=== PATIENT | male | born 1940 | race Caucasian/White ===

== ENCOUNTER 2016-12-06 10:46 | Emergency (ER) | payer OTHER ==
[~2016-12-06 10:46] MED LIST: ASPI-589 PO; CHOL1TAB2 PO; CYAN100020 PO; FINA5TAB PO; LEVO88TA PO; NTRGSL/4 UT; PRED-301 PO; SIMV20TA2 PO; SULF-183 PO; TAMS0.4C38 PO; TIOTCAP INH; UMEC1AER INH
[2016-12-06 10:50] VITALS: TEMP 36.8; Ht 167.6 cm
[2016-12-06] MEDS ORDERED: CALC1TAB27 PO (10:59)
[2016-12-06] MEDS ORDERED: FLUC100T4 PO (10:59)
[2016-12-06] MEDS ORDERED: ZNTT/150 PO (10:59)
[2016-12-06] MEDS ORDERED: SODIUM CHLORIDE 0.9% 1000ML 1,000 ML IV STA ×2 (11:01)
[2016-12-06 11:50] VITALS: O2SAT 99
--- NOTE | 2016-12-06 11:58 | DIAGNOSTIC IMAGING REPORT ---
CHEST ONE VIEW PORTABLE HISTORY: EVALUATE WEAKNESS COMPARISON: Chest 06/30/2016. FINDINGS: The heart remains top normal in size. Mild bibasilar interstitial thickening which is likely chronic. Stable blunting of the right lateral costophrenic sulcus. No pneumothorax. No new focal lung consolidations. No evidence for pulmonary edema. Left subclavian Port-A-Cath terminates in the distal SVC. Cervical spinal fusion hardware. Emphysema. IMPRESSION: No change from the prior study. Chronic basilar interstitial thickening and a trace right pleural effusion persists. Electronically signed by: Von Rocha M.D. 12/06/2016 11:56 AM Dictated Date/Time: 12/06/2016 11:55 AM
[2016-12-06 12:19] LABS: INR 1.1 (0.9-1.1); PARTIAL THROMBOPLASTIN RATIO 1.3
[2016-12-06 12:24] LABS: ALT/SGPT 14 U/L (12-78); AST/SGOT 13 U/L (15-37); BLOOD UREA NITROGEN 25 mg/dl (7-18); CALCIUM 8.1 mg/dl (8.5-10.1); CARBON DIOXIDE 25 mmol/L (21-32); CHLORIDE 105 mmol/L (98-107); GLUCOSE 103 mg/dl (70-99); MAGNESIUM 2.4 mg/dl (1.8-2.4); POTASSIUM 3.8 mmol/L (3.5-5.1); SODIUM 140 mmol/L (136-145)
[2016-12-06 12:25] LABS: HEMATOCRIT 30.1 % (42-52); MEAN CELL VOLUME 93.5 fL (80-100); MEAN CORPUSCULAR HEMOGLOBIN 30.4 pg (25-34); MEAN CORPUSCULAR HGB CONC 32.6 g/dl (32-36); MEAN PLATELET VOLUME 11.3 fL (7.4-10.4); PLATELET COUNT 64 K/uL (130-400); RED BLOOD COUNT 3.22 M/uL (4.7-6.1); WHITE BLOOD COUNT 1.18 K/uL (4.8-10.8)
[2016-12-06 12:28] LABS: BASO % 0.8 %; BASO ABS # 0.01 K/uL (0-0.2); COMPLETE YES; EOS % 1.7 %; IG% 0.8 %; LYMPH % 45.8 %; LYMPH ABS # 0.54 K/uL (1.2-3.4); MONO % 16.1 %; NEUT % 34.8 %; PLT ESTIMATE DECREASED
[2016-12-06 12:32] LABS: ALKALINE PHOSPHATASE 78 U/L (45-117); CKMB/CK RATIO 0.7 (0-3.0); THYROID STIMULATING HORMONE 0.099 uIu/ml (0.300-4.500)
--- NOTE | 2016-12-06 12:33 | DIAGNOSTIC IMAGING REPORT ---
HEAD CT NONCONTRAST CT DOSE: 537.48 mGy.cm HISTORY: Syncope. weakness TECHNIQUE: Multiaxial CT images of the head were performed without the use of intravenous contrast. Automated exposure control was utilized for this study. Comparison: None. Findings: The paranasal sinuses and mastoid air cells are clear. The calvarium and skull base are intact. There is no mass, hematoma, midline shift, acute infarct. White matter hypodensity is nonspecific but suggestive of microvascular ischemic change. The ventricles and sulci demonstrate mild age-related involutional changes. Impression: No acute intracranial abnormality. Atrophy and microvascular ischemic changes. Electronically signed by: Von Rocha M.D. 12/06/2016 12:32 PM Dictated Date/Time: 12/06/2016 12:30 PM
[2016-12-06 13:17] LABS: URINE APPEARANCE CLEAR (CLEAR); URINE BILIRUBIN NEG (NEG); URINE COLOR YELLOW; URINE NITRITE NEG (NEG); URINE PH 6.5 (4.5-7.5); URINE SPECIFIC GRAVITY 1.009 (1.000-1.030); UROBILINOGEN NEG (NEG)
[2016-12-06 13:21] LABS: MANUAL MICROSCOPIC REQUIRED? NO; REVIEW REQ? NO
[2016-12-06] MEDS ORDERED: NITROFURANTOIN MONOHYDRATE 100 MG CAP PO ONE (14:45)
[2016-12-06 15:53] VITALS: BP 117/53; PULSE 67; O2SAT 99
--- NOTE | 2016-12-06 16:53 | EMERGENCY ROOM VISIT NOTE ---
History Report prepared by Pattie: Damon Lino Under the Supervision of: Dr. Josue Maxwell M.D. First contact with patient: 11:01 Chief Complaint: ILLNESS Stated Complaint: WEAK, DOESN'T FEEL WELL, COLLAPSED LAST EVENING History of Present Illness The patient is a 76 year old male who presents to the Emergency Room with complaints of persistent weakness that started last night. The patient states that he has been wiped out, and last night, he was coming out of the bathroom, and his legs went out after losing his balance. He states that he did not fall, but went to the ground slowly. He says that he was short of breath last night as well with some chills. The patient is currently being treated on a maintenance treatment for lymphoma. The patient notes that he had been feeling great the past couple of days, and was at physical therapy yesterday morning. He did not his head, and the family denies that the patient was acting abnormally or was having any slurred speech. The patient's last chemotherapy was October 28. The patient's family notes that the patient's last Neulasta injection was the of last month, and was due for another one earlier this month, but blood work indicated that it was not needed. The patient has been prone to UTI's for the past month, and was put on maintenance Macrobid. He has been off of the Macrobid for a week due to problems with the prescription. The patient had bloody stools last month, but the doctors thought that it was just a colitis. He had a TURP and cholecystectomy in April. Pt denies LOC, headache , fevers, diaphoresis, visual changes, neck pain, chest pain, nausea, vomiting, abdominal pain, back pain, melena, hematochezia, urinary symptoms, numbness, lymphadenopathy, rash, or other complaints. Source of History: patient, family Onset: Last night Position: other (global - weakness) Symptom Intensity: slowly fell to ground after losing balance last night Timing: other (persistent) Associated Symptoms: + SOB (last night), + chills Note: No other associated symptoms noted. Review of Systems See HPI for pertinent positives and negatives. A total of ten systems were reviewed and were otherwise negative. Past Medical & Surgical Medical Problems: (1) Abnormal LFTs (2) MACRINA (acute kidney injury) (3) Anemia (4) Aortic stenosis, moderate (5) Bile leak, postoperative (6) Choledocholithiasis with acute cholecystitis with obstruction (7) Hypertension (8) Lymphoma (9) NHL (non-Hodgkin's lymphoma) (10) sob copd, chf, pleural effusion, lymphoma (11) Urinary tract infection Family History Patient reports no known family medical history. Social History Smoking Status: Current Every Day Smoker Drug Use: none Marital Status: Housing Status: lives with family Occupation Status: retired Current/Historical Medications Scheduled Dmamkxp-Ykeihauby-Zbjf (Calcium Magnesium & Zinc), 1 TAB PO QPM Cholecalciferol (Vitamin D-3), 1,000 UNITS PO DAILY Cyanocobalamin (Vitamin B12), 1,000 MCG PO DAILY Finasteride (Proscar), 1 TAB PO HS Fluconazole (Diflucan), 100 MG PO DIRECTED Levothyroxine Sodium (Synthroid), 1 TAB PO QAM Nitroglycerin (Nitrostat), 0.4 MG UT PRN Prednisone (Prednisone), 5 MG PO QAM Simvastatin (Zocor), 1 TAB PO HS Tamsulosin Hcl (Flomax), 0.4 MG PO BID Tiotropium [place] (Spiriva Handihaler), 1 CAP INH QAM Umeclidinium-Vilanterol (Anoro Ellipta 62.5-25 Mcg/INH), 1 PUFF INH QAM Scheduled PRN Ranitidine (Zantac), 150 MG PO DAILY PRN for PRN Allergies Coded Allergies: Gabapentin (Verified Adverse Reaction, Intermediate, unknown, 12/06/16) Patient's stated patient "developed signs of a heart attack w/ use of gabapentin". Physical Exam Vital Signs Date Time Temp Pulse Resp B/P Pulse Ox O2 Delivery O2 Flow Rate FiO2 12/06/16 15:53 67 18 117/53 99 12/06/16 13:47 95 95 Room Air 12/06/16 13:04 75 18 122/52 98 89 111/55 100 123/53 12/06/16 12:04 70 12/06/16 11:50 99 Room Air 12/06/16 10:50 36.8 77 20 99/42 99 Room Air Physical Exam GENERAL: Awake, alert, tired-appearing, in no distress HENT: Normocephalic, atraumatic. Oropharynx unremarkable. EYES: Normal conjunctiva. Sclera non-icteric. NECK: Supple. No nuchal rigidity. FROM. No JVD. RESPIRATORY: Clear to auscultation. CARDIAC: Regular rate, normal rhythm. Extremities warm and well perfused. Pulses equal. ABDOMEN: Soft, non-distended. No tenderness to palpation. No rebound or guarding. No masses. RECTAL: Deferred. MUSCULOSKELETAL: Chest examination reveals no tenderness. The back is symmetrical on inspection without obvious abnormality. There is no CVA tenderness to palpation. No joint edema. LOWER EXTREMITIES: Calves are equal size bilaterally and non-tender. 1+ pitting edema. No discoloration. 3/5 strength right leg, 4/5 strength left leg, but patient states weakness is not new. NEURO: Normal sensorium. No sensory or motor deficits noted. SKIN: No rash or jaundice noted. Medical Decision & Procedures ER Provider Diagnostic Interpretation: Radiology results as stated below per my review and radiologist interpretation: CHEST ONE VIEW PORTABLE HISTORY: EVALUATE WEAKNESS COMPARISON: Chest 06/30/2016. FINDINGS: The heart remains top normal in size. Mild bibasilar interstitial thickening which is likely chronic. Stable blunting of the right lateral costophrenic sulcus. No pneumothorax. No new focal lung consolidations. No evidence for pulmonary edema. Left subclavian Port-A-Cath terminates in the distal SVC. Cervical spinal fusion hardware. Emphysema. IMPRESSION: No change from the prior study. Chronic basilar interstitial thickening and a trace right pleural effusion persists. Electronically signed by: Von Rocha M.D. 12/06/2016 11:56 AM Dictated Date/Time: 12/06/2016 11:[address] CT DOSE: 537.48 mGy.cm HISTORY: Syncope. weakness TECHNIQUE: Multiaxial CT images of the head were performed without the use of intravenous contrast. Automated exposure control was utilized for this study. Comparison: None. Findings: The paranasal sinuses and mastoid air cells are clear. The calvarium and skull base are intact. There is no mass, hematoma, midline shift, acute infarct. White matter hypodensity is nonspecific but suggestive of microvascular ischemic change. The ventricles and sulci demonstrate mild age-related involutional changes. Impression: No acute intracranial abnormality. Atrophy and microvascular ischemic changes. Electronically signed by: Von Rocha M.D. 12/06/2016 12:32 PM Dictated Date/Time: 12/06/2016 12:30 PM Laboratory Results 12/06/16 11:45 Red Blood Count 3.22, Mean Corpuscular Volume 93.5, Mean Corpuscular Hemoglobin 30.4, Mean Corpuscular Hemoglobin Concent 32.6, Mean Platelet Volume 11.3, Neutrophils (%) (Auto) 34.8, Lymphocytes (%) (Auto) 45.8, Monocytes (%) (Auto) 16.1, Eosinophils (%) (Auto) 1.7, Basophils (%) (Auto) 0.8, Neutrophils # (Auto ) 0.41, Lymphocytes # (Auto) 0.54, Monocytes # (Auto) 0.19, Eosinophils # (Auto ) 0.02, Basophils # (Auto) 0.01 12/06/16 11:45 Test 12/06/16 11:45 12/06/16 11:59 12/06/16 13:01 White Blood Count 1.18 K/uL (4.8-10.8) Red Blood Count 3.22 M/uL (4.7-6.1) Hemoglobin 9.8 g/dL (14.0-18.0) Hematocrit 30.1 % (42-52) Mean Corpuscular Volume 93.5 fL (80-100) Mean Corpuscular Hemoglobin 30.4 pg (25-34) Mean Corpuscular Hemoglobin Concent 32.6 g/dl (32-36) Platelet Count 64 K/uL (130-400) Mean Platelet Volume 11.3 fL (7.4-10.4) Neutrophils (%) (Auto) 34.8 % Lymphocytes (%) (Auto) 45.8 % Monocytes (%) (Auto) 16.1 % Eosinophils (%) (Auto) 1.7 % Basophils (%) (Auto) 0.8 % Neutrophils # (Auto) 0.41 K/uL (1.4-6.5) Lymphocytes # (Auto) 0.54 K/uL (1.2-3.4) Monocytes # (Auto) 0.19 K/uL (0.11-0.59) Eosinophils # (Auto) 0.02 K/uL (0-0.5) Basophils # (Auto) 0.01 K/uL (0-0.2) RDW Standard Deviation 60.8 fL (36.4-46.3) RDW Coefficient of Variation 17.7 % (11.5-14.5) Immature Granulocyte % (Auto) 0.8 % Immature Granulocyte # (Auto) 0.01 K/uL (0.00-0.02) Platelet Estimate DECREASED Red Blood Cell Morphology Unremarkable Prothrombin Time 12.0 SECONDS (9.0-12.0) Prothromb Time International Ratio 1.1 (0.9-1.1) Activated Partial Thromboplast Time 34.9 SECONDS (21.0-31.0) Partial Thromboplastin Ratio 1.3 Anion Gap 10.0 mmol/L (3-11) Estimated GFR () 61.0 Estimated GFR (Non- 52.6 BUN/Creatinine Ratio 19.0 (10-20) Calcium Level 8.1 mg/dl (8.5-10.1) Magnesium Level 2.4 mg/dl (1.8-2.4) Total Bilirubin 0.8 mg/dl (0.2-1) Direct Bilirubin 0.3 mg/dl (0-0.2) Aspartate Amino Transf (AST/SGOT) 13 U/L (15-37) Alanine Aminotransferase (ALT/SGPT) 14 U/L (12-78) Alkaline Phosphatase 78 U/L (45-117) Total Creatine Kinase 149 U/L (39-308) Creatine Kinase MB 1.0 ng/ml (0.5-3.6) Creatine Kinase MB Ratio 0.7 (0-3.0) Troponin I 0.021 ng/ml (0-0.045) Total Protein 5.5 gm/dl (6.4-8.2) Albumin 3.0 gm/dl (3.4-5.0) Lipase 255 U/L (73-393) Thyroid Stimulating Hormone (TSH) 0.099 uIu/ml (0.300-4.500) Bedside Lactic Acid Venous 0.73 mmol/L (0.90-1.70) Urine Color YELLOW Urine Appearance CLEAR (CLEAR) Urine pH 6.5 (4.5-7.5) Urine Specific [place] 1.009 (1.000-1.030) Urine Protein NEG (NEG) Urine Glucose (UA) NEG (NEG) Urine Ketones NEG (NEG) Urine Occult Blood NEG (NEG) Urine Nitrite NEG (NEG) Urine Bilirubin NEG (NEG) Urine Urobilinogen NEG (NEG) Urine Leukocyte Esterase NEG (NEG) Laboratory results reviewed by me Medications Administered Medications (Trade) Dose Ordered Sig/Hari Route Start Time Stop Time Status Last Admin Dose Admin Sodium Chloride 1,000 ml @ 125 mls/hr Q8H STAT IV 12/06/16 11:01 12/06/16 16:19 DC 12/06/16 12:05 125 MLS/HR Sodium Chloride (Nss 1000ml) 1,000 ml @ 999 mls/hr Q1H1M STAT IV 12/06/16 11:01 12/06/16 12:01 DC 12/06/16 12:05 999 MLS/HR ECG Indication: weakness Rate (beats per minute): 69 Rhythm: normal sinus Findings: 1st degree AV block, no acute ischemic change, no ectopy ED Course 1101: Ordered NSS 1000 ml @ 999 mls/hr IV, NSS 1000 ml @ 125 mls/hr IV. 1111: The patient was evaluated in room B2. A complete history and physical exam was performed. 1325: I reevaluated the patient and he is feeling well. 1409: I reevaluated the patient with Dr. Burks - [facility] hematology and oncology - he says that the patient has had this problem with pancytopenia before and has had ongoing issues. Dr. Burks says that he would prefer not to hospitalize the patient just for neutropenia unless other problems are found. If the workups are negative here, then he want the patient to call the office on Thursday for a follow up. 1427: Ambulatory trial went fine with no issues. 1432: I reevaluated the patient and had a long discussion with him. He feels comfortable with going home, and following up with Dr. Burks and urology on Thursday. The patient verbally expressed understanding and agreement of the treatment plan. The patient will be discharged. 1445: Macrobid Cap 200 mg PO to go (1 today, 1 tomorrow). 1457: I discussed the patient with Dr. Anju Gomez [facility] urology - he said to have the patient just call the office. Medical Decision Triage Nursing notes reviewed. The patient's presentation and history were concerning for feeling weak. Etiologies such as metabolic, infection, hypo/hyperglycemia, electrolyte abnormalities, cardiac sources, intracerebral event, toxicologic, neurologic, as well as others were entertained. the patient was evaluated. He noted on brief episode of chills and was feeling weak. He didn't actually fall yesterday. He felt short of breath when he was trying to get himself back up when he had the episode and his caught him and lowered him down. He denied any breathing issues before or after. The patient feels essentially asymptomatic at this time except just generally weak but denies any new changes. He always has lower extremity weakness. The patient underwent a full metabolic workup and neurologic workup. His head CT was unremarkable. Chest x-ray was unremarkable. ECG revealed no acute findings. CBC revealed pancytopenia and mild neutropenia. The patient was hydrated gently. He is urinalysis was unremarkable. Remainder of his electrolytes and chemistries were unremarkable. Cardiac markers negative. I did discuss his pancytopenia with hematology. Given the lack of other diagnostic findings a felt keeping him out of the hospital would be most appropriate and avoiding any serious infection. The patient and family feel comfortable with this. They will follow-up with the office on Thursday. The patient had an ambulatory trial and did well with this. Orthostatics were negative. He was not hypoxic even with embolization. The patient will have a very low threshold for returning. Any issues especially fevers or chills will prompt a return visit to the emergency department. Neutropenic precautions were given. I gave my usual and customary discussion regarding this issue. He is having issues with his prophylactic Macrobid prescription. He is currently out. He was given a dose for today and tomorrow. I did notify his urologist, Dr. Rene that he was having difficulty with this prescription in the office will take care of it. By the evaluation outlined above other emergent etiologies such as those listed in the differential, as well as others, were deemed relatively unlikely. The patient and family were informed about the findings as listed above. All questions were answered and they were very pleased with the treatment. Return instructions were outlined and the patient was discharged in stable condition. The patient was referred to urology and his hematology for follow-up for a recheck of the current condition. The chart was completed utilizing [employer] voice recognition software. Grammatical errors, random word insertions, pronoun errors, and incomplete sentences are an occasional consequence of this system due to software limitations, ambient noise, and hardware issues. Any formal questions or concerns about the content, text, or information contained within the body of this dictation should be directly addressed to the physician for clarification. Consults Time Called: 1400 Consulting Physician: Dr. Kimmie ALMONTE hematology and oncology Returned Call: 1409 I reevaluated the patient with Dr. Kimmie ALMONTE hematology and oncology - he says that the patient has had this problem with pancytopenia before and has had ongoing issues. Dr. Burks says that he would prefer not to hospitalize the patient just for neutropenia unless other problems are found. If the workups are negative here, then he want the patient to call the office on Thursday for a follow up. Additional Consults: Time Called: 1450 Consulted Physician: Dr. Anju ALMONTE urology Returned Call: 1452 Additional Comments: I discussed the patient with Dr. Anju ALMONTE urology - he said to have the patient just call the office. Impression Primary Impression: Generalized weakness Additional Impressions: Neutropenia Pancytopenia Scribe Attestation The scribe's documentation has been prepared under my direction and personally reviewed by me in its entirety. I confirm that the note above accurately reflects all work, treatment, procedures, and medical decision making performed by me. Departure Information Dispostion Home / Self-Care Referrals No Doctor, Assigned (PCP) Harry Ovalle M.D. Forms HOME CARE DOCUMENTATION FORM, IMPORTANT VISIT INFORMATION, WORK / SCHOOL INSTRUCTIONS Patient Instructions My [facility], Neutropenia Additional Instructions Continue current medications. Follow-up with Dr. Vincent on Thursday. Return to the ER for worsening weakness, headache, chest pain, difficulty breathing, fevers, vomiting, worsening of your condition, or as needed. Problem Qualifiers
[2016-12-07] MEDS ORDERED: SPRIN/30 INH (09:44)
[2016-12-07] MEDS ORDERED: UMEC1AER INH (09:44)
[2016-12-07] MEDS ORDERED: FLM4 PO (09:44)
== END 2016-12-06 15:55 | disposition home or self-care (01) ==
LOC: C.EDB 10:49
DX: R53.1 Weakness (principal); D70.9 Neutropenia, unspecified; D61.818 Other pancytopenia; C85.90 Non-Hodgkin lymphoma, unspecified, unspecified site; I10 Essential (primary) hypertension; J44.9 Chronic obstructive pulmonary disease, unspecified; F17.200 Nicotine dependence, unspecified, uncomplicated; Z87.440 Personal history of urinary (tract) infections; Z90.79 Acquired absence of other genital organ(s); Z90.49 Acquired absence of other specified parts of digestive tract; Z79.52 Long term (current) use of systemic steroids

== ENCOUNTER 2016-12-07 09:32 | Inpatient (IN) | payer OTHER ==
[~2016-12-07] VITALS: Ht 167.6 cm; Wt 69.0 kg
[~2016-12-07 09:32] MED LIST changes: -ASPI-589 PO; +CALC1TAB27 PO; +FLUC100T4 PO; -SULF-183 PO; +ZNTT/150 PO
[2016-12-07] MEDS ORDERED: SODIUM CHLORIDE 0.9% 1000ML 1,000 ML IV STA (09:42)
[2016-12-07] MEDS ORDERED: CEFEPIME IV 2,000 MG in DEXTROSE 5% 100ML 100 ML IV STA (09:42)
[2016-12-07] MEDS ORDERED: FLM4 PO (09:44)
[2016-12-07] MEDS ORDERED: UMEC1AER INH (09:44)
[2016-12-07] MEDS ORDERED: SPRIN/30 INH (09:44)
[2016-12-07] MEDS ORDERED: ACETAMINOPHEN 500 MG TAB PO STA (09:51)
--- NOTE | 2016-12-07 10:08 | DIAGNOSTIC IMAGING REPORT ---
CHEST ONE VIEW PORTABLE CLINICAL HISTORY: Weakness. COMPARISON STUDY: Chest radiograph December 06, 2016. FINDINGS: Cervical spine fusion and left subclavian [id number] are incidentally noted. Small right and trace left pleural effusions are unchanged. Mild bibasilar opacities favor atelectasis. Cardiomediastinal silhouette is stable. Patient is rotated. Emphysema is noted. There is no pneumothorax. IMPRESSION: No change since prior exam. Small right and trace left pleural effusions with bilateral opacities which favor atelectasis. Electronically signed by: Dusty Vazquez M.D. 12/07/2016 10:07 AM Dictated Date/Time: 12/07/2016 10:04 AM
[2016-12-07 10:40] LABS: INR 1.1 (0.9-1.1); PARTIAL THROMBOPLASTIN RATIO 1.3; PROTHROMBIN TIME (PATIENT) 12.3 SECONDS (9.0-12.0)
[2016-12-07 10:50] LABS: BUN/CREATININE RATIO 15.9 (10-20); CALCIUM 7.6 mg/dl (8.5-10.1); CREATININE 1.2 mg/dl (0.60-1.40); MAGNESIUM 2.4 mg/dl (1.8-2.4); POTASSIUM 3.7 mmol/L (3.5-5.1)
[2016-12-07 10:54] LABS: HEMATOCRIT 26.1 % (42-52); MEAN CELL VOLUME 93.9 fL (80-100); MEAN CORPUSCULAR HEMOGLOBIN 31.3 pg (25-34); MEAN CORPUSCULAR HGB CONC 33.3 g/dl (32-36); MEAN PLATELET VOLUME 10.8 fL (7.4-10.4); PLATELET COUNT 53 K/uL (130-400); RED BLOOD COUNT 2.78 M/uL (4.7-6.1); WHITE BLOOD COUNT 1.08 K/uL (4.8-10.8)
[2016-12-07 10:59] LABS: CKMB/CK RATIO 0.8 (0-3.0); THYROID STIMULATING HORMONE 0.126 uIu/ml (0.300-4.500)
[2016-12-07 11:23] LABS: COMPLETE YES; EOS % 0.9 %; LYMPH % 44.4 %; LYMPH ABS # 0.48 K/uL (1.2-3.4); MONO % 16.7 %
--- NOTE | 2016-12-07 12:32 | DIAGNOSTIC IMAGING REPORT ---
MRI OF THE LUMBAR SPINE WITHOUT CONTRAST CLINICAL HISTORY: Weakness, incontinence and fever. History of lymphoma. COMPARISON STUDY: No previous studies for comparison. TECHNIQUE: Utilizing a 1.5 Slime magnet and dedicated coil, multiplanar, multiecho imaging of the lumbar spine was performed without IV contrast. FINDINGS: For purposes of numbering on this exam, the L5-S1 disc space is assigned to axial image 23 of 25. There is slight anterolisthesis of L4 and L5. There is no intracanalicular mass or fluid collection. Left renal atrophy with suspected left renal cysts is again noted. This is shown on CT of March 26, 2016. Mild dilatation of the infrarenal abdominal aorta appear similar to prior exam. There is no suspicious marrow replacement. There is no fracture. L1-2: The central canal and neural foramen are patent. L2-3: The central canal is patent. There is facet arthrosis. The neural foramen are patent. L3-4: There is disc bulge with ligamentous hypertrophy and facet arthrosis. These findings superimposed upon a congenitally narrow canal result in severe narrowing of the central canal and lateral recesses with moderate narrowing of both neural foramen. L4-5: There is disc space narrowing with disc bulge, ligamentous hypertrophy and facet arthrosis that result in severe narrowing of the central canal, lateral recesses as well as moderate narrowing of both neural foramen. L5-S1: Central canal is patent. There is facet arthrosis. There is moderate narrowing of the left neural foramen is mild narrowing of the right neural foramen. IMPRESSION: 1. 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 2. Moderate to severe multilevel neural foraminal stenosis, as detailed above. 3. No suspicious marrow replacement. Electronically signed by: Dusty Vazquez M.D. 12/07/2016 12:31 PM Dictated Date/Time: 12/07/2016 12:26 PM
[2016-12-07] MEDS ORDERED: HYDROCORTISONE SOD SUCCINATE 100 MG/2 ML VIAL IV STA ×2 (14:44→14:45)
[2016-12-07 14:45] LABS: URINE APPEARANCE CLEAR (CLEAR); URINE BILIRUBIN NEG (NEG); URINE COLOR YELLOW; URINE NITRITE NEG (NEG); URINE PH 6.5 (4.5-7.5); URINE SPECIFIC GRAVITY 1.012 (1.000-1.030); UROBILINOGEN NEG (NEG)
[2016-12-07 14:46] LABS: MANUAL MICROSCOPIC REQUIRED? NO; REVIEW REQ? NO
[2016-12-07] MEDS ORDERED: ONDANSETRON INJ 2 MG/ML 2 ML VIAL IV PRN (15:00)
[2016-12-07] MEDS ORDERED: VANCOMYCIN CONSULT ACTIVE PRN (15:00)
[2016-12-07] MEDS ORDERED: ACETAMINOPHEN 325 MG TAB PO PRN (15:00)
[2016-12-07] MEDS ORDERED: VANCOMYCIN INJ 1,700 MG in SODIUM CHLORIDE 0.9% 500ML 500 ML IV ONE (15:00)
[2016-12-07] MEDS ORDERED: MAGNESIUM HYDROXIDE SUSP 30 ML UDC PO PRN (15:00)
[2016-12-07] MEDS ORDERED: ALUMINUM/MAGNESIUM/SIMETH (MAALOX MAX) 30 ML UDC PO PRN (15:00)
[2016-12-07 15:10] VITALS: O2SAT 97; Ht 167.6 cm; Wt 69.0 kg
[2016-12-07 15:37] LABS: LYME DISEASE AB IGG NEG (NEG); LYME DISEASE AB IGM NEG (NEG)
--- NOTE | 2016-12-07 16:05 | DIAGNOSTIC IMAGING REPORT ---
BILATERAL LOWER EXTREMITY VENOUS DOPPLER HISTORY: Lower extremity edema. eval for DVT either leg COMPARISON STUDY: None. FINDINGS: There is normal compressibility, flow, and augmentation within the bilateral lower extremity deep venous systems. IMPRESSION: No DVT within the right or left lower extremity. Electronically signed by: Von Rocha M.D. 12/07/2016 4:04 PM Dictated Date/Time: 12/07/2016 4:03 PM
[2016-12-07] MEDS ORDERED: PANTOprazole SOD 40 MG TAB PO STA (16:07)
--- NOTE | 2016-12-07 17:02 | EMERGENCY ROOM VISIT NOTE ---
History Report prepared by Pattie: Pauline Foster Under the Supervision of: Dr. Josue Maxwell M.D. First contact with patient: 09:35 Chief Complaint: SHOULDER PAIN Stated Complaint: SHOULDER PAIN History of Present Illness The patient is a 76 year old male who presents to the Emergency Room with complaints of an episode of shoulder pain and chills starting just prior to arrival. The patient rates his pain as a 2/10 in severity. He states that this morning he was walking and had an episode of weakness washed over him. He states that it is "like a chain reaction." He stated that the weakness started in his back and moved to his legs. The patient reports that he fell into the staircase hitting his shoulder. The patient complains of weakness, chills, and fever. The patient notes that he experienced incontinence during the night. The patient notes a history of neck surgery, but denies any back surgeries. He reports having a history of lymphoma. I saw the patient in the ED yesterday for a similar episode which resolved. The patient had neutropenia but no other laboratory abnormalities. Cultures are still in process. Pt denies LOC, headache, diaphoresis, visual changes, neck pain, chest pain, breathing difficulties, nausea, vomiting, abdominal pain, back pain, melena, hematochezia , urinary symptoms, numbness, lymphadenopathy, rash, or other complaints. Source of History: patient Onset: prior to arrival Position: shoulder Symptom Intensity: 2/10 Timing: other (episode) Associated Symptoms: + chills, + fevers, + weakness Review of Systems See HPI for pertinent positives and negatives. A total of ten systems were reviewed and were otherwise negative. Past Medical & Surgical Medical Problems: (1) Abnormal LFTs (2) MACRINA (acute kidney injury) (3) Anemia (4) Aortic stenosis, moderate (5) Bile leak, postoperative (6) Choledocholithiasis with acute cholecystitis with obstruction (7) Hypertension (8) Lymphoma (9) Neutropenic fever (10) NHL (non-Hodgkin's lymphoma) (11) sob copd, chf, pleural effusion, lymphoma (12) Urinary tract infection Family History Patient reports no known family medical history. Social History Smoking Status: Current Every Day Smoker Drug Use: none Marital Status: Housing Status: lives with family Occupation Status: retired Current/Historical Medications Scheduled Jphczyr-Rsiorhroj-Jjnx (Calcium Magnesium & Zinc), 1 TAB PO QPM Cholecalciferol (Vitamin D-3), 1,000 UNITS PO DAILY Cyanocobalamin (Vitamin B12), 1,000 MCG PO DAILY Finasteride (Proscar), 1 TAB PO HS Fluconazole (Diflucan), 100 MG PO DIRECTED Levothyroxine Sodium (Synthroid), 1 TAB PO QAM Nitroglycerin (Nitrostat), 0.4 MG UT PRN Prednisone (Prednisone), 5 MG PO QAM Simvastatin (Zocor), 1 TAB PO HS Tamsulosin HCl (Tamsulosin HCl), 2 CAP PO DAILY Tiotropium [place] (Spiriva Handihaler), 1 CAP INH DAILY Umeclidinium-Vilanterol (Anoro Ellipta 62.5-25 Mcg/INH), 1 PUFF INH DAILY Scheduled PRN Ranitidine (Zantac), 150 MG PO DAILY PRN for PRN Allergies Coded Allergies: Gabapentin (Verified Adverse Reaction, Intermediate, unknown, 12/07/16) Patient's stated patient "developed signs of a heart attack w/ use of gabapentin". Physical Exam Vital Signs Date Time Temp Pulse Resp B/P Pulse Ox O2 Delivery O2 Flow Rate FiO2 12/07/16 13:50 71 12/07/16 12:45 68 18 95/42 96 Room Air 12/07/16 09:58 94 Room Air 12/07/16 09:41 37.7 88 18 112/51 97 Room Air Physical Exam GENERAL: Awake, alert, tired-appearing, in no distress HENT: Normocephalic, atraumatic. Oropharynx unremarkable. EYES: Normal conjunctiva. Sclera non-icteric. NECK: Supple. No nuchal rigidity. FROM. No JVD. RESPIRATORY: Clear to auscultation. CARDIAC: Regular rate, normal rhythm. Extremities warm and well perfused. Pulses equal. ABDOMEN: Soft, non-distended. No tenderness to palpation. No rebound or guarding. No masses. RECTAL: Deferred. MUSCULOSKELETAL: Chest examination reveals no tenderness. The back is symmetrical on inspection without obvious abnormality. There is no CVA tenderness to palpation. No joint edema. 4.5/5 strength in arms. LOWER EXTREMITIES: Calves are equal size bilaterally and non-tender. +1 edema. No discoloration. Weakness in legs , 3.5/5 on right and 4/5 on left. NEURO: Normal sensorium. No sensory or motor deficits noted. SKIN: No rash or jaundice noted. Medical Decision & Procedures ER Provider Diagnostic Interpretation: Radiology results as stated below per my review and radiologist interpretation: CHEST ONE VIEW PORTABLE CLINICAL HISTORY: Weakness. COMPARISON STUDY: Chest radiograph December 06, 2016. FINDINGS: Cervical spine fusion and left subclavian Dubiyf-h-Oxnr are incidentally noted. Small right and trace left pleural effusions are unchanged. Mild bibasilar opacities favor atelectasis. Cardiomediastinal silhouette is stable. Patient is rotated. Emphysema is noted. There is no pneumothorax. IMPRESSION: No change since prior exam. Small right and trace left pleural effusions with bilateral opacities which favor atelectasis. Electronically signed by: Dusty Vazquez M.D. 12/07/2016 10:07 AM Dictated Date/Time: 12/07/2016 10:04 AM MRI OF THE LUMBAR SPINE WITHOUT CONTRAST CLINICAL HISTORY: Weakness, incontinence and fever. History of lymphoma. COMPARISON STUDY: No previous studies for comparison. TECHNIQUE: Utilizing a 1.5 Slime magnet and dedicated coil, multiplanar, multiecho imaging of the lumbar spine was performed without IV contrast. FINDINGS: For purposes of numbering on this exam, the L5-S1 disc space is assigned to axial image 23 of 25. There is slight anterolisthesis of L4 and L5. There is no intracanalicular mass or fluid collection. Left renal atrophy with suspected left renal cysts is again noted. This is shown on CT of March 26, 2016. Mild dilatation of the infrarenal abdominal aorta appear similar to prior exam. There is no suspicious marrow replacement. There is no fracture. L1-2: The central canal and neural foramen are patent. L2-3: The central canal is patent. There is facet arthrosis. The neural foramen are patent. L3-4: There is disc bulge with ligamentous hypertrophy and facet arthrosis. These findings superimposed upon a congenitally narrow canal result in severe narrowing of the central canal and lateral recesses with moderate narrowing of both neural foramen. L4-5: There is disc space narrowing with disc bulge, ligamentous hypertrophy and facet arthrosis that result in severe narrowing of the central canal, lateral recesses as well as moderate narrowing of both neural foramen. L5-S1: Central canal is patent. There is facet arthrosis. There is moderate narrowing of the left neural foramen is mild narrowing of the right neural foramen. IMPRESSION: 1. 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 2. Moderate to severe multilevel neural foraminal stenosis, as detailed above. 3. No suspicious marrow replacement. Electronically signed by: Dusty Vazquez M.D. 12/07/2016 12:31 PM Dictated Date/Time: 12/07/2016 12:26 PM Laboratory Results 12/07/16 10:18 Red Blood Count 2.78, Mean Corpuscular Volume 93.9, Mean Corpuscular Hemoglobin 31.3, Mean Corpuscular Hemoglobin Concent 33.3, Mean Platelet Volume 10.8, Neutrophils (%) (Auto) 38.0, Lymphocytes (%) (Auto) 44.4, Monocytes (%) (Auto) 16.7, Eosinophils (%) (Auto) 0.9, Basophils (%) (Auto) 0.0, Neutrophils # (Auto ) 0.41, Lymphocytes # (Auto) 0.48, Monocytes # (Auto) 0.18, Eosinophils # (Auto ) 0.01, Basophils # (Auto) 0.00 12/07/16 10:18 Test 12/07/16 10:18 12/07/16 10:27 12/07/16 14:20 White Blood Count 1.08 K/uL (4.8-10.8) Red Blood Count 2.78 M/uL (4.7-6.1) Hemoglobin 8.7 g/dL (14.0-18.0) Hematocrit 26.1 % (42-52) Mean Corpuscular Volume 93.9 fL (80-100) Mean Corpuscular Hemoglobin 31.3 pg (25-34) Mean Corpuscular Hemoglobin Concent 33.3 g/dl (32-36) Platelet Count 53 K/uL (130-400) Mean Platelet Volume 10.8 fL (7.4-10.4) Neutrophils (%) (Auto) 38.0 % Lymphocytes (%) (Auto) 44.4 % Monocytes (%) (Auto) 16.7 % Eosinophils (%) (Auto) 0.9 % Basophils (%) (Auto) 0.0 % Neutrophils # (Auto) 0.41 K/uL (1.4-6.5) Lymphocytes # (Auto) 0.48 K/uL (1.2-3.4) Monocytes # (Auto) 0.18 K/uL (0.11-0.59) Eosinophils # (Auto) 0.01 K/uL (0-0.5) Basophils # (Auto) 0.00 K/uL (0-0.2) RDW Standard Deviation 61.1 fL (36.4-46.3) RDW Coefficient of Variation 17.6 % (11.5-14.5) Immature Granulocyte % (Auto) 0.0 % Immature Granulocyte # (Auto) 0.00 K/uL (0.00-0.02) Red Blood Cell Morphology Unremarkable Prothrombin Time 12.3 SECONDS (9.0-12.0) Prothromb Time International Ratio 1.1 (0.9-1.1) Activated Partial Thromboplast Time 34.7 SECONDS (21.0-31.0) Partial Thromboplastin Ratio 1.3 Anion Gap 7.0 mmol/L (3-11) Est Creatinine Clear Calc Drug Dose 46.5 ml/min Estimated GFR () 67.2 Estimated GFR (Non- 58.0 BUN/Creatinine Ratio 15.9 (10-20) Calcium Level 7.6 mg/dl (8.5-10.1) Magnesium Level 2.4 mg/dl (1.8-2.4) Total Bilirubin 1.0 mg/dl (0.2-1) Direct Bilirubin 0.3 mg/dl (0-0.2) Aspartate Amino Transf (AST/SGOT) 13 U/L (15-37) Alanine Aminotransferase (ALT/SGPT) 15 U/L (12-78) Alkaline Phosphatase 69 U/L (45-117) Total Creatine Kinase 153 U/L (39-308) Creatine Kinase MB 1.2 ng/ml (0.5-3.6) Creatine Kinase MB Ratio 0.8 (0-3.0) Troponin I 0.031 ng/ml (0-0.045) Total Protein 5.3 gm/dl (6.4-8.2) Albumin 2.9 gm/dl (3.4-5.0) Lipase 188 U/L (73-393) Thyroid Stimulating Hormone (TSH) 0.126 uIu/ml (0.300-4.500) Lyme Disease IgG Antibody NEG (NEG) Lyme Disease IgM Antibody NEG (NEG) Bedside Lactic Acid Venous 0.53 mmol/L (0.90-1.70) Urine Color YELLOW Urine Appearance CLEAR (CLEAR) Urine pH 6.5 (4.5-7.5) Urine Specific Roxie 1.012 (1.000-1.030) Urine Protein TRACE (NEG) Urine Glucose (UA) NEG (NEG) Urine Ketones NEG (NEG) Urine Occult Blood NEG (NEG) Urine Nitrite NEG (NEG) Urine Bilirubin NEG (NEG) Urine Urobilinogen NEG (NEG) Urine Leukocyte Esterase NEG (NEG) Urine WBC (Auto) 1-5 /hpf (0-5) Urine RBC (Auto) 0-4 /hpf (0-4) Urine Hyaline Casts (Auto) 0 /lpf (0-5) Urine Epithelial Cells (Auto) 10-20 /lpf (0-5) Urine Bacteria (Auto) NEG (NEG) Laboratory results reviewed by me Medications Administered Medications (Trade) Dose Ordered Sig/Hari Route Start Time Stop Time Status Last Admin Dose Admin Sodium Chloride 1,000 ml @ 125 mls/hr Q8H STAT IV 12/07/16 09:42 12/07/16 17:41 12/07/16 10:37 125 MLS/HR Cefepime HCl/ Dextrose (Maxipime IV/D5 100ml) 122.6 ml @ 200 mls/hr NOW STAT IV 12/07/16 09:42 12/07/16 10:18 DC 12/07/16 10:36 200 MLS/HR Acetaminophen (Tylenol Tab) 1,000 mg NOW STAT PO 12/07/16 09:51 12/07/16 09:52 DC 12/07/16 10:36 1,000 MG Hydrocortisone Sodium Succinate (Solu-Cortef IV) 25 mg NOW STAT IV 12/07/16 14:45 12/07/16 14:46 DC 12/07/16 15:14 25 MG ECG Indication: weakness Rate (beats per minute): 75 Rhythm: sinus rhythm Findings: 1st degree AV block, PAC, no acute ischemic change ED Course 0938: The patient was evaluated in room B8. A complete history and physical exam was performed. 0942: Ordered Cefepime HCl 2000 mg/Dextrose 122.6 ml @ 200 mls/hr IV, NSS 1000 ml @ 125 mls/hr IV, Tylenol Tab 1000 mg PO. 1255: I reevaluated the patient and informed him of the future treatment plan. He verbally understood and agreed. 1301: Discussed the patient's case with Dr. Andino. The patient will be evaluated for further treatment and disposition. Medical Decision Triage Nursing notes reviewed. The patient's presentation and history were concerning for weakness, chills, and fever. Etiologies such as febrile neutropenia, bacteremia, contusion, metabolic, infection, hypo/hyperglycemia, electrolyte abnormalities, cardiac sources, intracerebral event, toxicologic, neurologic, as well as others were entertained. The patient was evaluated. He had borderline temperature elevation. He has had chills. The patient was given Tylenol. IV fluids were initiated. Blood work was obtained. He had a culture from the port as well as from peripheral site. The patient has had some back issues but never had back surgery. Given his symptoms described above additional imaging was felt to be necessary. Chest x-ray was unremarkable. MRI was ordered. The patient was given 2 g IV cefepime. His shoulder examination was benign. He had some mild abrasions and contusions to the right forearm. He had good range of motion without bony tenderness. No dislocation. He did not strike his head. He has no headache. The MRI shows significant spinal stenosis but no significant problems with infection or malignancy. The patient was reassessed. He was doing relatively well. Family was updated. He will need to stay in the hospital. I did consult with internal medicine. The patient was evaluated in the Emergency Room for further management. I did notify his oncologist as well and he will be seen in rounding tomorrow. The chart was completed utilizing [employer] Speech voice recognition software. Grammatical errors, random word insertions, pronoun errors, and incomplete sentences are an occasional consequence of this system due to software limitations, ambient noise, and hardware issues. Any formal questions or concerns about the content, text, or information contained within the body of this dictation should be directly addressed to the physician for clarification. Consults Time Called: [id number] Consulting Physician: Dr. Andino Returned Call: [phone] Discussed the patient's case with Dr. Andino. The patient will be evaluated for further treatment and disposition. Impression Primary Impression: Febrile neutropenia Additional Impressions: Weakness Low back pain Spinal stenosis Pancytopenia Scribe Attestation The scribe's documentation has been prepared under my direction and personally reviewed by me in its entirety. I confirm that the note above accurately reflects all work, treatment, procedures, and medical decision making performed by me. Departure Information Dispostion Being Evaluated By Hospitalist Harry Shin M.D. (PCP) Patient Instructions My [facility] Problem Qualifiers
--- NOTE | 2016-12-07 17:38 | Medical Student: [facility] ---
Med Student History & Physical Date & Time of Service: December 07, 2016 at 17:14 Chief Complaint: Neutropenic Fever Primary Care Physician: Harry Ovalle M.D. History of Present Illness Source: patient, family, clinic records, hospital records This is a 76 yo male with a PMH significant for Non-hodgkin's lymphoma, COPD, hypertension, BPH, who presents with fever and spells of collapsing without losing consciousness. These spells began yesterday and he was seen in the ED but was released following administration of IV fluids. No evidence was found of any kind of intracranial abnormalities or acute neurological conditions. Last night he experienced incontinence and this morning awoke with fever. He presented to the emergency department after another falling spell and increased weakness. He was found to be febrile in the ED. He has also been having chills at night for the past two days. Otherwise, he reports no new symptoms. He denies chest pain, shortness of breath, diarrhea, burning or pain with urination , or increased urinary frequency. Past Medical/Surgical History Medical Problems: (1) CHF (congestive heart failure) Status: Acute (2) Febrile neutropenia Status: Acute (3) Hypotension Status: Acute (4) Immunocompromised Status: Acute (5) Low back pain Status: Acute (6) Pancytopenia Status: Acute (7) Sepsis Status: Acute (8) Spinal stenosis Status: Acute (9) UTI (urinary tract infection) Status: Acute (10) Weakness Status: Acute Family History Both parents . Mother from hemorrhagic stroke at age 64 and father from [place] in his 40s. Social History Smoking Status: Current Every Day Smoker (1/2 pack per day) Alcohol Use: none Drug Use: none Marital Status: Housing status: lives with family Occupational Status: retired Immunizations History of Influenza Vaccine: Yes Influenza Vaccine Date: Jun 29, 2015 History of Tetanus Vaccine?: No History of Pneumococcal: Yes Pneumococcal Date: Jun 26, 2015 History of Hepatitis B Vaccine: Unknown Allergies Coded Allergies: Gabapentin (Verified Adverse Reaction, Intermediate, unknown, 12/07/16) Patient's stated patient "developed signs of a heart attack w/ use of gabapentin". Medications Gjyikib-Ukroeknvr-Zdol (Calcium Magnesium & Zinc), 1 TAB PO QPM Cholecalciferol (Vitamin D-3), 1,000 UNITS PO DAILY Cyanocobalamin (Vitamin B12), 1,000 MCG PO DAILY Finasteride (Proscar), 1 TAB PO HS Fluconazole (Diflucan), 100 MG PO DIRECTED Levothyroxine Sodium (Synthroid), 1 TAB PO QAM Nitroglycerin (Nitrostat), 0.4 MG UT PRN Prednisone (Prednisone), 5 MG PO QAM Ranitidine (Zantac), 150 MG PO DAILY PRN for PRN Simvastatin (Zocor), 1 TAB PO HS Tamsulosin HCl (Tamsulosin HCl), 2 CAP PO DAILY Tiotropium [place] (Spiriva Handihaler), 1 CAP INH DAILY Umeclidinium-Vilanterol (Anoro Ellipta 62.5-25 Mcg/INH), 1 PUFF INH DAILY Review of Systems Constitutional: + chills, + weight loss (prior to diagnosis. has gained weight in the past few months), No sweats Eyes: + problem reported (puffiness), No worsening of vision ENT: No hearing loss, No sore throat, No trouble swallowing Respiratory: No cough, No shortness of breath, No wheezing Cardiovascular: No chest pain, No orthopnea Abdomen: + constipation (uses dulcolax at home), No diarrhea, No nausea, No vomiting Musculoskeletal: No joint pain Genitourinary - Male: + urinary incontinence, + urinary retention, No dysuria, No urinary urgency Neurologic: + weakness (right leg) Endocrine: No fatigue Hematologic / Lymphatic: + abnormal bleeding/bruising Physical Exam Vital Signs (24 Hours) Date Time Temp Pulse Resp B/P Pulse Ox O2 Delivery O2 Flow Rate FiO2 12/07/16 15:15 69 17 93/44 97 Room Air 12/07/16 15:10 97 Room Air 12/07/16 13:50 71 12/07/16 12:45 68 18 95/42 96 Room Air 12/07/16 09:58 94 Room Air 12/07/16 09:41 37.7 88 18 112/51 97 Room Air General Appearance: no apparent distress, + pertinent finding (ill appearing) Head: normocephalic, atraumatic Eyes: PERRL, EOMI ENT: normal ENT inspection, hearing grossly normal, TMs normal, + pertinent finding (dry mucus membranes) Neck: supple, thyroid normal, no JVD Respiratory/Chest: chest non-tender, no respiratory distress, + wheezing ( scattered wheezes bilaterally) Cardiovascular: regular rate, rhythm, no gallop, + systolic murmur (II/ at upper sternal border), + pertinent finding (trace LE edema bilaterally) Abdomen/GI: normal bowel sounds, non tender, soft Extremities/Musculoskelatal: no calf tenderness, non-tender Neurologic/Psych: alert, oriented x 3, + motor weakness (decreased strength in right lower extremity) Skin: no rash Diagnostics Laboratory Results Results Past 24 Hours Test 12/07/16 10:18 12/07/16 10:27 12/07/16 14:20 12/07/16 14:58 Range/Units White Blood Count 1.08 4.8-10.8 K/uL Red Blood Count 2.78 4.7-6.1 M/uL Hemoglobin 8.7 14.0-18.0 g/dL Hematocrit 26.1 42-52 % Mean Corpuscular Volume 93.9 80-100 fL Mean Corpuscular Hemoglobin 31.3 25-34 pg Mean Corpuscular Hemoglobin Concent 33.3 32-36 g/dl Platelet Count 53 130-400 K/uL Mean Platelet Volume 10.8 7.4-10.4 fL Neutrophils (%) (Auto) 38.0 % Lymphocytes (%) (Auto) 44.4 % Monocytes (%) (Auto) 16.7 % Eosinophils (%) (Auto) 0.9 % Basophils (%) (Auto) 0.0 % Neutrophils # (Auto) 0.41 1.4-6.5 K/uL Lymphocytes # (Auto) 0.48 1.2-3.4 K/uL Monocytes # (Auto) 0.18 0.11-0.59 K/uL Eosinophils # (Auto) 0.01 0-0.5 K/uL Basophils # (Auto) 0.00 0-0.2 K/uL RDW Standard Deviation 61.1 36.4-46.3 fL RDW Coefficient of Variation 17.6 11.5-14.5 % Immature Granulocyte % (Auto) 0.0 % Immature Granulocyte # (Auto) 0.00 0.00-0.02 K/uL Red Blood Cell Morphology Unremarkable Prothrombin Time 12.3 9.0-12.0 SECONDS Prothromb Time International Ratio 1.1 0.9-1.1 Activated Partial Thromboplast Time 34.7 21.0-31.0 SECONDS Partial Thromboplastin Ratio 1.3 Sodium Level 138 136-145 mmol/L Potassium Level 3.7 3.5-5.1 mmol/L Chloride Level 106 98-107 mmol/L Carbon Dioxide Level 25 21-32 mmol/L Anion Gap 7.0 3-11 mmol/L Blood Urea Nitrogen 19 7-18 mg/dl Creatinine 1.20 0.60-1.40 mg/dl Est Creatinine Clear Calc Drug Dose 46.5 ml/min Estimated GFR () 67.2 Estimated GFR (Non- 58.0 BUN/Creatinine Ratio 15.9 10-20 Random Glucose 94 70-99 mg/dl Calcium Level 7.6 8.5-10.1 mg/dl Magnesium Level 2.4 1.8-2.4 mg/dl Total Bilirubin 1.0 0.2-1 mg/dl Direct Bilirubin 0.3 0-0.2 mg/dl Aspartate Amino Transf (AST/SGOT) 13 15-37 U/L Alanine Aminotransferase (ALT/SGPT) 15 12-78 U/L Alkaline Phosphatase 69 45-117 U/L Total Creatine Kinase 153 39-308 U/L Creatine Kinase MB 1.2 0.5-3.6 ng/ml Creatine Kinase MB Ratio 0.8 0-3.0 Troponin I 0.031 0-0.045 ng/ml Total Protein 5.3 6.4-8.2 gm/dl Albumin 2.9 3.4-5.0 gm/dl Lipase 188 73-393 U/L Thyroid Stimulating Hormone (TSH) 0.126 0.300-4.500 uIu/ml Lyme Disease IgG Antibody NEG NEG Lyme Disease IgM Antibody NEG NEG Bedside Lactic Acid Venous 0.53 0.90-1.70 mmol/L Urine Color YELLOW Urine Appearance CLEAR CLEAR Urine pH 6.5 4.5-7.5 Urine Specific Fowler 1.012 1.000-1.030 Urine Protein TRACE NEG Urine Glucose (UA) NEG NEG Urine Ketones NEG NEG Urine Occult Blood NEG NEG Urine Nitrite NEG NEG Urine Bilirubin NEG NEG Urine Urobilinogen NEG NEG Urine Leukocyte Esterase NEG NEG Urine WBC (Auto) 1-5 0-5 /hpf Urine RBC (Auto) 0-4 0-4 /hpf Urine Hyaline Casts (Auto) 0 0-5 /lpf Urine Epithelial Cells (Auto) 10-20 0-5 /lpf Urine Bacteria (Auto) NEG NEG Microbiology Results 12/07/16 Blood Culture, Received Pending 12/07/16 Blood Culture, Received Pending 12/07/16 Urine Culture, Received Pending Diagnostic Radiology CXR: no acute changes CT head: no evidence of acute intracranial pathology EKG 1st degree AV block with mild left axis shift and decreased voltage. Impression Assessment and Plan This is a 76 yo male with a past medical history of [place] lymphoma who presents with severe neutropenia and a low grade fever and spells of collapsing with exertion. Neutropenic fever: -Treat empirically with cefepime 2g IV q8hr and vancomycin IV given infusaport until cultures come back -Begin IV fluids 1000 ml at 125 ml/hr for BP support (BP 90s/40s earlier today) -Increase prednisone while acutely ill in hospital for increased BP support -Lyme negative. Ordered flu test -Daily CBC/BMP -Consider echocardiography tomorrow. Cardiology recs appreciated Hypothyroid: -TSH low today and at previous reading -Will decrease synthroid to 75 mcg daily from 88 mcg daily -recheck TSH in 6 weeks COPD: -Continue spiriva and ellipta BPH: -Hold flomax given low blood pressure -Continue finasteride DVT prophylaxis: -Doppler to assess for possible DVT today -SCDs for prophylaxis given contraindication to anticoagulation (low plts) Disposition: -Oncology -Will admit for at least 48 hours until preliminary blood cultures come back Level of Care Oncology Advanced Directives Existing Advance Directive: Yes Existing Living Will: No Existing Power of Deputy Insurance Commissioner: No Resuscitation Status FULL RESUSCITATION DVT Prophylaxis SCDs Prophylaxis Contraindication: Plt count<reference range (finding) Social Service Consult None Apply Note Total Time: Critical Care 30 - 74 minutes
[2016-12-07] MEDS ORDERED: SODIUM CHLORIDE 0.9% 1000ML 1,000 ML IV SCH (18:00)
[2016-12-07] MEDS: SODIUM CHLORIDE 0.9% 1000ML 1,000 ML IV SCH (18:29)
[2016-12-07 18:34] VITALS: BP 127/70; PULSE 64; TEMP 36.5; O2SAT 98
--- NOTE | 2016-12-07 19:48 | Pharmacy Progress Note ---
Pharmacy Abx Initial Consult Date of Service December 07, 2016. Pharmacy Dosing Scope Date of Consult: 12/07/16 Consultation requested by: Dr. Galarza Pharmacy is consulted to initiate Vancomycin and Cefepime IV dosing therapy, order appropriate labs and adjust drug dose/frequency. Subjective The patient is a 76 year old male admitted on December 07, 2016 at 14:57. Objective Height (Feet): 5 Height (Inches): 6.00 Weight (Kilograms): 69.000 Vital Signs (Past 12Hrs) Vital Signs Past 12 Hours Date Time Temp Pulse Resp B/P Pulse Ox O2 Delivery O2 Flow Rate FiO2 12/07/16 18:34 36.5 64 18 127/70 98 Room Air 12/07/16 15:15 69 17 93/44 97 Room Air 12/07/16 15:10 97 Room Air 12/07/16 13:50 71 12/07/16 12:45 68 18 95/42 96 Room Air 12/07/16 09:58 94 Room Air 12/07/16 09:41 37.7 88 18 112/51 97 Room Air Lab Results (24Hrs) Test 12/07/16 10:18 12/07/16 10:27 12/07/16 14:20 12/07/16 17:00 White Blood Count 1.08 K/uL (4.8-10.8) Red Blood Count 2.78 M/uL (4.7-6.1) Hemoglobin 8.7 g/dL (14.0-18.0) Hematocrit 26.1 % (42-52) Mean Corpuscular Volume 93.9 fL (80-100) Mean Corpuscular Hemoglobin 31.3 pg (25-34) Mean Corpuscular Hemoglobin Concent 33.3 g/dl (32-36) Platelet Count 53 K/uL (130-400) Mean Platelet Volume 10.8 fL (7.4-10.4) Neutrophils (%) (Auto) 38.0 % Lymphocytes (%) (Auto) 44.4 % Monocytes (%) (Auto) 16.7 % Eosinophils (%) (Auto) 0.9 % Basophils (%) (Auto) 0.0 % Neutrophils # (Auto) 0.41 K/uL (1.4-6.5) Lymphocytes # (Auto) 0.48 K/uL (1.2-3.4) Monocytes # (Auto) 0.18 K/uL (0.11-0.59) Eosinophils # (Auto) 0.01 K/uL (0-0.5) Basophils # (Auto) 0.00 K/uL (0-0.2) RDW Standard Deviation 61.1 fL (36.4-46.3) RDW Coefficient of Variation 17.6 % (11.5-14.5) Immature Granulocyte % (Auto) 0.0 % Immature Granulocyte # (Auto) 0.00 K/uL (0.00-0.02) Prothrombin Time 12.3 SECONDS (9.0-12.0) Prothromb Time International Ratio 1.1 (0.9-1.1) Activated Partial Thromboplast Time 34.7 SECONDS (21.0-31.0) Partial Thromboplastin Ratio 1.3 Creatinine 1.20 mg/dl (0.60-1.40) Est Creatinine Clear Calc Drug Dose 46.5 ml/min BUN/Creatinine Ratio 15.9 (10-20) Random Glucose 94 mg/dl (70-99) Aspartate Amino Transf (AST/SGOT) 13 U/L (15-37) Alanine Aminotransferase (ALT/SGPT) 15 U/L (12-78) Alkaline Phosphatase 69 U/L (45-117) Total Creatine Kinase 153 U/L (39-308) Creatine Kinase MB 1.2 ng/ml (0.5-3.6) Creatine Kinase MB Ratio 0.8 (0-3.0) Lipase 188 U/L (73-393) Thyroid Stimulating Hormone (TSH) 0.126 uIu/ml (0.300-4.500) Bedside Lactic Acid Venous 0.53 mmol/L (0.90-1.70) Urine Color YELLOW Urine Appearance CLEAR (CLEAR) Urine pH 6.5 (4.5-7.5) Urine Specific [place] 1.012 (1.000-1.030) Urine Protein TRACE (NEG) Urine Glucose (UA) NEG (NEG) Urine Ketones NEG (NEG) Urine Occult Blood NEG (NEG) Urine Nitrite NEG (NEG) Urine Bilirubin NEG (NEG) Urine Urobilinogen NEG (NEG) Urine Leukocyte Esterase NEG (NEG) Urine WBC (Auto) 1-5 /hpf (0-5) Urine RBC (Auto) 0-4 /hpf (0-4) Urine Hyaline Casts (Auto) 0 /lpf (0-5) Urine Epithelial Cells (Auto) 10-20 /lpf (0-5) Urine Bacteria (Auto) NEG (NEG) Influenza Type A Antigen Neg for Influ A (NEG) Influenza Type B Antigen Neg for Influ B (NEG) Test 12/07/16 17:39 Vitamin B12 Level > 2000 pg/mL (211-911) Micro Results Date/Time Source Procedure Growth Status 12/07/16 10:18 Blood Blood Culture Pending Received 12/07/16 10:10 Blood Blood Culture Pending Received 12/07/16 14:20 Urine , Clean Catch Urine Culture Pending Received Risk Factors for Resistance * Immunocompromised (chemotherapy - last received 10/28/16) * History of MRSA UTI * Antimicrobial use within the last 90 days - patient on Fluconazole for unknown duration at time of admission Assessment & Plan Assessment 76 year old male with h/o Non-Hodgkin lymphoma admitted with febrile neutropenia. Of note, the patient has infusaport in place for chemotherapy. Plan Vancomycin + Cefepime IV for empiric treatment of febrile neutropenia Vancomycin IV * Loading dose: 1700 mg (25 mg/kg) * Maintenance dose: 1200 mg IV (17 mg/kg) every 18 hours * Goal trough level for febrile neutropenia : 15 to 20 mcg/mL * Antibiotics ordered with indication of "empiric" and will discontinue after 48 hours unless continued/re-ordered * Will order trough level if antibiotics are extended Cefepime * Recommended dose of 2g IV every 8 hours extended to every 12 hours for CrCl 30 -60 mL/min Pharmacy will continue to follow and will adjust dose/frequency as necessary. Thank you.
[2016-12-07] MEDS: FINASTERIDE 5 MG TAB PO SCH (20:12)
[2016-12-07] MEDS: NICOTINE 14 MG/24 HR TDSY TD SCH (20:18)
--- NOTE | 2016-12-07 20:31 | History and Physical ---
History & Physical Date & Time of Service: December 07, 2016 at 19:55 Chief Complaint: Neutropenic Fever Primary Care Physician: Harry Ovalle M.D. History of Present Illness Source: patient, family (, daughter) 76yo male with Non-Hodgkin's Lymphoma, currently undergoing chemotherapy for such, BPH, COPD, ongoing tobacco dependence, and recent admission about 1 month ago at [facility] for GI bleeding who presents with weakness, falls, chills for 2 nights, and fever to 100.8 degrees this AM. The patient was seen in the ER yesterday for similar complaints, had extensive blood work-up/ urinalysis/etc, and was discharged home. He was neutropenic during that visit but was afebrile. He and his report that when he gets weak his "knees buckle" and he slides to the ground. He has had no syncope or loss of consciousness. Denies any focal motor weakness but has some chronic right leg weakness from L-spine spinal stenosis. His specifically mentions that he "feels better after he comes to the emergency room" but by the time he arrives home he is weak again. Records from last night show he had IV hydration before discharge to home. This AM he had extreme weakness to the point of not being able to walk. This occurred about the time of the fever. Patient denies any sick contacts, travel, tick bites. Last round of chemotherapy was October 28, and he received neulasta about that time as well as on November 12. In the ER his BP was noted to be low in the 90s systolic but patient states "it' s always that low." Lastly, he has been taking prednisone 5mg daily "for appetite" for several months. Past Medical/Surgical History PMH: 1. Non-Hodgkin's Lymphom 2. Chronic pancytopenia 2nd to #1 3. moderate aortic stenosis 4. hypothyroidism 5. h/o recurrent UTIs 6. h/o HTN 7. COPD 8. BPH PSH: 1. s/p cholecystectomy - 2016 2. 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 Home Medications Scheduled Bdyocsj-Pnhmdrxai-Iavw (Calcium Magnesium & Zinc), 1 TAB PO QPM Cholecalciferol (Vitamin D-3), 1,000 UNITS PO DAILY Cyanocobalamin (Vitamin B12), 1,000 MCG PO DAILY Finasteride (Proscar), 1 TAB PO HS Fluconazole (Diflucan), 100 MG PO DIRECTED Levothyroxine Sodium (Synthroid), 1 TAB PO QAM Nitroglycerin (Nitrostat), 0.4 MG UT PRN Prednisone (Prednisone), 5 MG PO QAM Simvastatin (Zocor), 1 TAB PO HS Tamsulosin HCl (Tamsulosin HCl), 2 CAP PO DAILY Tiotropium [place] (Spiriva Handihaler), 1 CAP INH DAILY Umeclidinium-Vilanterol (Anoro Ellipta 62.5-25 Mcg/INH), 1 PUFF INH DAILY Scheduled PRN Ranitidine (Zantac), 150 MG PO DAILY PRN for PRN Review of Systems Constitutional: + chills, + fatigue, + fever, + weakness, + weight loss (60 pounds in [id number] but this has plateaued ), No sweats Eyes: No worsening of vision ENT: No nasal symptoms, No sore throat Respiratory: No cough, No dyspnea at rest, No dyspnea on exertion, No shortness of breath, No sputum, No wheezing Cardiovascular: + edema, No chest pain, No orthopnea Abdomen: + constipation, No GI bleeding, No diarrhea, No nausea, No pain, No vomiting Musculoskeletal: No joint pain, No muscle pain Genitourinary - Male: No dysuria, No hematuria Neurologic: + weakness (right leg - chronic ), No memory loss, No numbness/ tingling Psychiatric: No depression symptoms Endocrine: + fatigue Hematologic / Lymphatic: + abnormal bleeding/bruising Integumentary: No rash Physical Exam Vital Signs Date Time Temp Pulse Resp B/P Pulse Ox O2 Delivery O2 Flow Rate FiO2 12/07/16 18:34 36.5 64 18 127/70 98 Room Air 12/07/16 15:15 69 17 93/44 97 Room Air 12/07/16 15:10 97 Room Air 12/07/16 13:50 71 12/07/16 12:45 68 18 95/42 96 Room Air 12/07/16 09:58 94 Room Air 12/07/16 09:41 37.7 88 18 112/51 97 Room Air General Appearance: no apparent distress Head: normocephalic, atraumatic Eyes: PERRL, EOMI ENT: hearing grossly normal, TMs normal, + pertinent finding (MM slightly dry ) Neck: supple, no adenopathy, thyroid normal, no JVD Respiratory/Chest: lungs clear, no respiratory distress, no accessory muscle use Cardiovascular: regular rate, rhythm, no gallop, normal peripheral pulses, + systolic murmur (2/6 RUSB ) Abdomen/GI: normal bowel sounds, non tender, soft, no organomegaly Back: normal inspection Extremities/Musculoskelatal: + pedal edema (trace-1+ edema b/l ), + pertinent finding (no synovitis of any small joint of the hands, wrists, knees, ankles, etc) Neurologic/Psych: alert, oriented x 3, + motor weakness (4/5 knee flexion/ extension and hip flexion/extension on right; 5/5 on left ), + abnormal reflexes (patellar reflex absent; achilles reflex absent b/l; patellar reflex on left 2 + ) Skin: no rash, + pallor, + pertinent finding (port, left chest, clean, no erythema) Lymphatic: no adenopathy (cervical ) Diagnostics Laboratory Results Results Past 24 Hours Test 12/07/16 10:18 12/07/16 10:27 12/07/16 14:20 12/07/16 17:00 Range/Units White Blood Count 1.08 4.8-10.8 K/uL Red Blood Count 2.78 4.7-6.1 M/uL Hemoglobin 8.7 14.0-18.0 g/dL Hematocrit 26.1 42-52 % Mean Corpuscular Volume 93.9 80-100 fL Mean Corpuscular Hemoglobin 31.3 25-34 pg Mean Corpuscular Hemoglobin Concent 33.3 32-36 g/dl Platelet Count 53 130-400 K/uL Mean Platelet Volume 10.8 7.4-10.4 fL Neutrophils (%) (Auto) 38.0 % Lymphocytes (%) (Auto) 44.4 % Monocytes (%) (Auto) 16.7 % Eosinophils (%) (Auto) 0.9 % Basophils (%) (Auto) 0.0 % Neutrophils # (Auto) 0.41 1.4-6.5 K/uL Lymphocytes # (Auto) 0.48 1.2-3.4 K/uL Monocytes # (Auto) 0.18 0.11-0.59 K/uL Eosinophils # (Auto) 0.01 0-0.5 K/uL Basophils # (Auto) 0.00 0-0.2 K/uL RDW Standard Deviation 61.1 36.4-46.3 fL RDW Coefficient of Variation 17.6 11.5-14.5 % Immature Granulocyte % (Auto) 0.0 % Immature Granulocyte # (Auto) 0.00 0.00-0.02 K/uL Red Blood Cell Morphology Unremarkable Prothrombin Time 12.3 9.0-12.0 SECONDS Prothromb Time International Ratio 1.1 0.9-1.1 Activated Partial Thromboplast Time 34.7 21.0-31.0 SECONDS Partial Thromboplastin Ratio 1.3 Sodium Level 138 136-145 mmol/L Potassium Level 3.7 3.5-5.1 mmol/L Chloride Level 106 98-107 mmol/L Carbon Dioxide Level 25 21-32 mmol/L Anion Gap 7.0 3-11 mmol/L Blood Urea Nitrogen 19 7-18 mg/dl Creatinine 1.20 0.60-1.40 mg/dl Est Creatinine Clear Calc Drug Dose 46.5 ml/min Estimated GFR () 67.2 Estimated GFR (Non- 58.0 BUN/Creatinine Ratio 15.9 10-20 Random Glucose 94 70-99 mg/dl Calcium Level 7.6 8.5-10.1 mg/dl Magnesium Level 2.4 1.8-2.4 mg/dl Total Bilirubin 1.0 0.2-1 mg/dl Direct Bilirubin 0.3 0-0.2 mg/dl Aspartate Amino Transf (AST/SGOT) 13 15-37 U/L Alanine Aminotransferase (ALT/SGPT) 15 12-78 U/L Alkaline Phosphatase 69 45-117 U/L Total Creatine Kinase 153 39-308 U/L Creatine Kinase MB 1.2 0.5-3.6 ng/ml Creatine Kinase MB Ratio 0.8 0-3.0 Troponin I 0.031 0-0.045 ng/ml Total Protein 5.3 6.4-8.2 gm/dl Albumin 2.9 3.4-5.0 gm/dl Lipase 188 73-393 U/L Thyroid Stimulating Hormone (TSH) 0.126 0.300-4.500 uIu/ml Lyme Disease IgG Antibody NEG NEG Lyme Disease IgM Antibody NEG NEG Bedside Lactic Acid Venous 0.53 0.90-1.70 mmol/L Urine Color YELLOW Urine Appearance CLEAR CLEAR Urine pH 6.5 4.5-7.5 Urine Specific [place] 1.012 1.000-1.030 Urine Protein TRACE NEG Urine Glucose (UA) NEG NEG Urine Ketones NEG NEG Urine Occult Blood NEG NEG Urine Nitrite NEG NEG Urine Bilirubin NEG NEG Urine Urobilinogen NEG NEG Urine Leukocyte Esterase NEG NEG Urine WBC (Auto) 1-5 0-5 /hpf Urine RBC (Auto) 0-4 0-4 /hpf Urine Hyaline Casts (Auto) 0 0-5 /lpf Urine Epithelial Cells (Auto) 10-20 0-5 /lpf Urine Bacteria (Auto) NEG NEG Influenza Type A Antigen Neg for Influ A NEG Influenza Type B Antigen Neg for Influ B NEG Test 12/07/16 17:39 Range/Units Vitamin B12 Level > 2000 211-911 pg/mL Microbiology Results 12/07/16 Blood Culture, Received Pending 12/07/16 Blood Culture, Received Pending 12/07/16 Urine Culture, Received Pending Diagnostic Radiology Lumbar spine MRI: IMPRESSION: 1. 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 2. Moderate to severe multilevel neural foraminal stenosis, as detailed above. 3. No suspicious marrow replacement. cxr: IMPRESSION: No change since prior exam. Small right and trace left pleural effusions with bilateral opacities which favor atelectasis. EKG EKG - NSR with first degree AV block and PACs Impression Assessment and Plan 76yo male with: 1. neutropenic fever - patient has baseline pancytopenia in the setting of his Non-Hodgkin's Lymphoma along with neutropenia. He has no obvious source of infection by history or on exam today. Plan - * follow blood and urine cx's * check rapid flu * cefepime + vancomycin (latter to cover his port) * lyme's titer ([place]ives in [place] area in [place]) * cxr w/o pneumonia at this time 2. severe weakness with falls - suspect due to volume depletion and low BP in the setting of #1 above. Lumbar spinal stenosis with pre-existing right leg weakness could be contributing as well. Plan - * lower flomax dose to 0.4mg * NS bolus, then NS at 100cc/hr * is on chronic prednisone; will increase to hydrocortisone 25mg q12h * PT, OT consults * has known aortic stenosis but was moderate on last echo and unlikely to be contributing but could consider repeat echo to assess for any worsening Of note - patient had normal head CT on 12/06/16. 3. hypothyroidism - has lost considerable amount of weight and thus TSH is now suppressed on same dose of synthroid. Recommend lowering dose to 75mcg daily and rechecking TSH in 6 weeks. 4. chronic tobacco dependence - nicoderm patch daily. 5. COPD - not in exacerbation. Cont home inhalers. 6. pancytopenia 2nd to NHL - neutropenic precautions. Pancytopenia is chronic. Consult heme/onc for additional recommendations. 7. DVT proph - SCDs; chemical means contraindicated due to low platelets. 8. BPH - lower flomax dose due to low BP. 9. GERD - PPI. 10. recent GI bleeding at [facility] - obtain records for additional details. PPI. 11. constipation - miralax. 12. edema - check LE dopplers, r/o DVT. Full code, level 1. Advanced Directives Existing Advance Directive: Yes Existing Living Will: Yes Existing Power of Operations Coordinator: No Resuscitation Status FULL RESUSCITATION VTE Prophylaxis VTE Risk Assessment Done? Y/N: Yes Risk Level: High Given or contraindicated: Contraindicated Note total time 75 minutes Additional Copies To Harry Ovalle M.D.; Harry Burks D.O.
--- NOTE | 2016-12-07 20:32 | History and Physical ---
History & Physical Date & Time of Service: December 07, 2016 at 14:57 Chief Complaint: Shoulder Pain Primary Care Physician: Harry Ovalle M.D. Past Medical/Surgical History Medical Problems: (1) MACRINA (acute kidney injury) Status: Resolved (2) Anemia Status: Chronic (3) Aortic stenosis, moderate Status: Chronic (4) Bile leak, postoperative Status: Resolved (5) Choledocholithiasis with acute cholecystitis with obstruction Status: Resolved (6) Hypertension Status: Chronic (7) NHL (non-Hodgkin's lymphoma) Status: Chronic (8) Urinary tract infection Status: Chronic Family History Patient reports no known family medical history. Social History Smoking Status: Former Smoker Drug Use: none Marital Status: Housing status: lives with family Occupational Status: retired Immunizations History of Influenza Vaccine: Yes Influenza Vaccine Date: Jun 29, 2015 History of Tetanus Vaccine?: No History of Pneumococcal: Yes Pneumococcal Date: Jun 26, 2015 History of Hepatitis B Vaccine: Unknown Multi-Drug Resistant Organisms History of MDRO: Yes Type of MDRO: MRSA Allergies Coded Allergies: Gabapentin (Verified Adverse Reaction, Intermediate, unknown, 12/07/16) Patient's stated patient "developed signs of a heart attack w/ use of gabapentin". Home Medications Scheduled Kktushz-Xxsdvzykh-Efob (Calcium Magnesium & Zinc), 1 TAB PO QPM Cholecalciferol (Vitamin D-3), 1,000 UNITS PO DAILY Cyanocobalamin (Vitamin B12), 1,000 MCG PO DAILY Finasteride (Proscar), 1 TAB PO HS Fluconazole (Diflucan), 100 MG PO DIRECTED Levothyroxine Sodium (Synthroid), 1 TAB PO QAM Nitroglycerin (Nitrostat), 0.4 MG UT PRN Prednisone (Prednisone), 5 MG PO QAM Simvastatin (Zocor), 1 TAB PO HS Tamsulosin HCl (Tamsulosin HCl), 2 CAP PO DAILY Tiotropium [place] (Spiriva Handihaler), 1 CAP INH DAILY Umeclidinium-Vilanterol (Anoro Ellipta 62.5-25 Mcg/INH), 1 PUFF INH DAILY Scheduled PRN Ranitidine (Zantac), 150 MG PO DAILY PRN for PRN Physical Exam Vital Signs Date Time Temp Pulse Resp B/P Pulse Ox O2 Delivery O2 Flow Rate FiO2 5/14/17 13:50 71 12/07/16 12:45 68 18 95/42 96 Room Air 12/07/16 09:58 94 Room Air 12/07/16 09:41 37.7 88 18 112/51 97 Room Air Diagnostics Laboratory Results Results Past 24 Hours Test 12/07/16 10:18 12/07/16 10:27 12/07/16 14:20 12/07/16 14:45 Range/Units White Blood Count 1.08 4.8-10.8 K/uL Red Blood Count 2.78 4.7-6.1 M/uL Hemoglobin 8.7 14.0-18.0 g/dL Hematocrit 26.1 42-52 % Mean Corpuscular Volume 93.9 80-100 fL Mean Corpuscular Hemoglobin 31.3 25-34 pg Mean Corpuscular Hemoglobin Concent 33.3 32-36 g/dl Platelet Count 53 130-400 K/uL Mean Platelet Volume 10.8 7.4-10.4 fL Neutrophils (%) (Auto) 38.0 % Lymphocytes (%) (Auto) 44.4 % Monocytes (%) (Auto) 16.7 % Eosinophils (%) (Auto) 0.9 % Basophils (%) (Auto) 0.0 % Neutrophils # (Auto) 0.41 1.4-6.5 K/uL Lymphocytes # (Auto) 0.48 1.2-3.4 K/uL Monocytes # (Auto) 0.18 0.11-0.59 K/uL Eosinophils # (Auto) 0.01 0-0.5 K/uL Basophils # (Auto) 0.00 0-0.2 K/uL RDW Standard Deviation 61.1 36.4-46.3 fL RDW Coefficient of Variation 17.6 11.5-14.5 % Immature Granulocyte % (Auto) 0.0 % Immature Granulocyte # (Auto) 0.00 0.00-0.02 K/uL Red Blood Cell Morphology Unremarkable Prothrombin Time 12.3 9.0-12.0 SECONDS Prothromb Time International Ratio 1.1 0.9-1.1 Activated Partial Thromboplast Time 34.7 21.0-31.0 SECONDS Partial Thromboplastin Ratio 1.3 Sodium Level 138 136-145 mmol/L Potassium Level 3.7 3.5-5.1 mmol/L Chloride Level 106 98-107 mmol/L Carbon Dioxide Level 25 21-32 mmol/L Anion Gap 7.0 3-11 mmol/L Blood Urea Nitrogen 19 7-18 mg/dl Creatinine 1.20 0.60-1.40 mg/dl Est Creatinine Clear Calc Drug Dose 46.5 ml/min Estimated GFR () 67.2 Estimated GFR (Non- 58.0 BUN/Creatinine Ratio 15.9 10-20 Random Glucose 94 70-99 mg/dl Calcium Level 7.6 8.5-10.1 mg/dl Magnesium Level 2.4 1.8-2.4 mg/dl Total Bilirubin 1.0 0.2-1 mg/dl Direct Bilirubin 0.3 0-0.2 mg/dl Aspartate Amino Transf (AST/SGOT) 13 15-37 U/L Alanine Aminotransferase (ALT/SGPT) 15 12-78 U/L Alkaline Phosphatase 69 45-117 U/L Total Creatine Kinase 153 39-308 U/L Creatine Kinase MB 1.2 0.5-3.6 ng/ml Creatine Kinase MB Ratio 0.8 0-3.0 Troponin I 0.031 0-0.045 ng/ml Total Protein 5.3 6.4-8.2 gm/dl Albumin 2.9 3.4-5.0 gm/dl Lipase 188 73-393 U/L Thyroid Stimulating Hormone (TSH) 0.126 0.300-4.500 uIu/ml Bedside Lactic Acid Venous 0.53 0.90-1.70 mmol/L Urine Color YELLOW Urine Appearance CLEAR CLEAR Urine pH 6.5 4.5-7.5 Urine Specific [place] 1.012 1.000-1.030 Urine Protein TRACE NEG Urine Glucose (UA) NEG NEG Urine Ketones NEG NEG Urine Occult Blood NEG NEG Urine Nitrite NEG NEG Urine Bilirubin NEG NEG Urine Urobilinogen NEG NEG Urine Leukocyte Esterase NEG NEG Urine WBC (Auto) 1-5 0-5 /hpf Urine RBC (Auto) 0-4 0-4 /hpf Urine Hyaline Casts (Auto) 0 0-5 /lpf Urine Epithelial Cells (Auto) 10-20 0-5 /lpf Urine Bacteria (Auto) NEG NEG Microbiology Results 12/07/16 Blood Culture, Received Pending 12/07/16 Blood Culture, Received Pending 12/07/16 Urine Culture, Received Pending Impression VTE Prophylaxis VTE Risk Assessment Done? Y/N: Yes Risk Level: High Given or contraindicated: Contraindicated
[2016-12-07] MEDS ORDERED: CALCIUM MAGNESIUM ZINC PO SCH (21:00)
[2016-12-07] MEDS: CEFEPIME IV 2,000 MG in DEXTROSE 5% 100ML 100 ML IV SCH (22:10)
[2016-12-08 00:45] VITALS: BP 113/58; PULSE 56; TEMP 36.5; O2SAT 98
[2016-12-08] MEDS: HYDROCORTISONE IV 25 MG in SYRINGE 0 ML IV SCH ×2 (01:06→12:47)
[2016-12-08] MEDS: SODIUM CHLORIDE 0.9% 1000ML 1,000 ML IV SCH ×2 (05:26→14:22)
[2016-12-08] MEDS: LEVOTHYROXINE 75 MCG TAB PO SCH (05:29)
[2016-12-08 05:47] LABS: HEMATOCRIT 27.1 % (42-52); MEAN CELL VOLUME 93.4 fL (80-100); MEAN CORPUSCULAR HEMOGLOBIN 30.3 pg (25-34); MEAN CORPUSCULAR HGB CONC 32.5 g/dl (32-36); PLATELET COUNT 55 K/uL (130-400)
[2016-12-08 06:01] LABS: BUN/CREATININE RATIO 16.5 (10-20); CALCIUM 7.3 mg/dl (8.5-10.1); CREATININE 1.3 mg/dl (0.60-1.40); POTASSIUM 4.2 mmol/L (3.5-5.1)
[2016-12-08 07:29] VITALS: BP 130/61; PULSE 69; TEMP 36.5; O2SAT 96
[2016-12-08] MEDS: VANCOMYCIN INJ 1,200 MG in SODIUM CHLORIDE 0.9% 250ML 250 ML IV SCH (07:54)
[2016-12-08] MEDS: NICOTINE 14 MG/24 HR TDSY TD SCH (07:58)
[2016-12-08] MEDS: FLUCONAZOLE 100 MG TAB PO SCH (08:00)
[2016-12-08] MEDS: CYANOCOBALAMIN 500 MCG TAB (VIT B-12) PO SCH (08:00)
[2016-12-08] MEDS: TAMSULOSIN HCL 0.4 MG CAP PO SCH (08:00)
[2016-12-08] MEDS ORDERED: POLYETHYLENE (MIRALAX) 17 GM PACK PO SCH (08:00)
[2016-12-08] MEDS: CHOLECALCIFEROL 1000 INTER.UNIT TAB PO SCH (08:00)
[2016-12-08] MEDS: TIOTROPIUM BROMIDE 5 PUFF/90 MCG INH INH SCH (08:01)
[2016-12-08] MEDS: POLYETHYLENE (MIRALAX) 17 GM PACK PO SCH (08:01)
[2016-12-08] MEDS: PANTOprazole SOD 40 MG TAB PO SCH (08:02)
[2016-12-08 08:05] LABS: TOXIC GRANULATION 1+
[2016-12-08 08:30] LABS: BASO ABS # 0.04 K/uL (0-0.2); BASOPHIL % 3.6 % (0-2); COMPLETE YES; EOSINOPHIL % 5.4 %; LYMPH ABS # 0.39 K/uL (1.2-3.4); LYMPHOCYTE % 39.3 %; NEUTROPHILS % 39.2 %
[2016-12-08] MEDS: CEFEPIME IV 2,000 MG in DEXTROSE 5% 100ML 100 ML IV SCH ×2 (10:42→21:40)
[2016-12-08] MEDS: FILGRASTIM 480 MCG/1.6 ML VIAL SC SCH (12:47)
[2016-12-08] MEDS ORDERED: NURSING DECISION MEDICATION ORDER SCH (13:00)
--- NOTE | 2016-12-08 14:16 | Hospitalist Progress Note ---
Hospitalist Progress Note Date of Service December 08, 2016. (Cece Rodriguez ., PA-C) Subjective Pt evaluation today including: conversation w/ patient, conversation w/ family Voiding: no voiding problems, no incontinence Patient states he is feeling well. He is eating and drinking OK. +left upper extremity edema; according to , has happen to the patient is past with IVF. States he has worked with PT today and feel significantly better; no weakness. Patient denies any fever, chills, sweats, lightheadedness, dizziness, vision changes, CP, palpitations, edema, SOB, wheezing, cough, abdominal pain, nausea, vomiting, diarrhea, urinary symptoms, melena, numbness/tingling, weakness, muscle/joint pain, anxiety/depression, active bleeding, or new skin discoloration/changes. states patient has been admitted in the past for similar symptoms. States he improves greatly w/ IVF treatment. Patient admits that he does not drink enough fluids at home. (Cece Rodriguez ., PA-C) Medications Current Inpatient Medications Medications (Trade) Dose Ordered Sig/Hari Route Start Time Stop Time Status Last Admin Dose Admin Vancomycin HCl (Consult) 1 ea UD PRN N/A 12/07/16 15:00 01/06/17 14:59 Acetaminophen (Tylenol Tab) 650 mg Q4H PRN PO 12/07/16 15:00 01/06/17 14:59 Al Hydrox/Mg Hydrox/Simethicone (Maalox Max Susp) 15 ml Q4H PRN PO 12/07/16 15:00 01/06/17 14:59 Magnesium Hydroxide (Milk Of Magnesia Susp) 30 ml Q6H PRN PO 12/07/16 15:00 01/06/17 14:59 Ondansetron HCl (Zofran Inj) 4 mg Q6H PRN IV 12/07/16 15:00 01/06/17 14:59 Cholecalciferol (Vitamin D Tab) 1,000 inter.unit DAILY PO 12/08/16 08:00 01/07/17 08:59 12/08/16 08:00 1,000 INTER.UNIT Finasteride (Proscar Tab) 5 mg HS PO 12/07/16 21:00 01/06/17 20:59 12/07/16 20:12 5 MG Fluconazole (Diflucan Tab) 100 mg DAILY PO 12/08/16 08:00 12/10/16 08:59 12/08/16 08:00 100 MG Levothyroxine Sodium (Synthroid Tab) 75 mcg DAILYBB PO 12/08/16 06:30 01/07/17 06:59 12/08/16 05:29 75 MCG Tamsulosin HCl (Flomax Cap) 0.4 mg DAILY PO 12/08/16 08:00 01/07/17 08:59 12/08/16 08:00 0.4 MG Tiotropium [place] (Spiriva Handihaler Inhaler) 1 puff DAILY INH 12/08/16 08:00 01/07/17 08:59 12/08/16 08:01 1 PUFF Miscellaneous Information (Order Awaiting Action) 1 ea QS N/A 12/07/16 16:00 01/06/17 15:59 Cyanocobalamin 1000 mcg 1,000 mcg QAM PO 12/08/16 08:00 01/07/17 08:59 12/08/16 08:00 1,000 MCG Cefepime HCl 2000 mg/Dextrose 112.5 ml @ 200 mls/hr Q12H IV 12/07/16 22:00 12/09/16 21:59 12/08/16 10:42 200 MLS/HR Vancomycin HCl 1200 mg/Sodium Chloride 274 ml @ 125 mls/hr Q18H IV 12/08/16 08:00 12/09/16 14:49 12/08/16 07:54 125 MLS/HR Hydrocortisone Sodium Succinate/ Syringe (Solu-Cortef IV/ Syringe) 0.5 ml @ 4 mls/min Q12H IV 12/08/16 00:00 01/07/17 00:00 12/08/16 12:47 4 MLS/MIN Pantoprazole Sodium (Protonix Tab) 40 mg QAM PO 12/08/16 08:00 01/07/17 08:59 12/08/16 08:02 40 MG Polyethylene 17 gm 17 gm DAILY PO 12/08/16 08:00 01/07/17 08:59 12/08/16 08:01 17 GM Sodium Chloride (Nss 1000ml) 1,000 ml @ 100 mls/hr Q10H IV 12/07/16 19:00 01/06/17 18:59 12/08/16 05:26 100 MLS/HR Nicotine (Nicoderm Cq 14MG Patch) 1 patch QAM TD 12/07/16 20:00 01/06/17 19:59 12/08/16 07:58 1 PATCH Miscellaneous (Remove Nicoderm Patch) 1 ea HS N/A 12/08/16 08:59 01/07/17 08:58 12/08/16 07:59 1 EA Heparin Sodium (Porcine) (Heparin 100 Unit/ml 5ml Flush) 5 ml PRN PRN IV 12/07/16 23:45 01/06/17 23:44 Filgrastim (Neupogen Sq) 480 mcg DAILY SC 12/08/16 11:00 01/07/17 10:59 12/08/16 12:47 480 MCG (Cece Rodriguez PA-C) Objective Vital Signs Date Time Temp Pulse Resp B/P Pulse Ox O2 Delivery O2 Flow Rate FiO2 12/08/16 09:00 Room Air 12/08/16 07:29 36.5 69 18 130/61 96 Room Air 12/08/16 00:45 36.5 56 18 113/58 98 Room Air 12/07/16 23:59 Room Air 12/07/16 18:34 36.5 64 18 127/70 98 Room Air 12/07/16 15:15 69 17 93/44 97 Room Air 12/07/16 15:10 97 Room Air (Cece Rodriguez PA-C) Physical Exam General Appearance: no apparent distress Eyes: normal inspection, PERRL ENT: hearing grossly normal Neck: supple Respiratory/Chest: lungs clear, no respiratory distress, no accessory muscle use Cardiovascular: regular rate, rhythm Abdomen: normal bowel sounds, non tender, soft Extremities: no pedal edema, no calf tenderness, + swelling (very slight non pitting edema to LUE; no erythema or lesions noted ) Neurologic/Psychiatric: alert, normal mood/affect, oriented x 3 Skin: normal color, warm/dry, no rash (Cece Rodriguez PA-C) Laboratory Results Last 24 Hours Test 12/07/16 14:20 12/07/16 17:00 12/07/16 17:39 12/08/16 05:18 Urine Color YELLOW Urine Appearance CLEAR Urine pH 6.5 Urine Specific [place] 1.012 Urine Protein TRACE Urine Glucose (UA) NEG Urine Ketones NEG Urine Occult Blood NEG Urine Nitrite NEG Urine Bilirubin NEG Urine Urobilinogen NEG Urine Leukocyte Esterase NEG Urine WBC (Auto) 1-5 /hpf Urine RBC (Auto) 0-4 /hpf Urine Hyaline Casts (Auto) 0 /lpf Urine Epithelial Cells (Auto) 10-20 /lpf Urine Bacteria (Auto) NEG Influenza Type A Antigen Neg for Influ A Influenza Type B Antigen Neg for Influ B Vitamin B12 Level > 2000 pg/mL White Blood Count 1.00 K/uL Red Blood Count 2.90 M/uL Hemoglobin 8.8 g/dL Hematocrit 27.1 % Mean Corpuscular Volume 93.4 fL Mean Corpuscular Hemoglobin 30.3 pg Mean Corpuscular Hemoglobin Concent 32.5 g/dl Platelet Count 55 K/uL Mean Platelet Volume 11.0 fL RDW Standard Deviation 60.9 fL RDW Coefficient of Variation 17.6 % Neutrophils % (Manual) 39.2 % Lymphocytes % (Manual) 39.3 % Monocytes % (Manual) 12.5 % Eosinophils % (Manual) 5.4 % Basophils % (Manual) 3.6 % Neutrophils # (Manual) 0.39 K/uL Total Absolute Neutrophils 0.39 K/uL Lymphocytes # (Manual) 0.39 K/uL Total Absolute Lymphocytes 0.39 K/uL Monocytes # (Manual) 0.13 K/uL Eosinophils # (Manual) 0.05 K/uL Basophils # (Manual) 0.04 K/uL Toxic Granulation 1+ Sodium Level 143 mmol/L Potassium Level 4.2 mmol/L Chloride Level 114 mmol/L Carbon Dioxide Level 23 mmol/L Anion Gap 6.0 mmol/L Blood Urea Nitrogen 21 mg/dl Creatinine 1.30 mg/dl Est Creatinine Clear Calc Drug Dose 42.9 ml/min Estimated GFR () 61.0 Estimated GFR (Non- 52.6 BUN/Creatinine Ratio 16.5 Random Glucose 99 mg/dl Calcium Level 7.3 mg/dl (Cece Rodriguez, AIC) Assessment and Plan 76 y/o male with: Neutropenic fever - 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 Lymphoma along with neutropenia: - Admit to med/surg - IV Cefepime and Vancomycin- narrow pending BCx - BCx pending - UCx unremarkable - Influenza and Lyme negative - CXR- no acute processes - Of note - patient had normal head CT on 12/06/16 Severe weakness with falls - suspect due to volume depletion and low BP: - Lumbar MRI obtained - Lower Flomax dose to 0.4mg - NS bolus, then NS at 100cc/hr - Chronic prednisone; increased to hydrocortisone 25mg q12h--> only received two doses, will wean tomorrow if continues to progress well - PT/OT consults 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 Code Status: LEVEL I, FULL Dispo: Likely discharge to home once medically stable - PT/OT evaluations pending (Cece Rodriguez ., PA-C) PA Physician Supervision Note: I interviewed and examined the patient. Discussed with Cece Bustamante PAC and agree with findings and plan as documented in the note. Any exceptions or clarifications are listed here: None Pt has no complaints or focal signs of infection was given gcsf by oncology vitals stable car regular lungs are clear oral mucosa is without lesions Neutropenic fever, continue antibiotics until ANC is near 1000, watch cultures and supportive care Documented By: Abdelrahman Bella (Abdelrahman Bella M.D.)
[2016-12-08 15:53] VITALS: BP 113/55; PULSE 71; TEMP 36.6; O2SAT 97
--- NOTE | 2016-12-08 16:37 | Oncology Consultation ---
Oncology/Heme Consultation Date of Consultation: December 08, 2016. Attending Physician: Cj Galarza MD Reason for Consultation: Follicular lymphoma Neutropenic fever History of Present Illness Mr. 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 He received bendamustine and rituximab and has been receiving maintenance Rituxan for the last few months. His treatment has been complicated by persistent leukopenia and recurring neutropenia. He has required frequent doses of Neulasta, most recently about a month ago. He had a low-grade fever (100.8) at home and an episode where he felt his legs give out beneath him. He denies any dizziness, LOC, or head trauma. He also denies any localizing signs or symptoms, such as dysuria, hematuria, cough, shortness of breath, diarrhea, headaches, vision changes, rash, or excess fatigue. Past Medical/Surgical History Medical Problems: (1) CHF (congestive heart failure) Status: Acute (2) Febrile neutropenia Status: Acute (3) Hypotension Status: Acute (4) Immunocompromised Status: Acute (5) Low back pain Status: Acute (6) Pancytopenia Status: Acute (7) Sepsis Status: Acute (8) Spinal stenosis Status: Acute (9) UTI (urinary tract infection) Status: Acute (10) Weakness Status: Acute Family History Patient reports no known family medical history. Social History Smoking Status: Former Smoker Smokeless Tobacco Use: No Alcohol Use: none Drug Use: none Marital Status: Housing Status: lives with family Occupation Status: retired Allergies Coded Allergies: Gabapentin (Verified Adverse Reaction, Intermediate, unknown, 12/07/16) Patient's stated patient "developed signs of a heart attack w/ use of gabapentin". Home Medications Scheduled Mqqgsdy-Cyhzynnnp-Ndlq (Calcium Magnesium & Zinc), 1 TAB PO QPM Cholecalciferol (Vitamin D-3), 1,000 UNITS PO DAILY Cyanocobalamin (Vitamin B12), 1,000 MCG PO DAILY Finasteride (Proscar), 1 TAB PO HS Fluconazole (Diflucan), 100 MG PO DIRECTED Levothyroxine Sodium (Synthroid), 1 TAB PO QAM Nitroglycerin (Nitrostat), 0.4 MG UT PRN Prednisone (Prednisone), 5 MG PO QAM Simvastatin (Zocor), 1 TAB PO HS Tamsulosin HCl (Tamsulosin HCl), 2 CAP PO DAILY Tiotropium [place] (Spiriva Handihaler), 1 CAP INH DAILY Umeclidinium-Vilanterol (Anoro Ellipta 62.5-25 Mcg/INH), 1 PUFF INH DAILY Scheduled PRN Ranitidine (Zantac), 150 MG PO DAILY PRN for PRN Current Inpatient Medications Current Inpatient Medications Medications (Trade) Dose Ordered Sig/Hari Route Start Time Stop Time Status Last Admin Dose Admin Vancomycin HCl (Consult) 1 ea UD PRN N/A 12/07/16 15:00 01/06/17 14:59 Acetaminophen (Tylenol Tab) 650 mg Q4H PRN PO 12/07/16 15:00 01/06/17 14:59 Al Hydrox/Mg Hydrox/Simethicone (Maalox Max Susp) 15 ml Q4H PRN PO 12/07/16 15:00 01/06/17 14:59 Magnesium Hydroxide (Milk Of Magnesia Susp) 30 ml Q6H PRN PO 12/07/16 15:00 01/06/17 14:59 Ondansetron HCl (Zofran Inj) 4 mg Q6H PRN IV 12/07/16 15:00 01/06/17 14:59 Cholecalciferol (Vitamin D Tab) 1,000 inter.unit DAILY PO 12/08/16 08:00 01/07/17 08:59 12/08/16 08:00 1,000 INTER.UNIT Finasteride (Proscar Tab) 5 mg HS PO 12/07/16 21:00 01/06/17 20:59 12/07/16 20:12 5 MG Fluconazole (Diflucan Tab) 100 mg DAILY PO 12/08/16 08:00 12/10/16 08:59 12/08/16 08:00 100 MG Levothyroxine Sodium (Synthroid Tab) 75 mcg DAILYBB PO 12/08/16 06:30 01/07/17 06:59 12/08/16 05:29 75 MCG Tamsulosin HCl (Flomax Cap) 0.4 mg DAILY PO 12/08/16 08:00 01/07/17 08:59 12/08/16 08:00 0.4 MG Tiotropium [place] (Spiriva Handihaler Inhaler) 1 puff DAILY INH 12/08/16 08:00 01/07/17 08:59 12/08/16 08:01 1 PUFF Miscellaneous Information (Order Awaiting Action) 1 ea QS N/A 12/07/16 16:00 01/06/17 15:59 Cyanocobalamin 1000 mcg 1,000 mcg QAM PO 12/08/16 08:00 01/07/17 08:59 12/08/16 08:00 1,000 MCG Cefepime HCl 2000 mg/Dextrose 112.5 ml @ 200 mls/hr Q12H IV 12/07/16 22:00 12/09/16 21:59 12/08/16 10:42 200 MLS/HR Vancomycin HCl 1200 mg/Sodium Chloride 274 ml @ 125 mls/hr Q18H IV 12/08/16 08:00 12/09/16 14:49 12/08/16 07:54 125 MLS/HR Hydrocortisone Sodium Succinate/ Syringe (Solu-Cortef IV/ Syringe) 0.5 ml @ 4 mls/min Q12H IV 12/08/16 00:00 01/07/17 00:00 12/08/16 12:47 4 MLS/MIN Pantoprazole Sodium (Protonix Tab) 40 mg QAM PO 12/08/16 08:00 01/07/17 08:59 12/08/16 08:02 40 MG Polyethylene 17 gm 17 gm DAILY PO 12/08/16 08:00 01/07/17 08:59 12/08/16 08:01 17 GM Sodium Chloride (Nss 1000ml) 1,000 ml @ 100 mls/hr Q10H IV 12/07/16 19:00 01/06/17 18:59 12/08/16 14:22 100 MLS/HR Nicotine (Nicoderm Cq 14MG Patch) 1 patch QAM TD 12/07/16 20:00 01/06/17 19:59 12/08/16 07:58 1 PATCH Miscellaneous (Remove Nicoderm Patch) 1 ea HS N/A 12/08/16 08:59 01/07/17 08:58 12/08/16 07:59 1 EA Heparin Sodium (Porcine) (Heparin 100 Unit/ml 5ml Flush) 5 ml PRN PRN IV 12/07/16 23:45 01/06/17 23:44 Filgrastim (Neupogen Sq) 480 mcg DAILY SC 12/08/16 11:00 01/07/17 10:59 12/08/16 12:47 480 MCG Enteral Nutritional Formula (Boost) 1 can BID PO 12/08/16 20:00 01/07/17 19:59 Review of Systems Constitutional: + fever, No fatigue, No sweats ENT: No nasal symptoms, No unusual epistaxis Respiratory: No cough, No shortness of breath Cardiovascular: No chest pain Abdomen: No diarrhea, No nausea, No vomiting Musculoskeletal: No joint pain, No swelling Genitourinary - Male: No dysuria, No hematuria Neurologic: + balance problems, No numbness/tingling, No weakness Hematologic / Lymphatic: No abnormal bleeding/bruising, No swollen lymph nodes Integumentary: No rash Physical Exam Date Time Temp Pulse Resp B/P Pulse Ox O2 Delivery O2 Flow Rate FiO2 12/08/16 15:53 36.6 71 18 113/55 97 Room Air 12/08/16 15:15 Room Air 12/08/16 09:00 Room Air 12/08/16 07:29 36.5 69 18 130/61 96 Room Air 12/08/16 00:45 36.5 56 18 113/58 98 Room Air 12/07/16 23:59 Room Air 12/07/16 18:34 36.5 64 18 127/70 98 Room Air General Appearance: no apparent distress, + pertinent finding (chronically ill- appearing ) Respiratory/Chest: lungs clear, no respiratory distress Cardiovascular: regular rate, rhythm, no murmur Abdomen/GI: non tender, soft Extremities/Musculoskelatal: no calf tenderness, no pedal edema Neurologic/Psych: alert, oriented x 3 Skin: warm/dry, no rash Lymphatic: no adenopathy Laboratory Results Last 24 Hours Test 12/07/16 17:00 12/07/16 17:39 12/08/16 05:18 Influenza Type A Antigen Neg for Influ A Influenza Type B Antigen Neg for Influ B Vitamin B12 Level > 2000 pg/mL White Blood Count 1.00 K/uL Red Blood Count 2.90 M/uL Hemoglobin 8.8 g/dL Hematocrit 27.1 % Mean Corpuscular Volume 93.4 fL Mean Corpuscular Hemoglobin 30.3 pg Mean Corpuscular Hemoglobin Concent 32.5 g/dl Platelet Count 55 K/uL Mean Platelet Volume 11.0 fL RDW Standard Deviation 60.9 fL RDW Coefficient of Variation 17.6 % Neutrophils % (Manual) 39.2 % Lymphocytes % (Manual) 39.3 % Monocytes % (Manual) 12.5 % Eosinophils % (Manual) 5.4 % Basophils % (Manual) 3.6 % Neutrophils # (Manual) 0.39 K/uL Total Absolute Neutrophils 0.39 K/uL Lymphocytes # (Manual) 0.39 K/uL Total Absolute Lymphocytes 0.39 K/uL Monocytes # (Manual) 0.13 K/uL Eosinophils # (Manual) 0.05 K/uL Basophils # (Manual) 0.04 K/uL Toxic Granulation 1+ Sodium Level 143 mmol/L Potassium Level 4.2 mmol/L Chloride Level 114 mmol/L Carbon Dioxide Level 23 mmol/L Anion Gap 6.0 mmol/L Blood Urea Nitrogen 21 mg/dl Creatinine 1.30 mg/dl Est Creatinine Clear Calc Drug Dose 42.9 ml/min Estimated GFR () 61.0 Estimated GFR (Non- 52.6 BUN/Creatinine Ratio 16.5 Random Glucose 99 mg/dl Calcium Level 7.3 mg/dl Assessment & Plan Mr. Hardy is again neutropenic and experienced a fever yesterday. He has no localizing signs/symptoms and his cultures are pending. Broad-spectrum antimicrobial coverage is reasonable until either a pathogen is identified or until he is afebrile with normal counts. I ordered Neupogen 480 mcg daily until his ANC returns to normal. I think this may be related to his Rituxan and we may consider stopping his treatment. I agree that his weakness sounds more generalized than focal and may be related to dehydration, the fever itself, or deconditioning.
[2016-12-08] MEDS: BOOST VANILLA PO SCH ×2 (21:08)
[2016-12-08] MEDS: FINASTERIDE 5 MG TAB PO SCH (21:08)
[2016-12-09] VITALS: BP 148/61; PULSE 84; TEMP 36.7; O2SAT 94
[2016-12-09] MEDS: SODIUM CHLORIDE 0.9% 1000ML 1,000 ML IV SCH (01:12)
[2016-12-09] MEDS: HYDROCORTISONE IV 25 MG in SYRINGE 0 ML IV SCH (01:12)
[2016-12-09] MEDS: VANCOMYCIN INJ 1,200 MG in SODIUM CHLORIDE 0.9% 250ML 250 ML IV SCH (01:17)
[2016-12-09 05:42] LABS: HEMATOCRIT 26.8 % (42-52); MEAN CELL VOLUME 93.4 fL (80-100); MEAN CORPUSCULAR HGB CONC 33.2 g/dl (32-36); MEAN PLATELET VOLUME 11.5 fL (7.4-10.4); PLATELET COUNT 60 K/uL (130-400); RED BLOOD COUNT 2.87 M/uL (4.7-6.1); WHITE BLOOD COUNT 1.69 K/uL (4.8-10.8)
[2016-12-09] MEDS: LEVOTHYROXINE 75 MCG TAB PO SCH (06:11)
[2016-12-09 06:17] LABS: BUN/CREATININE RATIO 15.9 (10-20); CALCIUM 7.9 mg/dl (8.5-10.1); CREATININE 1.4 mg/dl (0.60-1.40)
[2016-12-09] MEDS: NICOTINE 14 MG/24 HR TDSY TD SCH (06:47)
[2016-12-09 07:45] VITALS: BP 130/61; PULSE 68; TEMP 36.6; O2SAT 97
[2016-12-09] MEDS: TAMSULOSIN HCL 0.4 MG CAP PO SCH (07:46)
[2016-12-09] MEDS: PANTOprazole SOD 40 MG TAB PO SCH (07:46)
[2016-12-09] MEDS: FLUCONAZOLE 100 MG TAB PO SCH (07:46)
[2016-12-09] MEDS: CHOLECALCIFEROL 1000 INTER.UNIT TAB PO SCH (07:46)
[2016-12-09] MEDS: CYANOCOBALAMIN 500 MCG TAB (VIT B-12) PO SCH (07:46)
[2016-12-09] MEDS: BOOST VANILLA PO SCH ×4 (07:46→19:24)
[2016-12-09] MEDS: POLYETHYLENE (MIRALAX) 17 GM PACK PO SCH (07:55)
[2016-12-09] MEDS: FILGRASTIM 480 MCG/1.6 ML VIAL SC SCH (07:55)
[2016-12-09] MEDS: TIOTROPIUM BROMIDE 5 PUFF/90 MCG INH INH SCH (07:56)
[2016-12-09 09:25] LABS: BASO % 1.3 %; BASO ABS # 0.02 K/uL (0-0.2); COMPLETE YES; EOS % 3.1 %; IG% 5.6 %; LYMPH % 27.5 %; LYMPH ABS # 0.44 K/uL (1.2-3.4); MONO % 17.5 %
[2016-12-09] MEDS: CEFEPIME IV 2,000 MG in DEXTROSE 5% 100ML 100 ML IV SCH ×2 (09:46→21:46)
--- NOTE | 2016-12-09 11:09 | Hospitalist Progress Note ---
Hospitalist Progress Note Date of Service December 09, 2016. (Cece Rodriguez ., PA-C) Subjective Pt evaluation today including: conversation w/ patient, conversation w/ family (), physical exam, chart review, lab review, conversation w/ [employer] product consultant ( Dr. Zamarripa ), review of inpatient medication list Voiding: no voiding problems, no incontinence Patient states he is feeling well. He is eating and drinking OK. 2 BMs yesterday. Patient denies any fever, chills, sweats, lightheadedness, dizziness , vision changes, CP, palpitations, edema, SOB, wheezing, cough, abdominal pain , nausea, vomiting, diarrhea, urinary symptoms, melena, numbness/tingling, weakness, muscle/joint pain, anxiety/depression, active bleeding, or new skin discoloration/changes. (Cece Rodriguez ., PA-C) Medications Current Inpatient Medications Medications (Trade) Dose Ordered Sig/Hari Route Start Time Stop Time Status Last Admin Dose Admin Vancomycin HCl (Consult) 1 ea UD PRN N/A 12/07/16 15:00 01/06/17 14:59 Acetaminophen (Tylenol Tab) 650 mg Q4H PRN PO 12/07/16 15:00 01/06/17 14:59 Al Hydrox/Mg Hydrox/Simethicone (Maalox Max Susp) 15 ml Q4H PRN PO 12/07/16 15:00 01/06/17 14:59 Magnesium Hydroxide (Milk Of Magnesia Susp) 30 ml Q6H PRN PO 12/07/16 15:00 01/06/17 14:59 Ondansetron HCl (Zofran Inj) 4 mg Q6H PRN IV 12/07/16 15:00 01/06/17 14:59 Cholecalciferol (Vitamin D Tab) 1,000 inter.unit DAILY PO 12/08/16 08:00 01/07/17 08:59 12/09/16 07:46 1,000 INTER.UNIT Finasteride (Proscar Tab) 5 mg HS PO 12/07/16 21:00 01/06/17 20:59 12/08/16 21:08 5 MG Fluconazole (Diflucan Tab) 100 mg DAILY PO 12/08/16 08:00 12/10/16 08:59 12/09/16 07:46 100 MG Levothyroxine Sodium (Synthroid Tab) 75 mcg DAILYBB PO 12/08/16 06:30 01/07/17 06:59 12/09/16 06:11 75 MCG Tamsulosin HCl (Flomax Cap) 0.4 mg DAILY PO 12/08/16 08:00 01/07/17 08:59 12/09/16 07:46 0.4 MG Tiotropium [place] (Spiriva Handihaler Inhaler) 1 puff DAILY INH 12/08/16 08:00 01/07/17 08:59 12/09/16 07:56 1 PUFF Miscellaneous Information (Order Awaiting Action) 1 ea QS N/A 12/07/16 16:00 01/06/17 15:59 Cyanocobalamin 1000 mcg 1,000 mcg QAM PO 12/08/16 08:00 01/07/17 08:59 12/09/16 07:46 1,000 MCG Cefepime HCl 2000 mg/Dextrose 112.5 ml @ 200 mls/hr Q12H IV 12/07/16 22:00 12/09/16 21:59 12/09/16 09:46 200 MLS/HR Vancomycin HCl 1200 mg/Sodium Chloride 274 ml @ 125 mls/hr Q18H IV 12/08/16 08:00 12/09/16 14:49 12/09/16 01:17 125 MLS/HR Hydrocortisone Sodium Succinate/ Syringe (Solu-Cortef IV/ Syringe) 0.5 ml @ 4 mls/min Q12H IV 12/08/16 00:00 01/07/17 00:00 12/09/16 01:12 4 MLS/MIN Pantoprazole Sodium (Protonix Tab) 40 mg QAM PO 12/08/16 08:00 01/07/17 08:59 12/09/16 07:46 40 MG Polyethylene 17 gm 17 gm DAILY PO 12/08/16 08:00 01/07/17 08:59 12/08/16 08:01 17 GM Sodium Chloride (Nss 1000ml) 1,000 ml @ 100 mls/hr Q10H IV 12/07/16 19:00 01/06/17 18:59 12/09/16 01:12 100 MLS/HR Nicotine (Nicoderm Cq 14MG Patch) 1 patch QAM TD 12/07/16 20:00 01/06/17 19:59 12/09/16 06:47 1 PATCH Miscellaneous (Remove Nicoderm Patch) 1 ea HS N/A 12/08/16 08:59 01/07/17 08:58 12/08/16 21:05 1 EA Heparin Sodium (Porcine) (Heparin 100 Unit/ml 5ml Flush) 5 ml PRN PRN IV 12/07/16 23:45 01/06/17 23:44 Filgrastim (Neupogen Sq) 480 mcg DAILY SC 12/08/16 11:00 01/07/17 10:59 12/09/16 07:55 480 MCG Enteral Nutritional Formula (Boost) 1 can BID PO 12/08/16 20:00 01/07/17 19:59 12/09/16 07:46 1 CAN (Cece Rodriguez, PA-C) Objective Vital Signs Date Time Temp Pulse Resp B/P Pulse Ox O2 Delivery O2 Flow Rate FiO2 12/09/16 08:30 Room Air 12/09/16 07:45 36.6 68 20 130/61 97 Room Air 12/09/16 00:00 36.7 84 20 148/61 94 Room Air 12/09/16 00:00 Room Air 12/08/16 20:00 Room Air 12/08/16 15:53 36.6 71 18 113/55 97 Room Air 12/08/16 15:15 Room Air (Cece Rodriguez, PA-C) Physical Exam General Appearance: no apparent distress Eyes: normal inspection, PERRL ENT: hearing grossly normal Neck: supple Respiratory/Chest: no respiratory distress, no accessory muscle use, + wheezing (slight expiratory wheeze bilateral upper lung medley ) Cardiovascular: regular rate, rhythm Abdomen: normal bowel sounds, non tender, soft Extremities: no pedal edema, no calf tenderness, + swelling (+trace-1 pitting edema of bilateral lower extremities ), + pertinent finding (trace non-pitting edema noted to LUE ) Neurologic/Psychiatric: alert, normal mood/affect, oriented x 3 Skin: normal color, warm/dry, no rash (Cece Rodriguez ., PA-C) Laboratory Results Last 24 Hours Test 12/09/16 05:20 White Blood Count 1.69 K/uL Red Blood Count 2.87 M/uL Hemoglobin 8.9 g/dL Hematocrit 26.8 % Mean Corpuscular Volume 93.4 fL Mean Corpuscular Hemoglobin 31.0 pg Mean Corpuscular Hemoglobin Concent 33.2 g/dl Platelet Count 60 K/uL Mean Platelet Volume 11.5 fL Neutrophils (%) (Auto) 45.0 % Lymphocytes (%) (Auto) 27.5 % Monocytes (%) (Auto) 17.5 % Eosinophils (%) (Auto) 3.1 % Basophils (%) (Auto) 1.3 % Neutrophils # (Auto) 0.72 K/uL Lymphocytes # (Auto) 0.44 K/uL Monocytes # (Auto) 0.28 K/uL Eosinophils # (Auto) 0.05 K/uL Basophils # (Auto) 0.02 K/uL RDW Standard Deviation 60.1 fL RDW Coefficient of Variation 17.5 % Immature Granulocyte % (Auto) 5.6 % Immature Granulocyte # (Auto) 0.09 K/uL Nucleated RBC Absolute Count (auto) 0.00 K/uL Nucleated Red Blood Cells % 0.0 % Red Blood Cell Morphology Unremarkable Sodium Level 144 mmol/L Potassium Level 4.0 mmol/L Chloride Level 116 mmol/L Carbon Dioxide Level 22 mmol/L Anion Gap 6.0 mmol/L Blood Urea Nitrogen 22 mg/dl Creatinine 1.40 mg/dl Est Creatinine Clear Calc Drug Dose 39.9 ml/min Estimated GFR () 55.8 Estimated GFR (Non- 48.1 BUN/Creatinine Ratio 15.9 Random Glucose 104 mg/dl Calcium Level 7.9 mg/dl (Cece Rodriguez, PA-C) Assessment and Plan 76 y/o male with: Neutropenic fever - 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 Lymphoma along with neutropenia: - Admit to med/surg - IV Cefepime and Vancomycin until remains afebrile and counts improve -- Vancomycin d/c on 12/09 due to slight improvement in ANC and pharmacy recommendations - BCx NGTD - UCx unremarkable - Influenza and Lyme negative - CXR- no acute processes - Of note - patient had normal head CT on 12/06/16 Severe weakness with falls - suspect due to volume depletion and low BP: - Lumbar MRI obtained - Lower Flomax dose to 0.4mg - NS bolus, then NS at 100cc/hr x4 bags--> patient eating and drinking OK and kidney function OK, will d/c IVF - Chronic prednisone; increased to hydrocortisone 25mg q12h--> transition to home PO Prednisone 5 mg daily on 12/10 - PT/OT consults 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 Code Status: LEVEL I, FULL Dispo: Discharge to home once medically stable - PT/OT recommendations- [facility] (Cece Rodriguez ., PA-C) PA Physician Supervision Note: I interviewed and examined the patient. Discussed with Cece FUENTES and agree with findings and plan as documented in the note. Any exceptions or clarifications are listed here: None Pt continues with no complaints was given gcsf by oncology 12/08, slight rise in ANC vitals stable car regular lungs are clear oral mucosa continues without lesions Neutropenic fever, supportive care, continue antibiotics current cultures are negative Documented By: Abdelrahman Bella (Abdelrahman Bella M.D.)
[2016-12-09] MEDS ORDERED: ALBUT/IPRATROP 3MG/0.5MG NEB 3 ML VIAL INH PRN (11:15)
[2016-12-09] MEDS ORDERED: CEFEPIME CONSULT ACTIVE PRN ×2 (12:15)
[2016-12-09 14:28] VITALS: O2SAT 96
[2016-12-09 15:07] VITALS: BP 126/63; PULSE 72; TEMP 36.7; O2SAT 100
--- NOTE | 2016-12-09 17:04 | Hematology/Oncology Prog Note ---
Hematology/Onc Progress Note Date of Service December 09, 2016. Diagnoses Follicular lymphoma Neutropenic fever Medications Medications Administered Medications (Trade) Dose Ordered Sig/Hari Route Start Time Stop Time Status Last Admin Dose Admin Sodium Chloride 1,000 ml @ 125 mls/hr Q8H STAT IV 12/07/16 09:42 12/07/16 17:41 DC 12/07/16 10:37 125 MLS/HR Cefepime HCl/ Dextrose (Maxipime IV/D5 100ml) 122.6 ml @ 200 mls/hr NOW STAT IV 12/07/16 09:42 12/07/16 10:18 DC 12/07/16 10:36 200 MLS/HR Acetaminophen 1000 mg 1,000 mg NOW STAT PO 12/07/16 09:51 12/07/16 09:52 DC 12/07/16 10:36 1,000 MG Vancomycin HCl/ Sodium Chloride (Vancomycin Inj/ Nss 500ml) 534 ml @ 200 mls/hr NOW ONCE IV 12/07/16 15:00 12/07/16 17:40 DC 12/07/16 15:14 200 MLS/HR Hydrocortisone Sodium Succinate (Solu-Cortef IV) 25 mg NOW STAT IV 12/07/16 14:45 12/07/16 14:46 DC 12/07/16 15:14 25 MG Cholecalciferol (Vitamin D Tab) 1,000 inter.unit DAILY PO 12/08/16 08:00 01/07/17 08:59 12/09/16 07:46 1,000 INTER.UNIT Finasteride (Proscar Tab) 5 mg HS PO 12/07/16 21:00 01/06/17 20:59 12/08/16 21:08 5 MG Fluconazole (Diflucan Tab) 100 mg DAILY PO 12/08/16 08:00 12/10/16 08:59 12/09/16 07:46 100 MG Levothyroxine Sodium (Synthroid Tab) 75 mcg DAILYBB PO 12/08/16 06:30 01/07/17 06:59 12/09/16 06:11 75 MCG Tamsulosin HCl (Flomax Cap) 0.4 mg DAILY PO 12/08/16 08:00 01/07/17 08:59 12/09/16 07:46 0.4 MG Tiotropium [place] (Spiriva Handihaler Inhaler) 1 puff DAILY INH 12/08/16 08:00 01/07/17 08:59 12/09/16 07:56 1 PUFF Cyanocobalamin 1000 mcg 1,000 mcg QAM PO 12/08/16 08:00 01/07/17 08:59 12/09/16 07:46 1,000 MCG Cefepime HCl 2000 mg/Dextrose 112.5 ml @ 200 mls/hr Q12H IV 12/07/16 22:00 12/09/16 11:58 DC 12/09/16 09:46 200 MLS/HR Vancomycin HCl 1200 mg/Sodium Chloride 274 ml @ 125 mls/hr Q18H IV 12/08/16 08:00 12/09/16 11:39 DC 12/09/16 01:17 125 MLS/HR Hydrocortisone Sodium Succinate/ Syringe (Solu-Cortef IV/ Syringe) 0.5 ml @ 4 mls/min Q12H IV 12/08/16 00:00 12/09/16 11:04 DC 12/09/16 01:12 4 MLS/MIN Pantoprazole Sodium (Protonix Tab) 40 mg NOW STAT PO 12/07/16 16:07 12/07/16 16:08 DC 12/07/16 18:02 40 MG Pantoprazole Sodium (Protonix Tab) 40 mg QAM PO 12/08/16 08:00 01/07/17 08:59 12/09/16 07:46 40 MG Polyethylene 17 gm 17 gm DAILY PO 12/08/16 08:00 01/07/17 08:59 12/08/16 08:01 17 GM Sodium Chloride 1,000 ml @ 1,000 mls/hr Q1H IV 12/07/16 18:00 12/07/16 18:59 DC 12/07/16 18:29 1,000 MLS/HR Sodium Chloride (Nss 1000ml) 1,000 ml @ 100 mls/hr Q10H IV 12/07/16 19:00 12/09/16 11:04 DC 12/09/16 01:12 100 MLS/HR Nicotine (Nicoderm Cq 14MG Patch) 1 patch QAM TD 12/07/16 20:00 01/06/17 19:59 12/09/16 06:47 1 PATCH Miscellaneous (Remove Nicoderm Patch) 1 ea HS N/A 12/08/16 08:59 01/07/17 08:58 12/08/16 21:05 1 EA Heparin Sodium (Porcine) (Heparin 100 Unit/ml 5ml Flush) 5 ml PRN PRN IV 12/07/16 23:45 01/06/17 23:44 12/09/16 12:48 5 ML Filgrastim (Neupogen Sq) 480 mcg DAILY SC 12/08/16 11:00 01/07/17 10:59 12/09/16 07:55 480 MCG Enteral Nutritional Formula (Boost) 1 can BID PO 12/08/16 20:00 01/07/17 19:59 12/09/16 07:46 1 CAN Prednisone (PredniSONE TAB) 5 mg QAM PO 12/09/16 12:00 01/08/17 11:59 12/09/16 12:48 5 MG Subjective Mr. Hardy is feeling better today. He was afebrile overnight. He has no other new complaints. Review of Systems: Constitutional: No chills, No fever ENT: No nasal symptoms Respiratory: No cough, No shortness of breath Cardiovascular: No chest pain Abdomen: No diarrhea, No nausea, No pain Musculoskeletal: No joint pain, No muscle pain Male : No dysuria Heme: No night sweats Skin: No rash Vital Signs Vital Signs Past 12 Hours Date Time Temp Pulse Resp B/P Pulse Ox O2 Delivery O2 Flow Rate FiO2 12/09/16 15:07 36.7 72 16 126/63 100 Room Air 12/09/16 14:28 96 12/09/16 08:30 Room Air 12/09/16 07:45 36.6 68 20 130/61 97 Room Air Physical Exam Constitutional: Level of Distress: NAD, chronically ill Psychiatric: Mental Status: active & alert Orientation: oriented except where noted Lungs: Respiratory Effort: good air movement Auscuitation: breath sounds normal Cardiovascular: Heart Auscultation: RRR Abdomen: Inspection & Palpation: soft, no tenderness, guarding & rebound Extremities: no edema Laboratory Last 24 Hours Test 12/09/16 05:20 White Blood Count 1.69 K/uL Red Blood Count 2.87 M/uL Hemoglobin 8.9 g/dL Hematocrit 26.8 % Mean Corpuscular Volume 93.4 fL Mean Corpuscular Hemoglobin 31.0 pg Mean Corpuscular Hemoglobin Concent 33.2 g/dl Platelet Count 60 K/uL Mean Platelet Volume 11.5 fL Neutrophils (%) (Auto) 45.0 % Lymphocytes (%) (Auto) 27.5 % Monocytes (%) (Auto) 17.5 % Eosinophils (%) (Auto) 3.1 % Basophils (%) (Auto) 1.3 % Neutrophils # (Auto) 0.72 K/uL Lymphocytes # (Auto) 0.44 K/uL Monocytes # (Auto) 0.28 K/uL Eosinophils # (Auto) 0.05 K/uL Basophils # (Auto) 0.02 K/uL RDW Standard Deviation 60.1 fL RDW Coefficient of Variation 17.5 % Immature Granulocyte % (Auto) 5.6 % Immature Granulocyte # (Auto) 0.09 K/uL Nucleated RBC Absolute Count (auto) 0.00 K/uL Nucleated Red Blood Cells % 0.0 % Red Blood Cell Morphology Unremarkable Sodium Level 144 mmol/L Potassium Level 4.0 mmol/L Chloride Level 116 mmol/L Carbon Dioxide Level 22 mmol/L Anion Gap 6.0 mmol/L Blood Urea Nitrogen 22 mg/dl Creatinine 1.40 mg/dl Est Creatinine Clear Calc Drug Dose 39.9 ml/min Estimated GFR () 55.8 Estimated GFR (Non- 48.1 BUN/Creatinine Ratio 15.9 Random Glucose 104 mg/dl Calcium Level 7.9 mg/dl Assessment & Plan His counts are improving with Neupogen, though he remains neutropenic. His cultures have all been negative, however, and he is afebrile. Once his ANC rises above 1000 and he is afebrile, if he has no determined infectious sources , we can discontinue his antibiotics. He will follow up with Dr. Burks as an outpatient, who will likely discontinue his Rituxan given his marrow issues. Continue Neupogen until no longer neutropenic.
[2016-12-09] MEDS: FINASTERIDE 5 MG TAB PO SCH (19:20)
[2016-12-09 23:56] VITALS: BP 126/59; PULSE 69; TEMP 37; O2SAT 97
[2016-12-10] MEDS: LEVOTHYROXINE 75 MCG TAB PO SCH (05:47)
[2016-12-10 07:27] VITALS: BP 112/57; PULSE 97; TEMP 36.6; O2SAT 97
[2016-12-10 07:50] LABS: BASO ABS # 0.02 K/uL (0-0.2); COMPLETE YES; EOS % 4.5 %; HEMATOCRIT 28.5 % (42-52); IG% 2.5 %; LYMPH % 40.1 %; LYMPH ABS # 0.81 K/uL (1.2-3.4); MEAN CELL VOLUME 93.4 fL (80-100); MEAN CORPUSCULAR HEMOGLOBIN 30.2 pg (25-34); MEAN CORPUSCULAR HGB CONC 32.3 g/dl (32-36); MEAN PLATELET VOLUME 11.9 fL (7.4-10.4); MONO % 14.4 %; NEUT % 37.5 %; PLATELET COUNT 66 K/uL (130-400); RED BLOOD COUNT 3.05 M/uL (4.7-6.1); WHITE BLOOD COUNT 2.02 K/uL (4.8-10.8)
[2016-12-10 07:59] LABS: BUN/CREATININE RATIO 16.3 (10-20); CREATININE 1.4 mg/dl (0.60-1.40); POTASSIUM 4.3 mmol/L (3.5-5.1)
[2016-12-10] MEDS: POLYETHYLENE (MIRALAX) 17 GM PACK PO SCH ×2 (08:00→09:26)
[2016-12-10] MEDS: BOOST VANILLA PO SCH ×4 (08:03→20:26)
[2016-12-10] MEDS: FILGRASTIM 480 MCG/1.6 ML VIAL SC SCH (08:04)
[2016-12-10] MEDS: NICOTINE 14 MG/24 HR TDSY TD SCH (08:07)
[2016-12-10] MEDS: TAMSULOSIN HCL 0.4 MG CAP PO SCH (08:08)
[2016-12-10] MEDS: FLUCONAZOLE 100 MG TAB PO SCH (08:08)
[2016-12-10] MEDS: CHOLECALCIFEROL 1000 INTER.UNIT TAB PO SCH (08:08)
[2016-12-10] MEDS: CYANOCOBALAMIN 500 MCG TAB (VIT B-12) PO SCH (08:08)
[2016-12-10] MEDS: PANTOprazole SOD 40 MG TAB PO SCH (08:08)
[2016-12-10] MEDS: TIOTROPIUM BROMIDE 5 PUFF/90 MCG INH INH SCH (08:09)
[2016-12-10] MEDS: CEFEPIME IV 2,000 MG in DEXTROSE 5% 100ML 100 ML IV SCH ×2 (10:02→22:02)
--- NOTE | 2016-12-10 11:18 | Hospitalist Progress Note ---
Hospitalist Progress Note Date of Service December 10, 2016. (Cece Rodriguez ., PA-C) Subjective Pt evaluation today including: conversation w/ patient, physical exam, chart review, lab review, review of inpatient medication list Voiding: no voiding problems, no incontinence Patient admits to symptoms similar to initial presentation. He states he has a tingling/shakiness feeling to bilateral upper extremities. He also admits to dizziness and weakness. Patient transitioned from lying position to sitting position for physical exam and admits to increased dizziness for a brief moment. He states these are similar symptoms to what he experiences at home, which causes him to fall. +edema to LUE; again states this occurs with IVF. He is eating and drinking OK. Patient denies any fever, chills, sweats, lightheadedness, vision changes, CP, palpitations, edema, SOB, wheezing, cough, abdominal pain, nausea, vomiting, diarrhea, urinary symptoms, melena, numbness, muscle/joint pain, anxiety/depression, active bleeding, or new skin discoloration/changes. (Cece Rodriguez ., PA-C) Medications Current Inpatient Medications Medications (Trade) Dose Ordered Sig/Hari Route Start Time Stop Time Status Last Admin Dose Admin Acetaminophen (Tylenol Tab) 650 mg Q4H PRN PO 12/07/16 15:00 01/06/17 14:59 Al Hydrox/Mg Hydrox/Simethicone (Maalox Max Susp) 15 ml Q4H PRN PO 12/07/16 15:00 01/06/17 14:59 Magnesium Hydroxide (Milk Of Magnesia Susp) 30 ml Q6H PRN PO 12/07/16 15:00 01/06/17 14:59 Ondansetron HCl (Zofran Inj) 4 mg Q6H PRN IV 12/07/16 15:00 01/06/17 14:59 Cholecalciferol (Vitamin D Tab) 1,000 inter.unit DAILY PO 12/08/16 08:00 01/07/17 08:59 12/10/16 08:08 1,000 INTER.UNIT Finasteride (Proscar Tab) 5 mg HS PO 12/07/16 21:00 01/06/17 20:59 12/09/16 19:20 5 MG Levothyroxine Sodium (Synthroid Tab) 75 mcg DAILYBB PO 12/08/16 06:30 01/07/17 06:59 12/10/16 05:47 75 MCG Tamsulosin HCl (Flomax Cap) 0.4 mg DAILY PO 12/08/16 08:00 01/07/17 08:59 12/10/16 08:08 0.4 MG Tiotropium [place] (Spiriva Handihaler Inhaler) 1 puff DAILY INH 12/08/16 08:00 01/07/17 08:59 12/10/16 08:09 1 PUFF Miscellaneous Information (Order Awaiting Action) 1 ea QS N/A 12/07/16 16:00 01/06/17 15:59 Cyanocobalamin (Vitamin B-12 Tab) 1,000 mcg QAM PO 12/08/16 08:00 01/07/17 08:59 12/10/16 08:08 1,000 MCG Pantoprazole Sodium (Protonix Tab) 40 mg QAM PO 12/08/16 08:00 01/07/17 08:59 12/10/16 08:08 40 MG Polyethylene (Miralax Powder Packet) 17 gm DAILY PO 12/08/16 08:00 01/07/17 08:59 12/10/16 09:26 17 GM Nicotine (Nicoderm Cq 14MG Patch) 1 patch QAM TD 12/07/16 20:00 01/06/17 19:59 12/10/16 08:07 1 PATCH Miscellaneous (Remove Nicoderm Patch) 1 ea HS N/A 12/08/16 08:59 01/07/17 08:58 12/09/16 19:21 1 EA Heparin Sodium (Porcine) (Heparin 100 Unit/ml 5ml Flush) 5 ml PRN PRN IV 12/07/16 23:45 01/06/17 23:44 12/10/16 08:31 5 ML Filgrastim (Neupogen Sq) 480 mcg DAILY SC 12/08/16 11:00 01/07/17 10:59 12/10/16 08:04 480 MCG Enteral Nutritional Formula (Boost) 1 can BID PO 12/08/16 20:00 01/07/17 19:59 12/10/16 08:03 1 CAN Prednisone (PredniSONE TAB) 5 mg QAM PO 12/09/16 12:00 01/08/17 11:59 12/10/16 08:08 5 MG Albuterol/ Ipratropium 3 ml 3 ml Q4R PRN INH 12/09/16 11:15 01/08/17 11:14 Cefepime HCl/ Dextrose (Maxipime IV/D5 100ml) 112.5 ml @ 200 mls/hr Q12@1000,2200 IV 12/09/16 22:00 12/16/16 21:59 12/10/16 10:02 200 MLS/HR Cefepime HCl (Consult) 1 ea UD PRN N/A 12/09/16 12:15 01/08/17 12:14 (Cece Rodriguez, KRISHNA-C) Objective Vital Signs Date Time Temp Pulse Resp B/P Pulse Ox O2 Delivery O2 Flow Rate FiO2 12/10/16 09:00 Room Air 12/10/16 07:27 36.6 97 18 112/57 97 Room Air 12/10/16 00:00 Room Air 12/09/16 23:56 37.0 69 20 126/59 97 Room Air 12/09/16 18:00 Room Air 12/09/16 15:07 36.7 72 16 126/63 100 Room Air 12/09/16 14:28 96 (Cece Rodriguez ., PA-C) Physical Exam General Appearance: no apparent distress Eyes: normal inspection, PERRL ENT: hearing grossly normal Neck: supple Respiratory/Chest: lungs clear, no respiratory distress, no accessory muscle use Cardiovascular: regular rate, rhythm Abdomen: normal bowel sounds, non tender, soft Extremities: no calf tenderness, + swelling (+1 pitting edema to bilateral lower extremities; +1 pitting edema to left hand ) Neurologic/Psychiatric: alert, normal mood/affect, oriented x 3 Skin: normal color, warm/dry, no rash (Cece Rodriguez ., PA-C) Laboratory Results Last 24 Hours Test 12/10/16 07:14 White Blood Count 2.02 K/uL Red Blood Count 3.05 M/uL Hemoglobin 9.2 g/dL Hematocrit 28.5 % Mean Corpuscular Volume 93.4 fL Mean Corpuscular Hemoglobin 30.2 pg Mean Corpuscular Hemoglobin Concent 32.3 g/dl Platelet Count 66 K/uL Mean Platelet Volume 11.9 fL Neutrophils (%) (Auto) 37.5 % Lymphocytes (%) (Auto) 40.1 % Monocytes (%) (Auto) 14.4 % Eosinophils (%) (Auto) 4.5 % Basophils (%) (Auto) 1.0 % Neutrophils # (Auto) 0.76 K/uL Lymphocytes # (Auto) 0.81 K/uL Monocytes # (Auto) 0.29 K/uL Eosinophils # (Auto) 0.09 K/uL Basophils # (Auto) 0.02 K/uL RDW Standard Deviation 60.2 fL RDW Coefficient of Variation 17.7 % Immature Granulocyte % (Auto) 2.5 % Immature Granulocyte # (Auto) 0.05 K/uL Sodium Level 146 mmol/L Potassium Level 4.3 mmol/L Chloride Level 116 mmol/L Carbon Dioxide Level 24 mmol/L Anion Gap 6.0 mmol/L Blood Urea Nitrogen 23 mg/dl Creatinine 1.40 mg/dl Est Creatinine Clear Calc Drug Dose 39.9 ml/min Estimated GFR () 55.8 Estimated GFR (Non- 48.1 BUN/Creatinine Ratio 16.3 Random Glucose 83 mg/dl Calcium Level 8.0 mg/dl Chemistry Specimen Hemolysis (Cece Rodriguez, PA-C) Assessment and Plan 76 y/o male with: Bilateral upper extremity tingling and dizziness: - ?due to low-normal BPs- since discontinued IVF and IV Hydrocortisone, BPs have dropped to range at presentation - Check orthostatic BPs - Monitor BPs, Flomax was decreased from 0.8 to 0.4 mg at admission- on Flomax + Proscar regimen- will d/c Flomax and increase Prednisone from 5 mg to 10 mg Neutropenic fever - 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 Lymphoma along with neutropenia: - Admit to med/surg - IV Cefepime and Vancomycin until remains afebrile and counts improve -- Vancomycin d/c on 12/09 - BCx NGTD - UCx unremarkable - Influenza and Lyme negative - CXR- no acute processes - Of note - patient had normal head CT on 12/06/16 Severe weakness with falls - suspect due to volume depletion and low BP: - Lumbar MRI obtained - Lower Flomax dose to 0.4mg - NS bolus, then NS at 100cc/hr x4 bags--> patient eating and drinking OK and kidney function OK, d/c IVF on 12/09 - Chronic prednisone; increased to hydrocortisone 25mg q12h--> transition to home PO Prednisone 5 mg daily on 12/10 -- Increase to 10 mg Prednisone due to low-normal BPs and dizziness - PT/OT consults 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: - Neutropenic precautions - Consult heme/oncology, appreciate recommendations -- Neupogen 480 mcg SC daily- counts continue to improve, goal for ANC >1000 Lower extremity edema: Bilateral venous US of lower extremities- no evidence of DVT LUE edema: - IVF d/c'd - Obtain Doppler Hypothyroidism: - TSH low- lower dose to 75mcg daily - Recheck TSH in 6 weeks Chronic tobacco dependence: Nicoderm patch daily COPD: - Continue home inhalers - DuoNebs PRN for SOB/wheezing BPH: - Flomax 0.4 mg and Proscar 5 mg -- d/c Flomax on 12/10 due to symptomatic low-normal BPs and dizziness GI prophylaxis: Protonix daily, MiraLAX DVT prophylaxis: SCDs; chemical means contraindicated due to low platelets. Code Status: LEVEL I, FULL Dispo: Discharge to home once medically stable - PT/OT recommendations- [facility] (Cece Rodriguez ., PA-C) PA Physician Supervision Note: I interviewed and examined the patient. Discussed with Cece FUENTES and agree with findings and plan as documented in the note. Any exceptions or clarifications are listed here: None Pt has swollen left arm, same side as port, negative doppler for DVT, will elevate was given gcsf by oncology 12/08, slight rise in ANC vitals stable car regular lungs are clear left arm with minor swelling Neutropenic fever, supportive care, continue antibiotics current cultures are negative anc is near 760, will follow treat arm swelling with local measures Documented By: Abdelrahman Bella (Abdelrahman Bella M.D.)
[2016-12-10 12:12] VITALS: BP_SYST 106; BP_SYST 85; BP_DIAS 43; BP_DIAS 59; PULSE 75; PULSE 93
--- NOTE | 2016-12-10 14:57 | DIAGNOSTIC IMAGING REPORT ---
LEFT UPPER EXTREMITY VENOUS DOPPLER HISTORY: Left arm swelling COMPARISON STUDY: None. FINDINGS: The left internal jugular vein is patent. There is normal flow within the left subclavian vein. There is normal flow and compressibility within the left axillary, basilic, brachial, radial, ulnar, and visualized cephalic veins. IMPRESSION: No DVT within the left upper extremity. Electronically signed by: Von Rocha M.D. 12/10/2016 2:56 PM Dictated Date/Time: 12/10/2016 2:55 PM
[2016-12-10 15:34] VITALS: BP 102/56; PULSE 68; TEMP 36.7; O2SAT 100
[2016-12-10 16:00] VITALS: O2SAT 100
[2016-12-10 16:27] VITALS: BP_SYST 117; BP_SYST 132; BP_SYST 163; BP_DIAS 61; BP_DIAS 71; BP_DIAS 74; PULSE 73; TEMP 36.9; O2SAT 97
[2016-12-10] MEDS: FINASTERIDE 5 MG TAB PO SCH (20:27)
[2016-12-10 23:39] VITALS: BP 122/51; PULSE 72; TEMP 36.8; O2SAT 98
[2016-12-11 06:14] LABS: HEMATOCRIT 28.1 % (42-52); MEAN CELL VOLUME 93.4 fL (80-100); MEAN CORPUSCULAR HEMOGLOBIN 28.9 pg (25-34); MEAN PLATELET VOLUME 11.2 fL (7.4-10.4); PLATELET COUNT 70 K/uL (130-400); RED BLOOD COUNT 3.01 M/uL (4.7-6.1)
[2016-12-11 06:16] LABS: BUN/CREATININE RATIO 17.8 (10-20); CALCIUM 8.1 mg/dl (8.5-10.1); CREATININE 1.3 mg/dl (0.60-1.40); POTASSIUM 4.2 mmol/L (3.5-5.1)
[2016-12-11 06:20] LABS: BASO % 1.3 %; BASO ABS # 0.03 K/uL (0-0.2); COMPLETE YES; DOHLE BODIES 1+; EOS % 2.2 %; GIANT PLATELETS 1+; IG% 7.4 %; LYMPH % 43.5 %; MONO % 17.4 %; NEUT % 28.2 %; OVALOCYTES 1+
[2016-12-11] MEDS: LEVOTHYROXINE 75 MCG TAB PO SCH (06:39)
[2016-12-11 07:02] VITALS: BP 119/65; PULSE 82; TEMP 36.7; O2SAT 96
[2016-12-11] MEDS: POLYETHYLENE (MIRALAX) 17 GM PACK PO SCH (07:38)
[2016-12-11] MEDS: BOOST VANILLA PO SCH ×4 (07:38→20:29)
[2016-12-11] MEDS: TIOTROPIUM BROMIDE 5 PUFF/90 MCG INH INH SCH (07:39)
[2016-12-11] MEDS: CYANOCOBALAMIN 500 MCG TAB (VIT B-12) PO SCH (07:40)
[2016-12-11] MEDS: PANTOprazole SOD 40 MG TAB PO SCH (07:40)
[2016-12-11] MEDS: CHOLECALCIFEROL 1000 INTER.UNIT TAB PO SCH (07:41)
[2016-12-11] MEDS: NICOTINE 14 MG/24 HR TDSY TD SCH (07:41)
[2016-12-11] MEDS: FILGRASTIM 480 MCG/1.6 ML VIAL SC SCH (08:26)
[2016-12-11] MEDS: CEFEPIME IV 2,000 MG in DEXTROSE 5% 100ML 100 ML IV SCH ×2 (09:56→21:31)
--- NOTE | 2016-12-11 10:38 | Hospitalist Progress Note ---
Hospitalist Progress Note Date of Service December 11, 2016. (Cece Rodriguez ., ALONSO) Subjective Pt evaluation today including: conversation w/ patient, conversation w/ family (), physical exam, chart review, lab review, review of inpatient medication list Voiding: no voiding problems, no incontinence Patient states he is feeling well today. He is eating and drinking OK. LUE swelling has improved. Patient denies any fever, chills, sweats, lightheadedness , dizziness, vision changes, CP, palpitations, SOB, wheezing, cough, abdominal pain, nausea, vomiting, diarrhea, urinary symptoms, melena, numbness/tingling, weakness, muscle/joint pain, anxiety/depression, active bleeding, or new skin discoloration/changes. (Cece Rodriguez ., AIC) Medications Current Inpatient Medications Medications (Trade) Dose Ordered Sig/Hari Route Start Time Stop Time Status Last Admin Dose Admin Acetaminophen (Tylenol Tab) 650 mg Q4H PRN PO 12/07/16 15:00 01/06/17 14:59 Al Hydrox/Mg Hydrox/Simethicone (Maalox Max Susp) 15 ml Q4H PRN PO 12/07/16 15:00 01/06/17 14:59 Magnesium Hydroxide (Milk Of Magnesia Susp) 30 ml Q6H PRN PO 12/07/16 15:00 01/06/17 14:59 Ondansetron HCl (Zofran Inj) 4 mg Q6H PRN IV 12/07/16 15:00 01/06/17 14:59 Cholecalciferol (Vitamin D Tab) 1,000 inter.unit DAILY PO 12/08/16 08:00 01/07/17 08:59 12/11/16 07:41 1,000 INTER.UNIT Finasteride (Proscar Tab) 5 mg HS PO 12/07/16 21:00 01/06/17 20:59 12/10/16 20:27 5 MG Levothyroxine Sodium (Synthroid Tab) 75 mcg DAILYBB PO 12/08/16 06:30 01/07/17 06:59 12/11/16 06:39 75 MCG Tiotropium [place] (Spiriva Handihaler Inhaler) 1 puff DAILY INH 12/08/16 08:00 01/07/17 08:59 12/11/16 07:39 1 PUFF Miscellaneous Information (Order Awaiting Action) 1 ea QS N/A 12/07/16 16:00 01/06/17 15:59 Cyanocobalamin (Vitamin B-12 Tab) 1,000 mcg QAM PO 12/08/16 08:00 01/07/17 08:59 12/11/16 07:40 1,000 MCG Pantoprazole Sodium (Protonix Tab) 40 mg QAM PO 12/08/16 08:00 01/07/17 08:59 12/11/16 07:40 40 MG Polyethylene (Miralax Powder Packet) 17 gm DAILY PO 12/08/16 08:00 01/07/17 08:59 12/10/16 09:26 17 GM Nicotine (Nicoderm Cq 14MG Patch) 1 patch QAM TD 12/07/16 20:00 01/06/17 19:59 12/11/16 07:41 1 PATCH Miscellaneous (Remove Nicoderm Patch) 1 ea HS N/A 12/08/16 08:59 01/07/17 08:58 12/10/16 20:27 1 EA Heparin Sodium (Porcine) (Heparin 100 Unit/ml 5ml Flush) 5 ml PRN PRN IV 12/07/16 23:45 01/06/17 23:44 12/11/16 04:59 5 ML Filgrastim (Neupogen Sq) 480 mcg DAILY SC 12/08/16 11:00 01/07/17 10:59 12/11/16 08:26 480 MCG Enteral Nutritional Formula (Boost) 1 can BID PO 12/08/16 20:00 01/07/17 19:59 12/11/16 07:38 1 CAN Albuterol/ Ipratropium 3 ml 3 ml Q4R PRN INH 12/09/16 11:15 01/08/17 11:14 Cefepime HCl/ Dextrose (Maxipime IV/D5 100ml) 112.5 ml @ 200 mls/hr Q12@1000,2200 IV 12/09/16 22:00 12/16/16 21:59 12/11/16 09:56 200 MLS/HR Cefepime HCl (Consult) 1 ea UD PRN N/A 12/09/16 12:15 01/08/17 12:14 Prednisone (PredniSONE TAB) 10 mg QAM PO 12/11/16 08:00 01/10/17 07:59 12/11/16 07:40 10 MG (Cece Rodriguez ., KRISHNA-C) Objective Vital Signs Date Time Temp Pulse Resp B/P Pulse Ox O2 Delivery O2 Flow Rate FiO2 12/11/16 08:00 Room Air 12/11/16 07:02 36.7 82 20 119/65 96 Room Air 12/11/16 00:30 Room Air 12/10/16 23:39 36.8 72 20 122/51 98 Room Air 12/10/16 16:27 36.9 73 20 117/61 97 Room Air 132/71 163/74 12/10/16 16:00 100 Room Air 12/10/16 15:34 36.7 68 20 102/56 100 Room Air 12/10/16 12:12 75 85/43 93 106/59 (Cece Rodriguez ., PA-C) Physical Exam General Appearance: no apparent distress Eyes: normal inspection, PERRL ENT: hearing grossly normal Neck: supple Respiratory/Chest: lungs clear, no respiratory distress, no accessory muscle use Cardiovascular: regular rate, rhythm Abdomen: normal bowel sounds, non tender, soft Extremities: + swelling (Trace pitting edema of bilateral lower extremities; LUE swelling improved, trace pitting edema ) Neurologic/Psychiatric: alert, normal mood/affect, oriented x 3 Skin: normal color, warm/dry, no rash (Cece Rodriguez ., PA-C) Laboratory Results Last 24 Hours Test 12/11/16 05:00 White Blood Count 2.30 K/uL Red Blood Count 3.01 M/uL Hemoglobin 8.7 g/dL Hematocrit 28.1 % Mean Corpuscular Volume 93.4 fL Mean Corpuscular Hemoglobin 28.9 pg Mean Corpuscular Hemoglobin Concent 31.0 g/dl Platelet Count 70 K/uL Mean Platelet Volume 11.2 fL Neutrophils (%) (Auto) 28.2 % Lymphocytes (%) (Auto) 43.5 % Monocytes (%) (Auto) 17.4 % Eosinophils (%) (Auto) 2.2 % Basophils (%) (Auto) 1.3 % Neutrophils # (Auto) 0.65 K/uL Lymphocytes # (Auto) 1.00 K/uL Monocytes # (Auto) 0.40 K/uL Eosinophils # (Auto) 0.05 K/uL Basophils # (Auto) 0.03 K/uL RDW Standard Deviation 60.7 fL RDW Coefficient of Variation 17.5 % Immature Granulocyte % (Auto) 7.4 % Immature Granulocyte # (Auto) 0.17 K/uL Dohle Bodies 1+ Giant Platelets 1+ Ovalocytes 1+ Sodium Level 145 mmol/L Potassium Level 4.2 mmol/L Chloride Level 114 mmol/L Carbon Dioxide Level 23 mmol/L Anion Gap 8.0 mmol/L Blood Urea Nitrogen 23 mg/dl Creatinine 1.30 mg/dl Est Creatinine Clear Calc Drug Dose 42.9 ml/min Estimated GFR () 61.0 Estimated GFR (Non- 52.6 BUN/Creatinine Ratio 17.8 Random Glucose 86 mg/dl Calcium Level 8.1 mg/dl (Cece Rodriguez, PA-C) Assessment and Plan 76 y/o male with: Bilateral upper extremity tingling and dizziness- RESOLVED: - ?due to low-normal BPs- since discontinued IVF and IV Hydrocortisone, BPs have dropped to range at presentation - Check orthostatic BPs - Monitor BPs, Flomax was decreased from 0.8 to 0.4 mg at admission- on Flomax + Proscar regimen- will d/c Flomax and increase Prednisone from 5 mg to 10 mg Neutropenic fever - 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 Lymphoma along with neutropenia: - Admit to med/surg - IV Cefepime and Vancomycin until remains afebrile and counts improve -- Vancomycin d/c on 12/09 - BCx NGTD - UCx unremarkable - Influenza and Lyme negative - CXR- no acute processes - Of note - patient had normal head CT on 12/06/16 Severe weakness with falls - suspect due to volume depletion and low BP: - Lumbar MRI obtained - Lower Flomax dose to 0.4mg - NS bolus, then NS at 100cc/hr x4 bags--> patient eating and drinking OK and kidney function OK, d/c IVF on 12/09 - Chronic prednisone; increased to hydrocortisone 25mg q12h--> transition to home PO Prednisone 5 mg daily on 12/10 -- Increase to 10 mg Prednisone due to low-normal BPs and dizziness - PT/OT consults 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: - Neutropenic precautions - Consult heme/oncology, appreciate recommendations -- Neupogen 480 mcg SC daily- counts continue to improve, goal for ANC >1000 Lower extremity edema: Bilateral venous US of lower extremities- no evidence of DVT LUE edema- IMPROVING: - IVF d/c'd - Doppler- no evidence of DVT - Continue to elevate Hypothyroidism: - TSH low- lower dose to 75mcg daily - Recheck TSH in 6 weeks Chronic tobacco dependence: Nicoderm patch daily COPD: - Continue home inhalers - DuoNebs PRN for SOB/wheezing BPH: - Flomax 0.4 mg and Proscar 5 mg -- d/c Flomax on 12/10 due to symptomatic low-normal BPs and dizziness- no urinary symptoms on 12/11 GI prophylaxis: Protonix daily, MiraLAX DVT prophylaxis: SCDs; chemical means contraindicated due to low platelets. Code Status: LEVEL I, FULL Dispo: Discharge to home once counts improve and IV antibiotics can be discontinued - PT/OT recommendations- [facility] (Cece Rodriguez ., PA-C) PA Physician Supervision Note: I interviewed and examined the patient. Discussed with Cece Bustamante PAC and agree with findings and plan as documented in the note. Any exceptions or clarifications are listed here: None Pt has improved swollen left arm, same side as port, negative doppler for DVT was given gcsf by oncology 12/08, slight rise in ANC vitals stable car regular lungs are clear left arm with minor swelling Neutropenic fever, supportive care, continue antibiotics current cultures are negative anc is still <1000 arm swelling improved with local measures Documented By: Abdelrahman Bella (Abdelrahman Bella M.D.)
[2016-12-11 14:35] VITALS: BP 108/56; PULSE 72; TEMP 36.8; O2SAT 98
[2016-12-11 16:00] VITALS: O2SAT 98
[2016-12-11] MEDS: FINASTERIDE 5 MG TAB PO SCH (20:30)
[2016-12-11 23:53] VITALS: BP 126/61; PULSE 71; TEMP 36.7; O2SAT 96
[2016-12-12] MEDS: LEVOTHYROXINE 75 MCG TAB PO SCH (05:27)
[2016-12-12 06:08] LABS: HEMATOCRIT 29.3 % (42-52); MEAN CELL VOLUME 93.9 fL (80-100); MEAN CORPUSCULAR HEMOGLOBIN 30.1 pg (25-34); MEAN CORPUSCULAR HGB CONC 32.1 g/dl (32-36); MEAN PLATELET VOLUME 11.1 fL (7.4-10.4); PLATELET COUNT 68 K/uL (130-400); RED BLOOD COUNT 3.12 M/uL (4.7-6.1); WHITE BLOOD COUNT 2.38 K/uL (4.8-10.8)
[2016-12-12 06:49] LABS: LARGE PLATELETS 1+; OVALOCYTES 1+
[2016-12-12 06:50] LABS: BASO ABS # 0.15 K/uL (0-0.2); BASOPHIL % 6.1 % (0-2); COMPLETE YES; EOSINOPHIL % 2.6 %; LYMPH ABS # 1.74 K/uL (1.2-3.4); LYMPHOCYTE % 72.9 %; NEUTROPHILS % 10.5 %
[2016-12-12 07:17] VITALS: BP 105/66; PULSE 66; TEMP 36.8; O2SAT 97
[2016-12-12] MEDS: POLYETHYLENE (MIRALAX) 17 GM PACK PO SCH (07:37)
[2016-12-12] MEDS: TIOTROPIUM BROMIDE 5 PUFF/90 MCG INH INH SCH (07:39)
[2016-12-12] MEDS: PANTOprazole SOD 40 MG TAB PO SCH (07:39)
[2016-12-12] MEDS: NICOTINE 14 MG/24 HR TDSY TD SCH (07:39)
[2016-12-12] MEDS: CHOLECALCIFEROL 1000 INTER.UNIT TAB PO SCH (07:39)
[2016-12-12] MEDS: CYANOCOBALAMIN 500 MCG TAB (VIT B-12) PO SCH (07:39)
[2016-12-12] MEDS: FILGRASTIM 480 MCG/1.6 ML VIAL SC SCH (07:44)
[2016-12-12] MEDS: BOOST VANILLA PO SCH ×2 (08:17)
[2016-12-12] MEDS ORDERED: SYN75 PO (09:42)
[2016-12-12] MEDS ORDERED: PRD10 PO (09:42)
--- NOTE | 2016-12-12 09:45 | Discharge Instructions ---
Discharge Instructions Date of Service December 12, 2016. Admission Reason for Admission: Neutropenic Fever Discharge Discharge Diagnosis / Problem: Neutropenic fever Discharge Goals Goal(s): Decrease discomfort, Improve function, Increase independence, Improve nutritional status, Diagnostic testing, Therapeutic intervention, Prevent Disease Progression Activity Recommendations Activity Limitations: resume your previous activity . Instructions / Follow-Up Instructions / Follow-Up New/changed medications: 1. Prednisone INCREASED to 10 mg daily Continue increased dosage until follow-up w/ PCP 2. STOP Flomax 3. Synthroid DECREASED to 75 mcg daily Continue all other regular home medications as prescribed Please follow-up with your PCP within 5-7 days Please follow-up with hematology/oncology as instructed by Dr. Zamarripa Please follow-up/keep all of your subspecialty appointments Current Hospital Diet Patient's current hospital diet: Regular Diet Discharge Diet Recommended Diet: Regular Diet Pending Studies Studies pending at discharge: no Laboratory Results Last 24 Hours Test 12/12/16 05:34 White Blood Count 2.38 K/uL Red Blood Count 3.12 M/uL Hemoglobin 9.4 g/dL Hematocrit 29.3 % Mean Corpuscular Volume 93.9 fL Mean Corpuscular Hemoglobin 30.1 pg Mean Corpuscular Hemoglobin Concent 32.1 g/dl Platelet Count 68 K/uL Mean Platelet Volume 11.1 fL RDW Standard Deviation 60.3 fL RDW Coefficient of Variation 17.6 % Neutrophils % (Manual) 10.5 % Lymphocytes % (Manual) 72.9 % Monocytes % (Manual) 7.9 % Eosinophils % (Manual) 2.6 % Basophils % (Manual) 6.1 % Neutrophils # (Manual) 0.25 K/uL Total Absolute Neutrophils 0.25 K/uL Lymphocytes # (Manual) 1.74 K/uL Total Absolute Lymphocytes 1.74 K/uL Monocytes # (Manual) 0.19 K/uL Eosinophils # (Manual) 0.06 K/uL Basophils # (Manual) 0.15 K/uL Large Platelets 1+ Ovalocytes 1+ Medical Emergencies . Who to Call and When: Medical Emergencies: If at any time you feel your situation is an emergency, please call 911 immediately. . Non-Emergent Contact Non-Emergency issues call your: Primary Care Provider . . "Provider Documentation" section prepared by Cece Rodriguez. . VTE Core Measure Inpt VTE Proph given/why not?: Contraindicated
--- NOTE | 2016-12-12 09:57 | Discharge Summary ---
Discharge Summary Date of Service December 12, 2016. 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 History of lymphoma. COMPARISON STUDY: No previous studies for comparison. TECHNIQUE: Utilizing a 1.5 Slime magnet and dedicated coil, multiplanar, multiecho imaging of the lumbar spine was performed without IV contrast. FINDINGS: For purposes of numbering on this exam, the L5-S1 disc space is assigned to axial image 23 of 25. There is slight anterolisthesis of L4 and L5. There is no intracanalicular mass or fluid collection. Left renal atrophy with suspected left renal cysts is again noted. This is shown on CT of March 26, 2016. Mild dilatation of the infrarenal abdominal aorta appear similar to prior exam. There is no suspicious marrow replacement. There is no fracture. L1-2: The central canal and neural foramen are patent. L2-3: The central canal is patent. There is facet arthrosis. The neural foramen are patent. L3-4: There is disc bulge with ligamentous hypertrophy and facet arthrosis. These findings superimposed upon a congenitally narrow canal result in severe narrowing of the central canal and lateral recesses with moderate narrowing of both neural foramen. L4-5: There is disc space narrowing with disc bulge, ligamentous hypertrophy and facet arthrosis that result in severe narrowing of the central canal, lateral recesses as well as moderate narrowing of both neural foramen. L5-S1: Central canal is patent. There is facet arthrosis. There is moderate narrowing of the left neural foramen is mild narrowing of the right neural foramen. IMPRESSION: 1. 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 2. Moderate to severe multilevel neural foraminal stenosis, as detailed above. 3. No suspicious marrow replacement. Electronically signed by: Dusty Vazquez M.D. 12/07/2016 12:31 PM Dictated Date/Time: 12/07/2016 12:26 PM The status of this report is Signed. Draft = Not yet reviewed or approved by Radiologist. Signed = Reviewed and approved by Radiologist. CHEST ONE VIEW PORTABLE CLINICAL HISTORY: Weakness. COMPARISON STUDY: Chest radiograph December 06, 2016. FINDINGS: Cervical spine fusion and left subclavian Angoqz-a-Auts are incidentally noted. Small right and trace left pleural effusions are unchanged. Mild bibasilar opacities favor atelectasis. Cardiomediastinal silhouette is stable. Patient is rotated. Emphysema is noted. There is no pneumothorax. IMPRESSION: No change since prior exam. Small right and trace left pleural effusions with bilateral opacities which favor atelectasis. Electronically signed by: Dusty Vazquez M.D. 12/07/2016 10:07 AM Dictated Date/Time: 12/07/2016 10:04 AM The status of this report is Signed. Draft = Not yet reviewed or approved by Radiologist. Signed = Reviewed and approved by Radiologist. BILATERAL LOWER EXTREMITY VENOUS DOPPLER HISTORY: Lower extremity edema. eval for DVT either leg COMPARISON STUDY: None. FINDINGS: There is normal compressibility, flow, and augmentation within the bilateral lower extremity deep venous systems. IMPRESSION: No DVT within the right or left lower extremity. Electronically signed by: Von Rocha M.D. 12/07/2016 4:04 PM Dictated Date/Time: 12/07/2016 4:03 PM The status of this report is Signed. Draft = Not yet reviewed or approved by Radiologist. Signed = Reviewed and approved by Radiologist. LEFT UPPER EXTREMITY VENOUS DOPPLER HISTORY: Left arm swelling COMPARISON STUDY: None. FINDINGS: The left internal jugular vein is patent. There is normal flow within the left subclavian vein. There is normal flow and compressibility within the left axillary, basilic, brachial, radial, ulnar, and visualized cephalic veins. IMPRESSION: No DVT within the left upper extremity. Electronically signed by: Von Rocha M.D. 12/10/2016 2:56 PM Dictated Date/Time: 12/10/2016 2:55 PM The status of this report is Signed. Draft = Not yet reviewed or approved by Radiologist. Signed = Reviewed and approved by Radiologist. Consultations: Hematology/oncology (Cece Rodriguez, ALONSO) Medication Reconciliation New Medications: Levothyroxine Sodium (Synthroid) 75 Mcg Tab 75 MCG PO DAILYBB for 30 Days, #30 TAB Prednisone (Prednisone) 10 Mg Tab 10 MG PO QAM for 30 Days, #30 TAB Continued Medications: Qmpzbmk-Pqllldyil-Obtu (Calcium Magnesium & Zinc) 1 Tab Tab 1 TAB PO QPM Cholecalciferol (Vitamin D-3) 1,000 Unit Tab 1000 UNITS PO DAILY Cyanocobalamin (Vitamin B12) 1,000 Mcg Tab 1000 MCG PO DAILY Finasteride (Proscar) 5 Mg Tab 1 TAB PO HS, TAB 1 Refill Fluconazole (Diflucan) 100 Mg Tab 100 MG PO DIRECTED, TAB Nitroglycerin (Nitrostat) 0.4 Mg Tab 0.4 MG UT PRN, BTL Ranitidine (Zantac) 150 Mg Tab 150 MG PO DAILY PRN for PRN, TAB Simvastatin (Zocor) 20 Mg Tab 1 TAB PO HS, TAB 1 Refill Tiotropium [place] (Spiriva Handihaler) 30 Puff/540 Mcg Aerp 1 CAP INH DAILY, INHALER Umeclidinium-Vilanterol (Anoro Ellipta 62.5-25 Mcg/INH) 1 Aer Aer 1 PUFF INH DAILY, #60 Discontinued Medications: Levothyroxine Sodium (Synthroid) 88 Mcg Tab 1 TAB PO QAM for 30 Days, #30 TAB 5 Refills TAKE AM SURGERY SIP WATER Prednisone (Prednisone) 5 Mg Tab 5 MG PO QAM, TAB TAKE AM SURGERY SIP WATER Tamsulosin HCl (Tamsulosin HCl) 0.4 Mg Cap 2 CAP PO DAILY, #180 Referrals At Discharge Follow up Referrals: Family Practice Referral - Within 1 Week with Harry Ovalle M.D. Discharge Exam Review of Systems: Constitutional: No chills, No fatigue, No fever, No sweats, No weakness Respiratory: No cough, No hemoptysis, No shortness of breath Cardiovascular: No chest pain, No edema, No palpitations Abdomen: No constipation, No diarrhea, No nausea, No pain, No vomiting Musculoskeletal: No calf pain, No joint pain, No muscle pain, No swelling Genitourinary - Male: No dysuria, No hematuria, No urinary frequency, No urinary hesitancy, No urinary incontinence, No urinary retention, No urinary urgency Neurologic: No numbness/tingling, No weakness Psychiatric: No anxiety, No depression symptoms Hematologic / Lymphatic: No abnormal bleeding/bruising Integumentary: No itch, No new/changing skin lesions, No rash Physical Exam: General Appearance: no apparent distress Eyes: normal inspection, PERRL ENT: hearing grossly normal Neck: supple Respiratory/Chest: lungs clear, no respiratory distress, no accessory muscle use Abdomen / GI: normal bowel sounds, non tender, soft Extremities: no calf tenderness, + swelling (trace pitting edema of bilateral lower extremities ) Neurologic/Psychiatric: alert, normal mood/affect, oriented x 3 Skin: normal color, warm/dry, no rash (Cece Rodriguez, PA-C) Hospital Course 76 y/o male with: Bilateral upper extremity tingling and dizziness- RESOLVED: - ?due to low-normal BPs- since discontinued IVF and IV Hydrocortisone, BPs have dropped to range at presentation - Check orthostatic BPs - Monitor BPs, Flomax was decreased from 0.8 to 0.4 mg at admission- on Flomax + Proscar regimen- will d/c Flomax and increase Prednisone from 5 mg to 10 mg -- Discontinue Flomax at discharge- no urinary issues. Continue increased Prednisone dosage due to symptomatic improvement; Discuss Prednisone dosage with PCP at f/u Neutropenic fever - 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 Lymphoma along with neutropenia: - Admit to med/surg - IV Cefepime and Vancomycin until remains afebrile and counts improve -- Vancomycin d/c on 12/09 -- Will not discharge with medications- spoke w/ Dr. Zamarripa, in agreement - BCx NGTD - UCx unremarkable - Influenza and Lyme negative - CXR- no acute processes - Of note - patient had normal head CT on 12/06/16 Severe weakness with falls - suspect due to volume depletion and low BP: - Lumbar MRI obtained - Lower Flomax dose to 0.4mg - NS bolus, then NS at 100cc/hr x4 bags--> patient eating and drinking OK and kidney function OK, d/c IVF on 12/09 - Chronic prednisone; increased to hydrocortisone 25mg q12h--> transition to home PO Prednisone 5 mg daily on 12/10 -- Increase to 10 mg Prednisone due to low-normal BPs and dizziness - PT/OT consults 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 Zamarripa is OK w/ discharge- he is setting up lab work and possible Neulasta injection for next week Lower extremity edema: Bilateral venous US of lower extremities- no evidence of DVT LUE edema- IMPROVING: - IVF d/c'd - Doppler- no evidence of DVT - Continue to elevate Hypothyroidism: - TSH low- lower dose to 75mcg daily - Recheck TSH in 6 weeks Chronic tobacco dependence: Nicoderm patch daily COPD: - Continue home inhalers - DuoNebs PRN for SOB/wheezing BPH: - Flomax 0.4 mg and Proscar 5 mg -- d/c Flomax on 12/10 due to symptomatic low-normal BPs and dizziness- no urinary symptoms on 12/12 GI prophylaxis: Protonix daily, MiraLAX DVT prophylaxis: SCDs; chemical means contraindicated due to low platelets. Code Status: LEVEL I, FULL Dispo: Discharge to home w/ HHS - PT/OT recommendations- [facility] Total Time Spent: Greater than 30 minutes This includes examination of the patient, discharge planning, medication reconciliation, and communication with other providers. (Cece Rodriguez ., PA-C) PA Physician Supervision Note: I interviewed and examined the patient. Discussed with Cece Bustamante PAC and agree with findings and plan as documented in the note. Any exceptions or clarifications are listed here: None Pt has improved swollen left arm, same side as port, negative doppler for DVT, improved with elevation, almost resolved at time of discharge maybe from ivf was given gcsf by oncology 12/08, slight rise in ANC vitals stable car regular lungs are clear left arm with only minor swelling Neutropenic fever, resolved no need for home antibiotics, will follow up with heme onc next week, avoid sick contaminants arm swelling improved with local measures Documented By: Abdelrahman Bella Total Time Spent: Greater than 30 minutes (Abdelrahman Bella M.D.) Discharge Instructions Please refer to the electronic Patient Visit Report (Discharge Instructions) for additional information. (Cece Rodriguez, PA-C) Follow-Up Please follow-up with your PCP within 5-7 days Please follow-up with hematology/oncology as instructed by Dr. Zamarripa Please follow-up/keep all of your subspecialty appointments (Cece Rodriguez, PA-C) Additional Copies To Harry Ovalle M.D.
[2016-12-12] MEDS: CEFEPIME IV 2,000 MG in DEXTROSE 5% 100ML 100 ML IV SCH (10:05)
[2016-12-12 12:32] VITALS: BP 105/66; PULSE 66; TEMP 36.8; O2SAT 97
--- NOTE | 2016-12-12 13:06 | Hematology/Oncology Prog Note ---
Hematology/Onc Progress Note Date of Service December 12, 2016. Diagnoses Follicular lymphoma Neutropenic fever Medications Medications Administered Medications (Trade) Dose Ordered Sig/Hari Route Start Time Stop Time Status Last Admin Dose Admin Sodium Chloride 1,000 ml @ 125 mls/hr Q8H STAT IV 12/07/16 09:42 12/07/16 17:41 DC 12/07/16 10:37 125 MLS/HR Cefepime HCl/ Dextrose (Maxipime IV/D5 100ml) 122.6 ml @ 200 mls/hr NOW STAT IV 12/07/16 09:42 12/07/16 10:18 DC 12/07/16 10:36 200 MLS/HR Acetaminophen 1000 mg 1,000 mg NOW STAT PO 12/07/16 09:51 12/07/16 09:52 DC 12/07/16 10:36 1,000 MG Vancomycin HCl/ Sodium Chloride (Vancomycin Inj/ Nss 500ml) 534 ml @ 200 mls/hr NOW ONCE IV 12/07/16 15:00 12/07/16 17:40 DC 12/07/16 15:14 200 MLS/HR Hydrocortisone Sodium Succinate (Solu-Cortef IV) 25 mg NOW STAT IV 12/07/16 14:45 12/07/16 14:46 DC 12/07/16 15:14 25 MG Cholecalciferol (Vitamin D Tab) 1,000 inter.unit DAILY PO 12/08/16 08:00 01/07/17 08:59 12/12/16 07:39 1,000 INTER.UNIT Finasteride (Proscar Tab) 5 mg HS PO 12/07/16 21:00 01/06/17 20:59 12/11/16 20:30 5 MG Fluconazole (Diflucan Tab) 100 mg DAILY PO 12/08/16 08:00 12/10/16 08:59 DC 12/10/16 08:08 100 MG Levothyroxine Sodium (Synthroid Tab) 75 mcg DAILYBB PO 12/08/16 06:30 01/07/17 06:59 12/12/16 05:27 75 MCG Tamsulosin HCl (Flomax Cap) 0.4 mg DAILY PO 12/08/16 08:00 12/10/16 11:15 DC 12/10/16 08:08 0.4 MG Tiotropium [place] (Spiriva Handihaler Inhaler) 1 puff DAILY INH 12/08/16 08:00 01/07/17 08:59 12/12/16 07:39 1 PUFF Cyanocobalamin 1000 mcg 1,000 mcg QAM PO 12/08/16 08:00 01/07/17 08:59 12/12/16 07:39 1,000 MCG Cefepime HCl 2000 mg/Dextrose 112.5 ml @ 200 mls/hr Q12H IV 12/07/16 22:00 12/09/16 11:58 DC 12/09/16 09:46 200 MLS/HR Vancomycin HCl 1200 mg/Sodium Chloride 274 ml @ 125 mls/hr Q18H IV 12/08/16 08:00 12/09/16 11:39 DC 12/09/16 01:17 125 MLS/HR Hydrocortisone Sodium Succinate/ Syringe (Solu-Cortef IV/ Syringe) 0.5 ml @ 4 mls/min Q12H IV 12/08/16 00:00 12/09/16 11:04 DC 12/09/16 01:12 4 MLS/MIN Pantoprazole Sodium (Protonix Tab) 40 mg NOW STAT PO 12/07/16 16:07 12/07/16 16:08 DC 12/07/16 18:02 40 MG Pantoprazole Sodium (Protonix Tab) 40 mg QAM PO 12/08/16 08:00 01/07/17 08:59 12/12/16 07:39 40 MG Polyethylene 17 gm 17 gm DAILY PO 12/08/16 08:00 01/07/17 08:59 12/10/16 09:26 17 GM Sodium Chloride 1,000 ml @ 1,000 mls/hr Q1H IV 12/07/16 18:00 12/07/16 18:59 DC 12/07/16 18:29 1,000 MLS/HR Sodium Chloride (Nss 1000ml) 1,000 ml @ 100 mls/hr Q10H IV 12/07/16 19:00 12/09/16 11:04 DC 12/09/16 01:12 100 MLS/HR Nicotine (Nicoderm Cq 14MG Patch) 1 patch QAM TD 12/07/16 20:00 01/06/17 19:59 12/12/16 07:39 1 PATCH Miscellaneous (Remove Nicoderm Patch) 1 ea HS N/A 12/08/16 08:59 01/07/17 08:58 12/11/16 20:30 1 EA Heparin Sodium (Porcine) (Heparin 100 Unit/ml 5ml Flush) 5 ml PRN PRN IV 12/07/16 23:45 01/06/17 23:44 12/12/16 12:48 5 ML Filgrastim (Neupogen Sq) 480 mcg DAILY SC 12/08/16 11:00 01/07/17 10:59 12/12/16 07:44 480 MCG Enteral Nutritional Formula (Boost) 1 can BID PO 12/08/16 20:00 01/07/17 19:59 12/12/16 08:17 1 CAN Prednisone 5 mg 5 mg QAM PO 12/09/16 12:00 12/10/16 11:15 DC 12/10/16 08:08 5 MG Cefepime HCl/ Dextrose (Maxipime IV/D5 100ml) 112.5 ml @ 200 mls/hr Q12@1000,2200 IV 12/09/16 22:00 12/16/16 21:59 12/12/16 10:05 200 MLS/HR Prednisone (PredniSONE TAB) 10 mg QAM PO 12/11/16 08:00 01/10/17 07:59 12/12/16 07:39 10 MG Prednisone (PredniSONE TAB) 5 mg TODAY@1230 ONCE PO 12/10/16 12:30 12/10/16 12:31 DC 12/10/16 12:25 5 MG Subjective Mr. Hardy is itchy to leave the hospital. He has been afebrile since admission and has no specific signs or symptoms of infection. Review of Systems: Constitutional: No chills, No fever Eyes: No worsening of vision ENT: No nasal symptoms, No sore throat Respiratory: No cough, No shortness of breath Cardiovascular: No chest pain Abdomen: No diarrhea, No nausea, No pain Male : No dysuria, No urinary frequency Heme: No night sweats Skin: No rash Vital Signs Vital Signs Past 12 Hours Date Time Temp Pulse Resp B/P Pulse Ox O2 Delivery O2 Flow Rate FiO2 12/12/16 12:32 36.8 66 18 97 Room Air 12/12/16 08:00 Room Air 12/12/16 07:17 36.8 66 18 105/66 97 Room Air Physical Exam Constitutional: Level of Distress: NAD, chronically ill Psychiatric: Mental Status: active & alert Orientation: oriented except where noted Lungs: Respiratory Effort: good air movement Auscuitation: breath sounds normal Cardiovascular: Heart Auscultation: RRR Abdomen: Inspection & Palpation: soft, no tenderness, guarding & rebound Extremities: no edema Laboratory Last 24 Hours Test 12/12/16 05:34 White Blood Count 2.38 K/uL Red Blood Count 3.12 M/uL Hemoglobin 9.4 g/dL Hematocrit 29.3 % Mean Corpuscular Volume 93.9 fL Mean Corpuscular Hemoglobin 30.1 pg Mean Corpuscular Hemoglobin Concent 32.1 g/dl Platelet Count 68 K/uL Mean Platelet Volume 11.1 fL RDW Standard Deviation 60.3 fL RDW Coefficient of Variation 17.6 % Neutrophils % (Manual) 10.5 % Lymphocytes % (Manual) 72.9 % Monocytes % (Manual) 7.9 % Eosinophils % (Manual) 2.6 % Basophils % (Manual) 6.1 % Neutrophils # (Manual) 0.25 K/uL Total Absolute Neutrophils 0.25 K/uL Lymphocytes # (Manual) 1.74 K/uL Total Absolute Lymphocytes 1.74 K/uL Monocytes # (Manual) 0.19 K/uL Eosinophils # (Manual) 0.06 K/uL Basophils # (Manual) 0.15 K/uL Large Platelets 1+ Ovalocytes 1+ Assessment & Plan His counts have been slow to recover. 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 We will hold his therapy for now. I will arrange for him to be seen in our office next week for a CBC and, if necessary, a Neulasta injection. Otherwise, he will continue his follow up with Dr. Burks. He does not require any antimicrobial prophylaxis at this time, unless his neutropenia becomes prolonged (weeks in duration).
== END 2016-12-12 13:27 | disposition home or self-care (01) | DRG 809 ==
LOC: ENRESERVTM → ENRESERVDT → EDBD 09:32 → C.EDB 09:34 → C.4E 14:57
PROVIDERS: ADMIT Internal Medicine; ATTEND Internal Medicine
DX: D61.810 Antineoplastic chemotherapy induced pancytopenia (principal); C82.80 Other types of follicular lymphoma, unspecified site; J44.9 Chronic obstructive pulmonary disease, unspecified; T45.1X5A Adverse effect of antineoplastic and immunosuppressive drugs, initial encounter; E03.9 Hypothyroidism, unspecified; R60.0 Localized edema; R42 Dizziness and giddiness; R53.1 Weakness; N40.0 Benign prostatic hyperplasia without lower urinary tract symptoms; Z79.52 Long term (current) use of systemic steroids; Z79.899 Other long term (current) drug therapy; F17.200 Nicotine dependence, unspecified, uncomplicated; D70.9 Neutropenia, unspecified; D61.818 Other pancytopenia; I10 Essential (primary) hypertension; Z87.440 Personal history of urinary (tract) infections; Z90.79 Acquired absence of other genital organ(s); Z90.49 Acquired absence of other specified parts of digestive tract

== ENCOUNTER → 2017-07-09 | Outpatient (CLI) | payer OTHER ==
[~2017-07-09] MED LIST changes: -LEVO88TA PO; +OPTIRAY 320 IV PRN; +PRD10 PO; -PRED-301 PO; +SPRIN/30 INH; +SYN75 PO; -TAMS0.4C38 PO; -TIOTCAP INH
--- NOTE | 2017-07-09 10:51 | DIAGNOSTIC IMAGING REPORT ---
(CHEST) THORAX WITH CT DOSE: 584.20 mGy.cm HISTORY: Lymphoma FOLICULAR LYMPHOMA TECHNIQUE: Multiaxial CT images of the chest were performed following the intravenous administration of contrast. A dose lowering technique was utilized adhering to the principles of ALARA. COMPARISON: 04/17/2016 FINDINGS: The bilateral pleural effusions on the prior study have resolved. Interval development of pleural thickening and associated bronchiectatic change of the left upper lobe. Interval development of left hilar as well as paratracheal and aortopulmonary window adenopathy. Maximum conglomerate dimension of the aortopulmonary window nodes is 3.6 cm. Left hilar nodes measure up to 3.7 cm. There is partial extrinsic narrowing of the left upper lobe pulmonary artery. Mild pretracheal adenopathy. Calcified subcarinal adenopathy. Please note is made of mild splenomegaly. The liver appears heterogeneous with potential vague nodularity. 1.2 cm pleural-based nodule transaxial image 27 involving superior segment left lower lobe. Degenerative and postoperative changes of the osseous structures throughout. IMPRESSION: 1. Bulky left hilar as well as mid mediastinal adenopathy as described. 2. Pleural thickening and potential postobstructive/bronchiectatic change components of the lingula/left upper lobe. 3. 1.2 cm pleural-based nodule superior segment left lower lobe. 4. Moderate extrinsic narrowing left upper lobe pulmonary artery. 5. Potential developing hepatic metastatic disease.. 6. Mild stable splenomegaly. 2. Postobstructive and of bronchiectatic change components of the left upper lobe/lingula as discussed. The above report was generated using voice recognition software. It may contain grammatical, syntax or spelling errors. Electronically signed by: Bear Mitchell M.D. 07/09/2017 10:50 AM Dictated Date/Time: 07/09/2017 10:41 AM
--- NOTE | 2017-07-09 10:51 | DIAGNOSTIC IMAGING REPORT ---
ABD/PELVIS IV AND ORAL CONT CLINICAL HISTORY: 77 years-old Male presenting with FOLLICULAR LYMPHOMA. TECHNIQUE: Multidetector CT of the abdomen and pelvis was performed after the administration of oral and intravenous contrast. IV contrast: 93 mL of Optiray 320. A dose lowering technique was used consistent with the principles of ALARA (as low as reasonably achievable). COMPARISON: Noncontrast outside CT from 04/14/[address] from 12/25/2015. CT DOSE (mGy.cm): The estimated cumulative dose is 584.[address] chest. FINDINGS: [employer] topogram: Cholecystectomy clips noted. Left upper lobe opacity. Lung bases: Partially visualized consolidative changes in the left upper lobe/lingula with soft tissue density nodular thickening along the left major fissure. Calcified granulomas noted in the right middle lobe. Centrilobular and paraseptal emphysematous changes. Aortic valve and coronary artery calcification. Normal heart size. No pericardial or pleural effusion. Liver: Interval development of multiple hypodense ill-defined lesions throughout both lobes of the liver (at least 8-10). The 3 largest lesions measure 1.6 cm (series 7 image 58), 1.6 cm (see series 7 image 92), and 1.5 cm (series 7 image 100). A cystic lesion, likely hepatic cyst, noted centrally within the liver, similar to prior. Patent hepatic vasculature. Biliary: No intrahepatic or extrahepatic biliary ductal dilatation. Gallbladder surgically absent. Pancreas: Small amount of gas noted in the nondilated pancreatic duct. Pancreatic parenchyma otherwise normal. Spleen: Multiple calcified splenic granulomas indicate prior granulomatous infection. Adrenal glands: Normal. Kidneys and ureters: Atrophic left kidney with several cysts noted. Renal vascular calcification. Left ureter normal. Atherosclerosis of the origin of the right main renal artery though a second smaller right renal artery is also noted more superiorly. Nonobstructing calculus measuring 4 mm at the lower pole of the right kidney with an additional punctate calculus also noted at the lower pole. No right hydronephrosis. Right ureter normal. Bladder: Normal. Pelvic organs: Postsurgical changes of prostatectomy suspected. Bowel: Mild stool burden throughout normal caliber colon. The appendix is normal. No bowel obstruction. No gross evidence of bowel wall thickening. A small endophytic lipoma is suggested in the descending portion of the duodenum. Peritoneal cavity: No free fluid or intraperitoneal gas. Lymph nodes: No enlarged lymph nodes in the abdomen or pelvis. Vasculature: Extensive atherosclerosis results in irregularity of the luminal and adventitial contour of the infrarenal abdominal aorta. Extensive calcified and noncalcified atherosclerotic plaque also significantly narrow the origin of the right common iliac artery. The bilateral external and internal iliac arteries remain patent. Abdominal wall: Normal. Musculoskeletal: Degenerative changes of the spine. Degenerative changes of the sacroiliac joints. Possibly posttraumatic changes of the anterior left iliac spine. IMPRESSION: 1. Interval development of multiple (8-10) suspicious hepatic lesions, new since 2016. These are most concerning for hepatic metastases. No lymphadenopathy or additional sites of metastatic disease in abdomen or pelvis. 2. Left upper lobe/lingular consolidation. Please see separately dictated CT of the chest for further details. 3. 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 4. Extensive atherosclerosis with luminal and adventitial contour irregularity of the infrarenal abdominal aorta. No evidence of aneurysm at this time. Electronically signed by: Ronnie Willis M.D. 07/09/2017 10:49 AM Dictated Date/Time: 07/09/2017 10:38 AM
== END | disposition home or self-care (01) ==
LOC: C.CTS 08:39
PROVIDERS: ATTEND Internal Medicine Hematology & Oncology
DX: C82.06 Follicular lymphoma grade I, intrapelvic lymph nodes (principal); K76.9 Liver disease, unspecified; N26.1 Atrophy of kidney (terminal); I70.0 Atherosclerosis of aorta

== ENCOUNTER 2017-07-31 10:42 | Inpatient (IN) | payer OTHER ==
[~2017-07-31] VITALS: Ht 167.6 cm; Wt 68.6 kg
[~2017-07-31 10:42] MED LIST changes: -OPTIRAY 320 IV PRN
[2017-07-31] MEDS ORDERED: SODIUM CHLORIDE 0.9% 1000ML 1,000 ML IV STA (11:28)
--- NOTE | 2017-07-31 11:43 | DIAGNOSTIC IMAGING REPORT ---
CHEST ONE VIEW PORTABLE CLINICAL HISTORY: cough dyspnea COMPARISON STUDY: 12/07/2016 FINDINGS: Consolidative infiltrative process left midlung. Less prominent diffuse infiltrative change left hemithorax as compared to the prior exam. Slight chronic finding right lateral costophrenic angle. Central catheters. Vena cava. IMPRESSION: Diffuse partially consolidative infiltrate left hemithorax. The above report was generated using voice recognition software. It may contain grammatical, syntax or spelling errors. Electronically signed by: Bear Mitchell M.D. 07/31/2017 11:42 AM Dictated Date/Time: 07/31/2017 11:40 AM
[2017-07-31] MEDS ORDERED: CEFEPIME IV 1,000 MG in DEXTROSE 5% 100ML 100 ML IV STA (11:45)
[2017-07-31] MEDS ORDERED: LEVAQUIN 500MG / 100ML D5W IV ONE (11:45)
[2017-07-31 12:05] LABS: HEMATOCRIT 34.7 % (42-52); MEAN CELL VOLUME 91.1 fL (80-100); MEAN CORPUSCULAR HEMOGLOBIN 28.9 pg (25-34); MEAN CORPUSCULAR HGB CONC 31.7 g/dl (32-36); MEAN PLATELET VOLUME 10.5 fL (7.4-10.4); PLATELET COUNT 116 K/uL (130-400); RED CELL DISTRIBUTION WIDTH CV 16.9 % (11.5-14.5); RED CELL DISTRIBUTION WIDTH SD 55.9 fL (36.4-46.3); WHITE BLOOD COUNT 4.76 K/uL (4.8-10.8)
[2017-07-31 12:12] LABS: INR 1.1 (0.9-1.1)
[2017-07-31 12:21] LABS: ALBUMIN 2.6 gm/dl (3.4-5.0); ALT/SGPT 47 U/L (12-78); AST/SGOT 36 U/L (15-37); BLOOD UREA NITROGEN 36 mg/dl (7-18); CALCIUM 8.7 mg/dl (8.5-10.1); CARBON DIOXIDE 21 mmol/L (21-32); CREATININE 1.73 mg/dl (0.60-1.40); GLUCOSE 109 mg/dl (70-99); LIPASE 191 U/L (73-393); POTASSIUM 4.2 mmol/L (3.5-5.1); SODIUM 136 mmol/L (136-145)
[2017-07-31] MEDS ORDERED: PRED10TA PO (12:24)
[2017-07-31] MEDS ORDERED: SIMV40TA2 PO (12:24)
[2017-07-31] MEDS ORDERED: FINA5TAB PO (12:24)
[2017-07-31] MEDS ORDERED: CYAN500T PO (12:24)
[2017-07-31] MEDS ORDERED: RANI150T3 PO (12:24)
[2017-07-31] MEDS ORDERED: ASCO500T16 PO (12:24)
[2017-07-31] MEDS ORDERED: ASPI81TA28 PO (12:24)
[2017-07-31] MEDS ORDERED: LEVO75TA5 PO (12:24)
[2017-07-31] MEDS ORDERED: CALCCAP15 PO (12:24)
[2017-07-31] MEDS ORDERED: UMEC1AER INH (12:24)
[2017-07-31] MEDS ORDERED: TRIM100T PO (12:24)
[2017-07-31 12:25] LABS: ALKALINE PHOSPHATASE 105 U/L (45-117); TOTAL PROTEIN 5.8 gm/dl (6.4-8.2)
[2017-07-31] MEDS ORDERED: NTRGSL/4 UT (12:25)
--- NOTE | 2017-07-31 13:27 | DIAGNOSTIC IMAGING REPORT ---
R VENOUS DOPP LOWER EXT UNILAT CLINICAL HISTORY: 77 years-old Male presenting with rle swelling . TECHNIQUE: Real-time grayscale and color and spectral Doppler ultrasound imaging of the veins of the right lower extremity was performed. Compression and augmentation were also utilized. COMPARISON: 12/07/2016. FINDINGS: Right: Common femoral vein: Patent. Greater saphenous vein: Patent. Deep femoral vein: Patent. Femoral vein: Patent. Popliteal vein: Patent. Calf veins: Limited visualization secondary to subcutaneous edema. Other: None. IMPRESSION: No evidence of deep venous thrombosis. Electronically signed by: Ronnie Willis M.D. 07/31/2017 1:26 PM Dictated Date/Time: 07/31/2017 1:25 PM
[2017-07-31] MEDS ORDERED: VANCOMYCIN INJ 1,500 MG in SODIUM CHLORIDE 0.9% 500ML 500 ML IV STA (13:50)
--- NOTE | 2017-07-31 14:40 | History and Physical ---
History & Physical Date & Time of Service: Jul 31, 2017 at 14:12 Chief Complaint: Weak, Cant Walk, Cough Primary Care Physician: Harry Ovalle M.D. History of Present Illness Source: patient, family 77 years old man with past medical history of COPD, hypertension, moderate aortic stenosis and chronic kidney disease stage 3. 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 He was treated with chemotherapy and was in remission until few weeks ago when he was diagnosed with recurrence of his lymphoma. He was supposed to start chemotherapy this week awaiting insurance authorization. 3 days ago he started having cough and chills. generalized weakness and lower ext swelling and reddishness. cough appears productive but he is too weak to cough anything up. about 2 weeks ago he was treated for sinusitis with Abx in ED he had an Xray that showed left mid lung density unfortunately he smokes slightly less than a pack daily Past Medical/Surgical History Medical Problems: (1) MACRINA (acute kidney injury) Status: Resolved (2) Anemia Status: Chronic (3) Aortic stenosis, moderate Status: Chronic (4) Bile leak, postoperative Status: Resolved (5) Choledocholithiasis with acute cholecystitis with obstruction Status: Resolved (6) Hypertension Status: Chronic (7) NHL (non-Hodgkin's lymphoma) Status: Chronic (8) Urinary tract infection Status: Chronic Family History Patient reports no known family medical history. Social History Smoking Status: Current Every Day Smoker Drug Use: none Marital Status: Housing status: lives with family Occupational Status: retired Immunizations History of Influenza Vaccine: Yes Influenza Vaccine Date: Jun 29, 2015 History of Tetanus Vaccine?: No History of Pneumococcal: Yes Pneumococcal Date: Jun 26, 2015 History of Hepatitis B Vaccine: Unknown Multi-Drug Resistant Organisms History of MDRO: Yes Type of MDRO: MRSA Allergies Coded Allergies: Gabapentin (Verified Adverse Reaction, Intermediate, unknown, 07/31/17) Patient's stated patient "developed signs of a heart attack w/ use of gabapentin". Home Medications Scheduled Ascorbic Acid (Ascorbic Acid), 500 MG PO DAILY Aspirin (Aspirin Ec), 81 MG PO DAILY Calcium Carbonate-Cholecalcife (Calcium Plus Vitamin D3), 1 CAP PO DAILY Cyanocobalamin (Vitamin B-12), 500 MCG PO DAILY Finasteride (Proscar), 5 MG PO DAILY Levothyroxine Sodium (Levothyroxine Sodium), 1 TAB PO DAILY Nitroglycerin (Nitrostat), 0.4 MG UT PRN Prednisone Tab (Prednisone), 10 MG PO DAILY Ranitidine Hcl (Zantac), 150 MG PO HS Simvastatin (Zocor), 40 MG PO QPM Trimethoprim (Proloprim), 100 MG PO HS Umeclidinium-Vilanterol (Anoro Ellipta 62.5-25 Mcg/INH), 1 PUFF INH DAILY Review of Systems Constitutional: + chills, + weakness, + fatigue Eyes: No worsening of vision, No eye pain, No redness, No discharge, No diplopia, No problem reported ENT: No hearing loss, No unusual epistaxis, No nasal symptoms, No sore throat, No tinnitus, No dental problems, No trouble swallowing, No problem reported Respiratory: + cough, + sputum, + shortness of breath, + dyspnea on exertion, + dyspnea at rest, No wheezing, No hemoptysis, No problem reported Cardiovascular: No chest pain, No orthopnea, No PND, No edema, No claudication , No palpitations, No problem reported Abdomen: No pain, No nausea, No vomiting, No diarrhea, No constipation, No GI bleeding, No problem reported Musculoskeletal: + swelling, No joint pain, No muscle pain, No calf pain, No problem reported Genitourinary - Male: No hematuria, No dysuria, No urinary frequency, No urinary urgency, No urinary hesitancy, No urinary retention, No urinary incontinence, No penile discharge, No lesions, No impotence, No problem reported Neurologic: No memory loss, No paralysis, No weakness, No numbness/tingling, No vertigo, No balance problems, No problem reported Psychiatric: No depression symptoms, No anhedonism, No anxiety, No insomnia, No substance abuse, No problem reported Endocrine: No fatigue, No excessive thirst, No excessive urination, No problem reported Integumentary: + color change (erythema in lower ext) Physical Exam Vital Signs Date Time Temp Pulse Resp B/P (MAP) Pulse Ox O2 Delivery O2 Flow Rate FiO2 07/31/17 12:48 37.0 89 16 107/51 98 Room Air 07/31/17 12:06 102 07/31/17 12:04 79 16 109/57 98 Room Air 07/31/17 11:05 37.0 92 18 89/44 90 Room Air General Appearance: + mild distress, + obese Eyes: normal inspection, EOMI ENT: normal ENT inspection, hearing grossly normal Neck: supple Respiratory/Chest: chest non-tender, + decreased breath sounds, + accessory muscle use, + crackles, + rales, + rhonchi Cardiovascular: regular rate, rhythm, no edema, no gallop, no JVD, no murmur Abdomen/GI: normal bowel sounds, non tender, soft, no organomegaly, no pulsatile mass Back: normal inspection Extremities/Musculoskelatal: + calf tenderness, + inflammation Neurologic/Psych: ict development manager II-XII nml as tested, no motor/sensory deficits, alert, normal mood/affect, normal reflexes, oriented x 3 Skin: normal color, warm/dry, no rash Diagnostics Laboratory Results Results Past 24 Hours Test 07/31/17 11:52 Range/Units White Blood Count 4.76 4.8-10.8 K/uL Red Blood Count 3.81 4.7-6.1 M/uL Hemoglobin 11.0 14.0-18.0 g/dL Hematocrit 34.7 42-52 % Mean Corpuscular Volume 91.1 80-100 fL Mean Corpuscular Hemoglobin 28.9 25-34 pg Mean Corpuscular Hemoglobin Concent 31.7 32-36 g/dl Platelet Count 116 130-400 K/uL Mean Platelet Volume 10.5 7.4-10.4 fL RDW Standard Deviation 55.9 36.4-46.3 fL RDW Coefficient of Variation 16.9 11.5-14.5 % Neutrophils % (Manual) 55.4 % Lymphocytes % (Manual) 21.4 % Monocytes % (Manual) 9.8 % Eosinophils % (Manual) 8.9 % Basophils % (Manual) 1.8 0-2 % Myelocytes % 2.7 % Neutrophils # (Manual) 2.64 1.4-6.5 K/uL Total Absolute Neutrophils 2.64 1.4-6.5 K/uL Lymphocytes # (Manual) 1.02 1.2-3.4 K/uL Total Absolute Lymphocytes 1.02 1.2-3.4 K/uL Monocytes # (Manual) 0.47 0.11-0.59 K/uL Eosinophils # (Manual) 0.42 0-0.5 K/uL Basophils # (Manual) 0.09 0-0.2 K/uL Myelocytes # 0.13 0-0 K/uL Toxic Granulation 1+ Toxic Vacuolation 1+ Red Blood Cell Morphology Unremarkable Prothrombin Time 12.0 9.0-12.0 SECONDS Prothromb Time International Ratio 1.1 0.9-1.1 Sodium Level 136 136-145 mmol/L Potassium Level 4.2 3.5-5.1 mmol/L Chloride Level 105 98-107 mmol/L Carbon Dioxide Level 21 21-32 mmol/L Anion Gap 10.0 3-11 mmol/L Blood Urea Nitrogen 36 7-18 mg/dl Creatinine 1.73 0.60-1.40 mg/dl Est Creatinine Clear Calc Drug Dose 31.7 ml/min Estimated GFR () 42.9 Estimated GFR (Non- 37.0 BUN/Creatinine Ratio 20.5 10-20 Random Glucose 109 70-99 mg/dl Calcium Level 8.7 8.5-10.1 mg/dl Total Bilirubin 1.0 0.2-1 mg/dl Direct Bilirubin 0.3 0-0.2 mg/dl Aspartate Amino Transf (AST/SGOT) 36 15-37 U/L Alanine Aminotransferase (ALT/SGPT) 47 12-78 U/L Alkaline Phosphatase 105 45-117 U/L Troponin I < 0.015 0-0.045 ng/ml Total Protein 5.8 6.4-8.2 gm/dl Albumin 2.6 3.4-5.0 gm/dl Lipase 191 73-393 U/L Impression Assessment and Plan 77 years old man with past medical history of COPD, hypertension, moderate aortic stenosis and chronic kidney disease stage 3. 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 Status post chemotherapy, was in remission until recurrence of lymphoma last month awaiting to start chemotherapy, presented to the ED with left middle lobe pneumonia Assessment Acute hypoxic respiratory failure Septic shock secondary to below, responded to fluid Left middle lobe pneumonia Immunocompromise secondary to chemotherapy COPD exacerbation Bilateral lower extremity swelling/cellulitis recurrent stage IV follicular lymphoma MACRINA / CKD base line 1.5 , today it is 1.7 Plan: Plan Admit patient to telemetry Oxygen supplement as per protocol Blood culture/sputum culture Influenza virus screen and PCR Urine legionella antigen Group a strep screen Initiate broad-spectrum antibiotics covering typical and atypical microorganisms / in his case will use cefepime/Vanco/levofloxacin Start patient on lactobacillus to prevent C. difficile Continue home medications IV fluid hydration as needed Monitor labs in a.m. Bronchodilators Monitor oxygen saturation DVT prophylaxis/heparin subcutaneous Resuscitation Status FULL RESUSCITATION
[2017-07-31] MEDS ORDERED: MAGNESIUM HYDROXIDE SUSP 30 ML UDC PO PRN (14:45)
[2017-07-31] MEDS ORDERED: LEVOFLOXACIN / D5W 250 MG in PREMIXED IN D5W 50 ML IV SCH (14:45)
[2017-07-31] MEDS ORDERED: ZOLPIDEM TARTRATE 5 MG TAB PO PRN ×2 (14:45)
[2017-07-31] MEDS ORDERED: CEFEPIME IV 1,000 MG in DEXTROSE 5% 100ML 100 ML IV SCH (14:45)
[2017-07-31] MEDS ORDERED: POLYETHYLENE (MIRALAX) 17 GM PACK PO PRN (14:45)
[2017-07-31] MEDS ORDERED: ALUMINUM/MAGNESIUM/SIMETH (MAALOX MAX) 30 ML UDC PO PRN (14:45)
--- NOTE | 2017-07-31 14:54 | EMERGENCY ROOM VISIT NOTE ---
History Report prepared by Pattie: Kalin Marie Under the Supervision of: Dr. Alcides Jj D.O. First contact with patient: 11:15 Chief Complaint: WEAKNESS Stated Complaint: WEAK, CANT WALK, COUGH Nursing Triage Summary: pt reports has hx of nonohodgkins lymphoma scheduled treatment to strated yesterday awaiting approval for tx. pt has been having cough nonproductive , has sinus drainage and last week having weakness in bilat arms and legs getting worse History of Present Illness The patient is a 77 year old male who presents to the Emergency Room with complaints of constant weakness to the bilateral lower extremities beginning a couple days ago. The patient states he cannot walk or get up on his own. He reports he became short of breath a few days ago and developed bilateral lower extremity swelling. The patient notes he was evaluated by his PCP three weeks ago and was given antibiotics for a cough and runny nose that he has finished. He states he has a history of non-Hodgkin's Lymphoma, was treated with chemotherapy, and was considered stable. The patient reports he had a maintenance CT scan two weeks ago and was told it came back. He notes he was going to start treatment yesterday but was waiting for approval. The patient states he felt the same symptoms he is now when he was first diagnosed with cancer. 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 The patient notes he has had a decreased appetite. He states his blood pressure is typically in the low 100s. The patient reports he takes a baby aspirin daily. He denies a sorethroat, chest pain, nausea, vomiting, and diarrhea. Source of History: patient Onset: couple days ago Position: leg (bilateral) Quality: other (weakness) Timing: constant Associated Symptoms: + SOB, No sorethroat, No chest pain, No nausea, No vomiting, No diarrhea Note: Associated symptoms: bilateral lower extremity swelling, decreased appetite Denies: cough, runny nose Review of Systems See HPI for pertinent positives & negatives. A total of 10 systems reviewed and were otherwise negative. Past Medical & Surgical Medical Problems: (1) Abnormal LFTs (2) MACRINA (acute kidney injury) (3) Anemia (4) Aortic stenosis, moderate (5) Bile leak, postoperative (6) Choledocholithiasis with acute cholecystitis with obstruction (7) Hypertension (8) Lymphoma (9) Neutropenic fever (10) NHL (non-Hodgkin's lymphoma) (11) Pneumonia (12) sob copd, chf, pleural effusion, lymphoma (13) Urinary tract infection Family History Patient reports no known family medical history. Social History Smoking Status: Current Every Day Smoker Drug Use: none Marital Status: Housing Status: lives with family Occupation Status: retired Current/Historical Medications Scheduled Ascorbic Acid (Ascorbic Acid), 500 MG PO DAILY Aspirin (Aspirin Ec), 81 MG PO DAILY Calcium Carbonate-Cholecalcife (Calcium Plus Vitamin D3), 1 CAP PO DAILY Cyanocobalamin (Vitamin B-12), 500 MCG PO DAILY Finasteride (Proscar), 5 MG PO DAILY Levothyroxine Sodium (Levothyroxine Sodium), 1 TAB PO DAILY Nitroglycerin (Nitrostat), 0.4 MG UT PRN Prednisone Tab (Prednisone), 10 MG PO DAILY Ranitidine Hcl (Zantac), 150 MG PO HS Simvastatin (Zocor), 40 MG PO QPM Trimethoprim (Proloprim), 100 MG PO HS Umeclidinium-Vilanterol (Anoro Ellipta 62.5-25 Mcg/INH), 1 PUFF INH DAILY Allergies Coded Allergies: Gabapentin (Verified Adverse Reaction, Intermediate, unknown, 07/31/17) Patient's stated patient "developed signs of a heart attack w/ use of gabapentin". Physical Exam Vital Signs Date Time Temp Pulse Resp B/P (MAP) Pulse Ox O2 Delivery O2 Flow Rate FiO2 07/31/17 12:48 37.0 89 16 107/51 98 Room Air 07/31/17 12:06 102 07/31/17 12:04 79 16 109/57 98 Room Air 07/31/17 11:05 37.0 92 18 89/44 90 Room Air Physical Exam GENERAL: Sitting up in bed, ill appearing, no distress, non-toxic EYE EXAM: normal conjunctiva. OROPHARYNX: no exudate, no erythema, lips, buccal mucosa, and tongue normal and mucous membranes are moist NECK: supple, no nuchal rigidity, no adenopathy, non-tender LUNGS: Clear to auscultation. Normal chest wall mechanics HEART: Systolic ejection murmur radiating to left axilla. S1 normal and S2 normal ABDOMEN: abdomen soft, non-tender, normo-active bowel sounds, no masses, no rebound or guarding. BACK: Back is symmetrical on inspection and there is no deformity, no midline tenderness, no CVA tenderness. SKIN: no rashes and no bruising UPPER EXTREMITIES: upper extremities are grossly normal. LOWER EXTREMITIES: Right calf larger than left with pitting edema. NEURO EXAM: Normal sensorium, cranial nerves II-XII grossly intact, normal speech, no gross weakness of arms. Able to slightly flex at hip and plantar/ dorsal reflexes intact bilaterally. Medical Decision & Procedures ER Provider Diagnostic Interpretation: Radiology results as stated below per my review and the radiologist's interpretation: CHEST ONE VIEW PORTABLE CLINICAL HISTORY: cough dyspnea COMPARISON STUDY: 12/07/2016 FINDINGS: Consolidative infiltrative process left midlung. Less prominent diffuse infiltrative change left hemithorax as compared to the prior exam. Slight chronic finding right lateral costophrenic angle. Central catheters. Vena cava. IMPRESSION: Diffuse partially consolidative infiltrate left hemithorax. The above report was generated using voice recognition software. It may contain grammatical, syntax or spelling errors. Electronically signed by: Bear Mitchell M.D. 07/31/2017 11:42 AM Dictated Date/Time: 07/31/2017 11:40 AM R VENOUS DOPP LOWER EXT UNILAT CLINICAL HISTORY: 77 years-old Male presenting with rle swelling . TECHNIQUE: Real-time grayscale and color and spectral Doppler ultrasound imaging of the veins of the right lower extremity was performed. Compression and augmentation were also utilized. COMPARISON: 12/07/2016. FINDINGS: Right: Common femoral vein: Patent. Greater saphenous vein: Patent. Deep femoral vein: Patent. Femoral vein: Patent. Popliteal vein: Patent. Calf veins: Limited visualization secondary to subcutaneous edema. Other: None. IMPRESSION: No evidence of deep venous thrombosis. Electronically signed by: Ronnie Willis M.D. 07/31/2017 1:26 PM Dictated Date/Time: 07/31/2017 1:25 PM Laboratory Results 07/31/17 11:52 Red Blood Count 3.81, Mean Corpuscular Volume 91.1, Mean Corpuscular Hemoglobin 28.9, Mean Corpuscular Hemoglobin Concent 31.7, Mean Platelet Volume 10.5 07/31/17 11:52 Test 07/31/17 11:52 07/31/17 14:14 07/31/17 14:40 White Blood Count 4.76 K/uL (4.8-10.8) Red Blood Count 3.81 M/uL (4.7-6.1) Hemoglobin 11.0 g/dL (14.0-18.0) Hematocrit 34.7 % (42-52) Mean Corpuscular Volume 91.1 fL (80-100) Mean Corpuscular Hemoglobin 28.9 pg (25-34) Mean Corpuscular Hemoglobin Concent 31.7 g/dl (32-36) Platelet Count 116 K/uL (130-400) Mean Platelet Volume 10.5 fL (7.4-10.4) RDW Standard Deviation 55.9 fL (36.4-46.3) RDW Coefficient of Variation 16.9 % (11.5-14.5) Neutrophils % (Manual) 55.4 % Lymphocytes % (Manual) 21.4 % Monocytes % (Manual) 9.8 % Eosinophils % (Manual) 8.9 % Basophils % (Manual) 1.8 % (0-2) Myelocytes % 2.7 % Neutrophils # (Manual) 2.64 K/uL (1.4-6.5) Total Absolute Neutrophils 2.64 K/uL (1.4-6.5) Lymphocytes # (Manual) 1.02 K/uL (1.2-3.4) Total Absolute Lymphocytes 1.02 K/uL (1.2-3.4) Monocytes # (Manual) 0.47 K/uL (0.11-0.59) Eosinophils # (Manual) 0.42 K/uL (0-0.5) Basophils # (Manual) 0.09 K/uL (0-0.2) Myelocytes # 0.13 K/uL (0-0) Toxic Granulation 1+ Toxic Vacuolation 1+ Red Blood Cell Morphology Unremarkable Prothrombin Time 12.0 SECONDS (9.0-12.0) Prothromb Time International Ratio 1.1 (0.9-1.1) Anion Gap 10.0 mmol/L (3-11) Est Creatinine Clear Calc Drug Dose 31.7 ml/min Estimated GFR () 42.9 Estimated GFR (Non- 37.0 BUN/Creatinine Ratio 20.5 (10-20) Calcium Level 8.7 mg/dl (8.5-10.1) Total Bilirubin 1.0 mg/dl (0.2-1) Direct Bilirubin 0.3 mg/dl (0-0.2) Aspartate Amino Transf (AST/SGOT) 36 U/L (15-37) Alanine Aminotransferase (ALT/SGPT) 47 U/L (12-78) Alkaline Phosphatase 105 U/L (45-117) Troponin I < 0.015 ng/ml (0-0.045) Total Protein 5.8 gm/dl (6.4-8.2) Albumin 2.6 gm/dl (3.4-5.0) Lipase 191 U/L (73-393) Urine Color YELLOW Urine Appearance CLOUDY (CLEAR) Urine pH 7.5 (4.5-7.5) Urine Specific [place] 1.016 (1.000-1.030) Urine Protein NEG (NEG) Urine Glucose (UA) NEG (NEG) Urine Ketones NEG (NEG) Urine Occult Blood NEG (NEG) Urine Nitrite NEG (NEG) Urine Bilirubin NEG (NEG) Urine Urobilinogen NEG (NEG) Urine Leukocyte Esterase TRACE (NEG) Urine WBC (Auto) 1-5 /hpf (0-5) Urine RBC (Auto) 0-4 /hpf (0-4) Urine Hyaline Casts (Auto) 1-5 /lpf (0-5) Urine Epithelial Cells (Auto) >30 /lpf (0-5) Urine Bacteria (Auto) NEG (NEG) Laboratory results per my review. Medications Administered Medications (Trade) Dose Ordered Sig/Hari Route Start Time Stop Time Status Last Admin Dose Admin Sodium Chloride 1,000 ml @ 999 mls/hr Q1H1M STAT IV 07/31/17 11:28 07/31/17 12:28 DC 07/31/17 12:02 999 MLS/HR Cefepime HCl 1000 mg/Dextrose 111 ml @ 200 mls/hr NOW STAT IV 07/31/17 11:45 07/31/17 12:18 DC 07/31/17 12:28 200 MLS/HR Levofloxacin (Levaquin / D5W) 500 mg NOW ONCE IV 07/31/17 11:45 07/31/17 11:47 DC 07/31/17 12:02 500 MG Vancomycin HCl 1500 mg/Sodium Chloride 530 ml @ 200 mls/hr ONE STAT IV 07/31/17 13:50 07/31/17 16:28 07/31/17 14:22 200 MLS/HR ECG Indication: weakness Rate (beats per minute): 84 Rhythm: atrial flutter Findings: left axis deviation, no ectopy, other (Variable AV block) Comparison ECG Date: 12/07/16 Change: Atrial flutter is new ED Course ED COURSE: Vital signs were reviewed and showed hypotension and hypoxia. The patients medical record was reviewed The above diagnostic studies were performed and reviewed. ED treatments and interventions as stated above. 1120: The patient was evaluated in room A03. A complete history and physical examination was performed. 1128: Ordered Sodium Chloride 1000 ml @ 999 mls/hr IV 1145: Ordered Levofloxacin 500mg IV, Cefepime HCl 1000mg/Dextrose 111 ml @ 200 mls/hr IV 1347: Upon reevaluation, the patient is resting comfortably. I discussed my findings with the patient and he understands and agrees with the treatment plan. 1350: I discussed the patient's case with Dr. Hortensia Odell, [facility] Hospitalist. The patient will be evaluated for further management and care. Ordered Vancomycin HCl 1500 mg/Sodium Chloride 530 ml @ 200 mls/hr IV Based on the patients age, coexisting illnesses, exam and lab findings the decision to treat as an inpatient was made. The patient remained stable while under my care. The patient will be evaluated for further management. Medical Decision Differential Diagnosis includes but is not limited to dehydration, stroke, anemia, hypoglycemia, hyponatremia, hypernatremia, urinary tract infection, pneumonia, bronchitis, sepsis, gastroenteritis, additional abdominal pathology, metabolic abnormalities and infections. Patient is a 77-year-old male who is supposed to start chemotherapy tomorrow presents to ER with a cough and runny nose and diffuse weakness. On exam he is hypotensive with systolic pressures in the 80s. He was afebrile. Labs show a mild leukopenia. BMP all LFTs, bilirubin and troponin was negative. Lipase is normal. UA was negative. Chest x-ray shows a left lobe infiltrate. Patient was covered with broad-spectrum antibiotics including vancomycin, cefepime and Levaquin. Patient was given IV fluids. Systolic pressures improved to the low 100s. Patient family were updated bedside and he was admitted to internal medicine for diffuse weakness associated with pneumonia. Medication Reconcilliation Current Medication List: was personally reviewed by me Blood Pressure Screening Patient's blood pressure: Low blood pressure Monitored by hospitalist. Consults Time Called: 1347 Consulting Physician: Dr. Hortensia Odell, [facility] Hospitalist Returned Call: 1350 I discussed the patient's case with Dr. Hortensia Odell [facility] Hospitalist. The patient will be evaluated for further management and care. Impression Primary Impression: Sepsis Additional Impressions: PNA (pneumonia) Atrial flutter Scribe Attestation The scribe's documentation has been prepared under my direction and personally reviewed by me in its entirety. I confirm that the note above accurately reflects all work, treatment, procedures, and medical decision making performed by me. Departure Information Dispostion Being Evaluated By Hospitalist Referrals Harry Ovalle M.D. (PCP) Patient Instructions My [facility] Problem Qualifiers Primary Impression: Sepsis Sepsis type: sepsis due to unspecified organism Qualified Codes: A41.9 - Sepsis, unspecified organism Additional Impressions: PNA (pneumonia) Pneumonia type: due to unspecified organism Laterality: unspecified laterality Lung location: unspecified part of lung Qualified Codes: J18.9 - Pneumonia, unspecified organism Atrial flutter Atrial flutter type: unspecified Qualified Codes: I48.92 - Unspecified atrial flutter
[2017-07-31] MEDS ORDERED: LEVALBUTEROL/IPRATROPIUM NEB INH SCH (15:00)
[2017-07-31] MEDS ORDERED: VANCOMYCIN CONSULT ACTIVE PRN (15:30)
[2017-07-31 15:42] VITALS: BP 106/58; PULSE 83; TEMP 37; O2SAT 99; BMI 24.2
[2017-07-31 15:43] VITALS: BP 106/58; PULSE 83; TEMP 37; O2SAT 99
[2017-07-31 15:59] LABS: INFLUENZA B ANTIGEN Neg for Influ B (NEG)
[2017-07-31] MEDS ORDERED: LEVOFLOXACIN CONSULT ACTIVE PRN (16:00)
[2017-07-31] MEDS ORDERED: CEFEPIME CONSULT ACTIVE PRN (16:00)
[2017-07-31] MEDS ORDERED: TOBRSUS MS (16:14)
[2017-07-31] MEDS ORDERED: NEOM0.1S10 OPL (16:16)
[2017-07-31] MEDS ORDERED: LATA0.5S OPB (16:18)
--- NOTE | 2017-07-31 16:20 | Pharmacy Progress Note ---
Pharmacy Abx Initial Consult Date of Service Jul 31, 2017. Pharmacy Dosing Scope Date of Consult: 07/31/17 Consultation requested by: Dr. Davalos Pharmacy is consulted to initiate Vancomycin IV dosing therapy, order appropriate labs and adjust drug dose/frequency. Subjective The patient is a 77 year old male admitted on Jul 31, 2017 at 14:46. Objective Height (Feet): 5 Height (Inches): 6.00 Weight (Kilograms): 68.000 Vital Signs (Past 12Hrs) Vital Signs Past 12 Hours Date Time Temp Pulse Resp B/P (MAP) Pulse Ox O2 Delivery O2 Flow Rate FiO2 07/31/17 15:43 37.0 83 20 106/58 (74) 99 Room Air 07/31/17 15:42 37.0 83 20 106/58 99 Room Air 07/31/17 15:07 37.0 79 20 107/51 99 07/31/17 12:48 37.0 89 16 107/51 98 Room Air 07/31/17 12:06 102 07/31/17 12:04 79 16 109/57 98 Room Air 07/31/17 11:05 37.0 92 18 89/44 90 Room Air Lab Results (24Hrs) Laboratory Tests (24 Hours) Test 07/31/17 11:52 White Blood Count 4.76 K/uL (4.8-10.8) L Red Blood Count 3.81 M/uL (4.7-6.1) L Hemoglobin 11.0 g/dL (14.0-18.0) L Hematocrit 34.7 % (42-52) L Mean Corpuscular Volume 91.1 fL (80-100) Mean Corpuscular Hemoglobin 28.9 pg (25-34) Mean Corpuscular Hemoglobin Concent 31.7 g/dl (32-36) L Platelet Count 116 K/uL (130-400) L Mean Platelet Volume 10.5 fL (7.4-10.4) H Micro Results Date/Time Source Procedure Growth Status 07/31/17 16:02 Blood Blood Culture Pending Received 07/31/17 15:50 Blood Blood Culture Pending Received Risk Factors for Resistance * Antimicrobial use within the last 90 days : treated for sinusitis 2 weeks ago * Recent hospital admission in 07/12 Assessment & Plan Assessment 77 year old male ordered Vancomycin, Levaquin and Cefepime for pneumonia. * PMH COPD, CKD stage 3, Stage IV lymphoma * Renal function appears to be at baseline, based on previous history * Blood cultures pending Plan Vancomycin IV * Loading dose: 1500 mg (22 mg/kg) * Maintenance dose: Vancomycin mg IV (15 mg/kg) every 24 hours * Goal trough level for pneumonia : 15 to 20 mcg/mL * Trough/Random level ordered for 08/02 @1130 * Dosing interval is very close to the estimated half-life, therefore an early trough level is ordered which will not reflect steady state Levaquin * Pt received 500mg IV in the ER * An additional 250mg x 1 ordered IV today * Ordered 750mg iv q 48 hours for crcl 20-50 for pulmonary indication Cefepime * Pt received cefepime 1 gm in the ER * Ordered 1gm q 12 hours to adjust for crcl of 31. Pharmacy will continue to follow and will adjust dose/frequency as necessary. Thank you.
[2017-07-31] MEDS ORDERED: LEVOFLOXACIN 250MG / D5W IV ONE (16:30)
[2017-07-31 16:39] LABS: INFLUENZA A PCR Neg for Influ A (NEG); INFLUENZA B PCR Neg for Influ B (NEG)
[2017-07-31] MEDS: SODIUM CHLORIDE 0.9% 1000ML 1,000 ML IV SCH (17:37)
[2017-07-31] MEDS: LACTOBACILLUS ACIDOPHILUS (FLORANEX) TAB PO SCH (17:42)
[2017-07-31] MEDS ORDERED: INFLUENZA VACCINE HIGH DOSE 65+ 0.5 ML SYR IM. ONE (18:30)
[2017-07-31] MEDS ORDERED: INFLUENZA ADMINISTRATION CHARGE ONE (19:00)
[2017-07-31] MEDS ORDERED: INFLUENZA VIRUS QUAD VACCINE 0.5 ML SYR IM. ONE (19:00)
[2017-07-31 19:07] VITALS: PULSE 116; O2SAT 98
[2017-07-31] MEDS: IPRATROPIUM BROMIDE NEB SOLN 0.02% 2.5 ML VIAL INH SCH (19:07)
[2017-07-31] MEDS: LEVALBUTEROL 1.25MG/0.5ML NEB INH SCH (19:07)
[2017-07-31] MEDS ORDERED: NURSING VERBAL MED ORDER ONE ×2 (19:15→21:15)
[2017-07-31 19:26] VITALS: BP 129/57; PULSE 128; TEMP 36.7; O2SAT 99
[2017-07-31] MEDS ORDERED: LATANOPROST 0.005% OP SOLN 2.5 ML BTL OP SCH (21:00)
[2017-07-31] MEDS ORDERED: TOBRAMYCIN/DEXAMETHASONE OPH SUSP 2.5 ML BTL OP SCH (21:00)
[2017-07-31] MEDS ORDERED: HEPARIN SOD 5000 UNIT/0.5 ML CARP SQ SCH (21:00)
[2017-07-31] MEDS ORDERED: DILTIAZEM BOLUS / DRIP IV STA (21:07)
[2017-07-31] MEDS: LATANOPROST 0.005% OP SOLN 2.5 ML BTL OPB SCH (21:15)
[2017-07-31] MEDS: TOBRAMYCIN/DEXAMETHASONE OPH OINT 3.5 GM TUBE OPL SCH (21:15)
[2017-07-31] MEDS ORDERED: DILTIAZEM HCL 5 MG/ML 5 ML VIAL BOLUS/OMNI IV SCH (21:30)
[2017-07-31] MEDS: DILTIAZEM HCL INJ 125 MG in DEXTROSE 5% 100ML IV PRN ×3 (22:26→23:42)
[2017-07-31 23:10] VITALS: BP 97/52; PULSE 96; TEMP 36.7; O2SAT 99
[2017-07-31] MEDS ORDERED: HEPARIN IV BOLUS 4,000 UNIT in SYRINGE 0 ML IV ONE (23:15)
[2017-07-31 23:40] VITALS: BP 104/68
[2017-07-31] MEDS: CEFEPIME IV 1,000 MG in SYRINGE 0 ML IV SCH (23:41)
[2017-07-31] MEDS: HEPARIN 25,000 UNIT/500ML D5W 500 ML IV PRN (23:43)
[2017-08-01] VITALS (8 sets, daily range): BP systolic 100–122; BP diastolic 49–67; PULSE 85–95; TEMP 36.9–37; O2SAT 90–97; Ht 167.6 cm; Wt 68.6 kg
[2017-08-01] MEDS: LEVALBUTEROL 1.25MG/0.5ML NEB INH SCH ×4 (01:45→19:11)
[2017-08-01] MEDS: IPRATROPIUM BROMIDE NEB SOLN 0.02% 2.5 ML VIAL INH SCH ×4 (01:45→19:11)
[2017-08-01 07:57] LABS: HEMATOCRIT 31.2 % (42-52); MEAN CELL VOLUME 90.7 fL (80-100); MEAN CORPUSCULAR HEMOGLOBIN 29.1 pg (25-34); MEAN CORPUSCULAR HGB CONC 32.1 g/dl (32-36); MEAN PLATELET VOLUME 10.6 fL (7.4-10.4); PLATELET COUNT 119 K/uL (130-400); RED CELL DISTRIBUTION WIDTH CV 17.1 % (11.5-14.5); RED CELL DISTRIBUTION WIDTH SD 56.7 fL (36.4-46.3); WHITE BLOOD COUNT 4.56 K/uL (4.8-10.8)
[2017-08-01 08:08] LABS: PTT PATIENT 36.1 SECONDS (21.0-31.0)
[2017-08-01] MEDS: LACTOBACILLUS ACIDOPHILUS (FLORANEX) TAB PO SCH ×3 (08:20→17:35)
[2017-08-01 08:24] LABS: ALBUMIN 2.3 gm/dl (3.4-5.0); CALCIUM 8.1 mg/dl (8.5-10.1); CREATININE 1.71 mg/dl (0.60-1.40); POTASSIUM 4.1 mmol/L (3.5-5.1)
[2017-08-01 08:27] LABS: PHOSPHORUS 2.6 mg/dl (2.5-4.9); TOTAL PROTEIN 5.4 gm/dl (6.4-8.2)
[2017-08-01] MEDS ORDERED: HEPARIN IV BOLUS 4,500 UNIT in SYRINGE 0 ML IV ONE (09:00)
[2017-08-01] MEDS: HEPARIN 25,000 UNIT/500ML D5W 500 ML IV PRN ×2 (09:15→17:38)
--- NOTE | 2017-08-01 09:27 | Cardiology Consultation ---
Cardiology Consultation Date of Consultation: Aug 01, 2017. Requesting Physician: Dr. Odell Reason for Consultation: Atrial flutter Pt evaluation today including: conversation w/ patient, physical exam, lab review, review of studies, review of inpatient medication list History of Present Illness This is a 77-year-old male with a history of aortic stenosis, aortic insufficiency and coronary artery disease. He had a myocardial infarction in 1992 with a right coronary artery stent placed in [place]. He also has a history of tobacco abuse and lung disease. He has non-Hodgkin's lymphoma. On echocardiography showed normal left ventricular size and function with severe aortic stenosis (valve area 0.96 cm, mean gradient 20 mmHg). On 2015 echo showed moderate with MARGUERITE 1.6 and mean gradient 32, inconsistent with prior. Moderate AI in march. He now presents with weakness, inability to walk and bilateral lower extremity swelling. Electrocardiography showed atrial flutter with a controlled heart rate. He also had 3 days of productive cough and possibly has sepsis, he was admitted on 07/31/2017. Today he seems to have no complaints, he is not short of breath and he is not on oxygen. He denies chest discomfort. He is not aware of palpitations, he recognizes the term atrial fibrillation because his has it but he is not aware of ever having that diagnosis. Past Medical/Surgical History (1) Hypertension (2) NHL (non-Hodgkin's lymphoma) Family History Patient reports no known family medical history. Social History Smoking Status: Current Every Day Smoker History of Alcohol Use: No Review of Systems Constitutional: No fever, No weight loss, No weakness Respiratory: No cough, No wheezing, No shortness of breath, No dyspnea on exertion Cardiac: No chest pain, No orthopnea, No PND, No edema, No palpitations Abdomen: No pain, No nausea, No vomiting, No diarrhea, No GI bleeding Male : No urinary frequency, No nocturia more than once/night, No slowing stream, No sexual dysfunction Neurologic: + weakness, No paralysis, No numbness/tingling, No balance problems Heme: No abnormal bleeding/bruising, No clotting problems Endo: No fatigue Skin: No problem reported All Other Systems: Reviewed and Negative Allergies Coded Allergies: Gabapentin (Verified Adverse Reaction, Intermediate, unknown, 07/31/17) Patient's stated patient "developed signs of a heart attack w/ use of gabapentin". Medications Current Inpatient Medications Medications (Trade) Dose Ordered Sig/Hari Route Start Time Stop Time Status Last Admin Dose Admin Sodium Chloride 1,000 ml @ 30 mls/hr Q24H IV 07/31/17 14:40 08/30/17 14:39 07/31/17 17:37 30 MLS/HR Acetaminophen (Tylenol Tab) 650 mg Q4H PRN PO 07/31/17 14:45 08/30/17 14:44 Al Hydrox/Mg Hydrox/Simethicone (Maalox Max Susp) 15 ml Q4H PRN PO 07/31/17 14:45 08/30/17 14:44 Magnesium Hydroxide (Milk Of Magnesia Susp) 30 ml Q12H PRN PO 07/31/17 14:45 08/30/17 14:44 Zolpidem Tartrate (Ambien Tab) 5 mg HSZ PRN PO 07/31/17 14:45 08/30/17 14:44 Zolpidem Tartrate (Ambien Tab) 5 mg HSZ PRN PO 07/31/17 14:45 08/30/17 14:44 Ondansetron HCl (Zofran Inj) 4 mg Q6H PRN IV 07/31/17 14:45 08/30/17 14:44 Polyethylene (Miralax Powder Packet) 17 gm DAILY PRN PO 07/31/17 14:45 08/30/17 14:44 Lactobacillus Acidophilus (Floranex Tab) 4 tab TIDM PO 07/31/17 16:45 08/30/17 17:59 08/01/17 08:20 4 TAB Vancomycin HCl 1000 mg/Sodium Chloride 270 ml @ 125 mls/hr Q24H IV 08/01/17 12:00 08/07/17 11:59 Guaifenesin (Robitussin Sugar Free Syrup) 200 mg Q6H PRN PO 07/31/17 15:00 08/30/17 14:59 Vancomycin HCl (Consult) 1 ea UD PRN N/A 07/31/17 15:30 08/30/17 15:29 Cefepime HCl (Consult) 1 ea UD PRN N/A 07/31/17 16:00 08/30/17 15:59 Levofloxacin (Consult) 1 ea UD PRN N/A 07/31/17 16:00 08/30/17 15:59 Cefepime HCl 1000 mg/Syringe 11 ml @ 5.5 mls/min Q12H IV 08/01/17 00:00 08/07/17 23:59 07/31/17 23:41 5.5 MLS/MIN Levofloxacin 750 mg/Prmx 150 ml @ 100 mls/hr Q48H IV 08/02/17 11:00 08/07/17 10:59 Ipratropium [place] (Atrovent 0.02% 0.5MG/2.5ML Neb) 0.5 mg Q6R INH 07/31/17 21:00 08/30/17 20:59 08/01/17 01:45 0.5 MG Levalbuterol (Xopenex 1.25MG/ 0.5ML Neb) 1.25 mg Q6R INH 07/31/17 21:00 08/30/17 20:59 08/01/17 01:45 1.25 MG Miscellaneous Information (Order Awaiting Action) 1 ea QS N/A 08/01/17 00:00 08/31/17 00:00 Latanoprost (Xalatan Oph Soln) 1 drops HS OPB 07/31/17 21:00 08/30/17 20:59 07/31/17 21:15 1 DROPS Tobramycin/ Dexamethasone (Tobradex Oph Oint) 1 appln HS OPL 07/31/17 21:00 08/30/17 20:59 07/31/17 21:15 1 APPLN Diltiazem HCl 125 mg/Dextrose 125 ml @ 0 mls/hr Q0M PRN IV 07/31/17 21:30 08/30/17 21:29 07/31/17 23:42 9 MLS/HR Miscellaneous Information (Order Awaiting Action) 1 ea QS N/A 08/01/17 08:00 08/31/17 07:59 08/01/17 08:24 1 EA Heparin Sodium/ Dextrose 500 ml @ 19 mls/hr Q24H PRN IV 07/31/17 23:15 08/30/17 23:14 07/31/17 23:43 16 MLS/HR Heparin Sodium (Porcine) (Heparin 100 Unit/ml 5ml Flush) 5 ml PRN PRN IV 08/01/17 07:45 08/31/17 07:44 Physical Exam Vital Signs Past 12 Hours Date Time Temp Pulse Resp B/P (MAP) Pulse Ox O2 Delivery O2 Flow Rate FiO2 08/01/17 08:58 Room Air 08/01/17 08:08 37.0 93 22 115/67 (83) 90 Room Air 08/01/17 04:15 37.0 85 18 105/54 (71) 97 Room Air 08/01/17 04:00 Room Air 08/01/17 01:45 88 16 97 Room Air 08/01/17 00:00 Room Air 07/31/17 23:40 104/68 (80) 07/31/17 23:10 36.7 96 18 97/52 (67) 99 Room Air Constitutional: Level of Distress: NAD Psychiatric: Mental Status: active & alert Head: normocephalic Eyes: EOM: EOMI ENMT: normal ENT inspection, hearing grossly normal Neck: supple, no masses Lungs: Respiratory effort: no dyspnea, good air movement Auscultation: no wheezing, decreased breath sounds, rales/crackles on the left Cardiovascular: Heart Auscultation: RRR, no rubs, no gallops, II/ MACEY, II/ WSM Peripheral Pulses: Bruits: none appreciated Abdomen: Bowel Sounds: normal Inspection & Palpation: soft, no tenderness, guarding & rebound, no masses Musculoskeletal: normal strength (5/5 throughout) Extremities: no edema Neurologic: Cranial Nerves: grossly intact Sensation: grossly intact Data Laboratory Results: Last 24 Hours Test 07/31/17 11:52 07/31/17 14:14 08/01/17 07:40 White Blood Count 4.76 K/uL 4.56 K/uL Red Blood Count 3.81 M/uL 3.44 M/uL Hemoglobin 11.0 g/dL 10.0 g/dL Hematocrit 34.7 % 31.2 % Mean Corpuscular Volume 91.1 fL 90.7 fL Mean Corpuscular Hemoglobin 28.9 pg 29.1 pg Mean Corpuscular Hemoglobin Concent 31.7 g/dl 32.1 g/dl Platelet Count 116 K/uL 119 K/uL Mean Platelet Volume 10.5 fL 10.6 fL RDW Standard Deviation 55.9 fL 56.7 fL RDW Coefficient of Variation 16.9 % 17.1 % Neutrophils % (Manual) 55.4 % 66.9 % Lymphocytes % (Manual) 21.4 % 21.1 % Monocytes % (Manual) 9.8 % 8.3 % Eosinophils % (Manual) 8.9 % 2.8 % Basophils % (Manual) 1.8 % Myelocytes % 2.7 % 0.9 % Neutrophils # (Manual) 2.64 K/uL 3.05 K/uL Total Absolute Neutrophils 2.64 K/uL 3.05 K/uL Lymphocytes # (Manual) 1.02 K/uL 0.96 K/uL Total Absolute Lymphocytes 1.02 K/uL 0.96 K/uL Monocytes # (Manual) 0.47 K/uL 0.38 K/uL Eosinophils # (Manual) 0.42 K/uL 0.13 K/uL Basophils # (Manual) 0.09 K/uL Myelocytes # 0.13 K/uL 0.04 K/uL Toxic Granulation 1+ 3+ Toxic Vacuolation 1+ Red Blood Cell Morphology Unremarkable Prothrombin Time 12.0 SECONDS Prothromb Time International Ratio 1.1 Sodium Level 136 mmol/L 137 mmol/L Potassium Level 4.2 mmol/L 4.1 mmol/L Chloride Level 105 mmol/L 108 mmol/L Carbon Dioxide Level 21 mmol/L 20 mmol/L Anion Gap 10.0 mmol/L 9.0 mmol/L Blood Urea Nitrogen 36 mg/dl 35 mg/dl Creatinine 1.73 mg/dl 1.71 mg/dl Est Creatinine Clear Calc Drug Dose 31.7 ml/min 32.1 ml/min Estimated GFR () 42.9 43.5 Estimated GFR (Non- 37.0 37.5 BUN/Creatinine Ratio 20.5 20.4 Random Glucose 109 mg/dl 80 mg/dl Calcium Level 8.7 mg/dl 8.1 mg/dl Total Bilirubin 1.0 mg/dl 0.8 mg/dl Direct Bilirubin 0.3 mg/dl Aspartate Amino Transf (AST/SGOT) 36 U/L 15 U/L Alanine Aminotransferase (ALT/SGPT) 47 U/L 34 U/L Alkaline Phosphatase 105 U/L 88 U/L Troponin I < 0.015 ng/ml Total Protein 5.8 gm/dl 5.4 gm/dl Albumin 2.6 gm/dl 2.3 gm/dl Lipase 191 U/L Urine Color YELLOW Urine Appearance CLOUDY Urine pH 7.5 Urine Specific [place] 1.016 Urine Protein NEG Urine Glucose (UA) NEG Urine Ketones NEG Urine Occult Blood NEG Urine Nitrite NEG Urine Bilirubin NEG Urine Urobilinogen NEG Urine Leukocyte Esterase TRACE Urine WBC (Auto) 1-5 /hpf Urine RBC (Auto) 0-4 /hpf Urine Hyaline Casts (Auto) 1-5 /lpf Urine Epithelial Cells (Auto) >30 /lpf Urine Bacteria (Auto) NEG Ovalocytes 1+ Activated Partial Thromboplast Time 36.1 SECONDS Partial Thromboplastin Ratio 1.4 Lactic Acid Level 1.7 mmol/L Phosphorus Level 2.6 mg/dl Magnesium Level 2.2 mg/dl Globulin 3.1 gm/dl Albumin/Globulin Ratio 0.8 Imaging: Chest x-ray shows left sided opacification, conceivably asymmetric heart failure although I think more likely pulmonary process. EKG: Atrial flutter with a heart rate of 84 bpm, conducted complexes are relatively unremarkable. No acute changes. Telemetry reviewed: Atrial flutter, heart rate was increased yesterday but is good today. Assessment & Plan #1. Weakness, hypotension: This is most likely due to an infective process, is possible he is somewhat dehydrated although he came in with edema but his creatinine is also elevated. #2. Aortic stenosis: On exam it does not sound critical, the echocardiogram will be daily to determine the degree of stenosis and his left ventricular function. #3. Peripheral edema: Today he does not have peripheral edema, he notes that it went down since yesterday, responding very quickly. This makes it less likely it is due to right heart failure, the echocardiogram will be helpful for that. #4. Atrial flutter: He presented in atrial flutter, as far as I know this is a new arrhythmia, however it could only have been recently identified since he seems asymptomatic with it. It could conceivably relate to his weakness and hypotension although there seemed to be other causes. He could also relate to his peripheral edema, but that has resolved. The rate was well controlled therefore I would not alter his regimen, we do need to consider anticoagulation though and I agree with using it. I agree with heparin initially and oral anticoagulation once other issues have resolved. Thank you for allowing me to participate in his care.
--- NOTE | 2017-08-01 11:26 | ECHOCARDIOGRAM REPORT ---
*NOTICE TO RECEIVING LIBERTARIAN AGENCY This information is strictly Confidential and protected under [place] law. [place] law prohibits you from making any further disclosure of this information unless further disclosure is expressly permitted by the written consent of the person to whom it pertains or is authorized by law. A general authorization for the release of medical or other information is not sufficient for this purpose. Hospital accepts no responsibility if the information is made available to any other person, INCLUDING THE PATIENT. Interpretation Summary * Name: KATHERIN ZAMORANO Study Date: 08/01/2017 06:56 AM BP: 105/54 mmHg * Patient Location: C.2T\S\S233\S\1 HR: 70 * : 1940 (M/d/yyyy) Gender: Male Height: 66 in * Age: 77 yrs Ethnicity: [place] Weight: 149 lb * Ordering Physician: Pancho Alonzo * Referring Physician: Self, Referred * Performed By: Tanmay Carbajal RDCS * * Reason For Study: Dilated cardiomyopathy * BSA: 1.8 m2 * -- Conclusions -- * 1. Normal LV size. Mild concentric LVH. * 2. Normal LV systolic function. LVEF 60-65%. No regional wall motion abnormalities. * 3. Normal RV size with borderline reduced RV function. * 4. Calcific aortic stenosis, moderate to severe (PV 3.6, MG 32, MARGUERITE 0.74, DI 0.24, SVI 30ml/m2). * 5. [id number]-zbccxyuo aortic insufficiency. * 6. Normal estimated PA and RA pressures. * 7. Compared with prior study on 03/28/2016: Aortic stenosis has progressed. Procedure Details * A complete two-dimensional transthoracic echocardiogram was performed (2D, M-mode, Doppler and color flow Doppler). * The study was technically adequate. Left Ventricle * The left ventricle is grossly normal size. * There is mild concentric left ventricular hypertrophy. * Ejection Fraction = 60-65%. * No regional wall motion abnormalities noted. Right Ventricle * The right ventricle is not well visualized. * The right ventricle is grossly normal size. * The right ventricular systolic function is borderline reduced. Atria * The left atrial size is normal. * Right atrial size is normal. * Lipomatous hypertrophy of the interatrial septum is noted. * No ASD detected; PFO is not assessed. Mitral Valve * The mitral valve is grossly normal. * Mitral stenosis is absent. * Significant mitral regurgitation is absent. Tricuspid Valve * The tricuspid valve is not well visualized, but is grossly normal. * There is trace tricuspid regurgitation. Aortic Valve * Moderate to severe valvular aortic stenosis. * PV 3.6, MG 32, MARGUERITE 0.74, DI 0.24, SVI 30ml/m2. Low flow, low gradient * Mild to moderate aortic regurgitation. Pulmonic Valve * The pulmonary valve is inadequately visualized, but the Doppler data is adequate for interpretation. * Pulmonic stenosis is absent. * Mild pulmonic valvular regurgitation. Great Vessels * The aortic root and proximal ascending aorta are normal sized. * Normal inferior vena cava size and collapsability with sniff indicates a normal right atrial pressure of 3 mmHg * There is no evidence of pulmonary hypertension. The PA systolic pressure is less than 36 mmHg. MMode 2D Measurements and Calculations IVSd 1.4 cm IVSs 2.0 cm LVIDd 4.8 cm LVIDs 3.4 cm LVPWd 1.3 cm LVPWs 2.0 cm IVS/LVPW 1.1 FS 28.2 % EDV(Teich) 105.1 ml ESV(Teich) 47.9 ml EF(Teich) 54.4 % EDV(cubed) 107.3 ml ESV(cubed) 39.7 ml EF(cubed) 63.0 % % IVS thick 42.8 % % LVPW thick 53.5 % LV mass(C)d 254.6 grams LV mass(C)dI 144.2 grams/m\S\2 LV mass(C)s 304.2 grams LV mass(C)sI 172.4 grams/m\S\2 SV(Teich) 57.2 ml SI(Teich) 32.4 ml/m\S\2 SV(cubed) 67.6 ml SI(cubed) 38.3 ml/m\S\2 Ao root diam 3.5 cm Ao root area 9.8 cm\S\2 ACS 0.77 cm LA dimension 3.8 cm asc Aorta Diam 3.3 cm LA/Ao 1.1 LVOT diam 2.0 cm LVOT area 3.2 cm\S\2 LVAd ap4 19.6 cm\S\2 LVLd ap4 6.9 cm EDV(MOD-sp4) 47.6 ml EDV(sp4-el) 47.6 ml LVAs ap4 10.3 cm\S\2 LVLs ap4 5.2 cm ESV(MOD-sp4) 17.7 ml ESV(sp4-el) 17.3 ml EF(MOD-sp4) 62.9 % EF(sp4-el) 63.8 % LVAd ap2 16.5 cm\S\2 LVLd ap2 6.8 cm EDV(MOD-sp2) 32.9 ml EDV(sp2-el) 34.0 ml LVAs ap2 9.2 cm\S\2 LVLs ap2 5.8 cm ESV(MOD-sp2) 12.5 ml ESV(sp2-el) 12.6 ml EF(MOD-sp2) 61.9 % EF(sp2-el) 63.0 % LVLd %diff -0.69 % EDV(MOD-bp) 38.9 ml LVLs %diff 9.5 % ESV(MOD-bp) 15.6 ml EF(MOD-bp) 60.0 % SV(MOD-sp4) 29.9 ml SI(MOD-sp4) 17.0 ml/m\S\2 SV(MOD-sp2) 20.4 ml SI(MOD-sp2) 11.5 ml/m\S\2 SV(MOD-bp) 23.4 ml SI(MOD-bp) 13.2 ml/m\S\2 SV(sp4-el) 30.4 ml SI(sp4-el) 17.2 ml/m\S\2 SV(sp2-el) 21.4 ml SI(sp2-el) 12.1 ml/m\S\2 Doppler Measurements and Calculations MV E max jesus 100.2 cm/sec MV A max jesus 57.8 cm/sec MV E/A 1.7 MV dec time 0.13 sec Ao V2 max 361.0 cm/sec Ao max PG 52.1 mmHg Ao max PG (full) 48.4 mmHg Ao V2 mean 263.3 cm/sec Ao mean PG 32.6 mmHg Ao mean PG (full) 30.9 mmHg Ao V2 VTI 73.1 cm MARGUERITE(I,A) 0.75 cm\S\2 MARGUERITE(I,D) 0.75 cm\S\2 MARGUERITE(V,A) 0.86 cm\S\2 MARGUERITE(V,D) 0.86 cm\S\2 AI max jesus 304.1 cm/sec AI max PG 37.0 mmHg AI dec slope 224.0 cm/sec\S\2 AI P1/2t 397.6 msec LV V1 max PG 3.8 mmHg LV V1 mean PG 1.7 mmHg LV V1 max 96.9 cm/sec LV V1 mean 58.2 cm/sec LV V1 VTI 17.2 cm SV(Ao) 717.5 ml SI(Ao) 406.5 ml/m\S\2 SV(LVOT) 55.2 ml SI(LVOT) 31.2 ml/m\S\2 PA V2 max 119.8 cm/sec PA max PG 5.7 mmHg
[2017-08-01] MEDS: VANCOMYCIN INJ 1,000 MG in SODIUM CHLORIDE 0.9% 250ML 250 ML IV SCH (11:56)
[2017-08-01] MEDS: CEFEPIME IV 1,000 MG in SYRINGE 0 ML IV SCH ×2 (11:57→23:57)
[2017-08-01] MEDS: SODIUM CHLORIDE 0.9% 1000ML 1,000 ML IV SCH ×3 (11:57→23:57)
--- NOTE | 2017-08-01 12:44 | Medical Consult ---
Consultation Date of Consultation: Aug 01, 2017. Attending Physician: Pancho Alonzo MD Reason for Consultation: Pneumonia History of Present Illness 77-year-old male with history of follicular lymphoma, 1st diagnosed 2 years ago , given chemotherapy with remission, but several weeks ago found to be have recurrence. He is soon to undergo further chemotherapy, but was admitted to the hospital with 3-4 days of progressively worsening cough with shortness of breath and fever. Reportedly had been treated several weeks ago for sinus infection. He was found to have significant left-sided pneumonia, and has been started on vancomycin, cefepime, and levofloxacin. Blood in sputum cultures are pending. Patient reportedly had contact with ill children approximately 1 week ago. Denies hemoptysis. No significant travel or other exposure history. Denies chest pain, no hemoptysis, no significant sputum production. Has also been found to have atrial flutter, being followed by Cardiology. Past Medical/Surgical History Medical Problems: (1) Atrial flutter Status: Acute (2) CHF (congestive heart failure) Status: Acute (3) Febrile neutropenia Status: Acute (4) Hypotension Status: Acute (5) Immunocompromised Status: Acute (6) Low back pain Status: Acute (7) PNA (pneumonia) Status: Acute (8) Sepsis Status: Acute (9) Sepsis Status: Acute (10) Spinal stenosis Status: Acute (11) UTI (urinary tract infection) Status: Acute (12) Weakness Status: Acute Medical Problems: (1) Abnormal LFTs (2) MACRINA (acute kidney injury) (3) Anemia (4) Aortic stenosis, moderate (5) Bile leak, postoperative (6) Choledocholithiasis with acute cholecystitis with obstruction (7) Hypertension (8) Lymphoma (9) Neutropenic fever (10) NHL (non-Hodgkin's lymphoma) (11) Pneumonia (12) sob copd, chf, pleural effusion, lymphoma (13) Urinary tract infection Family History Patient reports no known family medical history. Social History Smoking Status: Current Every Day Smoker Drug Use: none Marital Status: Housing Status: lives with family Occupation Status: retired Allergies Coded Allergies: Gabapentin (Verified Adverse Reaction, Intermediate, unknown, 07/31/17) Patient's stated patient "developed signs of a heart attack w/ use of gabapentin". Current Inpatient Medications Current Inpatient Medications Medications (Trade) Dose Ordered Sig/Hari Route Start Time Stop Time Status Last Admin Dose Admin Sodium Chloride 1,000 ml @ 30 mls/hr Q24H IV 07/31/17 14:40 08/30/17 14:39 08/01/17 11:57 30 MLS/HR Acetaminophen (Tylenol Tab) 650 mg Q4H PRN PO 07/31/17 14:45 08/30/17 14:44 Al Hydrox/Mg Hydrox/Simethicone (Maalox Max Susp) 15 ml Q4H PRN PO 07/31/17 14:45 08/30/17 14:44 Magnesium Hydroxide (Milk Of Magnesia Susp) 30 ml Q12H PRN PO 07/31/17 14:45 08/30/17 14:44 Zolpidem Tartrate (Ambien Tab) 5 mg HSZ PRN PO 07/31/17 14:45 08/30/17 14:44 Zolpidem Tartrate (Ambien Tab) 5 mg HSZ PRN PO 07/31/17 14:45 08/30/17 14:44 Ondansetron HCl (Zofran Inj) 4 mg Q6H PRN IV 07/31/17 14:45 08/30/17 14:44 Polyethylene (Miralax Powder Packet) 17 gm DAILY PRN PO 07/31/17 14:45 08/30/17 14:44 Lactobacillus Acidophilus (Floranex Tab) 4 tab TIDM PO 07/31/17 16:45 08/30/17 17:59 08/01/17 11:58 4 TAB Vancomycin HCl 1000 mg/Sodium Chloride 270 ml @ 125 mls/hr Q24H IV 08/01/17 12:00 08/07/17 11:59 08/01/17 11:56 125 MLS/HR Guaifenesin (Robitussin Sugar Free Syrup) 200 mg Q6H PRN PO 07/31/17 15:00 08/30/17 14:59 Vancomycin HCl (Consult) 1 ea UD PRN N/A 07/31/17 15:30 08/30/17 15:29 Cefepime HCl (Consult) 1 ea UD PRN N/A 07/31/17 16:00 08/30/17 15:59 Levofloxacin (Consult) 1 ea UD PRN N/A 07/31/17 16:00 08/30/17 15:59 Cefepime HCl 1000 mg/Syringe 11 ml @ 5.5 mls/min Q12H IV 08/01/17 00:00 08/07/17 23:59 08/01/17 11:57 5.5 MLS/MIN Levofloxacin 750 mg/Prmx 150 ml @ 100 mls/hr Q48H IV 08/02/17 11:00 08/07/17 10:59 Ipratropium [place] (Atrovent 0.02% 0.5MG/2.5ML Neb) 0.5 mg Q6R INH 07/31/17 21:00 08/30/17 20:59 08/01/17 01:45 0.5 MG Levalbuterol (Xopenex 1.25MG/ 0.5ML Neb) 1.25 mg Q6R INH 07/31/17 21:00 08/30/17 20:59 08/01/17 01:45 1.25 MG Miscellaneous Information (Order Awaiting Action) 1 ea QS N/A 08/01/17 00:00 08/31/17 00:00 Latanoprost (Xalatan Oph Soln) 1 drops HS OPB 07/31/17 21:00 08/30/17 20:59 07/31/17 21:15 1 DROPS Tobramycin/ Dexamethasone (Tobradex Oph Oint) 1 appln HS OPL 07/31/17 21:00 08/30/17 20:59 07/31/17 21:15 1 APPLN Diltiazem HCl 125 mg/Dextrose 125 ml @ 0 mls/hr Q0M PRN IV 07/31/17 21:30 08/30/17 21:29 07/31/17 23:42 9 MLS/HR Miscellaneous Information (Order Awaiting Action) 1 ea QS N/A 08/01/17 08:00 08/31/17 07:59 08/01/17 08:24 1 EA Heparin Sodium/ Dextrose 500 ml @ 19 mls/hr Q24H PRN IV 07/31/17 23:15 08/30/17 23:14 08/01/17 09:15 19 MLS/HR Heparin Sodium (Porcine) (Heparin 100 Unit/ml 5ml Flush) 5 ml PRN PRN IV 08/01/17 07:45 08/31/17 07:44 Review of Systems All systems were reviewed and are negative except as per HPI Physical Exam Date Time Temp Pulse Resp B/P (MAP) Pulse Ox O2 Delivery O2 Flow Rate FiO2 08/01/17 12:37 Room Air 08/01/17 11:31 36.9 91 18 100/59 (73) 96 Room Air 08/01/17 08:58 Room Air 08/01/17 08:08 37.0 93 22 115/67 (83) 90 Room Air 08/01/17 04:15 37.0 85 18 105/54 (71) 97 Room Air 08/01/17 04:00 Room Air 08/01/17 01:45 88 16 97 Room Air 08/01/17 00:00 Room Air 07/31/17 23:40 104/68 (80) 07/31/17 23:10 36.7 96 18 97/52 (67) 99 Room Air 07/31/17 20:00 Room Air 07/31/17 19:26 36.7 128 18 129/57 (81) 99 Room Air 07/31/17 19:07 116 16 98 Room Air 07/31/17 15:43 37.0 83 20 106/58 (74) 99 Room Air 07/31/17 15:42 37.0 83 20 106/58 99 Room Air 07/31/17 15:07 37.0 79 20 107/51 99 07/31/17 12:48 37.0 89 16 107/51 98 Room Air General Appearance: WD/WN, no apparent distress Head: normocephalic, atraumatic Eyes: normal inspection, EOMI, sclerae normal ENT: normal ENT inspection, pharynx normal Neck: supple, no adenopathy, thyroid normal, trachea midline Respiratory/Chest: chest non-tender, no respiratory distress, no accessory muscle use, + rales (Left-sided) Cardiovascular: regular rate, rhythm, no gallop, + systolic murmur Abdomen/GI: normal bowel sounds, non tender, soft, no organomegaly Back: normal inspection, no CVA tenderness Extremities/Musculoskelatal: no calf tenderness, non-tender Neurologic/Psych: alert, oriented x 3 Skin: normal color, warm/dry, no rash, + pertinent finding (Left-sided a port appears uninfected) Lymphatic: no adenopathy Laboratory Results Date/Time Source Procedure Growth Status 07/31/17 16:02 Blood Blood Culture Pending Received 07/31/17 15:50 Blood Blood Culture Pending Received 07/31/17 22:10 Throat Group A Streptococcus Screen - Final SPECIMEN NEGATIVE FOR GROUP A BETA ST... Resulted 07/31/17 22:10 Throat Group A Streptococcus Screen (NILESH) - Preliminary NO BETA STREP ISOLATED TO DATE. Resulted Last 24 Hours Test 07/31/17 14:14 08/01/17 07:40 08/01/17 11:19 Urine Color YELLOW Urine Appearance CLOUDY Urine pH 7.5 Urine Specific [place] 1.016 Urine Protein NEG Urine Glucose (UA) NEG Urine Ketones NEG Urine Occult Blood NEG Urine Nitrite NEG Urine Bilirubin NEG Urine Urobilinogen NEG Urine Leukocyte Esterase TRACE Urine WBC (Auto) 1-5 /hpf Urine RBC (Auto) 0-4 /hpf Urine Hyaline Casts (Auto) 1-5 /lpf Urine Epithelial Cells (Auto) >30 /lpf Urine Bacteria (Auto) NEG White Blood Count 4.56 K/uL Red Blood Count 3.44 M/uL Hemoglobin 10.0 g/dL Hematocrit 31.2 % Mean Corpuscular Volume 90.7 fL Mean Corpuscular Hemoglobin 29.1 pg Mean Corpuscular Hemoglobin Concent 32.1 g/dl Platelet Count 119 K/uL Mean Platelet Volume 10.6 fL RDW Standard Deviation 56.7 fL RDW Coefficient of Variation 17.1 % Neutrophils % (Manual) 66.9 % Lymphocytes % (Manual) 21.1 % Monocytes % (Manual) 8.3 % Eosinophils % (Manual) 2.8 % Myelocytes % 0.9 % Neutrophils # (Manual) 3.05 K/uL Total Absolute Neutrophils 3.05 K/uL Lymphocytes # (Manual) 0.96 K/uL Total Absolute Lymphocytes 0.96 K/uL Monocytes # (Manual) 0.38 K/uL Eosinophils # (Manual) 0.13 K/uL Myelocytes # 0.04 K/uL Toxic Granulation 3+ Ovalocytes 1+ Activated Partial Thromboplast Time 36.1 SECONDS Partial Thromboplastin Ratio 1.4 Sodium Level 137 mmol/L Potassium Level 4.1 mmol/L Chloride Level 108 mmol/L Carbon Dioxide Level 20 mmol/L Anion Gap 9.0 mmol/L Blood Urea Nitrogen 35 mg/dl Creatinine 1.71 mg/dl Est Creatinine Clear Calc Drug Dose 32.1 ml/min Estimated GFR () 43.5 Estimated GFR (Non- 37.5 BUN/Creatinine Ratio 20.4 Random Glucose 80 mg/dl Lactic Acid Level 1.7 mmol/L Calcium Level 8.1 mg/dl Phosphorus Level 2.6 mg/dl Magnesium Level 2.2 mg/dl Total Bilirubin 0.8 mg/dl Aspartate Amino Transf (AST/SGOT) 15 U/L Alanine Aminotransferase (ALT/SGPT) 34 U/L Alkaline Phosphatase 88 U/L Total Protein 5.4 gm/dl Albumin 2.3 gm/dl Globulin 3.1 gm/dl Albumin/Globulin Ratio 0.8 Procalcitonin 0.16 ng/ml CHEST ONE VIEW PORTABLE CLINICAL HISTORY: cough dyspnea COMPARISON STUDY: 12/07/2016 FINDINGS: Consolidative infiltrative process left midlung. Less prominent diffuse infiltrative change left hemithorax as compared to the prior exam. Slight chronic finding right lateral costophrenic angle. Central catheters. Vena cava. IMPRESSION: Diffuse partially consolidative infiltrate left hemithorax. The above report was generated using voice recognition software. It may contain grammatical, syntax or spelling errors. Assessment & Plan 77-year-old male with recurrent lymphoma now with left-sided pneumonia. Given likely immunocompromised status, current antibiotic regimen with vancomycin, cefepime, and levofloxacin appropriate pending further culture results. I have ordered a procalcitonin to help guide therapy and duration. Will adjust antibiotics once final culture results are available. Will follow.
[2017-08-01] MEDS ORDERED: SODIUM CHLORIDE 0.9% 500ML 500 ML IV STA (13:12)
--- NOTE | 2017-08-01 13:22 | Progress Note ---
Subjective Date of Service: Aug 01, 2017. Subjective Patient is on RA. Feeling slightly better states he still appears weak. Patient denies any chest pain, nausea, vomiting, chest pain. Problem List Medical Problems: (1) Atrial flutter Status: Acute (2) CHF (congestive heart failure) Status: Acute (3) Febrile neutropenia Status: Acute (4) Hypotension Status: Acute (5) Immunocompromised Status: Acute (6) Low back pain Status: Acute (7) PNA (pneumonia) Status: Acute (8) Sepsis Status: Acute (9) Sepsis Status: Acute (10) Spinal stenosis Status: Acute (11) UTI (urinary tract infection) Status: Acute (12) Weakness Status: Acute Review of Systems Constitutional: No fever, No chills Cardiac: No chest pain, No orthopnea Abdomen: No pain, No nausea Neurologic: No memory loss, No paralysis Psychiatric: No depression symptoms Heme: No abnormal bleeding/bruising Endo: No fatigue Skin: No rash, No itch All Other Systems: Reviewed and Negative Medications Current Inpatient Medications Medications (Trade) Dose Ordered Sig/Hari Route Start Time Stop Time Status Last Admin Dose Admin Acetaminophen (Tylenol Tab) 650 mg Q4H PRN PO 07/31/17 14:45 08/30/17 14:44 Al Hydrox/Mg Hydrox/Simethicone (Maalox Max Susp) 15 ml Q4H PRN PO 07/31/17 14:45 08/30/17 14:44 Magnesium Hydroxide (Milk Of Magnesia Susp) 30 ml Q12H PRN PO 07/31/17 14:45 08/30/17 14:44 Zolpidem Tartrate (Ambien Tab) 5 mg HSZ PRN PO 07/31/17 14:45 08/30/17 14:44 Zolpidem Tartrate (Ambien Tab) 5 mg HSZ PRN PO 07/31/17 14:45 08/30/17 14:44 Ondansetron HCl (Zofran Inj) 4 mg Q6H PRN IV 07/31/17 14:45 08/30/17 14:44 Polyethylene (Miralax Powder Packet) 17 gm DAILY PRN PO 07/31/17 14:45 08/30/17 14:44 Lactobacillus Acidophilus (Floranex Tab) 4 tab TIDM PO 07/31/17 16:45 08/30/17 17:59 08/02/17 07:44 4 TAB Vancomycin HCl 1000 mg/Sodium Chloride 270 ml @ 125 mls/hr Q24H IV 08/01/17 12:00 08/07/17 11:59 08/01/17 11:56 125 MLS/HR Guaifenesin (Robitussin Sugar Free Syrup) 200 mg Q6H PRN PO 07/31/17 15:00 08/30/17 14:59 Vancomycin HCl (Consult) 1 ea UD PRN N/A 07/31/17 15:30 08/30/17 15:29 Cefepime HCl (Consult) 1 ea UD PRN N/A 07/31/17 16:00 08/30/17 15:59 Levofloxacin (Consult) 1 ea UD PRN N/A 07/31/17 16:00 08/30/17 15:59 Cefepime HCl 1000 mg/Syringe 11 ml @ 5.5 mls/min Q12H IV 08/01/17 00:00 08/07/17 23:59 08/01/17 23:57 5.5 MLS/MIN Levofloxacin 750 mg/Prmx 150 ml @ 100 mls/hr Q48H IV 08/02/17 11:00 08/07/17 10:59 08/02/17 09:40 100 MLS/HR Ipratropium [place] (Atrovent 0.02% 0.5MG/2.5ML Neb) 0.5 mg Q6R INH 07/31/17 21:00 08/30/17 20:59 08/02/17 07:34 0.5 MG Levalbuterol (Xopenex 1.25MG/ 0.5ML Neb) 1.25 mg Q6R INH 07/31/17 21:00 08/30/17 20:59 08/02/17 07:35 1.25 MG Latanoprost (Xalatan Oph Soln) 1 drops HS OPB 07/31/17 21:00 08/30/17 20:59 08/01/17 21:18 1 DROPS Tobramycin/ Dexamethasone (Tobradex Oph Oint) 1 appln HS OPL 07/31/17 21:00 08/30/17 20:59 08/01/17 21:18 1 APPLN Diltiazem HCl 125 mg/Dextrose 125 ml @ 0 mls/hr Q0M PRN IV 07/31/17 21:30 08/30/17 21:29 08/01/17 23:38 9 MLS/HR Heparin Sodium/ Dextrose 500 ml @ 20 mls/hr Q24H PRN IV 07/31/17 23:15 08/30/17 23:14 08/01/17 17:38 20 MLS/HR Heparin Sodium (Porcine) (Heparin 100 Unit/ml 5ml Flush) 5 ml PRN PRN IV 08/01/17 07:45 08/31/17 07:44 Sodium Chloride 1,000 ml @ 100 mls/hr Q10H IV 08/01/17 13:15 08/31/17 13:14 08/02/17 07:45 100 MLS/HR Enteral Nutritional Formula (Boost) 1 can TIDM PO 08/02/17 07:30 09/01/17 07:29 08/02/17 07:47 1 CAN Neomycin/ Polymyxin/ Dexamethasone (Maxitrol Oph Susp) 1 drops Q6H OPL 08/02/17 00:00 09/01/17 00:00 08/02/17 06:01 1 DROPS Objective Vital Signs Date Time Temp Pulse Resp B/P (MAP) Pulse Ox O2 Delivery O2 Flow Rate FiO2 08/01/17 12:37 Room Air 08/01/17 11:31 36.9 91 18 100/59 (73) 96 Room Air 08/01/17 08:58 Room Air 08/01/17 08:08 37.0 93 22 115/67 (83) 90 Room Air 08/01/17 04:15 37.0 85 18 105/54 (71) 97 Room Air 08/01/17 04:00 Room Air 08/01/17 01:45 88 16 97 Room Air 08/01/17 00:00 Room Air 07/31/17 23:40 104/68 (80) 07/31/17 23:10 36.7 96 18 97/52 (67) 99 Room Air 07/31/17 20:00 Room Air 07/31/17 19:26 36.7 128 18 129/57 (81) 99 Room Air 07/31/17 19:07 116 16 98 Room Air 07/31/17 15:43 37.0 83 20 106/58 (74) 99 Room Air 07/31/17 15:42 37.0 83 20 106/58 99 Room Air 07/31/17 15:07 37.0 79 20 107/51 99 Physical Exam General Appearance: WD/WN, no apparent distress Eyes: normal inspection ENT: normal ENT inspection Neck: supple, no adenopathy Respiratory/Chest: chest non-tender, lungs clear Cardiovascular: regular rate, rhythm, + systolic murmur, + pertinent finding (+ 1 pedal edema) Abdomen: normal bowel sounds, non tender, soft Extremities: normal range of motion Neurologic/Psychiatric: alert, oriented x 3 Lymphatic: no adenopathy Laboratory Results Last 24 Hours Test 07/31/17 14:14 08/01/17 07:40 08/01/17 11:19 Urine Color YELLOW Urine Appearance CLOUDY Urine pH 7.5 Urine Specific [place] 1.016 Urine Protein NEG Urine Glucose (UA) NEG Urine Ketones NEG Urine Occult Blood NEG Urine Nitrite NEG Urine Bilirubin NEG Urine Urobilinogen NEG Urine Leukocyte Esterase TRACE Urine WBC (Auto) 1-5 /hpf Urine RBC (Auto) 0-4 /hpf Urine Hyaline Casts (Auto) 1-5 /lpf Urine Epithelial Cells (Auto) >30 /lpf Urine Bacteria (Auto) NEG White Blood Count 4.56 K/uL Red Blood Count 3.44 M/uL Hemoglobin 10.0 g/dL Hematocrit 31.2 % Mean Corpuscular Volume 90.7 fL Mean Corpuscular Hemoglobin 29.1 pg Mean Corpuscular Hemoglobin Concent 32.1 g/dl Platelet Count 119 K/uL Mean Platelet Volume 10.6 fL RDW Standard Deviation 56.7 fL RDW Coefficient of Variation 17.1 % Neutrophils % (Manual) 66.9 % Lymphocytes % (Manual) 21.1 % Monocytes % (Manual) 8.3 % Eosinophils % (Manual) 2.8 % Myelocytes % 0.9 % Neutrophils # (Manual) 3.05 K/uL Total Absolute Neutrophils 3.05 K/uL Lymphocytes # (Manual) 0.96 K/uL Total Absolute Lymphocytes 0.96 K/uL Monocytes # (Manual) 0.38 K/uL Eosinophils # (Manual) 0.13 K/uL Myelocytes # 0.04 K/uL Toxic Granulation 3+ Ovalocytes 1+ Activated Partial Thromboplast Time 36.1 SECONDS Partial Thromboplastin Ratio 1.4 Sodium Level 137 mmol/L Potassium Level 4.1 mmol/L Chloride Level 108 mmol/L Carbon Dioxide Level 20 mmol/L Anion Gap 9.0 mmol/L Blood Urea Nitrogen 35 mg/dl Creatinine 1.71 mg/dl Est Creatinine Clear Calc Drug Dose 32.1 ml/min Estimated GFR () 43.5 Estimated GFR (Non- 37.5 BUN/Creatinine Ratio 20.4 Random Glucose 80 mg/dl Lactic Acid Level 1.7 mmol/L Calcium Level 8.1 mg/dl Phosphorus Level 2.6 mg/dl Magnesium Level 2.2 mg/dl Total Bilirubin 0.8 mg/dl Aspartate Amino Transf (AST/SGOT) 15 U/L Alanine Aminotransferase (ALT/SGPT) 34 U/L Alkaline Phosphatase 88 U/L Total Protein 5.4 gm/dl Albumin 2.3 gm/dl Globulin 3.1 gm/dl Albumin/Globulin Ratio 0.8 Procalcitonin 0.16 ng/ml Assessment and Plan 77 years old man with past medical history of COPD, hypertension, moderate aortic stenosis and chronic kidney disease stage 3. 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 Status post chemotherapy, was in remission until recurrence of lymphoma last month awaiting to start chemotherapy, presented to the ED with left middle lobe pneumonia Assessment Acute hypoxic respiratory failure (resolved) Possible Communiy acquired Pneumonia vs worseing of his lymphoma Patient continues to feel weak. Patient is now on room air Patient is not tachypnic. Lungs are clear, except for rhonchi in left upper lobe. Unsure if cause if from the lymphoma. Will consult Dr. Diggs as the are treating his cancer will continue with antibiotics for now. Septic shock secondary to below, responded to fluid Resolved Urine output is low with acute kidney failure will given a fluid bolus and will monitor his creatinine will increase fluid as well Left upper lobe pneumonia as stated above Immunocompromise secondary to chemotherapy on antibiotics COPD exacerbation This is a possibility but he is not wheezing and is on room air Bilateral lower extremity swelling/cellulitis Improving will monitor recurrent stage IV follicular lymphoma consult hem onc MACRINA / CKD base line 1.5 , today it is 1.7 It has improved. will continue with fluids as stated above. Disp: Patient remains very weak today. will continue to have patient in the hospital. will consult hem onc to determine if lymphoma is worsening. Spent 55 minutes with patient directly answering questions, examining patient, and managing his Meds, while also reviewing his chart. Continued [facility] stay due to: home environment unsafe for pt Discharge planning: uncertain
--- NOTE | 2017-08-01 15:37 | Oncology Consultation ---
Oncology/Heme Consultation Date of Consultation: Aug 01, 2017. Attending Physician: Pancho Alonzo MD Reason for Consultation: History of non-Hodgkin's lymphoma History of Present Illness Mr. Hardy is a 77-year-old gentleman with a history of non-Hodgkin's lymphoma that dates back to June 2015. He diagnosis then from a right inguinal lymph node biopsy would demonstrate low-grade follicular lymphoma. Stage IV disease was documented and patient did receive bendamustine with Rituxan. Notes reflect that the bendamustine portion of his treatment had to be abbreviated but he continued Rituxan with radiologic response. He was on a maintenance program until about October 2016. Because of progressive cytopenias the Rituxan was held going further. More recently he re-presented with radiographic evidence of progression. CT scans done in mid June 2017 would demonstrate mediastinal had adenopathy with particular left hilar predominance as well as the suggestion of hepatic involvement. He is now admitted with a cough that he states has been ongoing now for several weeks and a chest x-ray that has demonstrated patchy consolidative infiltrate in the left lung. He denies hemoptysis. He denies ny more shortness of breath than usual (histoy of COPD). He denies fever. He denies shaking chills or night sweats. He denies any pain. Treatment plans for the recurrent lymphoma was to resume weekly Rituxan 4 next week. Past Medical/Surgical History Medical Problems: (1) Atrial flutter Status: Acute (2) CHF (congestive heart failure) Status: Acute (3) Febrile neutropenia Status: Acute (4) Hypotension Status: Acute (5) Immunocompromised Status: Acute (6) Low back pain Status: Acute (7) PNA (pneumonia) Status: Acute (8) Sepsis Status: Acute (9) Sepsis Status: Acute (10) Spinal stenosis Status: Acute (11) UTI (urinary tract infection) Status: Acute (12) Weakness Status: Acute Family History Patient reports no known family medical history. Social History Smoking Status: Current Every Day Smoker Drug Use: none Marital Status: Housing Status: lives with family Occupation Status: retired Allergies Coded Allergies: Gabapentin (Verified Adverse Reaction, Intermediate, unknown, 07/31/17) Patient's stated patient "developed signs of a heart attack w/ use of gabapentin". Home Medications Scheduled Ascorbic Acid (Ascorbic Acid), 500 MG PO DAILY Aspirin (Aspirin Ec), 81 MG PO DAILY Calcium Carbonate-Cholecalcife (Calcium Plus Vitamin D3), 1 CAP PO DAILY Cyanocobalamin (Vitamin B-12), 500 MCG PO DAILY Finasteride (Proscar), 5 MG PO DAILY Latanoprost (Xalatan 0.005% Oph Charu), 1 DROPS OPB HS Levothyroxine Sodium (Levothyroxine Sodium), 1 TAB PO DAILY Neomycin/Polymyxin/Dexameth Oph (Maxitrol Oph), DROPS OPL QID Nitroglycerin (Nitrostat), 0.4 MG UT PRN Prednisone Tab (Prednisone), 10 MG PO DAILY Ranitidine Hcl (Zantac), 150 MG PO HS Simvastatin (Zocor), 40 MG PO QPM Tobramycin/Dexamethasone 0.3% Oph (Tobradex 0.3% Oph), MS HS Trimethoprim (Proloprim), 100 MG PO HS Umeclidinium-Vilanterol (Anoro Ellipta 62.5-25 Mcg/INH), 1 PUFF INH DAILY Current Inpatient Medications Current Inpatient Medications Medications (Trade) Dose Ordered Sig/Hari Route Start Time Stop Time Status Last Admin Dose Admin Acetaminophen (Tylenol Tab) 650 mg Q4H PRN PO 07/31/17 14:45 08/30/17 14:44 Al Hydrox/Mg Hydrox/Simethicone (Maalox Max Susp) 15 ml Q4H PRN PO 07/31/17 14:45 08/30/17 14:44 Magnesium Hydroxide (Milk Of Magnesia Susp) 30 ml Q12H PRN PO 07/31/17 14:45 08/30/17 14:44 Zolpidem Tartrate (Ambien Tab) 5 mg HSZ PRN PO 07/31/17 14:45 08/30/17 14:44 Zolpidem Tartrate (Ambien Tab) 5 mg HSZ PRN PO 07/31/17 14:45 08/30/17 14:44 Ondansetron HCl (Zofran Inj) 4 mg Q6H PRN IV 07/31/17 14:45 08/30/17 14:44 Polyethylene (Miralax Powder Packet) 17 gm DAILY PRN PO 07/31/17 14:45 08/30/17 14:44 Lactobacillus Acidophilus (Floranex Tab) 4 tab TIDM PO 07/31/17 16:45 08/30/17 17:59 08/01/17 11:58 4 TAB Vancomycin HCl 1000 mg/Sodium Chloride 270 ml @ 125 mls/hr Q24H IV 08/01/17 12:00 08/07/17 11:59 08/01/17 11:56 125 MLS/HR Guaifenesin (Robitussin Sugar Free Syrup) 200 mg Q6H PRN PO 07/31/17 15:00 08/30/17 14:59 Vancomycin HCl (Consult) 1 ea UD PRN N/A 07/31/17 15:30 08/30/17 15:29 Cefepime HCl (Consult) 1 ea UD PRN N/A 07/31/17 16:00 08/30/17 15:59 Levofloxacin (Consult) 1 ea UD PRN N/A 07/31/17 16:00 08/30/17 15:59 Cefepime HCl 1000 mg/Syringe 11 ml @ 5.5 mls/min Q12H IV 08/01/17 00:00 08/07/17 23:59 08/01/17 11:57 5.5 MLS/MIN Levofloxacin 750 mg/Prmx 150 ml @ 100 mls/hr Q48H IV 08/02/17 11:00 08/07/17 10:59 Ipratropium Corwith (Atrovent 0.02% 0.5MG/2.5ML Neb) 0.5 mg Q6R INH 07/31/17 21:00 08/30/17 20:59 08/01/17 14:31 0.5 MG Levalbuterol (Xopenex 1.25MG/ 0.5ML Neb) 1.25 mg Q6R INH 07/31/17 21:00 08/30/17 20:59 08/01/17 14:31 1.25 MG Miscellaneous Information (Order Awaiting Action) 1 ea QS N/A 08/01/17 00:00 08/31/17 00:00 Latanoprost (Xalatan Oph Soln) 1 drops HS OPB 07/31/17 21:00 08/30/17 20:59 07/31/17 21:15 1 DROPS Tobramycin/ Dexamethasone (Tobradex Oph Oint) 1 appln HS OPL 07/31/17 21:00 08/30/17 20:59 07/31/17 21:15 1 APPLN Diltiazem HCl 125 mg/Dextrose 125 ml @ 0 mls/hr Q0M PRN IV 07/31/17 21:30 08/30/17 21:29 07/31/17 23:42 9 MLS/HR Miscellaneous Information (Order Awaiting Action) 1 ea QS N/A 08/01/17 08:00 08/31/17 07:59 08/01/17 08:24 1 EA Heparin Sodium/ Dextrose 500 ml @ 19 mls/hr Q24H PRN IV 07/31/17 23:15 08/30/17 23:14 08/01/17 09:15 19 MLS/HR Heparin Sodium (Porcine) (Heparin 100 Unit/ml 5ml Flush) 5 ml PRN PRN IV 08/01/17 07:45 08/31/17 07:44 Sodium Chloride 1,000 ml @ 100 mls/hr Q10H IV 08/01/17 13:15 08/31/17 13:14 08/01/17 14:30 100 MLS/HR Review of Systems Constitutional: Negative for weight loss, night sweats, or fever Eyes: Negative for event change of vision ENT: Negative for epistaxis, nasal discharge, sore throat, or deafness Cardiovascular: Negative for chest pain, palpitations, dizziness, diaphoresis Respiratory: Negative for new shortness of breath,hemoptysis, he has had a cough that he describes as nonproductive Gastrointestinal: Negative for diarrhea, hematemesis, melena, nausea, vomiting , or dyspepsia Integumentary (skin): Negative for rash or jaundice discoloration Genitourinary: Negative for urinary frequency, hematuria, or dysuria Neurological: Negative for weakness, seizure activity, headache, or dizziness Lymphatic/Hematologic: Negative for petechiae, bleeding or new adenopathy Musculoskeletal: Negative for new joint or back pain Allergic/Immunologic: Negative for unusual rash or pruritis. Physical Exam Date Time Temp Pulse Resp B/P (MAP) Pulse Ox O2 Delivery O2 Flow Rate FiO2 08/01/17 14:31 87 16 96 Room Air 08/01/17 12:37 Room Air 08/01/17 11:31 36.9 91 18 100/59 (73) 96 Room Air 08/01/17 08:58 Room Air 08/01/17 08:08 37.0 93 22 115/67 (83) 90 Room Air 08/01/17 04:15 37.0 85 18 105/54 (71) 97 Room Air 08/01/17 04:00 Room Air 08/01/17 01:45 88 16 97 Room Air 08/01/17 00:00 Room Air 07/31/17 23:40 104/68 (80) 07/31/17 23:10 36.7 96 18 97/52 (67) 99 Room Air 07/31/17 20:00 Room Air 07/31/17 19:26 36.7 128 18 129/57 (81) 99 Room Air 07/31/17 19:07 116 16 98 Room Air 07/31/17 15:43 37.0 83 20 106/58 (74) 99 Room Air 07/31/17 15:42 37.0 83 20 106/58 99 Room Air Constitutional: vitals are stable. Thian pleasant gentleman Eyes: Eyes are HORACE EOMI without conjuctival erythema or icterus. ENT: External examination was negative for masses. Neck: Negative for masses or palpable thyromegaly Respiratory: Lung sounds were generally clear but with decreased sounds ( particularly on the left) bilaterally Cardiovascular: Heart was RRR with occasional ectopic beat (recently noted to have a supraventricular arrythmia), without significant murmur, gallops or rubs Gastrointestinal: No palpable hepatic or splenomegaly. The abdomen was soft with normal bowel sounds. Lymphatic system: there was no palpable peripheral lymphadenopathy Musculoskeletal System: The musculoskeletal system seemed concordant with age. Skin: The skin was negative for jaundice. Neurologic exam: The exam was negative for any focal findings. Deep tendon reflexes were equal and symmetrical. Psychiatric exam: Was essentially negative with normal mood and effect. Extremities: Mild 1-2 plus dependent lower extremity edema (with hint of erythema but overall nontender) Laboratory Results Last 24 Hours Test 08/01/17 07:40 08/01/17 11:19 08/01/17 15:13 White Blood Count 4.56 K/uL Red Blood Count 3.44 M/uL Hemoglobin 10.0 g/dL Hematocrit 31.2 % Mean Corpuscular Volume 90.7 fL Mean Corpuscular Hemoglobin 29.1 pg Mean Corpuscular Hemoglobin Concent 32.1 g/dl Platelet Count 119 K/uL Mean Platelet Volume 10.6 fL RDW Standard Deviation 56.7 fL RDW Coefficient of Variation 17.1 % Neutrophils % (Manual) 66.9 % Lymphocytes % (Manual) 21.1 % Monocytes % (Manual) 8.3 % Eosinophils % (Manual) 2.8 % Myelocytes % 0.9 % Neutrophils # (Manual) 3.05 K/uL Total Absolute Neutrophils 3.05 K/uL Lymphocytes # (Manual) 0.96 K/uL Total Absolute Lymphocytes 0.96 K/uL Monocytes # (Manual) 0.38 K/uL Eosinophils # (Manual) 0.13 K/uL Myelocytes # 0.04 K/uL Toxic Granulation 3+ Ovalocytes 1+ Activated Partial Thromboplast Time 36.1 SECONDS Partial Thromboplastin Ratio 1.4 Sodium Level 137 mmol/L Potassium Level 4.1 mmol/L Chloride Level 108 mmol/L Carbon Dioxide Level 20 mmol/L Anion Gap 9.0 mmol/L Blood Urea Nitrogen 35 mg/dl Creatinine 1.71 mg/dl Est Creatinine Clear Calc Drug Dose 32.1 ml/min Estimated GFR () 43.5 Estimated GFR (Non- 37.5 BUN/Creatinine Ratio 20.4 Random Glucose 80 mg/dl Lactic Acid Level 1.7 mmol/L Calcium Level 8.1 mg/dl Phosphorus Level 2.6 mg/dl Magnesium Level 2.2 mg/dl Total Bilirubin 0.8 mg/dl Aspartate Amino Transf (AST/SGOT) 15 U/L Alanine Aminotransferase (ALT/SGPT) 34 U/L Alkaline Phosphatase 88 U/L Total Protein 5.4 gm/dl Albumin 2.3 gm/dl Globulin 3.1 gm/dl Albumin/Globulin Ratio 0.8 Procalcitonin 0.16 ng/ml Assessment & Plan Recurrent non-Hodgkin's lymphoma. CT scan done recently in mid June revealed prominent mediastinal as well as hilar adenopathy particularly on the left. There was already some changes consistent with airway compromise at that time. I was suggested a CT scan of his chest be updated now. If in fact adenopathy is demonstrated once again to a progress then radiation therapy may be needed to decompress the adenopathy putatively causing left lung compromise. His CBC and chemistries are generally acceptable however creatinine more elevated than usual (1.7). Platelet count is acceptable.
[2017-08-01 16:23] LABS: PTT PATIENT 44.2 SECONDS (21.0-31.0)
[2017-08-01] MEDS ORDERED: HEPARIN IV BOLUS 3,000 UNIT in SYRINGE 0 ML IV ONE (17:30)
[2017-08-01] MEDS: TOBRAMYCIN/DEXAMETHASONE OPH OINT 3.5 GM TUBE OPL SCH (21:18)
[2017-08-01] MEDS: LATANOPROST 0.005% OP SOLN 2.5 ML BTL OPB SCH (21:18)
[2017-08-01] MEDS ORDERED: COUGH DROP (SUGAR FREE) LOZ 24 LOZ/1 BOX ONE (21:25)
[2017-08-01] MEDS: DILTIAZEM HCL INJ 125 MG in DEXTROSE 5% 100ML IV PRN (23:38)
[2017-08-01] MEDS: POLYMYX OPL SCH (23:57)
[2017-08-01] MEDS: NEOMYCIN OPL SCH (23:57)
[2017-08-01] MEDS: DEXAMETH OP OPL SCH (23:57)
[2017-08-02] VITALS (10 sets, daily range): BP systolic 96–143; BP diastolic 50–62; PULSE 85–100; TEMP 36.7–37.2; O2SAT 91–98
[2017-08-02 00:10] LABS: PTT PATIENT 52.3 SECONDS (21.0-31.0)
[2017-08-02] MEDS: IPRATROPIUM BROMIDE NEB SOLN 0.02% 2.5 ML VIAL INH SCH ×4 (01:50→19:05)
[2017-08-02] MEDS: LEVALBUTEROL 1.25MG/0.5ML NEB INH SCH ×4 (01:50→19:05)
[2017-08-02] MEDS: POLYMYX OPL SCH ×3 (06:01→17:05)
[2017-08-02] MEDS: NEOMYCIN OPL SCH ×3 (06:01→17:05)
[2017-08-02] MEDS: DEXAMETH OP OPL SCH ×3 (06:01→17:05)
[2017-08-02 07:03] LABS: HEMATOCRIT 30.8 % (42-52); HEMOGLOBIN 9.8 g/dL (14.0-18.0); MEAN CELL VOLUME 88.5 fL (80-100); MEAN CORPUSCULAR HEMOGLOBIN 28.2 pg (25-34); MEAN CORPUSCULAR HGB CONC 31.8 g/dl (32-36); MEAN PLATELET VOLUME 10.6 fL (7.4-10.4); PLATELET COUNT 118 K/uL (130-400); RED CELL DISTRIBUTION WIDTH CV 17.4 % (11.5-14.5); RED CELL DISTRIBUTION WIDTH SD 56.4 fL (36.4-46.3); WHITE BLOOD COUNT 5.28 K/uL (4.8-10.8)
[2017-08-02 07:35] LABS: CREATININE 1.44 mg/dl (0.60-1.40); POTASSIUM 3.7 mmol/L (3.5-5.1)
[2017-08-02 07:36] LABS: BASO % 0.4 %; BASO ABS # 0.02 K/uL (0-0.2); EOS % 6.6 %; EOS ABS # 0.35 K/uL (0-0.5); IG# 0.52 K/uL (0.00-0.02); LYMPH % 17.2 %; LYMPH ABS # 0.91 K/uL (1.2-3.4); MONO % 12.9 %; MONO ABS # 0.68 K/uL (0.11-0.59); NEUT % 53.1 %
[2017-08-02] MEDS: LACTOBACILLUS ACIDOPHILUS (FLORANEX) TAB PO SCH ×3 (07:44→17:03)
[2017-08-02] MEDS: SODIUM CHLORIDE 0.9% 1000ML 1,000 ML IV SCH (07:45)
[2017-08-02 07:46] LABS: PTT PATIENT 48.1 SECONDS (21.0-31.0)
[2017-08-02] MEDS: BOOST VANILLA PO SCH ×3 (07:47→17:02)
[2017-08-02] MEDS: LEVOFLOXACIN 750MG / D5W IV SCH (09:40)
--- NOTE | 2017-08-02 11:01 | DIAGNOSTIC IMAGING REPORT ---
CT OF THE CHEST WITHOUT IV CONTRAST CLINICAL HISTORY: Progressive lymphoma. Left lung consolidation. Pneumonia. COMPARISON STUDY: Chest CT July 09, 2017 and PET/CT August 01, 2015. CT DOSE: 260.86 mGy.cm TECHNIQUE: Axial images of the chest were obtained without IV contrast. Images were reviewed in the axial, sagittal, and coronal planes. IV contrast was not administered for this examination. A dose lowering technique was utilized adhering to the principles of ALARA. FINDINGS: There is no pneumothorax. A left subclavian Xrnapx-c-Orcc is in place. Mild cardiomegaly is unchanged. There is no pericardial effusion. There are small bilateral pleural effusions which have developed since CT of July 09, 2017. Left hemithorax pleural thickening has increased. A left hilar mass is suboptimally assessed on this unenhanced exam but has moderately increased in size since CT of July 09, 2017. This mass now measures approximately 6.9 x 4.7 cm and encases the left mainstem bronchus as well as the left lower lobe bronchus and results in occlusion of the left upper lobe bronchus. Extensive left upper lobe airspace opacity has progressed. There is interlobular septal thickening throughout the lungs. Severe emphysema is noted. A 1 cm right lower lobe nodular density shown on image 243 has developed. A 5 mm left lower lobe nodule shown image 168 has developed. No suspicious osseous lesions are present. There calcified granulomas within the spleen. Left renal atrophy is incidentally noted. Size and number of numerous hypodense hepatic masses has increased since exam July 09, 2017. Index lateral segment lesion measures approximately 4.1 cm. A previous measured 2.1 cm. IMPRESSION: 1. Increase in size of an infiltrative left hilar mass since CT of July 09, 2017. This is consistent with the history of lymphoma although other neoplastic etiologies could appear similar. This mass encases the left mainstem bronchus and left lower lobe bronchus and results in occlusion of the left upper lobe bronchus with significant increase in left upper lobe airspace opacity which favors extensive postobstructive pneumonia. Increase in size of several thoracic lymph nodes suggests progression of lymphoma. 2. Development of small bilateral pleural effusions with increase in left hemithorax pleural thickening which favors lymphomatous involvement. 3. Moderate increase in size and number of hypodense hepatic lesions since prior exam. Given the clinical history, hepatic involvement with lymphoma is favored although metastatic disease could appear similar. 4. Interval development of several pulmonary nodules which may reflect a neoplastic or infectious etiology. 5. Interlobular septal thickening which favors pulmonary edema. 6. Severe emphysema. Electronically signed by: Dusty Vazquez M.D. 08/02/2017 11:00 AM Dictated Date/Time: 08/02/2017 10:42 AM
[2017-08-02] MEDS ORDERED: VANCOMYCIN TROUGH ONE (11:30)
--- NOTE | 2017-08-02 11:38 | Cardiology Follow-Up ---
Subjective Date of Service: Aug 02, 2017. Pt evaluation today including: conversation w/ patient, conversation w/ family , physical exam, lab review, review of studies, review of inpatient medication list, conversation w/ attending History of Present Illness This is a 77-year-old male with a history of aortic stenosis, aortic insufficiency and coronary artery disease. He had a myocardial infarction in 1992 with a right coronary artery stent placed in [place]. He also has a history of tobacco abuse and lung disease. He has non-Hodgkin's lymphoma. On echocardiography showed normal left ventricular size and function with severe aortic stenosis (valve area 0.96 cm, mean gradient 20 mmHg). On 2015 echo showed moderate with MARGUERITE 1.6 and mean gradient 32, inconsistent with prior. Moderate AI in march. He now presents with weakness, inability to walk and bilateral lower extremity swelling. Electrocardiography showed atrial flutter with a controlled heart rate. He also had 3 days of productive cough and possibly has sepsis, he was admitted on 07/31/2017. Today he seems to have no complaints, he is not short of breath and he is not on oxygen. He denies chest discomfort. He is not aware of palpitations, he recognizes the term atrial fibrillation because his has it but he is not aware of ever having that diagnosis. Social History Smoking Status: Current Every Day Smoker History of Alcohol Use: No Review of Systems Respiratory: No cough, No wheezing, No shortness of breath, No dyspnea on exertion Cardiac: No chest pain, No orthopnea, No PND, No edema, No palpitations Medications Cardiovascular: Item Value Date Time Potassium/ 1 tab 08/02/17 1300 Phosphorus/Sodium QID/PO (Phospha 250 Neutral [id number] Mg) Heparin Sodium 5 ml 08/01/17 0745 (Porcine) PRN PRN/IV (Heparin 100 Unit/ml 5ml Flush) Heparin Sodium/ 500 ml @ 20 mls/hr 07/31/17 2315 Dextrose .Q24H PRN/IV 08/01/17 1738 Objective Vital Signs Past 12 Hours Date Time Temp Pulse Resp B/P (MAP) Pulse Ox O2 Delivery O2 Flow Rate FiO2 08/02/17 07:45 36.7 87 20 98/57 (71) 92 Room Air 08/02/17 07:35 87 16 94 Room Air 08/02/17 04:00 Room Air 08/02/17 03:55 36.9 99 19 113/50 (71) 92 Nasal Cannula 08/02/17 00:45 36.9 100 22 121/58 (79) 91 08/02/17 00:02 Room Air Last Recorded Weight-Kilograms: 71.200 Physical Exam Constitutional: Level of Distress: NAD Lungs: Respiratory effort: no dyspnea, good air movement Auscultation: no wheezing, decreased breath sounds, rales/crackles on the left Cardiovascular: Heart Auscultation: RRR, no rubs, no gallops, II/ MACEY, II/ WSM Peripheral Pulses: Bruits: none appreciated Extremities: edema (+1 right) Data Laboratory Results: Last 24 Hours Test 08/01/17 11:19 08/01/17 15:13 08/01/17 23:28 08/02/17 06:30 Procalcitonin 0.16 ng/ml Activated Partial Thromboplast Time 44.2 SECONDS 52.3 SECONDS 48.1 SECONDS Partial Thromboplastin Ratio 1.7 2.0 1.9 White Blood Count 5.28 K/uL Red Blood Count 3.48 M/uL Hemoglobin 9.8 g/dL Hematocrit 30.8 % Mean Corpuscular Volume 88.5 fL Mean Corpuscular Hemoglobin 28.2 pg Mean Corpuscular Hemoglobin Concent 31.8 g/dl Platelet Count 118 K/uL Mean Platelet Volume 10.6 fL Neutrophils (%) (Auto) 53.1 % Lymphocytes (%) (Auto) 17.2 % Monocytes (%) (Auto) 12.9 % Eosinophils (%) (Auto) 6.6 % Basophils (%) (Auto) 0.4 % Neutrophils # (Auto) 2.80 K/uL Lymphocytes # (Auto) 0.91 K/uL Monocytes # (Auto) 0.68 K/uL Eosinophils # (Auto) 0.35 K/uL Basophils # (Auto) 0.02 K/uL RDW Standard Deviation 56.4 fL RDW Coefficient of Variation 17.4 % Immature Granulocyte % (Auto) 9.8 % Immature Granulocyte # (Auto) 0.52 K/uL Toxic Granulation 3+ Ovalocytes 1+ Echinocytes 1+ Sodium Level 134 mmol/L Potassium Level 3.7 mmol/L Chloride Level 107 mmol/L Carbon Dioxide Level 19 mmol/L Anion Gap 8.0 mmol/L Blood Urea Nitrogen 27 mg/dl Creatinine 1.44 mg/dl Est Creatinine Clear Calc Drug Dose 38.1 ml/min Estimated GFR () 53.5 Estimated GFR (Non- 46.2 BUN/Creatinine Ratio 19.1 Random Glucose 93 mg/dl Calcium Level 8.0 mg/dl Telemetry reviewed: Rhythm remains atrial flutter, rate well controlled. Echo: Echo done yesterday shows normal left ventricular size and function, normal right ventricular size was slightly reduced function, aortic stenosis with a valve area of 0.74 and a gradient of 32 mmHg. Mild to moderate aortic insufficiency. appears progressive compared to 03/28/2016. Assessment and Plan #1. Aortic stenosis: .An echocardiogram done 08/01/2017 shows normal left ventricular size and function, normal right and a size with borderline reduced right ventricular function. Severe aortic stenosis with a valve area 0.74 cm and mean gradient of 32 mmHg. Mild to moderate aortic insufficiency. #2. Peripheral edema: Today he does have mild peripheral edema, he will need to diuretic. #3. Atrial flutter: He presented in atrial flutter, as far as I know this is a new arrhythmia, however it could only have been recently identified since he seems asymptomatic with it. It could conceivably relate to his weakness and hypotension although there seemed to be other causes. He should have long-term anticoagulation, I would recommend starting Eliquis discontinuing heparin. I will make those changes. Thank you for allowing me to participate in his care.
[2017-08-02] MEDS ORDERED: APIXABAN 2.5 MG TAB PO ONE (11:45)
[2017-08-02] MEDS: CEFEPIME IV 1,000 MG in SYRINGE 0 ML IV SCH (11:48)
[2017-08-02] MEDS: VANCOMYCIN INJ 1,000 MG in SODIUM CHLORIDE 0.9% 250ML 250 ML IV SCH (11:48)
--- NOTE | 2017-08-02 13:22 | Pharmacy Progress Note ---
Pharmacy Abx Dose Short Note Date of Service Aug 02, 2017. Assessment & Plan Assessment 77 year old male receiving vancomycin, cefepime and Levaquin for treatment of pneumonia Day # 3/7 of antimicrobial therapy. Plan Vancomycin * Trough level of 12.5 mcg/mL is subtherapeutic, however, patient is not at steady state. t-1/2 est = 23 hrs. * Continue dose of 1000 mg IV every 24 hours and will obtain trough with tomorrow's dose (4th dose of therapy) * Goal trough level for pnx : 15 to 20 mcg/mL * Trough or random level ordered for: 08/03 prior to 1200 dose. Pharmacy will continue to follow and will adjust dose/frequency as necessary. Thank you.
[2017-08-02] MEDS: POT PHOSPHATE MONOBASIC W/ SOD TAB PO SCH ×3 (13:23→20:14)
[2017-08-02] MEDS: FUROSEMIDE 20 MG TAB PO SCH (13:24)
[2017-08-02] MEDS: DILTIAZEM HCL INJ 125 MG in DEXTROSE 5% 100ML IV PRN (13:59)
--- NOTE | 2017-08-02 15:18 | Hematology/Oncology Prog Note ---
Hematology/Onc Progress Note Date of Service Aug 02, 2017. Diagnoses Progressive non-Hodgkin's lymphoma Left lung pneumonia COPD Medications Medications Administered Medications (Trade) Dose Ordered Sig/Hari Route Start Time Stop Time Status Last Admin Dose Admin Sodium Chloride 1,000 ml @ 999 mls/hr Q1H1M STAT IV 07/31/17 11:28 07/31/17 12:28 DC 07/31/17 12:02 999 MLS/HR Cefepime HCl 1000 mg/Dextrose 111 ml @ 200 mls/hr NOW STAT IV 07/31/17 11:45 07/31/17 12:18 DC 07/31/17 12:28 200 MLS/HR Levofloxacin (Levaquin / D5W) 500 mg NOW ONCE IV 07/31/17 11:45 07/31/17 11:47 DC 07/31/17 12:02 500 MG Vancomycin HCl 1500 mg/Sodium Chloride 530 ml @ 200 mls/hr ONE STAT IV 07/31/17 13:50 07/31/17 16:28 DC 07/31/17 14:22 200 MLS/HR Sodium Chloride 1,000 ml @ 30 mls/hr Q24H IV 07/31/17 14:40 08/01/17 13:28 DC 08/01/17 11:57 30 MLS/HR Lactobacillus Acidophilus (Floranex Tab) 4 tab TIDM PO 07/31/17 16:45 08/30/17 17:59 08/02/17 11:46 4 TAB Vancomycin HCl 1000 mg/Sodium Chloride 270 ml @ 125 mls/hr Q24H IV 08/01/17 12:00 08/07/17 11:59 08/02/17 11:48 125 MLS/HR Cefepime HCl 1000 mg/Syringe 11 ml @ 5.5 mls/min Q12H IV 08/01/17 00:00 08/07/17 23:59 08/02/17 11:48 5.5 MLS/MIN Levofloxacin 250 mg/Prmx 50 ml @ 50 mls/hr TODAY@1630 ONCE IV 07/31/17 16:30 07/31/17 17:29 DC 07/31/17 17:42 50 MLS/HR Levofloxacin 750 mg/Prmx 150 ml @ 100 mls/hr Q48H IV 08/02/17 11:00 08/07/17 10:59 08/02/17 09:40 100 MLS/HR Ipratropium Broussard (Atrovent 0.02% 0.5MG/2.5ML Neb) 0.5 mg Q6R INH 07/31/17 21:00 08/30/17 20:59 08/02/17 07:34 0.5 MG Levalbuterol (Xopenex 1.25MG/ 0.5ML Neb) 1.25 mg Q6R INH 07/31/17 21:00 08/30/17 20:59 08/02/17 07:35 1.25 MG Latanoprost (Xalatan Oph Soln) 1 drops HS OPB 07/31/17 21:00 08/30/17 20:59 08/01/17 21:18 1 DROPS Tobramycin/ Dexamethasone (Tobradex Oph Oint) 1 appln HS OPL 07/31/17 21:00 08/30/17 20:59 08/01/17 21:18 1 APPLN Diltiazem HCl (Cardizem Inj) 10 mg TODAY@2130 IV 07/31/17 21:30 07/31/17 21:31 DC 07/31/17 22:24 10 MG Diltiazem HCl 125 mg/Dextrose 125 ml @ 0 mls/hr Q0M PRN IV 07/31/17 21:30 08/30/17 21:29 08/02/17 13:59 9 MLS/HR Miscellaneous Information (Order Awaiting Action) 1 ea QS N/A 08/01/17 08:00 08/01/17 18:40 DC 08/01/17 15:49 1 EA Heparin Sodium (Porcine) 4000 unit/Syringe 4 ml @ 10 mls/min NOW ONCE IV 07/31/17 23:15 07/31/17 23:16 DC 07/31/17 23:42 10 MLS/MIN Heparin Sodium/ Dextrose 500 ml @ 20 mls/hr Q24H PRN IV 07/31/17 23:15 08/02/17 11:45 DC 08/01/17 17:38 20 MLS/HR Heparin Sodium (Porcine) 4500 unit/Syringe 4.5 ml @ 10 mls/min NOW ONCE IV 08/01/17 09:00 08/01/17 09:01 DC 08/01/17 09:14 10 MLS/MIN Sodium Chloride 500 ml @ 999 mls/hr Q31M STAT IV 08/01/17 13:12 08/01/17 13:42 DC 08/01/17 14:30 999 MLS/HR Sodium Chloride 1,000 ml @ 100 mls/hr Q10H IV 08/01/17 13:15 08/31/17 13:14 08/02/17 07:45 100 MLS/HR Heparin Sodium (Porcine) 3000 unit/Syringe 3 ml @ 10 mls/min 1730 ONCE IV 08/01/17 17:30 08/01/17 17:31 DC 08/01/17 17:37 10 MLS/MIN Enteral Nutritional Formula (Boost) 1 can TIDM PO 08/02/17 07:30 09/01/17 07:29 08/02/17 12:00 1 CAN Neomycin/ Polymyxin/ Dexamethasone (Maxitrol Oph Susp) 1 drops Q6H OPL 08/02/17 00:00 09/01/17 00:00 08/02/17 11:56 1 DROPS Menthol (Nice Eduar) 24 eduar STK-MED ONCE .ROUTE 08/01/17 21:25 08/01/17 21:26 DC 08/01/17 21:25 24 EDUAR Potassium/ Phosphorus/Sodium (Phospha 250 Neutral 155-852-130 Mg) 1 tab QID PO 08/02/17 13:00 08/02/17 21:01 08/02/17 13:23 1 TAB Apixaban (Eliquis Tab) 5 mg NOW ONCE PO 08/02/17 11:45 08/02/17 11:46 DC 08/02/17 13:25 5 MG Furosemide (Lasix Tab) 20 mg QAM PO 08/02/17 12:00 09/01/17 11:59 08/02/17 13:24 20 MG Subjective He seems stable. CT scan done today suggest progressive adenopathy within the chest with obstruction of the left lung. He denies fever. Denies any chest pain. His family is visiting as I am in the room. Review of Systems: Constitutional: Negative for fever Eyes: Negative for event change of vision ENT: Negative for epistaxis, nasal discharge, sore throat, or deafness Cardiovascular: Negative for chest pain, palpitations, dizziness, diaphoresis Respiratory: Negative for new shortness of breath or hemoptysis Gastrointestinal: Negative for diarrhea, hematemesis, melena, nausea, vomiting , or dyspepsia Integumentary (skin): Negative for rash or jaundice discoloration Genitourinary: Negative for urinary frequency, hematuria, or dysuria Neurological: Negative for weakness, seizure activity, headache, or dizziness Lymphatic/Hematologic: Negative for petechiae, bleeding or new adenopathy Musculoskeletal: Negative for new joint or back pain Allergic/Immunologic: Negative for unusual rash or pruritis. Vital Signs Vital Signs Past 12 Hours Date Time Temp Pulse Resp B/P (MAP) Pulse Ox O2 Delivery O2 Flow Rate FiO2 08/02/17 12:10 Room Air 08/02/17 11:47 36.9 93 24 143/62 (89) 96 Room Air 08/02/17 08:30 Room Air 08/02/17 07:45 36.7 87 20 98/57 (71) 92 Room Air 08/02/17 07:35 87 16 94 Room Air 08/02/17 04:00 Room Air 08/02/17 03:55 36.9 99 19 113/50 (71) 92 Nasal Cannula Physical Exam Constitutional: vitals are stable. Eyes: Eyes are HORACE EOMI without conjuctival erythema or icterus. ENT: External examination was negative for masses. Neck: Negative for masses or palpable thyromegaly Respiratory: Lung sounds were generally clear but decreased sounds bilaterally with lefysed rales/ronchi Cardiovascular: Heart was primarily RRR (with occasional ectopic) without significant murmur, gallops aoe rubs Gastrointestinal: No palpable hepatic or splenomegaly. The abdomen was soft with normal bowel sounds. Lymphatic system: there was no palpable peripheral lymphadenopathy Musculoskeletal System: The musculoskeletal system seemed concordant with age. Skin: The skin was negative for jaundice. Neurologic exam: The exam was negative for any focal findings. Deep tendon reflexes were equal and symmetrical. Psychiatric exam: Was essentially negative with normal mood and effect. Extrermities: edema the same as yesterday Laboratory Last 24 Hours Test 08/01/17 23:28 08/02/17 06:30 08/02/17 11:19 Activated Partial Thromboplast Time 52.3 SECONDS 48.1 SECONDS Partial Thromboplastin Ratio 2.0 1.9 White Blood Count 5.28 K/uL Red Blood Count 3.48 M/uL Hemoglobin 9.8 g/dL Hematocrit 30.8 % Mean Corpuscular Volume 88.5 fL Mean Corpuscular Hemoglobin 28.2 pg Mean Corpuscular Hemoglobin Concent 31.8 g/dl Platelet Count 118 K/uL Mean Platelet Volume 10.6 fL Neutrophils (%) (Auto) 53.1 % Lymphocytes (%) (Auto) 17.2 % Monocytes (%) (Auto) 12.9 % Eosinophils (%) (Auto) 6.6 % Basophils (%) (Auto) 0.4 % Neutrophils # (Auto) 2.80 K/uL Lymphocytes # (Auto) 0.91 K/uL Monocytes # (Auto) 0.68 K/uL Eosinophils # (Auto) 0.35 K/uL Basophils # (Auto) 0.02 K/uL RDW Standard Deviation 56.4 fL RDW Coefficient of Variation 17.4 % Immature Granulocyte % (Auto) 9.8 % Immature Granulocyte # (Auto) 0.52 K/uL Toxic Granulation 3+ Ovalocytes 1+ Echinocytes 1+ Sodium Level 134 mmol/L Potassium Level 3.7 mmol/L Chloride Level 107 mmol/L Carbon Dioxide Level 19 mmol/L Anion Gap 8.0 mmol/L Blood Urea Nitrogen 27 mg/dl Creatinine 1.44 mg/dl Est Creatinine Clear Calc Drug Dose 38.1 ml/min Estimated GFR () 53.5 Estimated GFR (Non- 46.2 BUN/Creatinine Ratio 19.1 Random Glucose 93 mg/dl Calcium Level 8.0 mg/dl Vancomycin Level Trough 12.5 mcg/ml Assessment & Plan His pneumonia will not clear until the significant mediastinal and left hilar adenopathy is dealt with to some degree. Radiation therapy will be consulted. I have also spoken briefly with the administrative office specialist in that his states and I would agree that he may need increased care short of going home between discharge and finishing RT.
[2017-08-02] MEDS: TOBRAMYCIN/DEXAMETHASONE OPH OINT 3.5 GM TUBE OPL SCH (20:11)
[2017-08-02] MEDS: LATANOPROST 0.005% OP SOLN 2.5 ML BTL OPB SCH (20:13)
--- NOTE | 2017-08-02 22:22 | Progress Note ---
Subjective Date of Service: Aug 02, 2017. Subjective Patient has no new cmplaints. Patient continues to feel short of breath, denies any significant improvement. Problem List Medical Problems: (1) Atrial flutter Status: Acute (2) CHF (congestive heart failure) Status: Acute (3) Febrile neutropenia Status: Acute (4) Hypotension Status: Acute (5) Immunocompromised Status: Acute (6) Low back pain Status: Acute (7) PNA (pneumonia) Status: Acute (8) Sepsis Status: Acute (9) Sepsis Status: Acute (10) Spinal stenosis Status: Acute (11) UTI (urinary tract infection) Status: Acute (12) Weakness Status: Acute Review of Systems Constitutional: No fever, No chills Respiratory: No cough, No sputum Cardiac: No chest pain, No orthopnea Abdomen: No pain, No nausea Neurologic: No memory loss, No paralysis Heme: No abnormal bleeding/bruising Endo: No fatigue Skin: No rash, No itch All Other Systems: Reviewed and Negative Medications Current Inpatient Medications Medications (Trade) Dose Ordered Sig/Hari Route Start Time Stop Time Status Last Admin Dose Admin Acetaminophen (Tylenol Tab) 650 mg Q4H PRN PO 07/31/17 14:45 08/30/17 14:44 Al Hydrox/Mg Hydrox/Simethicone (Maalox Max Susp) 15 ml Q4H PRN PO 07/31/17 14:45 08/30/17 14:44 Magnesium Hydroxide (Milk Of Magnesia Susp) 30 ml Q12H PRN PO 07/31/17 14:45 08/30/17 14:44 Zolpidem Tartrate (Ambien Tab) 5 mg HSZ PRN PO 07/31/17 14:45 08/30/17 14:44 Zolpidem Tartrate (Ambien Tab) 5 mg HSZ PRN PO 07/31/17 14:45 08/30/17 14:44 Ondansetron HCl (Zofran Inj) 4 mg Q6H PRN IV 07/31/17 14:45 08/30/17 14:44 Polyethylene (Miralax Powder Packet) 17 gm DAILY PRN PO 07/31/17 14:45 08/30/17 14:44 Lactobacillus Acidophilus (Floranex Tab) 4 tab TIDM PO 07/31/17 16:45 08/30/17 17:59 08/03/17 08:23 4 TAB Vancomycin HCl 1000 mg/Sodium Chloride 270 ml @ 125 mls/hr Q24H IV 08/01/17 12:00 08/07/17 11:59 08/02/17 11:48 125 MLS/HR Guaifenesin (Robitussin Sugar Free Syrup) 200 mg Q6H PRN PO 07/31/17 15:00 08/30/17 14:59 Vancomycin HCl (Consult) 1 ea UD PRN N/A 07/31/17 15:30 08/30/17 15:29 Cefepime HCl (Consult) 1 ea UD PRN N/A 07/31/17 16:00 08/30/17 15:59 Levofloxacin (Consult) 1 ea UD PRN N/A 07/31/17 16:00 08/30/17 15:59 Cefepime HCl 1000 mg/Syringe 11 ml @ 5.5 mls/min Q12H IV 08/01/17 00:00 08/07/17 23:59 08/03/17 00:01 5.5 MLS/MIN Levofloxacin 750 mg/Prmx 150 ml @ 100 mls/hr Q48H IV 08/02/17 11:00 08/07/17 10:59 08/02/17 09:40 100 MLS/HR Ipratropium Stanton (Atrovent 0.02% 0.5MG/2.5ML Neb) 0.5 mg Q6R INH 07/31/17 21:00 08/30/17 20:59 08/03/17 07:02 0.5 MG Levalbuterol (Xopenex 1.25MG/ 0.5ML Neb) 1.25 mg Q6R INH 07/31/17 21:00 08/30/17 20:59 08/03/17 07:02 1.25 MG Latanoprost (Xalatan Oph Soln) 1 drops HS OPB 07/31/17 21:00 08/30/17 20:59 08/02/17 20:13 1 DROPS Tobramycin/ Dexamethasone (Tobradex Oph Oint) 1 appln HS OPL 07/31/17 21:00 08/30/17 20:59 08/02/17 20:11 1 APPLN Diltiazem HCl 125 mg/Dextrose 125 ml @ 0 mls/hr Q0M PRN IV 07/31/17 21:30 08/30/17 21:29 08/03/17 02:15 9 MLS/HR Heparin Sodium (Porcine) (Heparin 100 Unit/ml 5ml Flush) 5 ml PRN PRN IV 08/01/17 07:45 08/31/17 07:44 Sodium Chloride 1,000 ml @ 100 mls/hr Q10H IV 08/01/17 13:15 08/31/17 13:14 08/03/17 00:00 100 MLS/HR Enteral Nutritional Formula (Boost) 1 can TIDM PO 08/02/17 07:30 09/01/17 07:29 08/03/17 08:23 1 CAN Neomycin/ Polymyxin/ Dexamethasone (Maxitrol Oph Susp) 1 drops Q6H OPL 08/02/17 00:00 09/01/17 00:00 08/03/17 06:30 1 DROPS Apixaban (Eliquis Tab) 5 mg BID PO 08/02/17 22:00 09/01/17 21:59 08/03/17 08:24 5 MG Furosemide (Lasix Tab) 20 mg QAM PO 08/02/17 12:00 09/01/17 11:59 08/03/17 08:24 20 MG Objective Vital Signs Date Time Temp Pulse Resp B/P (MAP) Pulse Ox O2 Delivery O2 Flow Rate FiO2 08/02/17 22:20 85 97 30 08/02/17 19:05 96 16 94 Room Air 08/02/17 19:02 37.0 97 22 103/59 (74) 91 Room Air 08/02/17 16:30 Room Air 08/02/17 15:42 36.8 87 20 111/58 (75) 92 Room Air 08/02/17 12:10 Room Air 08/02/17 11:47 36.9 93 24 143/62 (89) 96 Room Air 08/02/17 08:30 Room Air 08/02/17 07:45 36.7 87 20 98/57 (71) 92 Room Air 08/02/17 07:35 87 16 94 Room Air 08/02/17 04:00 Room Air 08/02/17 03:55 36.9 99 19 113/50 (71) 92 Nasal Cannula 08/02/17 00:45 36.9 100 22 121/58 (79) 91 08/02/17 00:02 Room Air Physical Exam Comments: General Appearance: WD/WN, no apparent distress Eyes: normal inspection ENT: normal ENT inspection Neck: supple, no adenopathy Respiratory/Chest: chest non-tender, rales in left upper lobe with transmitted breath sound from mouth, tachypnic RR 24 Cardiovascular: regular rate, rhythm, + systolic murmur, + pertinent finding (+ 1 pedal edema) Abdomen: normal bowel sounds, non tender, soft Extremities: normal range of motion Neurologic/Psychiatric: alert, oriented x 3 Lymphatic: no adenopathy Laboratory Results Last 24 Hours Test 08/01/17 23:28 08/02/17 06:30 08/02/17 11:19 Activated Partial Thromboplast Time 52.3 SECONDS 48.1 SECONDS Partial Thromboplastin Ratio 2.0 1.9 White Blood Count 5.28 K/uL Red Blood Count 3.48 M/uL Hemoglobin 9.8 g/dL Hematocrit 30.8 % Mean Corpuscular Volume 88.5 fL Mean Corpuscular Hemoglobin 28.2 pg Mean Corpuscular Hemoglobin Concent 31.8 g/dl Platelet Count 118 K/uL Mean Platelet Volume 10.6 fL Neutrophils (%) (Auto) 53.1 % Lymphocytes (%) (Auto) 17.2 % Monocytes (%) (Auto) 12.9 % Eosinophils (%) (Auto) 6.6 % Basophils (%) (Auto) 0.4 % Neutrophils # (Auto) 2.80 K/uL Lymphocytes # (Auto) 0.91 K/uL Monocytes # (Auto) 0.68 K/uL Eosinophils # (Auto) 0.35 K/uL Basophils # (Auto) 0.02 K/uL RDW Standard Deviation 56.4 fL RDW Coefficient of Variation 17.4 % Immature Granulocyte % (Auto) 9.8 % Immature Granulocyte # (Auto) 0.52 K/uL Toxic Granulation 3+ Ovalocytes 1+ Echinocytes 1+ Sodium Level 134 mmol/L Potassium Level 3.7 mmol/L Chloride Level 107 mmol/L Carbon Dioxide Level 19 mmol/L Anion Gap 8.0 mmol/L Blood Urea Nitrogen 27 mg/dl Creatinine 1.44 mg/dl Est Creatinine Clear Calc Drug Dose 38.1 ml/min Estimated GFR () 53.5 Estimated GFR (Non- 46.2 BUN/Creatinine Ratio 19.1 Random Glucose 93 mg/dl Calcium Level 8.0 mg/dl Vancomycin Level Trough 12.5 mcg/ml Assessment and Plan 77 years old man with past medical history of COPD, hypertension, moderate aortic stenosis and chronic kidney disease stage 3. 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 Status post chemotherapy, was in remission until recurrence of lymphoma last month awaiting to start chemotherapy, presented to the ED with left middle lobe pneumonia Worsening lymphoma is likely contributing to new pneumonia Patient is tachypnic. Will stop IVF. Appreciate ONc notes Will need radiation therapy to see if this will improve size of mass. will continue antibiotics. due to patient being tachypnic, will place on phosphate and BIPAP at night. I had discussion with family and patient. Acute hypoxic respiratory failure (resolved) Possible Communiy acquired Pneumonia vs worseing of his lymphoma Patient continues to feel weak. Patient is now on room air Patient is howeevr tachypnic will continue with antibiotics for now. Septic shock secondary to below, responded to fluid Resolved Urine output is low with acute kidney failure Has improved with fluid. will hold for now and recheck in am Left upper lobe pneumonia as stated above Immunocompromise secondary to chemotherapy on antibiotics COPD exacerbation This is a possibility but he is not wheezing and is on room air Bilateral lower extremity swelling/cellulitis Improving will monitor recurrent stage IV follicular lymphoma consult hem onc [place]CR[place] / CKD base line 1.5 , today it is 1.7 It has improved. will cointue with fluids as stated above. Disp: Patient remains very weak today. will continue to have patient in the hospital. I spent 57 minutes in the management of this patient. Continued [facility] stay due to: home environment unsafe for pt Discharge planning: uncertain
[2017-08-02] MEDS: APIXABAN 2.5 MG TAB PO SCH (22:23)
[2017-08-03] VITALS (12 sets, daily range): BP systolic 94–130; BP diastolic 49–68; PULSE 71–107; TEMP 36.7–37.5; O2SAT 88–99
[2017-08-03] MEDS: DEXAMETH OP OPL SCH ×5 (00:01→23:41)
[2017-08-03] MEDS: CEFEPIME IV 1,000 MG in SYRINGE 0 ML IV SCH ×2 (00:01→14:05)
[2017-08-03] MEDS: POLYMYX OPL SCH ×5 (00:01→23:41)
[2017-08-03] MEDS: NEOMYCIN OPL SCH ×5 (00:01→23:41)
[2017-08-03] MEDS: LEVALBUTEROL 1.25MG/0.5ML NEB INH SCH ×4 (01:30→19:13)
[2017-08-03] MEDS: IPRATROPIUM BROMIDE NEB SOLN 0.02% 2.5 ML VIAL INH SCH ×4 (01:30→19:13)
[2017-08-03] MEDS: DILTIAZEM HCL INJ 125 MG in DEXTROSE 5% 100ML IV PRN ×2 (02:15→18:12)
[2017-08-03 06:35] LABS: PTT PATIENT 38.2 SECONDS (21.0-31.0)
[2017-08-03 07:02] LABS: CALCIUM 7.6 mg/dl (8.5-10.1); CREATININE 1.24 mg/dl (0.60-1.40); POTASSIUM 3.6 mmol/L (3.5-5.1)
[2017-08-03] MEDS: LACTOBACILLUS ACIDOPHILUS (FLORANEX) TAB PO SCH ×3 (08:23→17:14)
[2017-08-03] MEDS: BOOST VANILLA PO SCH ×3 (08:23→17:14)
[2017-08-03] MEDS: FUROSEMIDE 20 MG TAB PO SCH (08:24)
[2017-08-03] MEDS: APIXABAN 2.5 MG TAB PO SCH ×2 (08:24→19:40)
[2017-08-03] MEDS: SODIUM CHLORIDE 0.9% 1000ML 1,000 ML IV SCH ×4 (10:30→20:16)
--- NOTE | 2017-08-03 10:32 | Clinical Documentation Query ---
MAUREEN Jacobs : CLINICAL DOCUMENTATION QUERY Documentation includes SEPTIC SHOCK. This was documented from time of admission forward, noted to be secondary to left upper lobe pneumonia and cellulitis in the setting of immunocompromised patient secondary to chemotherapy. Patient was afebrile, without significant leukocytosis or leukopenia, respiratory rate WNL, no lactic acidemia. Single isolated BP of 89/44, noted to be improved with IVF resuscitation, not requiring vasoactive medications. In the event of audit, this diagnosis is likely to be denied without supporting documentation. As this would be the principal diagnosis and therefore directly impact DRG assignment, denial would likely negatively impact severity of illness and risk of mortality. If you agree with this diagnosis as documented, please provide clinical support. If you disagree with this diagnosis, simply discontinue documentation thereof or state that it has been ruled out. Thanks, Jeremiah Daniels, I agree that he did NOT have septic shock, I documented this Please clarify and document your clinical opinion in the progress notes and discharge summary. Terms such as "probable", "suspected", "likely", "questionable", "possible", or "still to be ruled out" are acceptable. IF IN AGREEMENT, YOU MUST DOCUMENT ABOVE DIAGNOSTIC STATEMENT IN DAILY PROGRESS NOTES AND DISCHARGE SUMMARY. This document is not part of the patient's record.
[2017-08-03] MEDS ORDERED: VANCOMYCIN TROUGH ONE (11:30)
[2017-08-03] MEDS: VANCOMYCIN INJ 1,000 MG in SODIUM CHLORIDE 0.9% 250ML 250 ML IV SCH (12:12)
--- NOTE | 2017-08-03 12:15 | Progress Note ---
Subjective Date of Service: Aug 03, 2017. 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, review of inpatient medication list Pain: denies pain PO Intake: poor, has nausea Voiding: no voiding problems patient with cough, non-productive, dyspnea on exertion but stable at rest denies chest pain poor appetite with nausea moving bowels he was visited by radiation oncology this AM, planning on going to get staging CT and start treatments appreciate oncology note updated his at the bedside, answered questions labs reviewed, Cr continues to go down to baseline Problem List Medical Problems: (1) Atrial flutter Status: Acute (2) CHF (congestive heart failure) Status: Acute (3) Febrile neutropenia Status: Acute (4) Hypotension Status: Acute (5) Immunocompromised Status: Acute (6) Low back pain Status: Acute (7) PNA (pneumonia) Status: Acute (8) Sepsis Status: Acute (9) Sepsis Status: Acute (10) Spinal stenosis Status: Acute (11) UTI (urinary tract infection) Status: Acute (12) Weakness Status: Acute Review of Systems Constitutional: + weakness, + fatigue Respiratory: + cough, + dyspnea on exertion Abdomen: + nausea, + problem reported (poor appetite) All Other Systems: Reviewed and Negative Medications Current Inpatient Medications Medications (Trade) Dose Ordered Sig/Hari Route Start Time Stop Time Status Last Admin Dose Admin Acetaminophen (Tylenol Tab) 650 mg Q4H PRN PO 07/31/17 14:45 08/30/17 14:44 Al Hydrox/Mg Hydrox/Simethicone (Maalox Max Susp) 15 ml Q4H PRN PO 07/31/17 14:45 08/30/17 14:44 Magnesium Hydroxide (Milk Of Magnesia Susp) 30 ml Q12H PRN PO 07/31/17 14:45 08/30/17 14:44 Zolpidem Tartrate (Ambien Tab) 5 mg HSZ PRN PO 07/31/17 14:45 08/30/17 14:44 Zolpidem Tartrate (Ambien Tab) 5 mg HSZ PRN PO 07/31/17 14:45 08/30/17 14:44 Ondansetron HCl (Zofran Inj) 4 mg Q6H PRN IV 07/31/17 14:45 08/30/17 14:44 Polyethylene (Miralax Powder Packet) 17 gm DAILY PRN PO 07/31/17 14:45 08/30/17 14:44 Lactobacillus Acidophilus (Floranex Tab) 4 tab TIDM PO 07/31/17 16:45 08/30/17 17:59 08/03/17 08:23 4 TAB Vancomycin HCl 1000 mg/Sodium Chloride 270 ml @ 125 mls/hr Q24H IV 08/01/17 12:00 08/07/17 11:59 08/02/17 11:48 125 MLS/HR Guaifenesin (Robitussin Sugar Free Syrup) 200 mg Q6H PRN PO 07/31/17 15:00 08/30/17 14:59 Vancomycin HCl (Consult) 1 ea UD PRN N/A 07/31/17 15:30 08/30/17 15:29 Cefepime HCl (Consult) 1 ea UD PRN N/A 07/31/17 16:00 08/30/17 15:59 Levofloxacin (Consult) 1 ea UD PRN N/A 07/31/17 16:00 08/30/17 15:59 Cefepime HCl 1000 mg/Syringe 11 ml @ 5.5 mls/min Q12H IV 08/01/17 00:00 08/07/17 23:59 08/03/17 00:01 5.5 MLS/MIN Levofloxacin 750 mg/Prmx 150 ml @ 100 mls/hr Q48H IV 08/02/17 11:00 08/07/17 10:59 08/02/17 09:40 100 MLS/HR Ipratropium [place] (Atrovent 0.02% 0.5MG/2.5ML Neb) 0.5 mg Q6R INH 07/31/17 21:00 08/30/17 20:59 08/03/17 07:02 0.5 MG Levalbuterol (Xopenex 1.25MG/ 0.5ML Neb) 1.25 mg Q6R INH 07/31/17 21:00 08/30/17 20:59 08/03/17 07:02 1.25 MG Latanoprost (Xalatan Oph Soln) 1 drops HS OPB 07/31/17 21:00 08/30/17 20:59 08/02/17 20:13 1 DROPS Tobramycin/ Dexamethasone (Tobradex Oph Oint) 1 appln HS OPL 07/31/17 21:00 08/30/17 20:59 08/02/17 20:11 1 APPLN Diltiazem HCl 125 mg/Dextrose 125 ml @ 0 mls/hr Q0M PRN IV 07/31/17 21:30 08/30/17 21:29 08/03/17 02:15 9 MLS/HR Heparin Sodium (Porcine) (Heparin 100 Unit/ml 5ml Flush) 5 ml PRN PRN IV 08/01/17 07:45 08/31/17 07:44 Sodium Chloride 1,000 ml @ 100 mls/hr Q10H IV 08/01/17 13:15 08/31/17 13:14 08/03/17 10:30 100 MLS/HR Enteral Nutritional Formula (Boost) 1 can TIDM PO 08/02/17 07:30 09/01/17 07:29 08/03/17 08:23 1 CAN Neomycin/ Polymyxin/ Dexamethasone (Maxitrol Oph Susp) 1 drops Q6H OPL 08/02/17 00:00 09/01/17 00:00 08/03/17 06:30 1 DROPS Apixaban (Eliquis Tab) 5 mg BID PO 08/02/17 22:00 09/01/17 21:59 08/03/17 08:24 5 MG Furosemide (Lasix Tab) 20 mg QAM PO 08/02/17 12:00 09/01/17 11:59 08/03/17 08:24 20 MG Objective Vital Signs Date Time Temp Pulse Resp B/P (MAP) Pulse Ox O2 Delivery O2 Flow Rate FiO2 08/03/17 08:00 Room Air 08/03/17 07:36 37.3 101 20 94/56 (69) 92 Room Air 08/03/17 07:01 104 20 97 Room Air 08/03/17 04:00 Room Air 08/03/17 03:52 37.5 99 22 107/56 (73) 99 BiPAP 08/03/17 01:42 109/50 (69) 08/03/17 01:35 71 97 30 08/03/17 01:30 71 25 97 BiPAP/CPAP 1/8/18 00:00 Room Air 08/02/17 23:44 37.2 99 20 96/54 (68) 98 BiPAP 08/02/17 22:20 85 97 30 08/02/17 20:00 Room Air 08/02/17 19:05 96 16 94 Room Air 08/02/17 19:02 37.0 97 22 103/59 (74) 91 Room Air 08/02/17 16:30 Room Air 08/02/17 15:42 36.8 87 20 111/58 (75) 92 Room Air 08/02/17 12:10 Room Air Physical Exam General Appearance: WD/WN, no apparent distress Eyes: normal inspection, EOMI, sclerae normal ENT: normal ENT inspection, hearing grossly normal, pharynx normal Neck: supple, no adenopathy, no JVD, trachea midline Respiratory/Chest: chest non-tender, no respiratory distress, no accessory muscle use, + decreased breath sounds, + rhonchi (left side) Cardiovascular: regular rate, rhythm, no edema, no gallop, no JVD, no murmur Abdomen: normal bowel sounds, non tender, soft, no organomegaly Extremities: normal range of motion, non-tender, normal inspection, no pedal edema, no calf tenderness, pelvis stable 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, no motor/sensory deficits, alert, normal mood/affect, oriented x 3 Skin: normal color, warm/dry, no rash Laboratory Results Last 24 Hours Test 08/03/17 06:03 08/03/17 11:30 Activated Partial Thromboplast Time 38.2 SECONDS Partial Thromboplastin Ratio 1.5 Sodium Level 137 mmol/L Potassium Level 3.6 mmol/L Chloride Level 108 mmol/L Carbon Dioxide Level 19 mmol/L Anion Gap 10.0 mmol/L Blood Urea Nitrogen 26 mg/dl Creatinine 1.24 mg/dl Est Creatinine Clear Calc Drug Dose 44.3 ml/min Estimated GFR () 64.1 Estimated GFR (Non- 55.3 BUN/Creatinine Ratio 21.1 Random Glucose 98 mg/dl Calcium Level 7.6 mg/dl Assessment and Plan 77 years old man with past medical history of COPD, hypertension, moderate aortic stenosis and chronic kidney disease stage 3. 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 Status post chemotherapy, was in remission until recurrence of lymphoma last month awaiting to start chemotherapy, presented to the ED with left middle lobe pneumonia - Community acquired pneumonia due to left hilar mass causing compression of airways today is day 4 of Levaquin and Vancomycin afebrile, WBC normal, no oxygen requirements, vitals stable check MRSA nasal swab, if negative then stop Vancomycin typically would complete a 7 day course only but this could be complicated with the mass - Recurrent lymphoma with left hilar and liver involvement last chemotherapy was October 2016 appreciate oncology consultation radiation consult placed for immediate radiation therapy to try to shrink hilar mass - Severe sepsis POA, due to pneumonia never had shock, his BP responded to fluids and his LA was only 1.7 vitals stable, afebrile, WBC normal - [place]: improving, adequate UO, Cr down to 1.24 from 1.7 keep on tele today, follow up official radiation oncology consult and recommendations Continued [facility] stay due to: home environment unsafe for pt Discharge planning: uncertain
--- NOTE | 2017-08-03 13:46 | Radiation Oncology Consult ---
Radiation Oncology Consult Date / Reason Aug 03, 2017. Physicians Medical Oncologist: Dr. Luis Diggs Radiation Oncologist: Dr. Kahlil Zavala Other Providers: Hospitalist - Dr. Nickerson Diagnosis (1) Lymphoma Stage: IV (Bone marrow involvement) History of Present Illness I am seeing Mr. Hardy in consultation at the request of Dr. Diggs. The patient was seen and examined in our department with his present at bedside. ECOG PS: 3 Mr. Hardy is a 77-year-old gentleman with a history of stage IV follicular lymphoma. The patient was initially diagnosed with lymphoma by a left groin biopsy in June 2015; the patient also had a bone marrow biopsy which also revealed bone marrow involvement. The patient has been previously treated with chemotherapy including Rituxan underneath the supervision of Dr. Harry Burks and Dr. Luis Diggs. His most recent staging studies were completed in June [address] of the chest/abdomen/pelvis on 07/09/2017 which revealed: " IMPRESSION: 1. Bulky left hilar as well as mid mediastinal adenopathy as described. 2. Pleural thickening and potential postobstructive/bronchiectatic change components of the lingula/left upper lobe. 3. 1.2 cm pleural-based nodule superior segment left lower lobe. 4. Moderate extrinsic narrowing left upper lobe pulmonary artery. 5. Potential developing hepatic metastatic disease.. 6. Mild stable splenomegaly. 1. Interval development of multiple (8- 10) suspicious hepatic lesions, new since 2016. These are most concerning for hepatic metastases. No lymphadenopathy or additional sites of metastatic disease in abdomen or pelvis. 2. Left upper lobe/lingular consolidation. Please see separately dictated CT of the chest for further details. 3. 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 4. Extensive atherosclerosis with luminal and adventitial contour irregularity of the infrarenal abdominal aorta. No evidence of aneurysm at this time." He was scheduled to receive Rituxan chemotherapy on 07/30/2017 however his blood counts were low again. In the interim, the patient was admitted to the hospital due to a progressively worsening cough associated with a pulmonary infiltrate in the left lung. The patient had a CT of the chest on 08/02/2017 which revealed: "IMPRESSION: 1. Increase in size of an infiltrative left hilar mass since CT of July 09, 2017. This is consistent with the history of lymphoma although other neoplastic etiologies could appear similar. This mass encases the left mainstem bronchus and left lower lobe bronchus and results in occlusion of the left upper lobe bronchus with significant increase in left upper lobe airspace opacity which favors extensive postobstructive pneumonia. Increase in size of several thoracic lymph nodes suggests progression of lymphoma. 2. Development of small bilateral pleural effusions with increase in left hemithorax pleural thickening which favors lymphomatous involvement. 3. Moderate increase in size and number of hypodense hepatic lesions since prior exam. Given the clinical history, hepatic involvement with lymphoma is favored although metastatic disease could appear similar. 4. Interval development of several pulmonary nodules which may reflect a neoplastic or infectious etiology. 5. Interlobular septal thickening which favors pulmonary edema. 6. Severe emphysema." We have been asked to evaluate the patient to consider palliative radiation therapy to the left hilar mass due to the back of the patient is not a good candidate for chemotherapy. Past History Past Medical/Surgical History: Atrial Fibrillation, MD, Angioplasty/Stent, Arthritis, Male Genitourinary Prob., Blood Dyscrasias, Glaucoma, Reflux, Cancer , High Cholesterol, Heart Disease, COPD, Hypertension, Thyroid Disease, Kidney Disease, Other Chemotherapy History History of Chemotherapy: As per HPI Agents Used: Rituxan Social History Smoking Status: Current Every Day Smoker Hx Tobacco Use In Past Year?: Yes (1 ppd x 50 years) Estimated Cigarettes Per Day: 10 Do You Dip or Chew Tobacco: No Hx Alcohol Use: No Hx Substance Use : No Allergies Coded Allergies: Gabapentin (Verified Adverse Reaction, Intermediate, unknown, 07/31/17) Patient's stated patient "developed signs of a heart attack w/ use of gabapentin". Home Medications Scheduled Ascorbic Acid (Ascorbic Acid), 500 MG PO DAILY Aspirin (Aspirin Ec), 81 MG PO DAILY Calcium Carbonate-Cholecalcife (Calcium Plus Vitamin D3), 1 CAP PO DAILY Cyanocobalamin (Vitamin B-12), 500 MCG PO DAILY Finasteride (Proscar), 5 MG PO DAILY Latanoprost (Xalatan 0.005% Oph Charu), 1 DROPS OPB HS Levothyroxine Sodium (Levothyroxine Sodium), 1 TAB PO DAILY Neomycin/Polymyxin/Dexameth Oph (Maxitrol Oph), DROPS OPL QID Nitroglycerin (Nitrostat), 0.4 MG UT PRN Prednisone Tab (Prednisone), 10 MG PO DAILY Ranitidine Hcl (Zantac), 150 MG PO HS Simvastatin (Zocor), 40 MG PO QPM Tobramycin/Dexamethasone 0.3% Oph (Tobradex 0.3% Oph), MS HS Trimethoprim (Proloprim), 100 MG PO HS Umeclidinium-Vilanterol (Anoro Ellipta 62.5-25 Mcg/INH), 1 PUFF INH DAILY Review of Systems Ear/Hearing: Ear Side: Bilateral Hearing Ability: Hard of Hearing Hearing Aid: None Edema: Present?: Yes Location Body Site Modifier: Bilateral Type: Pitting Degree: 2+ Physical Exam Height: 5 (Feet) 6.00 (Inches) 167.6 (Centimeters) 1.6764 (Meters) Weight: 158 (Pounds) 11.7 (Ounces) 72.000 (Kilograms) 38768.000 (Grams) Date Time Temp Pulse Resp B/P (MAP) Pulse Ox O2 Delivery O2 Flow Rate FiO2 08/03/17 12:16 36.8 105 20 123/66 (85) 91 Nasal Cannula 2.0 08/03/17 12:00 Room Air 08/03/17 08:00 Room Air 08/03/17 07:36 37.3 101 20 94/56 (69) 92 Room Air 08/03/17 07:01 104 20 97 Room Air 08/03/17 04:00 Room Air 08/03/17 03:52 37.5 99 22 107/56 (73) 99 BiPAP 08/03/17 01:42 109/50 (69) 08/03/17 01:35 71 97 30 08/03/17 01:30 71 25 97 BiPAP/CPAP 08/03/17 00:00 Room Air 08/02/17 23:44 37.2 99 20 96/54 (68) 98 BiPAP 08/02/17 22:20 85 97 30 08/02/17 20:00 Room Air 08/02/17 19:05 96 16 94 Room Air 08/02/17 19:02 37.0 97 22 103/59 (74) 91 Room Air 08/02/17 16:30 Room Air 08/02/17 15:42 36.8 87 20 111/58 (75) 92 Room Air General Appearance: + mild distress Head: normocephalic, atraumatic Eyes: normal inspection ENT: normal ENT inspection Neck: supple, no adenopathy Respiratory/Chest: + respiratory distress, + decreased breath sounds, + accessory muscle use, + crackles, + rales Cardiovascular: regular rate, rhythm, no edema, no gallop, no JVD, no murmur Abdomen/GI: normal bowel sounds, non tender, soft, no organomegaly, no pulsatile mass Back: normal inspection, no CVA tenderness 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, alert, oriented x 3 Skin: + pallor Lymphatic: no adenopathy Pain Management Patient Reports Pain: No Side: Bilateral Pain Location: None Patient Preferred Pain Scale: 0 - 10 Initial Pain Intensity: 0.0 Level of Consciousness: Spontaneously Alert, Opens Eyes to Name Pain Intervention: See [facility] Pain Management Plan See [facility] Laboratory Laboratory Results: were reviewed, not applicable Pathology Pathology Results: were reviewed, and pertinent findings noted below Pathology Comments Name KATHERIN HARDY Age/Sex 75/M [place] [facility] [place] [id number] : 1940 /Bed E417-1 Physician: Dwayne Butterfield MD Case: [id number] Received 07/23/15 Specimen Date 07/23/15 CLINICAL HISTORY Left groin lymph node, possible lymphoma GROSS DESCRIPTION LEFT GROIN LYMPH NODE The specimen consists of a 2 x 1.5 x 1 cm pink-billy, rubbery lymph node. Sectioning reveals a pink, homogeneous, fleshy cut surface. A Touch Preparation is performed. A portion of the specimen is submitted for flow cytometry. Commercial Engineer sections are submitted for permanent sections in four cassettes. TOUCH PREP DIAGNOSIS: ATYPICAL LYMPHOID POPULATION. /RV SH/mas MICROSCOPIC DESCRIPTION The benedict architecture appears variable. A prominent follicular architecture is noted. The follicles are variable in size. Mantles are in areas ill- defined and some of the follicles show apparent lack of polarization. Follicles consist of intermediate to large cells. The number of large cells varies from follicle to follicle though intermediate cells predominate. A panel of immunohistochemical stains is performed in an effort to characterize the cells. Follicles show prominent staining with B-cell markers PAX-5 and CD20. A minor population of B-cells extends from the follicles into interfollicular areas. T-cell markers CD5 and CD3 show similar staining, predominantly interfollicular. A minor population of cells stain within the follicles. Only rare cells within follicles are positive for CD10. Follicles exhibit staining for BCL-2 and BCL-6. The proliferative rate is variable within follicles. Overall the rate appears to be approximately 20%. Flow cytometry reveals a monoclonal B-cell population which is CD5, CD10, and CD11C negative. The cells are lambda light chain restricted. The findings are those of a non-Hodgkins B-cell lymphoma consistent with a CD10 negative follicular lymphoma, low grade (1-2). The case has been seen in intradepartmental consultation. Immunohistochemical stains are performed at [facility] ([facility]) on a [employer] automated system with performance determined by [facility] Laboratory. Some stains may be performed by other laboratories ([facility], [facility], [facility] or [facility]) with development and performance characteristics determined by that laboratory. When necessary, on-line positive controls are reviewed at that particular laboratory. These tests have not been cleared or approved for specific use by the U.S. Food and Drug Administration. The FDA has determined that such approval is not necessary. The test is used for clinical purposes. It should not be regarded as investigational or for research. This laboratory is certified under CLIA 1988 as qualified to perform high complexity testing. FINAL DIAGNOSIS LYMPH NODE, LEFT GROIN, BIOPSY: NON-HODGKINS B-CELL LYMPHOMA, FOLLICLE CELL TYPE. SEE MICROSCOPIC DESCRIPTION. RV/pi Case: [id number] Received 07/23/15 Specimen Date 07/23/15 CLINICAL HISTORY Lymphadenopathy, pancytopenia, rule out neoplasm GROSS DESCRIPTION BONE MARROW BIOPSY AND ASPIRATE The specimen consists of a cylindrical fragment of billy to reddish bone and scant blood clot which measures 2 cm in length and 0.2 cm in diameter. The specimen is entirely submitted in cassette 1 for decalcification. Also present is 0.5 cc of dark red, friable blood clot which is entirely submitted in cassette 2. SH/mas MICROSCOPIC DESCRIPTION Evaluation of the aspirate smears is limited. Rare spicules are noted. Cells appear hemodiluted. No overt dysplastic features are noted within myeloid elements. Scattered binucleate erythroid elements are identified. No increase in blasts is seen. Megakaryocytes are unremarkable. A population of lymphoid cells is noted within the background. Abundant stainable iron is identified. The clot section shows blood clot only. No significant marrow elements are identified. The core biopsy shows approximately 70% cellularity. An apparent lymphoid population is prominent. The lymphoid cells are intermediate in size with irregular nuclear membranes. Larger cells show small nucleoli. The background marrow elements show an apparent increase in erythroid elements. Myeloid elements exhibit maturation. Megakaryocytes appear adequate in number, focally clustered with variable morphology. There appears to be a background of fibrosis, predominantly associated with the lymphoid infiltrate. Immunohistochemical stains for the B-cell markers show the majority of the lymphoid cells to be positive for PAX-5 and CD20. There also appears to be an increase and admixed population of T-cells within the infiltrate which stain for CD3 and CD5. The findings are consistent with involvement by non-Hodgkins B cell lymphoma. A lymph node biopsy ([id number]) shows a follicular lymphoma. The findings are consistent with involvement by non-Hodgkins lymphoma of follicle cell type. Overall the lymphoma represents approximately 70% of cellularity within the marrow. The erythroid hyperplasia, megakaryocyte clustering, and background fibrosis raises a myelodysplastic/myeloproliferative process within the differential. While this cannot be entirely excluded and no cytogenetics studies were performed, the extensive involvement of the marrow by lymphoma is likely the source of pancytopenia. Immunohistochemical stains are performed at [facility] ([facility]) on a [employer] automated system with performance determined by [facility] Laboratory. Some stains may be performed by other laboratories ([facility], [facility], [facility] or [facility]) with development and performance characteristics determined by that laboratory. When necessary, on-line positive controls are reviewed at that particular laboratory. These tests have not been cleared or approved for specific use by the U.S. Food and Drug Administration. The FDA has determined that such approval is not necessary. The test is used for clinical purposes. It should not be regarded as investigational or for research. This laboratory is certified under CLIA 1988 as qualified to perform high complexity testing. FINAL DIAGNOSIS BONE MARROW, ASPIRATION AND BIOPSY: 1. HYPERECELLULAR MARROW WITH INVOLVEMENT BY NON-HODGKINS B-CELL LYMPHOMA. SEE MICROSCOPIC DESCRIPTION. 2. ERYTHROID HYPERPLASIA. 3. IRON STORES ADEQUATE. Imaging Imaging Studies: were reviewed, and pertinent findings noted in HPI Treatment Plan 1. CT simulation today for treatment planning. Consent for radiation therapy obtained today. 2. Palliative radiation therapy - plan for 10 fractions. 3. Continue follow up with other providers including medical oncology. Assessment & Recommendations Mr. Hardy is a 77-year-old male with refractory stage IV follicular non-Hodgkin' s lymphoma who is been previously treated with multiple courses of chemotherapy including Rituxan. The patient was scheduled to undergo chemotherapy and the beginning of July 2017 however he developed pulmonary symptoms and was admitted to the hospital due to a left lobe pneumonia secondary to obstruction from a left hilar mass. Medical oncology has been consulted and the recommendation is for palliative radiation therapy due to the patient's poor performance status and medical comorbidities. We have seen the patient in consultation and agree with the recommendation for palliative external beam radiation therapy. We did obtain consent today for radiation therapy. The patient will be brought down today for CT simulation. We will plan to initiate palliative external beam radiation therapy tomorrow if possible. We have explained the indications, alternatives, benefits, risks and side effects of radiation therapy to the lung. We have explained the most common side effects which include but are not limited to skin erythema, skin break down , pulmonary fibrosis, adhesion development, radiation pneumonitis, rib fracture , heart failure and heart disease, esophagitis, development of fistula, fatigue and development of secondary malignancy. We have explained the CT simulation process and treatment planning. We explained what to expect before, during and after treatment on a regular basis. The patient understands and would be willing to consent to treatment. The patient and family had multiple questions which were answered to their full satisfaction. Thank you for allowing us to participate in the care of this patient. This chart was completed in part utilizing [employer] Speech Voice Recognition software. Attempts were made to minimize the grammatical errors, random word insertions, pronoun errors and incomplete sentences. Any formal questions or concerns about the content, text or information contained within the body of this dictation should be directly addressed to the provider for clarification. Kahlil Zavala MD Department of Radiation Oncology [facility] Total Time In Consultation I spent 30 minutes examining and counseling the patient. I spent 15 minutes completing this note. 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
--- NOTE | 2017-08-03 15:10 | Infectious Disease Progress Nt ---
Progress Note Date of Service Aug 03, 2017. Subjective Pt evaluation today including: conversation w/ patient, conversation w/ family , physical exam, chart review, lab review, review of studies, conversation w/ design and sales consultant, review of inpatient medication list Patient states that he is feeling better. He appears somewhat dyspneic, but states breathing has improved. Remains afebrile All Other Systems: Reviewed and Negative Medications Current Inpatient Medications Medications (Trade) Dose Ordered Sig/Hari Route Start Time Stop Time Status Last Admin Dose Admin Acetaminophen (Tylenol Tab) 650 mg Q4H PRN PO 07/31/17 14:45 08/30/17 14:44 Al Hydrox/Mg Hydrox/Simethicone (Maalox Max Susp) 15 ml Q4H PRN PO 07/31/17 14:45 08/30/17 14:44 Magnesium Hydroxide (Milk Of Magnesia Susp) 30 ml Q12H PRN PO 07/31/17 14:45 08/30/17 14:44 Zolpidem Tartrate (Ambien Tab) 5 mg HSZ PRN PO 07/31/17 14:45 08/30/17 14:44 Zolpidem Tartrate (Ambien Tab) 5 mg HSZ PRN PO 07/31/17 14:45 08/30/17 14:44 Ondansetron HCl (Zofran Inj) 4 mg Q6H PRN IV 07/31/17 14:45 08/30/17 14:44 Polyethylene (Miralax Powder Packet) 17 gm DAILY PRN PO 07/31/17 14:45 08/30/17 14:44 Lactobacillus Acidophilus (Floranex Tab) 4 tab TIDM PO 07/31/17 16:45 08/30/17 17:59 08/03/17 12:12 4 TAB Guaifenesin (Robitussin Sugar Free Syrup) 200 mg Q6H PRN PO 07/31/17 15:00 08/30/17 14:59 Levofloxacin (Consult) 1 ea UD PRN N/A 07/31/17 16:00 08/30/17 15:59 Levofloxacin 750 mg/Prmx 150 ml @ 100 mls/hr Q48H IV 08/02/17 11:00 08/07/17 10:59 08/02/17 09:40 100 MLS/HR Ipratropium [place] (Atrovent 0.02% 0.5MG/2.5ML Neb) 0.5 mg Q6R INH 07/31/17 21:00 08/30/17 20:59 08/03/17 14:17 0.5 MG Levalbuterol (Xopenex 1.25MG/ 0.5ML Neb) 1.25 mg Q6R INH 07/31/17 21:00 08/30/17 20:59 08/03/17 14:17 1.25 MG Latanoprost (Xalatan Oph Soln) 1 drops HS OPB 07/31/17 21:00 08/30/17 20:59 08/02/17 20:13 1 DROPS Tobramycin/ Dexamethasone (Tobradex Oph Oint) 1 appln HS OPL 07/31/17 21:00 08/30/17 20:59 08/02/17 20:11 1 APPLN Diltiazem HCl 125 mg/Dextrose 125 ml @ 0 mls/hr Q0M PRN IV 07/31/17 21:30 08/30/17 21:29 08/03/17 02:15 9 MLS/HR Heparin Sodium (Porcine) (Heparin 100 Unit/ml 5ml Flush) 5 ml PRN PRN IV 08/01/17 07:45 08/31/17 07:44 Sodium Chloride 1,000 ml @ 100 mls/hr Q10H IV 08/01/17 13:15 08/31/17 13:14 08/03/17 10:30 100 MLS/HR Enteral Nutritional Formula (Boost) 1 can TIDM PO 08/02/17 07:30 09/01/17 07:29 08/03/17 12:12 1 CAN Neomycin/ Polymyxin/ Dexamethasone (Maxitrol Oph Susp) 1 drops Q6H OPL 08/02/17 00:00 09/01/17 00:00 08/03/17 12:13 1 DROPS Apixaban (Eliquis Tab) 5 mg BID PO 08/02/17 22:00 09/01/17 21:59 08/03/17 08:24 5 MG Furosemide (Lasix Tab) 20 mg QAM PO 08/02/17 12:00 09/01/17 11:59 08/03/17 08:24 20 MG Patient Name: KATHERIN ZAMORANO Unit Number: [id number] Dictated: 08/02/171041 Transcribed: 08/02/171041 JA Printed Date/Time: [~ rep prt dt]/[~ rep prt tm] [~ rep ct labl] - [~ rep ct ivnm] [facility] [place] [address] Dictated: 08/02/171041 Transcribed: 08/02/171041 JA Printed Date/Time: [~ rep prt dt]/[~ rep prt tm] [~ rep ct labl] - [~ rep ct ivnm] CT OF THE CHEST WITHOUT IV CONTRAST CLINICAL HISTORY: Progressive lymphoma. Left lung consolidation. Pneumonia. COMPARISON STUDY: Chest CT July 09, 2017 and PET/CT August 01, 2015. CT DOSE: 260.86 mGy.cm TECHNIQUE: Axial images of the chest were obtained without IV contrast. Images were reviewed in the axial, sagittal, and coronal planes. IV contrast was not administered for this examination. A dose lowering technique was utilized adhering to the principles of ALARA. FINDINGS: There is no pneumothorax. A left subclavian [id number] is in place. Mild cardiomegaly is unchanged. There is no pericardial effusion. There are small bilateral pleural effusions which have developed since CT of July 09, 2017. Left hemithorax pleural thickening has increased. A left hilar mass is suboptimally assessed on this unenhanced exam but has moderately increased in size since CT of July 09, 2017. This mass now measures approximately 6.9 x 4.7 cm and encases the left mainstem bronchus as well as the left lower lobe bronchus and results in occlusion of the left upper lobe bronchus. Extensive left upper lobe airspace opacity has progressed. There is interlobular septal thickening throughout the lungs. Severe emphysema is noted. A 1 cm right lower lobe nodular density shown on image 243 has developed. A 5 mm left lower lobe nodule shown image 168 has developed. No suspicious osseous lesions are present. There calcified granulomas within the spleen. Left renal atrophy is incidentally noted. Size and number of numerous hypodense hepatic masses has increased since exam July 09, 2017. Index lateral segment lesion measures approximately 4.1 cm. A previous measured 2.1 cm. IMPRESSION: 1. Increase in size of an infiltrative left hilar mass since CT of July 09, 2017. This is consistent with the history of lymphoma although other neoplastic etiologies could appear similar. This mass encases the left mainstem bronchus and left lower lobe bronchus and results in occlusion of the left upper lobe bronchus with significant increase in left upper lobe airspace opacity which favors extensive postobstructive pneumonia. Increase in size of several thoracic lymph nodes suggests progression of lymphoma. 2. Development of small bilateral pleural effusions with increase in left hemithorax pleural thickening which favors lymphomatous involvement. 3. Moderate increase in size and number of hypodense hepatic lesions since prior exam. Given the clinical history, hepatic involvement with lymphoma is favored although metastatic disease could appear similar. 4. Interval development of several pulmonary nodules which may reflect a neoplastic or infectious etiology. 5. Interlobular septal thickening which favors pulmonary edema. 6. Severe emphysema. Electronically signed by: Dusty Vazquez M.D. 08/02/2017 11:00 AM Dictated Date/Time: 08/02/2017 10:42 AM The status of this report is Signed. Draft = Not yet reviewed or approved by Radiologist. Signed = Reviewed and approved by Radiologist. <AttendingPhy>Clay Nickerson M.D.</AttendingPhy> <FamilyPhy>Harry Ovalle M.D.</FamilyPhy> <PrimaryPhy>Harry Ovalle M.D.</PrimaryPhy> <UnitNumber> [id number]</UnitNumber> <VisitNumber>[id number]</VisitNumber> <PatientName> KATHERIN ZAMORANO</PatientName> <DateOfBirth>1940</DateOfBirth> <Location>[facility]</ Location> <ServiceDate>07/31/17</ServiceDate> <MNE>ESINDI</MNE> <OrderingPhy> Luis Diggs D.O.</OrderingPhy> <OrderingPhyMNE>f rep ord dr allen</ OrderingPhyMNE> <DictatingPhyMNE>f rep dict dr allen</DictatingPhyMNE> <CCListMNE> f rep ct subhashe</CCListMNE> <AdmittingPhyMNE>f pt admit dr allen</AdmittingPhyMNE> < AttendingPhyMNE>f pt attend dr allen</AttendingPhyMNE> <ConsultingPhyMNE>f pt consult dr allen</ConsultingPhyMNE> <FamilyPhyMNE>f pt fam dr allen</FamilyPhyMNE> <OtherPhyMNE>f pt other dr allen</OtherPhyMNE> < PrimaryPhyMNE>f pt prim care dr allen</PrimaryPhyMNE> <ReferringPhyMNE>f pt referring dr allen</ReferringPhyMNE> Objective Vital Signs Date Time Temp Pulse Resp B/P (MAP) Pulse Ox O2 Delivery O2 Flow Rate FiO2 08/03/17 14:19 104 20 88 Nasal Cannula 2.0 08/03/17 12:16 36.8 105 20 123/66 (85) 91 Nasal Cannula 2.0 08/03/17 12:00 Room Air 08/03/17 08:00 Room Air 08/03/17 07:36 37.3 101 20 94/56 (69) 92 Room Air 08/03/17 07:01 104 20 97 Room Air 08/03/17 04:00 Room Air 08/03/17 03:52 37.5 99 22 107/56 (73) 99 BiPAP 08/03/17 01:42 109/50 (69) 08/03/17 01:35 71 97 30 08/03/17 01:30 71 25 97 BiPAP/CPAP 08/03/17 00:00 Room Air 08/02/17 23:44 37.2 99 20 96/54 (68) 98 BiPAP 08/02/17 22:20 85 97 30 08/02/17 20:00 Room Air 08/02/17 19:05 96 16 94 Room Air 08/02/17 19:02 37.0 97 22 103/59 (74) 91 Room Air 08/02/17 16:30 Room Air 08/02/17 15:42 36.8 87 20 111/58 (75) 92 Room Air Physical Exam General Appearance: WD/WN, no apparent distress Eyes: normal inspection, EOMI, sclerae normal ENT: normal ENT inspection, pharynx normal Neck: supple, no adenopathy, thyroid normal, trachea midline Respiratory/Chest: chest non-tender, no respiratory distress, no accessory muscle use, + rales Cardiovascular: regular rate, rhythm, no gallop, + systolic murmur Abdomen: normal bowel sounds, non tender, soft, no organomegaly Extremities: non-tender, no calf tenderness Neurologic/Psychiatric: alert, oriented x 3 Skin: normal color, warm/dry, no rash Lymphatic: no adenopathy Laboratory Results Last 24 Hours Test 08/03/17 06:03 08/03/17 12:06 Activated Partial Thromboplast Time 38.2 SECONDS Partial Thromboplastin Ratio 1.5 Sodium Level 137 mmol/L Potassium Level 3.6 mmol/L Chloride Level 108 mmol/L Carbon Dioxide Level 19 mmol/L Anion Gap 10.0 mmol/L Blood Urea Nitrogen 26 mg/dl Creatinine 1.24 mg/dl Est Creatinine Clear Calc Drug Dose 44.3 ml/min Estimated GFR () 64.1 Estimated GFR (Non- 55.3 BUN/Creatinine Ratio 21.1 Random Glucose 98 mg/dl Calcium Level 7.6 mg/dl Vancomycin Level Trough 14.1 mcg/ml Assessment and Plan (1) Lymphoma 77-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 Patient appears to be slowly improving on current regimen, can likely discontinue vancomycin given negative MRSA smear. Would complete at least 7 days of therapy with levofloxacin. Will discuss with all involved. Will follow.
--- NOTE | 2017-08-03 17:12 | Cardiology Follow-Up ---
Subjective Date of Service: Aug 03, 2017. Pt evaluation today including: conversation w/ patient, conversation w/ family , physical exam, lab review, review of studies History of Present Illness This is a 77-year-old male with a history of aortic stenosis, aortic insufficiency and coronary artery disease. He had a myocardial infarction in 1992 with a right coronary artery stent placed in [place]. He also has a history of tobacco abuse and lung disease. He has non-Hodgkin's lymphoma. On echocardiography showed normal left ventricular size and function with severe aortic stenosis (valve area 0.96 cm, mean gradient 20 mmHg). On 2015 echo showed moderate with MARGUERITE 1.6 and mean gradient 32, inconsistent with prior. Moderate AI in march. He now presents with weakness, inability to walk and bilateral lower extremity swelling. Electrocardiography showed atrial flutter with a controlled heart rate. He also had 3 days of productive cough and possibly has sepsis, he was admitted on 07/31/2017. Today he seems to have no complaints, he looks short of breath but denies it and he is not on oxygen. He denies chest discomfort. He is not aware of palpitations. Social History Smoking Status: Current Every Day Smoker History of Alcohol Use: No Review of Systems Respiratory: + cough, + dyspnea on exertion Cardiac: No chest pain, No orthopnea Medications Cardiovascular: Item Value Date Time Apixaban 5 mg 08/02/17 2200 (Eliquis Tab) BID/PO 08/03/17 0824 Furosemide 20 mg 08/02/17 1200 (Lasix Tab) QAM/PO 08/03/17 0824 Objective Vital Signs Past 12 Hours Date Time Temp Pulse Resp B/P (MAP) Pulse Ox O2 Delivery O2 Flow Rate FiO2 08/03/17 16:00 Room Air 08/03/17 15:38 36.7 102 16 115/49 (71) 99 Nasal Cannula 3.0 08/03/17 14:19 104 20 88 Nasal Cannula 2.0 08/03/17 12:16 36.8 105 20 123/66 (85) 91 Nasal Cannula 2.0 08/03/17 12:00 Room Air 08/03/17 08:00 Room Air 08/03/17 07:36 37.3 101 20 94/56 (69) 92 Room Air 08/03/17 07:01 104 20 97 Room Air Last Recorded Weight-Kilograms: 72.000 Intake & Output 8-Hour Column 08/03/17 08/04/17 08/04/17 16:00 00:00 08:00 Intake Total 1056 ml Output Total 400 ml Balance 656 ml 24-Hour Column 08/04/17 08:00 Intake Total 1056 ml Output Total 400 ml Balance 656 ml Physical Exam Constitutional: Level of Distress: NAD Lungs: Respiratory effort: no dyspnea, good air movement Auscultation: no wheezing, decreased breath sounds, rales/crackles on the left Cardiovascular: Heart Auscultation: RRR, no rubs, no gallops, II/ MACEY, II/ WSM Peripheral Pulses: Bruits: none appreciated Extremities: edema (+1-2 bilateral) Data Laboratory Results: Last 24 Hours Test 08/03/17 06:03 08/03/17 12:06 Activated Partial Thromboplast Time 38.2 SECONDS Partial Thromboplastin Ratio 1.5 Sodium Level 137 mmol/L Potassium Level 3.6 mmol/L Chloride Level 108 mmol/L Carbon Dioxide Level 19 mmol/L Anion Gap 10.0 mmol/L Blood Urea Nitrogen 26 mg/dl Creatinine 1.24 mg/dl Est Creatinine Clear Calc Drug Dose 44.3 ml/min Estimated GFR () 64.1 Estimated GFR (Non- 55.3 BUN/Creatinine Ratio 21.1 Random Glucose 98 mg/dl Calcium Level 7.6 mg/dl Vancomycin Level Trough 14.1 mcg/ml Telemetry reviewed: Atrial fibrillation with average heart rate about 90 Assessment and Plan #1. Aortic stenosis: .An echocardiogram done 08/01/2017 shows normal left ventricular size and function, normal right and a size with borderline reduced right ventricular function. Severe aortic stenosis with a valve area 0.74 cm and mean gradient of 32 mmHg. Mild to moderate aortic insufficiency. With normal left ventricular size and function this probably is not a big part of his presentation. #2. Peripheral edema: He continues to have edema, perhaps a little bit more than during the initial part of his hospitalization, but I suspect he is spending more time with his feet down. I would continue the diuretic. #3. Atrial flutter: He presented in atrial flutter, as far as I know this is a new arrhythmia, however it could only have been recently identified since he seems asymptomatic with it. It could conceivably relate to his weakness and hypotension although there seemed to be other causes. He should continue with anticoagulation if possible, he is currently on Eliquis and evidently tolerating it well. Thank you for allowing me to participate in his care.
[2017-08-03] MEDS: LATANOPROST 0.005% OP SOLN 2.5 ML BTL OPB SCH (19:39)
[2017-08-03] MEDS: TOBRAMYCIN/DEXAMETHASONE OPH OINT 3.5 GM TUBE OPL SCH (19:45)
[2017-08-04] VITALS (16 sets, daily range): BP systolic 121–132; BP diastolic 47–73; PULSE 83–103; TEMP 36.1–37.1; O2SAT 94–99
[2017-08-04] MEDS: LEVALBUTEROL 1.25MG/0.5ML NEB INH SCH ×4 (01:08→19:26)
[2017-08-04] MEDS: IPRATROPIUM BROMIDE NEB SOLN 0.02% 2.5 ML VIAL INH SCH ×4 (01:08→19:26)
[2017-08-04] MEDS: DILTIAZEM HCL INJ 125 MG in DEXTROSE 5% 100ML IV PRN (01:41)
[2017-08-04] MEDS ORDERED: FUROSEMIDE INJ 20 MG in SYRINGE 0 ML IV STA (03:27)
[2017-08-04] MEDS ORDERED: NURSING VERBAL MED ORDER ONE ×2 (03:30→21:30)
[2017-08-04] MEDS: POLYMYX OPL SCH ×3 (06:21→18:00)
[2017-08-04] MEDS: DEXAMETH OP OPL SCH ×3 (06:21→18:00)
[2017-08-04] MEDS: NEOMYCIN OPL SCH ×3 (06:21→18:00)
[2017-08-04 06:54] LABS: HEMOGLOBIN 9.6 g/dL (14.0-18.0); MEAN CELL VOLUME 89.3 fL (80-100); MEAN CORPUSCULAR HEMOGLOBIN 28.6 pg (25-34); MEAN PLATELET VOLUME 10.4 fL (7.4-10.4); PLATELET COUNT 108 K/uL (130-400); RED CELL DISTRIBUTION WIDTH CV 17.6 % (11.5-14.5); RED CELL DISTRIBUTION WIDTH SD 57.3 fL (36.4-46.3); WHITE BLOOD COUNT 3.84 K/uL (4.8-10.8)
[2017-08-04 06:58] LABS: PTT PATIENT 37.3 SECONDS (21.0-31.0)
[2017-08-04] MEDS: BOOST VANILLA PO SCH ×3 (07:26→16:31)
[2017-08-04] MEDS: LACTOBACILLUS ACIDOPHILUS (FLORANEX) TAB PO SCH ×3 (07:26→16:29)
[2017-08-04 07:33] LABS: BASO % 0.5 %; BASO ABS # 0.02 K/uL (0-0.2); EOS % 7.8 %; IG# 0.35 K/uL (0.00-0.02); LYMPH % 12.5 %; LYMPH ABS # 0.48 K/uL (1.2-3.4); MONO % 14.6 %; MONO ABS # 0.56 K/uL (0.11-0.59); NEUT % 55.5 %; NEUT ABS # 2.13 K/uL (1.4-6.5)
[2017-08-04] MEDS: APIXABAN 2.5 MG TAB PO SCH ×2 (08:54→20:48)
[2017-08-04] MEDS: FUROSEMIDE 20 MG TAB PO SCH (08:55)
[2017-08-04] MEDS ORDERED: FUROSEMIDE INJ 20 MG in SYRINGE 0 ML IV SCH (11:00)
[2017-08-04] MEDS ORDERED: FUROSEMIDE INJ 20 MG in SYRINGE 0 ML IV ONE (11:00)
[2017-08-04] MEDS: LEVOFLOXACIN 750MG / D5W IV SCH (11:28)
--- NOTE | 2017-08-04 11:35 | Hematology/Oncology Prog Note ---
Hematology/Onc Progress Note Date of Service Aug 04, 2017. Diagnoses Progressive non-Hodgkin's lymphoma Left lung pneumonia COPD Medications Medications Administered Medications (Trade) Dose Ordered Sig/Hari Route Start Time Stop Time Status Last Admin Dose Admin Sodium Chloride 1,000 ml @ 999 mls/hr Q1H1M STAT IV 07/31/17 11:28 07/31/17 12:28 DC 07/31/17 12:02 999 MLS/HR Cefepime HCl 1000 mg/Dextrose 111 ml @ 200 mls/hr NOW STAT IV 07/31/17 11:45 07/31/17 12:18 DC 07/31/17 12:28 200 MLS/HR Levofloxacin (Levaquin / D5W) 500 mg NOW ONCE IV 07/31/17 11:45 07/31/17 11:47 DC 07/31/17 12:02 500 MG Vancomycin HCl 1500 mg/Sodium Chloride 530 ml @ 200 mls/hr ONE STAT IV 07/31/17 13:50 07/31/17 16:28 DC 07/31/17 14:22 200 MLS/HR Sodium Chloride 1,000 ml @ 30 mls/hr Q24H IV 07/31/17 14:40 08/01/17 13:28 DC 08/01/17 11:57 30 MLS/HR Lactobacillus Acidophilus (Floranex Tab) 4 tab TIDM PO 07/31/17 16:45 08/30/17 17:59 08/04/17 07:26 4 TAB Vancomycin HCl 1000 mg/Sodium Chloride 270 ml @ 125 mls/hr Q24H IV 08/01/17 12:00 08/03/17 14:41 DC 08/03/17 12:12 125 MLS/HR Cefepime HCl 1000 mg/Syringe 11 ml @ 5.5 mls/min Q12H IV 08/01/17 00:00 08/03/17 14:41 DC 08/03/17 14:05 5.5 MLS/MIN Levofloxacin 250 mg/Prmx 50 ml @ 50 mls/hr TODAY@1630 ONCE IV 07/31/17 16:30 07/31/17 17:29 DC 07/31/17 17:42 50 MLS/HR Levofloxacin 750 mg/Prmx 150 ml @ 100 mls/hr Q48H IV 08/02/17 11:00 08/07/17 10:59 08/02/17 09:40 100 MLS/HR Ipratropium [place] (Atrovent 0.02% 0.5MG/2.5ML Neb) 0.5 mg Q6R INH 07/31/17 21:00 08/30/17 20:59 08/04/17 07:17 0.5 MG Levalbuterol (Xopenex 1.25MG/ 0.5ML Neb) 1.25 mg Q6R INH 07/31/17 21:00 08/30/17 20:59 08/04/17 07:17 1.25 MG Latanoprost (Xalatan Oph Soln) 1 drops HS OPB 07/31/17 21:00 08/30/17 20:59 08/03/17 19:39 1 DROPS Tobramycin/ Dexamethasone (Tobradex Oph Oint) 1 appln HS OPL 07/31/17 21:00 08/30/17 20:59 08/03/17 19:45 1 APPLN Diltiazem HCl (Cardizem Inj) 10 mg TODAY@2130 IV 07/31/17 21:30 07/31/17 21:31 DC 07/31/17 22:24 10 MG Diltiazem HCl 125 mg/Dextrose 125 ml @ 0 mls/hr Q0M PRN IV 07/31/17 21:30 08/04/17 11:10 DC 08/04/17 01:41 15 MLS/HR Miscellaneous Information (Order Awaiting Action) 1 ea QS N/A 08/01/17 08:00 08/01/17 18:40 DC 08/01/17 15:49 1 EA Heparin Sodium (Porcine) 4000 unit/Syringe 4 ml @ 10 mls/min NOW ONCE IV 07/31/17 23:15 07/31/17 23:16 DC 07/31/17 23:42 10 MLS/MIN Heparin Sodium/ Dextrose 500 ml @ 20 mls/hr Q24H PRN IV 07/31/17 23:15 08/02/17 11:45 DC 08/01/17 17:38 20 MLS/HR Heparin Sodium (Porcine) 4500 unit/Syringe 4.5 ml @ 10 mls/min NOW ONCE IV 08/01/17 09:00 08/01/17 09:01 DC 08/01/17 09:14 10 MLS/MIN Sodium Chloride 500 ml @ 999 mls/hr Q31M STAT IV 08/01/17 13:12 08/01/17 13:42 DC 08/01/17 14:30 999 MLS/HR Sodium Chloride 1,000 ml @ 100 mls/hr Q10H IV 08/01/17 13:15 08/04/17 10:48 DC 08/03/17 20:16 100 MLS/HR Heparin Sodium (Porcine) 3000 unit/Syringe 3 ml @ 10 mls/min 1730 ONCE IV 08/01/17 17:30 08/01/17 17:31 DC 08/01/17 17:37 10 MLS/MIN Enteral Nutritional Formula (Boost) 1 can TIDM PO 08/02/17 07:30 09/01/17 07:29 08/04/17 07:26 1 CAN Neomycin/ Polymyxin/ Dexamethasone (Maxitrol Oph Susp) 1 drops Q6H OPL 08/02/17 00:00 09/01/17 00:00 08/04/17 06:21 1 DROPS Menthol (Nice Eduar) 24 eduar STK-MED ONCE .ROUTE 08/01/17 21:25 08/01/17 21:26 DC 08/01/17 21:25 24 EDUAR Potassium/ Phosphorus/Sodium (Phospha 250 Neutral 155-852-130 Mg) 1 tab QID PO 08/02/17 13:00 08/02/17 21:01 DC 08/02/17 20:14 1 TAB Apixaban (Eliquis Tab) 5 mg BID PO 08/02/17 22:00 09/01/17 21:59 08/04/17 08:54 5 MG Apixaban (Eliquis Tab) 5 mg NOW ONCE PO 08/02/17 11:45 08/02/17 11:46 DC 08/02/17 13:25 5 MG Furosemide (Lasix Tab) 20 mg QAM PO 08/02/17 12:00 09/01/17 11:59 08/04/17 08:55 20 MG Furosemide 20 mg/ Syringe 2 ml @ 4 mls/min NOW STAT IV 08/04/17 03:27 08/04/17 03:30 DC 08/04/17 03:27 4 MLS/MIN Subjective Continues to be short of breath although he seems stable. Radiation therapy to the chest to begin today. Review of Systems: Constitutional: Negative for weight loss, night sweats, or fever Eyes: Negative for event change of vision ENT: Negative for epistaxis, nasal discharge, sore throat, or deafness Cardiovascular: Negative for chest pain, palpitations, dizziness, diaphoresis Respiratory: Negative for new shortness of breath although he constantly has been short of breath, negative for hemoptysis, or purulent cough Gastrointestinal: Negative for diarrhea, hematemesis, melena, nausea, vomiting , or dyspepsia Integumentary (skin): Negative for rash or jaundice discoloration Neurological: Negative for weakness, seizure activity, headache, or dizziness Lymphatic/Hematologic: Negative for petechiae, bleeding or new adenopathy Musculoskeletal: Negative for new joint or back pain Allergic/Immunologic: Negative for unusual rash or pruritis. Vital Signs Vital Signs Past 12 Hours Date Time Temp Pulse Resp B/P (MAP) Pulse Ox O2 Delivery O2 Flow Rate FiO2 08/04/17 11:00 36.7 90 16 121/47 (71) 96 Nasal Cannula 2.0 08/04/17 08:00 97 Nasal Cannula 3.0 08/04/17 07:25 36.4 90 17 132/73 (92) 98 BiPAP 08/04/17 07:21 83 97 30 08/04/17 07:20 83 20 97 BiPAP/CPAP 30 08/04/17 04:00 BiPAP 30 08/04/17 03:46 36.1 92 30 128/63 (84) 99 BiPAP 30 08/04/17 01:08 89 20 94 BiPAP/CPAP 30 08/03/17 23:59 BiPAP 30 Physical Exam Constitutional: vitals are stable. Eyes: Eyes are HORACE EOMI without conjuctival erythema or icterus. ENT: External examination was negative for masses. Neck: Negative for masses or palpable thyromegaly Respiratory: Lung sounds were generally clear bilaterally with decreased sounds bilaterally. Cardiovascular: Heart was RRR without significant murmur, gallops aoe rubs Gastrointestinal: No palpable hepatic or splenomegaly. The abdomen was soft with normal bowel sounds. Lymphatic system: there was no palpable peripheral lymphadenopathy Musculoskeletal System: The musculoskeletal system seemed concordant with age. Skin: The skin was negative for jaundice. Neurologic exam: The exam was negative for any focal findings. Deep tendon reflexes were equal and symmetrical. Psychiatric exam: Was essentially negative with normal mood and effect. Extremities: Negative for significant edema. Laboratory Last 24 Hours Test 08/03/17 12:06 08/04/17 06:12 Vancomycin Level Trough 14.1 mcg/ml White Blood Count 3.84 K/uL Red Blood Count 3.36 M/uL Hemoglobin 9.6 g/dL Hematocrit 30.0 % Mean Corpuscular Volume 89.3 fL Mean Corpuscular Hemoglobin 28.6 pg Mean Corpuscular Hemoglobin Concent 32.0 g/dl Platelet Count 108 K/uL Mean Platelet Volume 10.4 fL Neutrophils (%) (Auto) 55.5 % Lymphocytes (%) (Auto) 12.5 % Monocytes (%) (Auto) 14.6 % Eosinophils (%) (Auto) 7.8 % Basophils (%) (Auto) 0.5 % Neutrophils # (Auto) 2.13 K/uL Lymphocytes # (Auto) 0.48 K/uL Monocytes # (Auto) 0.56 K/uL Eosinophils # (Auto) 0.30 K/uL Basophils # (Auto) 0.02 K/uL RDW Standard Deviation 57.3 fL RDW Coefficient of Variation 17.6 % Immature Granulocyte % (Auto) 9.1 % Immature Granulocyte # (Auto) 0.35 K/uL Toxic Granulation 1+ Activated Partial Thromboplast Time 37.3 SECONDS Partial Thromboplastin Ratio 1.4 Assessment & Plan Radiation therapy about to begin to his chest to try to decompress the adenopathy that is affecting left lung lung function. I have told him today inthe presence of his family that is quite likely he will need to go to some sort of home care or assisted living situation prior to returning home while the radiation treatment is ongoing. He was reluctant to hear this but I really do not see that there will be much of an alternative. I told him that radiation therapy will help but it could take a couple of weeks before he will see an improvement in his lung function.
--- NOTE | 2017-08-04 11:57 | Medical Student: [facility] ---
Med Student Progress Note Date of Service Aug 04, 2017. Subjective Pt evaluation today including: conversation w/ patient, conversation w/ family , physical exam, chart review, lab review, review of studies PO Intake: boost 77 y/o man with relapse of lymphoma found to have pneumonia on CXR with SOB Pt reports SOB today with unproductive cough, unchanged Sitting in bed and conversational but tired Did not sleep well because of bipap Denies fever/chills, CP, swelling, J[place], N/V/D Review of Systems Constitutional: No fever, No chills Respiratory: + cough, + shortness of breath, No wheezing Cardiac: No chest pain Abdomen: No pain, No nausea, No vomiting, No diarrhea Male : No dysuria Skin: No rash Objective Vital Signs Date Time Temp Pulse Resp B/P (MAP) Pulse Ox O2 Delivery O2 Flow Rate FiO2 08/04/17 11:00 36.7 90 16 121/47 (71) 96 Nasal Cannula 2.0 08/04/17 08:00 97 Nasal Cannula 3.0 08/04/17 07:25 36.4 90 17 132/73 (92) 98 BiPAP 08/04/17 07:21 83 97 30 08/04/17 07:20 83 20 97 BiPAP/CPAP 30 08/04/17 04:00 BiPAP 30 08/04/17 03:46 36.1 92 30 128/63 (84) 99 BiPAP 30 08/04/17 01:08 89 20 94 BiPAP/CPAP 30 08/03/17 23:59 BiPAP 30 08/03/17 23:00 37.0 101 24 130/68 (88) 91 Nasal Cannula 3.0 08/03/17 20:00 Nasal Cannula 3.0 08/03/17 19:26 36.7 107 20 118/49 (72) 93 Nasal Cannula 3.0 08/03/17 19:15 94 20 94 Nasal Cannula 3.0 08/03/17 16:00 Room Air 08/03/17 15:38 36.7 102 16 115/49 (71) 99 Nasal Cannula 3.0 08/03/17 14:19 104 20 88 Nasal Cannula 2.0 08/03/17 12:16 36.8 105 20 123/66 (85) 91 Nasal Cannula 2.0 08/03/17 12:00 Room Air Laboratory Results Last 24 Hours Test 08/03/17 12:06 08/04/17 06:12 Vancomycin Level Trough 14.1 mcg/ml White Blood Count 3.84 K/uL Red Blood Count 3.36 M/uL Hemoglobin 9.6 g/dL Hematocrit 30.0 % Mean Corpuscular Volume 89.3 fL Mean Corpuscular Hemoglobin 28.6 pg Mean Corpuscular Hemoglobin Concent 32.0 g/dl Platelet Count 108 K/uL Mean Platelet Volume 10.4 fL Neutrophils (%) (Auto) 55.5 % Lymphocytes (%) (Auto) 12.5 % Monocytes (%) (Auto) 14.6 % Eosinophils (%) (Auto) 7.8 % Basophils (%) (Auto) 0.5 % Neutrophils # (Auto) 2.13 K/uL Lymphocytes # (Auto) 0.48 K/uL Monocytes # (Auto) 0.56 K/uL Eosinophils # (Auto) 0.30 K/uL Basophils # (Auto) 0.02 K/uL RDW Standard Deviation 57.3 fL RDW Coefficient of Variation 17.6 % Immature Granulocyte % (Auto) 9.1 % Immature Granulocyte # (Auto) 0.35 K/uL Toxic Granulation 1+ Activated Partial Thromboplast Time 37.3 SECONDS Partial Thromboplastin Ratio 1.4 Medications Test 07/31/17 00:00 07/31/17 11:52 07/31/17 14:14 08/01/17 07:40 Influenza Type A (RT-PCR) Neg for Influ A Influenza Type A Antigen Neg for Influ A Influenza Type B Antigen Neg for Influ B Influenza Type B (RT-PCR) Neg for Influ B Urine Legionella Antigen NOT DETECTED Neutrophils % (Manual) 55.4 66.9 Lymphocytes % (Manual) 21.4 21.1 Monocytes % (Manual) 9.8 8.3 Eosinophils % (Manual) 8.9 2.8 Basophils % (Manual) 1.8 Myelocytes % 2.7 0.9 Neutrophils # (Manual) 2.64 3.05 Total Absolute Neutrophils 2.64 3.05 Lymphocytes # (Manual) 1.02 0.96 Total Absolute Lymphocytes 1.02 0.96 Monocytes # (Manual) 0.47 0.38 Eosinophils # (Manual) 0.42 0.13 Basophils # (Manual) 0.09 Myelocytes # 0.13 0.04 Toxic Vacuolation 1+ Red Blood Cell Morphology Unremarkable Prothrombin Time 12.0 Prothrombin Time INR 1.1 Total Bilirubin 1.0 0.8 Direct Bilirubin 0.3 Aspartate Amino Transferase (AST) 36 15 Alanine Aminotransferase (ALT) 47 34 Alkaline Phosphatase 105 88 Troponin I < 0.015 Total Protein 5.8 5.4 Albumin 2.6 2.3 Lipase 191 Urine Color YELLOW Urine Appearance CLOUDY Urine pH 7.5 Urine Specific Strum 1.016 Urine Protein NEG Urine Glucose (UA) NEG Urine Ketones NEG Urine Occult Blood NEG Urine Nitrite NEG Urine Bilirubin NEG Urine Urobilinogen NEG Urine Leukocyte Esterase TRACE Urine WBC (Auto) 1-5 Urine RBC (Auto) 0-4 Urine Hyaline Casts (Auto) 1-5 Urine Epithelial Cells (Auto) >30 Urine Bacteria (Auto) NEG Ovalocytes 1+ Lactic Acid Level 1.7 Phosphorus Level 2.6 Magnesium Level 2.2 Globulin 3.1 Albumin/Globulin Ratio 0.8 Test 08/01/17 11:19 08/02/17 06:30 08/02/17 11:19 08/03/17 06:03 Procalcitonin 0.16 White Blood Count 5.28 Red Blood Count 3.48 Hemoglobin 9.8 Hematocrit 30.8 Mean Corpuscular Volume 88.5 Mean Corpuscular Hemoglobin 28.2 Mean Corpuscular Hemoglobin Concent 31.8 Platelet Count 118 Mean Platelet Volume 10.6 Neutrophils (%) (Auto) 53.1 Lymphocytes (%) (Auto) 17.2 Monocytes (%) (Auto) 12.9 Eosinophils (%) (Auto) 6.6 Basophils (%) (Auto) 0.4 Neutrophils # (Auto) 2.80 Lymphocytes # (Auto) 0.91 Monocytes # (Auto) 0.68 Eosinophils # (Auto) 0.35 Basophils # (Auto) 0.02 RDW Standard Deviation 56.4 RDW Coefficient of Variation 17.4 Immature Granulocyte % (Auto) 9.8 Immature Granulocyte # (Auto) 0.52 Toxic Granulation 3+ Ovalocytes 1+ Echinocytes 1+ Sodium Level 134 137 Potassium Level 3.7 3.6 Chloride Level 107 108 Carbon Dioxide Level 19 19 Anion Gap 8.0 10.0 Blood Urea Nitrogen 27 26 Creatinine 1.44 1.24 Est Creatinine Clear Calc Drug Dose 38.1 44.3 Estimated GFR () 53.5 64.1 Estimated GFR (Non- 46.2 55.3 BUN/Creatinine Ratio 19.1 21.1 Random Glucose 93 98 Calcium Level 8.0 7.6 Vancomycin Level Trough 12.5 PTT 38.2 Partial Thromboplastin Ratio 1.5 Test 08/03/17 12:06 08/04/17 06:12 Vancomycin Level Trough 14.1 White Blood Count 3.84 Red Blood Count 3.36 Hemoglobin 9.6 Hematocrit 30.0 Mean Corpuscular Volume 89.3 Mean Corpuscular Hemoglobin 28.6 Mean Corpuscular Hemoglobin Concent 32.0 Platelet Count 108 Mean Platelet Volume 10.4 Neutrophils (%) (Auto) 55.5 Lymphocytes (%) (Auto) 12.5 Monocytes (%) (Auto) 14.6 Eosinophils (%) (Auto) 7.8 Basophils (%) (Auto) 0.5 Neutrophils # (Auto) 2.13 Lymphocytes # (Auto) 0.48 Monocytes # (Auto) 0.56 Eosinophils # (Auto) 0.30 Basophils # (Auto) 0.02 RDW Standard Deviation 57.3 RDW Coefficient of Variation 17.6 Immature Granulocyte % (Auto) 9.1 Immature Granulocyte # (Auto) 0.35 Toxic Granulation 1+ PTT 37.3 Partial Thromboplastin Ratio 1.4 Echo 1. Normal LV size. Mild concentric LVH. * 2. Normal LV systolic function. LVEF 60-65%. No regional wall motion abnormalities. * 3. Normal RV size with borderline reduced RV function. * 4. Calcific aortic stenosis, moderate to severe (PV 3.6, MG 32, MARGUERITE 0.74, DI 0.24, SVI 30ml/m2). * 5. [id number] aortic insufficiency. * 6. Normal estimated PA and RA pressures. * 7. Compared with prior study on 03/28/2016: Aortic stenosis has progressed. Assessment and Plan Assessment and Plan: 77 y/o M with left middle lobe pneumonia in the setting of recurrence of stage 4 follicular lymphoma and hx of COPD, HTN, aortic stenosis, CKD stage 3 1. Left middle lobe pneumonia secondary to obstruction from a left hilar mass - Day 5 of 7 Levaquin - SOB unchanged, afebrile -10 fract rad onc, first treatment scheduled today and will follow as outpatient to shrink lymphoma mass on left - Lasix 20mg x 2, noting stable Cr at 1.2 will monitor daily, aware of CKD status - Vanco discontinued as MRSA swab was neg - LA was 1.7 2 days ago, afebrile today, vitals stable 2. Reported atrial flutter -Reported in ED/admission but resolved at this time -Monitor strip overnight showed PVCs, EKG this morning shows PVCs and normal rate therefore Cardizem stopped 3. COPD - continue home meds 4. HTN -stable BPs in hospital -will monitor 5. Aortic stenosis -echo results show progression -see cards consult 6. Disposition -To rad onc today for first treatment, keep tele -discharge planning to [facility]ci/care facility to receive outpatient rad onc treatment as he lives in [place] 7. Full Code Continued [facility] stay due to: home environment unsafe for pt Discharge planning: uncertain
[2017-08-04] MEDS ORDERED: DILTIAZEM HCL 5 MG/ML 5 ML VIAL IV STA (12:40)
--- NOTE | 2017-08-04 13:49 | Progress Note ---
Subjective Date of Service: Aug 04, 2017. Subjective Pt evaluation today including: conversation w/ patient, conversation w/ family , physical exam, lab review, conversation w/ apartment leasing consultant, review of inpatient medication list Pain: denies pain PO Intake: tolerating Boost, still poor appetite Voiding: no voiding problems patient with some increased dyspnea this AM, more rales on exam per RN overnight he became dyspneic, tachypneic, and HR in the 120's, afib starting on diltiazem drip, given Lasix 20mg IV, responded well reviewing I/O's, he is positive over 5 liters since admission reviewed labs, stable updated at the bedside c/o fatigue, falling asleep periodically during interview Problem List Medical Problems: (1) Atrial flutter Status: Acute (2) CHF (congestive heart failure) Status: Acute (3) Febrile neutropenia Status: Acute (4) Hypotension Status: Acute (5) Immunocompromised Status: Acute (6) Low back pain Status: Acute (7) PNA (pneumonia) Status: Acute (8) Sepsis Status: Acute (9) Sepsis Status: Acute (10) Spinal stenosis Status: Acute (11) UTI (urinary tract infection) Status: Acute (12) Weakness Status: Acute Review of Systems Constitutional: + weakness, + fatigue Respiratory: + cough, + shortness of breath, + dyspnea on exertion Abdomen: + problem reported (poor appetite) Neurologic: + weakness, + balance problems All Other Systems: Reviewed and Negative Medications Current Inpatient Medications Medications (Trade) Dose Ordered Sig/Hari Route Start Time Stop Time Status Last Admin Dose Admin Acetaminophen (Tylenol Tab) 650 mg Q4H PRN PO 07/31/17 14:45 08/30/17 14:44 Al Hydrox/Mg Hydrox/Simethicone (Maalox Max Susp) 15 ml Q4H PRN PO 07/31/17 14:45 08/30/17 14:44 Magnesium Hydroxide (Milk Of Magnesia Susp) 30 ml Q12H PRN PO 07/31/17 14:45 08/30/17 14:44 Zolpidem Tartrate (Ambien Tab) 5 mg HSZ PRN PO 07/31/17 14:45 08/30/17 14:44 Zolpidem Tartrate (Ambien Tab) 5 mg HSZ PRN PO 07/31/17 14:45 08/30/17 14:44 Ondansetron HCl (Zofran Inj) 4 mg Q6H PRN IV 07/31/17 14:45 08/30/17 14:44 Polyethylene (Miralax Powder Packet) 17 gm DAILY PRN PO 07/31/17 14:45 08/30/17 14:44 Lactobacillus Acidophilus (Floranex Tab) 4 tab TIDM PO 07/31/17 16:45 08/30/17 17:59 08/04/17 12:24 4 TAB Guaifenesin (Robitussin Sugar Free Syrup) 200 mg Q6H PRN PO 07/31/17 15:00 08/30/17 14:59 Levofloxacin (Consult) 1 ea UD PRN N/A 07/31/17 16:00 08/06/17 11:01 Ipratropium [place] (Atrovent 0.02% 0.5MG/2.5ML Neb) 0.5 mg Q6R INH 07/31/17 21:00 08/30/17 20:59 08/04/17 07:17 0.5 MG Levalbuterol (Xopenex 1.25MG/ 0.5ML Neb) 1.25 mg Q6R INH 07/31/17 21:00 08/30/17 20:59 08/04/17 07:17 1.25 MG Latanoprost (Xalatan Oph Soln) 1 drops HS OPB 07/31/17 21:00 08/30/17 20:59 08/03/17 19:39 1 DROPS Tobramycin/ Dexamethasone (Tobradex Oph Oint) 1 appln HS OPL 07/31/17 21:00 08/30/17 20:59 08/03/17 19:45 1 APPLN Heparin Sodium (Porcine) (Heparin 100 Unit/ml 5ml Flush) 5 ml PRN PRN IV 08/01/17 07:45 08/31/17 07:44 08/04/17 13:22 5 ML Enteral Nutritional Formula (Boost) 1 can TIDM PO 08/02/17 07:30 09/01/17 07:29 08/04/17 11:43 1 CAN Neomycin/ Polymyxin/ Dexamethasone (Maxitrol Oph Susp) 1 drops Q6H OPL 08/02/17 00:00 09/01/17 00:00 08/04/17 12:24 1 DROPS Apixaban (Eliquis Tab) 5 mg BID PO 08/02/17 22:00 09/01/17 21:59 08/04/17 08:54 5 MG Furosemide (Lasix Tab) 20 mg QAM PO 08/02/17 12:00 09/01/17 11:59 08/04/17 08:55 20 MG Levofloxacin (Levaquin Tab) 750 mg Q2D@1100 PO 08/06/17 11:00 08/06/17 11:01 Diltiazem HCl (Cardizem Tab) 30 mg TID PO 08/04/17 14:00 09/03/17 13:59 Objective Vital Signs Date Time Temp Pulse Resp B/P (MAP) Pulse Ox O2 Delivery O2 Flow Rate FiO2 08/04/17 12:00 97 Nasal Cannula 3.0 08/04/17 11:00 36.7 90 16 121/47 (71) 96 Nasal Cannula 2.0 08/04/17 08:00 97 Nasal Cannula 3.0 08/04/17 07:25 36.4 90 17 132/73 (92) 98 BiPAP 08/04/17 07:21 83 97 30 08/04/17 07:20 83 20 97 BiPAP/CPAP 30 08/04/17 04:00 BiPAP 30 08/04/17 03:46 36.1 92 30 128/63 (84) 99 BiPAP 30 08/04/17 01:08 89 20 94 BiPAP/CPAP 30 08/03/17 23:59 BiPAP 30 08/03/17 23:00 37.0 101 24 130/68 (88) 91 Nasal Cannula 3.0 08/03/17 20:00 Nasal Cannula 3.0 08/03/17 19:26 36.7 107 20 118/49 (72) 93 Nasal Cannula 3.0 08/03/17 19:15 94 20 94 Nasal Cannula 3.0 08/03/17 16:00 Room Air 08/03/17 15:38 36.7 102 16 115/49 (71) 99 Nasal Cannula 3.0 08/03/17 14:19 104 20 88 Nasal Cannula 2.0 Physical Exam General Appearance: WD/WN, no apparent distress Eyes: normal inspection, EOMI, sclerae normal ENT: normal ENT inspection, hearing grossly normal, pharynx normal Neck: supple, no adenopathy, no JVD Respiratory/Chest: chest non-tender, + decreased breath sounds, + rales ( bibasilar), + rhonchi Cardiovascular: no gallop, no JVD, no murmur, + tachycardia, + irregularly irregular Abdomen: normal bowel sounds, non tender, soft, no organomegaly Extremities: normal range of motion, non-tender, normal inspection, no calf tenderness, pelvis stable, + pedal edema (pitting in lower extremities, bilaterally) Neurologic/Psychiatric: 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, normal mood/affect, oriented x 3, + motor weakness (generalized), + pertinent finding (lethargic) Skin: normal color, warm/dry, no rash Laboratory Results Last 24 Hours Test 08/04/17 06:12 White Blood Count 3.84 K/uL Red Blood Count 3.36 M/uL Hemoglobin 9.6 g/dL Hematocrit 30.0 % Mean Corpuscular Volume 89.3 fL Mean Corpuscular Hemoglobin 28.6 pg Mean Corpuscular Hemoglobin Concent 32.0 g/dl Platelet Count 108 K/uL Mean Platelet Volume 10.4 fL Neutrophils (%) (Auto) 55.5 % Lymphocytes (%) (Auto) 12.5 % Monocytes (%) (Auto) 14.6 % Eosinophils (%) (Auto) 7.8 % Basophils (%) (Auto) 0.5 % Neutrophils # (Auto) 2.13 K/uL Lymphocytes # (Auto) 0.48 K/uL Monocytes # (Auto) 0.56 K/uL Eosinophils # (Auto) 0.30 K/uL Basophils # (Auto) 0.02 K/uL RDW Standard Deviation 57.3 fL RDW Coefficient of Variation 17.6 % Immature Granulocyte % (Auto) 9.1 % Immature Granulocyte # (Auto) 0.35 K/uL Toxic Granulation 1+ Activated Partial Thromboplast Time 37.3 SECONDS Partial Thromboplastin Ratio 1.4 Assessment and Plan 77 years old man with past medical history of COPD, hypertension, moderate aortic stenosis and chronic kidney disease stage 3. 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 Status post chemotherapy, was in remission until recurrence of lymphoma last month awaiting to start chemotherapy, presented to the ED with left middle lobe pneumonia - Community acquired pneumonia due to left hilar mass causing compression of airways today is day 5 of Levaquin afebrile, WBC normal typically would complete a 7 day course only but this could be complicated with the mass - Acute hypoxic respiratory failure, acute diastolic HF due to some volume overload from aggressive hydration at the beginning of admission responding to Lasix, will continue Lasix 20mg IV daily, follow output - Recurrent lymphoma with left hilar and liver involvement last chemotherapy was October 2016 appreciate oncology consultation radiation consult placed for immediate radiation therapy to try to shrink hilar mass plat to start today - Severe sepsis POA, due to pneumonia never had shock, his BP responded to fluids and his LA was only 1.7 vitals stable, afebrile, WBC normal - [place]: resolved, adequate UO, Cr down to 1.24 from 1.7 repeat BMP tomorrow - Paroxysmal atrial fibrillation back in afib overnight rates generally 100-120 today rate control with Diltiazem, 5mg IV bolus now and then 30mg PO TID watch BP, low normal anticoagulated on Eliquis Plan: keep on tele due to afib and hypoxia, start radiation therapy will likely need short term placement to complete radiation therapy lives in [place], poor functional status, would not do well driving back and forth Continued [facility] stay due to: home environment unsafe for pt Discharge planning: uncertain
[2017-08-04] MEDS: DILTIAZEM HCL 30 MG TAB PO SCH ×2 (13:51→20:48)
[2017-08-04] MEDS: LATANOPROST 0.005% OP SOLN 2.5 ML BTL OPB SCH (20:45)
[2017-08-05] VITALS (14 sets, daily range): BP systolic 106–123; BP diastolic 53–68; PULSE 88–116; TEMP 36.6–37.4; O2SAT 95–99
[2017-08-05] MEDS: LEVALBUTEROL 1.25MG/0.5ML NEB INH SCH (02:09)
[2017-08-05] MEDS: IPRATROPIUM BROMIDE NEB SOLN 0.02% 2.5 ML VIAL INH SCH ×2 (02:09→19:15)
[2017-08-05 06:55] LABS: HEMATOCRIT 32.1 % (42-52); HEMOGLOBIN 10.4 g/dL (14.0-18.0); MEAN CELL VOLUME 89.4 fL (80-100); MEAN CORPUSCULAR HGB CONC 32.4 g/dl (32-36); MEAN PLATELET VOLUME 10.9 fL (7.4-10.4); PLATELET COUNT 119 K/uL (130-400); RED CELL DISTRIBUTION WIDTH CV 17.3 % (11.5-14.5); WHITE BLOOD COUNT 3.33 K/uL (4.8-10.8)
[2017-08-05 07:03] LABS: PTT PATIENT 30.2 SECONDS (21.0-31.0)
[2017-08-05 07:16] LABS: CALCIUM 8.4 mg/dl (8.5-10.1); CREATININE 1.16 mg/dl (0.60-1.40); POTASSIUM 3.8 mmol/L (3.5-5.1)
[2017-08-05] MEDS: BOOST VANILLA PO SCH ×3 (07:43→17:13)
[2017-08-05] MEDS: DILTIAZEM HCL 30 MG TAB PO SCH ×3 (07:45→21:25)
[2017-08-05] MEDS: APIXABAN 2.5 MG TAB PO SCH ×2 (07:45→21:25)
[2017-08-05] MEDS: LACTOBACILLUS ACIDOPHILUS (FLORANEX) TAB PO SCH ×3 (07:45→17:13)
[2017-08-05] MEDS: PrednisoLONE ACET 1% OP SUSP 5 ML BTL OPL SCH (08:59)
[2017-08-05] MEDS ORDERED: FUROSEMIDE INJ 20 MG in SYRINGE 0 ML IV SCH (09:00)
[2017-08-05] MEDS ORDERED: PrednisoLONE ACET 1% OP SUSP 5 ML BTL OP SCH (09:00)
[2017-08-05] MEDS ORDERED: DOXYCYCLINE HYCLATE 100 MG CAP PO STA ×2 (11:34→12:50)
[2017-08-05] MEDS ORDERED: FLUCONAZOLE 100 MG TAB PO ONE (11:34)
[2017-08-05] MEDS: POLYETHYLENE (MIRALAX) 17 GM PACK PO SCH (12:20)
--- NOTE | 2017-08-05 12:49 | Hematology/Oncology Prog Note ---
Hematology/Onc Progress Note Date of Service Aug 05, 2017. Diagnoses Progressive non-Hodgkin's lymphoma Left lung pneumonia COPD Medications Medications Administered Medications (Trade) Dose Ordered Sig/Hari Route Start Time Stop Time Status Last Admin Dose Admin Sodium Chloride 1,000 ml @ 999 mls/hr Q1H1M STAT IV 07/31/17 11:28 07/31/17 12:28 DC 07/31/17 12:02 999 MLS/HR Cefepime HCl 1000 mg/Dextrose 111 ml @ 200 mls/hr NOW STAT IV 07/31/17 11:45 07/31/17 12:18 DC 07/31/17 12:28 200 MLS/HR Levofloxacin (Levaquin / D5W) 500 mg NOW ONCE IV 07/31/17 11:45 07/31/17 11:47 DC 07/31/17 12:02 500 MG Vancomycin HCl 1500 mg/Sodium Chloride 530 ml @ 200 mls/hr ONE STAT IV 07/31/17 13:50 07/31/17 16:28 DC 07/31/17 14:22 200 MLS/HR Sodium Chloride 1,000 ml @ 30 mls/hr Q24H IV 07/31/17 14:40 08/01/17 13:28 DC 08/01/17 11:57 30 MLS/HR Lactobacillus Acidophilus (Floranex Tab) 4 tab TIDM PO 07/31/17 16:45 08/30/17 17:59 08/05/17 11:12 4 TAB Vancomycin HCl 1000 mg/Sodium Chloride 270 ml @ 125 mls/hr Q24H IV 08/01/17 12:00 08/03/17 14:41 DC 08/03/17 12:12 125 MLS/HR Cefepime HCl 1000 mg/Syringe 11 ml @ 5.5 mls/min Q12H IV 08/01/17 00:00 08/03/17 14:41 DC 08/03/17 14:05 5.5 MLS/MIN Levofloxacin 250 mg/Prmx 50 ml @ 50 mls/hr TODAY@1630 ONCE IV 07/31/17 16:30 07/31/17 17:29 DC 07/31/17 17:42 50 MLS/HR Levofloxacin 750 mg/Prmx 150 ml @ 100 mls/hr Q48H IV 08/02/17 11:00 08/04/17 11:34 DC 08/04/17 11:28 100 MLS/HR Ipratropium [place] (Atrovent 0.02% 0.5MG/2.5ML Neb) 0.5 mg Q6R INH 07/31/17 21:00 08/30/17 20:59 08/05/17 02:09 0.5 MG Levalbuterol (Xopenex 1.25MG/ 0.5ML Neb) 1.25 mg Q6R INH 07/31/17 21:00 08/30/17 20:59 08/05/17 02:09 1.25 MG Latanoprost (Xalatan Oph Soln) 1 drops HS OPB 07/31/17 21:00 08/30/17 20:59 08/04/17 20:45 1 DROPS Tobramycin/ Dexamethasone (Tobradex Oph Oint) 1 appln HS OPL 07/31/17 21:00 08/04/17 21:32 DC 08/03/17 19:45 1 APPLN Diltiazem HCl (Cardizem Inj) 10 mg TODAY@2130 IV 07/31/17 21:30 07/31/17 21:31 DC 07/31/17 22:24 10 MG Diltiazem HCl 125 mg/Dextrose 125 ml @ 0 mls/hr Q0M PRN IV 07/31/17 21:30 08/04/17 11:10 DC 08/04/17 01:41 15 MLS/HR Miscellaneous Information (Order Awaiting Action) 1 ea QS N/A 08/01/17 08:00 08/01/17 18:40 DC 08/01/17 15:49 1 EA Heparin Sodium (Porcine) 4000 unit/Syringe 4 ml @ 10 mls/min NOW ONCE IV 07/31/17 23:15 07/31/17 23:16 DC 07/31/17 23:42 10 MLS/MIN Heparin Sodium/ Dextrose 500 ml @ 20 mls/hr Q24H PRN IV 07/31/17 23:15 08/02/17 11:45 DC 08/01/17 17:38 20 MLS/HR Heparin Sodium (Porcine) (Heparin 100 Unit/ml 5ml Flush) 5 ml PRN PRN IV 08/01/17 07:45 08/31/17 07:44 08/04/17 13:22 5 ML Heparin Sodium (Porcine) 4500 unit/Syringe 4.5 ml @ 10 mls/min NOW ONCE IV 08/01/17 09:00 08/01/17 09:01 DC 08/01/17 09:14 10 MLS/MIN Sodium Chloride 500 ml @ 999 mls/hr Q31M STAT IV 08/01/17 13:12 08/01/17 13:42 DC 08/01/17 14:30 999 MLS/HR Sodium Chloride 1,000 ml @ 100 mls/hr Q10H IV 08/01/17 13:15 08/04/17 10:48 DC 08/03/17 20:16 100 MLS/HR Heparin Sodium (Porcine) 3000 unit/Syringe 3 ml @ 10 mls/min 1730 ONCE IV 08/01/17 17:30 08/01/17 17:31 DC 08/01/17 17:37 10 MLS/MIN Enteral Nutritional Formula (Boost) 1 can TIDM PO 08/02/17 07:30 09/01/17 07:29 08/05/17 11:12 1 CAN Neomycin/ Polymyxin/ Dexamethasone (Maxitrol Oph Susp) 1 drops Q6H OPL 08/02/17 00:00 08/04/17 21:32 DC 08/04/17 18:00 1 DROPS Menthol (Nice Eduar) 24 eduar STK-MED ONCE .ROUTE 08/01/17 21:25 08/01/17 21:26 DC 08/01/17 21:25 24 EDUAR Potassium/ Phosphorus/Sodium (Phospha 250 Neutral 155-852-130 Mg) 1 tab QID PO 08/02/17 13:00 08/02/17 21:01 DC 08/02/17 20:14 1 TAB Apixaban (Eliquis Tab) 5 mg BID PO 08/02/17 22:00 09/01/17 21:59 08/05/17 07:45 5 MG Apixaban (Eliquis Tab) 5 mg NOW ONCE PO 08/02/17 11:45 08/02/17 11:46 DC 08/02/17 13:25 5 MG Furosemide (Lasix Tab) 20 mg QAM PO 08/02/17 12:00 08/04/17 13:36 DC 08/04/17 08:55 20 MG Furosemide 20 mg/ Syringe 2 ml @ 4 mls/min NOW STAT IV 08/04/17 03:27 08/04/17 03:30 DC 08/04/17 03:27 4 MLS/MIN Furosemide 20 mg/ Syringe 2 ml @ 4 mls/min TODAY@1100 IV 08/04/17 11:00 08/04/17 11:20 DC 08/04/17 11:43 4 MLS/MIN Diltiazem HCl (Cardizem Tab) 30 mg TID PO 08/04/17 14:00 08/05/17 09:21 DC 08/05/17 07:45 30 MG Diltiazem HCl (Cardizem Inj) 5 mg NOW STAT IV 08/04/17 12:40 08/04/17 12:57 DC 08/04/17 13:06 5 MG Furosemide 20 mg/ Syringe 2 ml @ 4 mls/min QAM IV 08/05/17 09:00 08/05/17 11:36 DC 08/05/17 08:59 4 MLS/MIN Prednisolone Acetate (Pred Forte 1% Oph Susp) 1 drops DAILY OPL 08/05/17 09:00 09/04/17 08:59 08/05/17 08:59 1 DROPS Subjective Continues to be short of breath. He states he has a cough productive of yellow phlegm. Radiation therapy has begun Review of Systems: Constitutional: Negative for night sweats, or fever Eyes: Negative for event change of vision ENT: Negative for epistaxis, nasal discharge, sore throat, or deafness Cardiovascular: Negative for chest pain, palpitations, dizziness, diaphoresis Respiratory: Negative for worsening shortness of breath, orhemoptysis. Gastrointestinal: Negative for diarrhea, hematemesis, melena, nausea, vomiting , or dyspepsia Integumentary (skin): Negative for rash or jaundice discoloration Genitourinary: Negative for urinary frequency, hematuria, or dysuria Neurological: Negative for weakness, seizure activity, headache, or dizziness Lymphatic/Hematologic: Negative for petechiae, bleeding or new adenopathy Musculoskeletal: Negative for new joint or back pain Allergic/Immunologic: Negative for unusual rash or pruritis. Vital Signs Vital Signs Past 12 Hours Date Time Temp Pulse Resp B/P (MAP) Pulse Ox O2 Delivery O2 Flow Rate FiO2 08/05/17 12:00 Nasal Cannula 4.0 08/05/17 11:15 36.6 106 22 123/56 (78) 97 Nasal Cannula 4.0 08/05/17 08:00 97 Nasal Cannula 4.0 08/05/17 07:49 37.3 116 24 106/60 (75) 97 Nasal Cannula 4.0 08/05/17 04:00 97 Nasal Cannula 3.0 08/05/17 03:07 37.1 93 23 117/58 (77) 95 Oxymask 4.0 Humidified Oxygen 08/05/17 02:10 88 20 95 Mask 4.0 Physical Exam Constitutional: vitals are stable. Eyes: Eyes are HORACE EOMI without conjuctival erythema or icterus. ENT: External examination was negative for masses. Neck: Negative for masses or palpable thyromegaly Respiratory: Lung sounds were generally clear but decreased bilaterally. Rales /ronchi left-sided remain present. Cardiovascular: Heart was RRR without significant murmur, gallops aoe rubs Gastrointestinal: No palpable hepatic or splenomegaly. The abdomen was soft with normal bowel sounds. Lymphatic system: there was no palpable peripheral lymphadenopathy Musculoskeletal System: The musculoskeletal system seemed concordant with age. Skin: The skin was negative for jaundice. Neurologic exam: The exam was negative for any focal findings. Deep tendon reflexes were equal and symmetrical. Psychiatric exam: Was essentially negative with normal mood and effect. Extremities: Trace to +1 bilateral dependent leg edema. Last 24 Hours Test 08/05/17 06:10 08/05/17 12:30 White Blood Count 3.33 K/uL Red Blood Count 3.59 M/uL Hemoglobin 10.4 g/dL Hematocrit 32.1 % Mean Corpuscular Volume 89.4 fL Mean Corpuscular Hemoglobin 29.0 pg Mean Corpuscular Hemoglobin Concent 32.4 g/dl Platelet Count 119 K/uL Mean Platelet Volume 10.9 fL RDW Standard Deviation 57.0 fL RDW Coefficient of Variation 17.3 % Neutrophils % (Manual) 55.7 % Lymphocytes % (Manual) 22.1 % Monocytes % (Manual) 9.7 % Eosinophils % (Manual) 8.0 % Basophils % (Manual) 0.9 % Metamyelocytes % 0.9 % Myelocytes % 2.7 % Neutrophils # (Manual) 1.85 K/uL Total Absolute Neutrophils 1.85 K/uL Lymphocytes # (Manual) 0.74 K/uL Total Absolute Lymphocytes 0.74 K/uL Monocytes # (Manual) 0.32 K/uL Eosinophils # (Manual) 0.27 K/uL Basophils # (Manual) 0.03 K/uL Metamyelocytes # 0.03 K/uL Myelocytes # 0.09 K/uL Blood Smear Review Toxic Granulation 1+ Toxic Vacuolation 1+ Anisocytosis PRESENT Ovalocytes 1+ Activated Partial Thromboplast Time 30.2 SECONDS Partial Thromboplastin Ratio 1.2 Sodium Level 137 mmol/L Potassium Level 3.8 mmol/L Chloride Level 105 mmol/L Carbon Dioxide Level 23 mmol/L Anion Gap 9.0 mmol/L Blood Urea Nitrogen 26 mg/dl Creatinine 1.16 mg/dl Est Creatinine Clear Calc Drug Dose 47.3 ml/min Estimated GFR () 69.5 Estimated GFR (Non- 60.0 BUN/Creatinine Ratio 22.8 Random Glucose 104 mg/dl Calcium Level 8.4 mg/dl Magnesium Level 2.1 mg/dl Assessment & Plan He remains clinically is the same or stable. Radiation therapy has begun. He will take a good 2-3 weeks for radiation therapy to take effect and hopefully help clear the left lung. A placement for care will need to take place between this hospitalization and going home.
[2017-08-05] MEDS: GUAIFENESIN 600 MG TABCR PO SCH ×2 (13:03→21:26)
[2017-08-05] MEDS: FUROSEMIDE INJ 20 MG in SYRINGE 0 ML IV SCH (17:14)
--- NOTE | 2017-08-05 19:13 | Infectious Disease Progress Nt ---
Progress Note Date of Service Aug 05, 2017. Subjective Pt evaluation today including: conversation w/ patient, physical exam, chart review, lab review, review of studies, conversation w/ educational consultant, review of inpatient medication list Patient offers no new complaints today. No increase in shortness of breath. Remains afebrile. Continues to tolerate antibiotics without apparent difficulty. All Other Systems: Reviewed and Negative Medications Current Inpatient Medications Medications (Trade) Dose Ordered Sig/Hari Route Start Time Stop Time Status Last Admin Dose Admin Acetaminophen (Tylenol Tab) 650 mg Q4H PRN PO 07/31/17 14:45 08/30/17 14:44 Al Hydrox/Mg Hydrox/Simethicone (Maalox Max Susp) 15 ml Q4H PRN PO 07/31/17 14:45 08/30/17 14:44 Magnesium Hydroxide (Milk Of Magnesia Susp) 30 ml Q12H PRN PO 07/31/17 14:45 08/30/17 14:44 Zolpidem Tartrate (Ambien Tab) 5 mg HSZ PRN PO 07/31/17 14:45 08/30/17 14:44 Zolpidem Tartrate (Ambien Tab) 5 mg HSZ PRN PO 07/31/17 14:45 08/30/17 14:44 Ondansetron HCl (Zofran Inj) 4 mg Q6H PRN IV 07/31/17 14:45 08/30/17 14:44 Lactobacillus Acidophilus (Floranex Tab) 4 tab TIDM PO 07/31/17 16:45 08/30/17 17:59 08/05/17 17:13 4 TAB Guaifenesin (Robitussin Sugar Free Syrup) 200 mg Q6H PRN PO 07/31/17 15:00 08/30/17 14:59 Levofloxacin (Consult) 1 ea UD PRN N/A 07/31/17 16:00 08/06/17 11:01 Ipratropium [place] (Atrovent 0.02% 0.5MG/2.5ML Neb) 0.5 mg Q6R INH 07/31/17 21:00 08/30/17 20:59 08/05/17 02:09 0.5 MG Levalbuterol (Xopenex 1.25MG/ 0.5ML Neb) 1.25 mg Q6R INH 07/31/17 21:00 08/30/17 20:59 08/05/17 02:09 1.25 MG Latanoprost (Xalatan Oph Soln) 1 drops HS OPB 07/31/17 21:00 08/30/17 20:59 08/04/17 20:45 1 DROPS Heparin Sodium (Porcine) (Heparin 100 Unit/ml 5ml Flush) 5 ml PRN PRN IV 08/01/17 07:45 08/31/17 07:44 08/04/17 13:22 5 ML Enteral Nutritional Formula (Boost) 1 can TIDM PO 08/02/17 07:30 09/01/17 07:29 08/05/17 17:13 1 CAN Apixaban (Eliquis Tab) 5 mg BID PO 08/02/17 22:00 09/01/17 21:59 08/05/17 07:45 5 MG Levofloxacin (Levaquin Tab) 750 mg Q2D@1100 PO 08/06/17 11:00 08/06/17 11:01 Prednisolone Acetate (Pred Forte 1% Oph Susp) 1 drops DAILY OPL 08/05/17 09:00 09/04/17 08:59 08/05/17 08:59 1 DROPS Diltiazem HCl (Cardizem Tab) 30 mg Q6H PO 08/05/17 15:00 09/03/17 13:59 08/05/17 16:09 30 MG Furosemide 20 mg/ Syringe 2 ml @ 4 mls/min BID17 IV 08/05/17 17:00 09/04/17 08:59 08/05/17 17:14 4 MLS/MIN Polyethylene (Miralax Powder Packet) 17 gm DAILY PO 08/05/17 11:45 08/30/17 14:44 Fluconazole (Diflucan Tab) 100 mg QAM PO 08/06/17 09:00 08/16/17 08:59 Doxycycline Hyclate (Vibramycin Cap) 100 mg BID PO 08/05/17 21:00 08/19/17 20:59 Guaifenesin (Mucinex Contr Rel Tab) 1,200 mg Q12 PO 08/05/17 11:45 09/04/17 11:44 08/05/17 13:03 1,200 MG Objective Vital Signs Date Time Temp Pulse Resp B/P (MAP) Pulse Ox O2 Delivery O2 Flow Rate FiO2 08/05/17 16:00 97 Nasal Cannula 4.0 08/05/17 15:43 37.4 94 24 117/56 (76) 97 Nasal Cannula 4.0 08/05/17 12:00 Nasal Cannula 4.0 08/05/17 11:15 36.6 106 22 123/56 (78) 97 Nasal Cannula 4.0 08/05/17 08:00 97 Nasal Cannula 4.0 08/05/17 07:49 37.3 116 24 106/60 (75) 97 Nasal Cannula 4.0 08/05/17 04:00 97 Nasal Cannula 3.0 08/05/17 03:07 37.1 93 23 117/58 (77) 95 Oxymask 4.0 Humidified Oxygen 08/05/17 02:10 88 20 95 Mask 4.0 08/05/17 00:00 97 Nasal Cannula 3.0 08/04/17 23:06 37.1 101 19 124/58 (80) 97 Oxymask 4.0 Humidified Oxygen 08/04/17 22:38 84 95 30 08/04/17 20:01 97 Nasal Cannula 3.0 08/04/17 19:26 89 94 30 08/04/17 19:26 89 22 95 BiPAP/CPAP 30 08/04/17 19:22 36.7 103 26 124/64 (84) 98 BiPAP Physical Exam General Appearance: WD/WN, no apparent distress Eyes: normal inspection, sclerae normal ENT: hearing grossly normal, + pertinent finding (Thrush) Neck: supple, no adenopathy, thyroid normal, trachea midline Respiratory/Chest: chest non-tender, no respiratory distress, no accessory muscle use, + rhonchi, + wheezing Cardiovascular: regular rate, rhythm, no gallop, + systolic murmur Abdomen: normal bowel sounds, non tender, soft, no organomegaly Extremities: non-tender, no calf tenderness Neurologic/Psychiatric: alert, oriented x 3 Skin: normal color, warm/dry, no rash Lymphatic: no adenopathy Laboratory Results Last 24 Hours Test 08/05/17 06:10 08/05/17 12:30 White Blood Count 3.33 K/uL Red Blood Count 3.59 M/uL Hemoglobin 10.4 g/dL Hematocrit 32.1 % Mean Corpuscular Volume 89.4 fL Mean Corpuscular Hemoglobin 29.0 pg Mean Corpuscular Hemoglobin Concent 32.4 g/dl Platelet Count 119 K/uL Mean Platelet Volume 10.9 fL RDW Standard Deviation 57.0 fL RDW Coefficient of Variation 17.3 % Neutrophils % (Manual) 55.7 % Lymphocytes % (Manual) 22.1 % Monocytes % (Manual) 9.7 % Eosinophils % (Manual) 8.0 % Basophils % (Manual) 0.9 % Metamyelocytes % 0.9 % Myelocytes % 2.7 % Neutrophils # (Manual) 1.85 K/uL Total Absolute Neutrophils 1.85 K/uL Lymphocytes # (Manual) 0.74 K/uL Total Absolute Lymphocytes 0.74 K/uL Monocytes # (Manual) 0.32 K/uL Eosinophils # (Manual) 0.27 K/uL Basophils # (Manual) 0.03 K/uL Metamyelocytes # 0.03 K/uL Myelocytes # 0.09 K/uL Blood Smear Review Toxic Granulation 1+ Toxic Vacuolation 1+ Anisocytosis PRESENT Ovalocytes 1+ Activated Partial Thromboplast Time 30.2 SECONDS Partial Thromboplastin Ratio 1.2 Sodium Level 137 mmol/L Potassium Level 3.8 mmol/L Chloride Level 105 mmol/L Carbon Dioxide Level 23 mmol/L Anion Gap 9.0 mmol/L Blood Urea Nitrogen 26 mg/dl Creatinine 1.16 mg/dl Est Creatinine Clear Calc Drug Dose 47.3 ml/min Estimated GFR () 69.5 Estimated GFR (Non- 60.0 BUN/Creatinine Ratio 22.8 Random Glucose 104 mg/dl Calcium Level 8.4 mg/dl Magnesium Level 2.1 mg/dl Assessment and Plan (1) Lymphoma 77-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 Patient appears to be slowly improving on current regimen, can likely discontinue vancomycin given negative MRSA smear. Would complete at least 7 days of therapy with levofloxacin. Will discuss with all involved. Will follow.
--- NOTE | 2017-08-05 20:13 | Progress Note ---
Subjective Date of Service: Aug 05, 2017. Subjective Pt evaluation today including: conversation w/ patient, conversation w/ family (, brother at bedside), physical exam, chart review, lab review, review of studies (peripheral smear, CTs, etc), review of inpatient medication list Pain: denies PO Intake: fair Voiding: no voiding problems tele stable overnight, in NSR he states [place] [address] [place] but no obvious tick bites no recent rashes he received radiation yesterday and again today to left chest continues with cough can't "get anything out" Problem List Medical Problems: (1) Atrial flutter Status: Acute (2) CHF (congestive heart failure) Status: Acute (3) Febrile neutropenia Status: Acute (4) Hypotension Status: Acute (5) Immunocompromised Status: Acute (6) Low back pain Status: Acute (7) PNA (pneumonia) Status: Acute (8) Sepsis Status: Acute (9) Sepsis Status: Acute (10) Spinal stenosis Status: Acute (11) UTI (urinary tract infection) Status: Acute (12) Weakness Status: Acute Review of Systems Constitutional: No fever, No chills Respiratory: + cough, No hemoptysis Cardiac: No chest pain Abdomen: No pain Objective Vital Signs Date Time Temp Pulse Resp B/P (MAP) Pulse Ox O2 Delivery O2 Flow Rate FiO2 08/05/17 16:00 97 Nasal Cannula 4.0 08/05/17 15:43 37.4 94 24 117/56 (76) 97 Nasal Cannula 4.0 08/05/17 12:00 Nasal Cannula 4.0 08/05/17 11:15 36.6 106 22 123/56 (78) 97 Nasal Cannula 4.0 08/05/17 08:00 97 Nasal Cannula 4.0 08/05/17 07:49 37.3 116 24 106/60 (75) 97 Nasal Cannula 4.0 08/05/17 04:00 97 Nasal Cannula 3.0 08/05/17 03:07 37.1 93 23 117/58 (77) 95 Oxymask 4.0 Humidified Oxygen 08/05/17 02:10 88 20 95 Mask 4.0 08/05/17 00:00 97 Nasal Cannula 3.0 08/04/17 23:06 37.1 101 19 124/58 (80) 97 Oxymask 4.0 Humidified Oxygen 08/04/17 22:38 84 95 30 08/04/17 20:01 97 Nasal Cannula 3.0 Physical Exam General Appearance: no apparent distress ENT: + pertinent finding (possible thrush on tongue) Neck: + JVD Respiratory/Chest: no respiratory distress, no accessory muscle use, + decreased breath sounds (bases), + rhonchi (occasional), + wheezing (extensive) Cardiovascular: no gallop, + systolic murmur (2/6 RUSB), + irregularly irregular Abdomen: normal bowel sounds, non tender, soft, no organomegaly Extremities: + pedal edema Neurologic/Psychiatric: alert, oriented x 3 Skin: no rash Laboratory Results Last 24 Hours Test 08/05/17 06:10 08/05/17 12:30 White Blood Count 3.33 K/uL Red Blood Count 3.59 M/uL Hemoglobin 10.4 g/dL Hematocrit 32.1 % Mean Corpuscular Volume 89.4 fL Mean Corpuscular Hemoglobin 29.0 pg Mean Corpuscular Hemoglobin Concent 32.4 g/dl Platelet Count 119 K/uL Mean Platelet Volume 10.9 fL RDW Standard Deviation 57.0 fL RDW Coefficient of Variation 17.3 % Neutrophils % (Manual) 55.7 % Lymphocytes % (Manual) 22.1 % Monocytes % (Manual) 9.7 % Eosinophils % (Manual) 8.0 % Basophils % (Manual) 0.9 % Metamyelocytes % 0.9 % Myelocytes % 2.7 % Neutrophils # (Manual) 1.85 K/uL Total Absolute Neutrophils 1.85 K/uL Lymphocytes # (Manual) 0.74 K/uL Total Absolute Lymphocytes 0.74 K/uL Monocytes # (Manual) 0.32 K/uL Eosinophils # (Manual) 0.27 K/uL Basophils # (Manual) 0.03 K/uL Metamyelocytes # 0.03 K/uL Myelocytes # 0.09 K/uL Blood Smear Review Toxic Granulation 1+ Toxic Vacuolation 1+ Anisocytosis PRESENT Ovalocytes 1+ Activated Partial Thromboplast Time 30.2 SECONDS Partial Thromboplastin Ratio 1.2 Sodium Level 137 mmol/L Potassium Level 3.8 mmol/L Chloride Level 105 mmol/L Carbon Dioxide Level 23 mmol/L Anion Gap 9.0 mmol/L Blood Urea Nitrogen 26 mg/dl Creatinine 1.16 mg/dl Est Creatinine Clear Calc Drug Dose 47.3 ml/min Estimated GFR () 69.5 Estimated GFR (Non- 60.0 BUN/Creatinine Ratio 22.8 Random Glucose 104 mg/dl Calcium Level 8.4 mg/dl Magnesium Level 2.1 mg/dl Assessment and Plan 77yo male: 1. acute hypoxic resp failure - likely multifactorial including pneumonia, COPD , worsening mass in left chest from lymphoma, +/- acute diastolic CHF. Remains on o2. Treat individual components. 2. Community acquired pneumonia, left upper lobe, likely post-obstructive - day #6 of levaquin. Plan 7-10 course. 3. acute diastolic CHF - continues to appear hypervolemic on exam. Tolerating the lasix IV -- will increase to BID dosing. Repeat cxr and BMP in am. 4. COPD with possible exacerbation - mucinex, nebs. Avoid steroids for now due to the lymphoma. 5. recurrent follicular lymphoma - appreciate heme/onc and rad onc consultations. Receiving XRT to left hilar mass c/o Dr. Zavala. 6. Severe sepsis POA, due to pneumonia - improved. 7. acute kidney injury in setting of CKD stage 2-3 - MACRINA resolved. BMP in am. 8. PAF - has been going back/forth from NSR to a. fib (or flutter). Increase diltiazem to 30mg q6h for better rate control. 9. abnormal peripheral smear - apparently there were cytoplasmic inclusions in the neutrophils on smear according to the pathologist concerning for tick-borne disease. Although I doubt he has active tick-borne infection given the time of the year and no obvious exposure I don't think it is unreasonable to send anaplasmosis and ehrlichia titers off & start doxy 100mg BID. He is aware of this incidental finding. 10. pancytopenia - likely from follicular lymphoma; CBC in am for stability. 11. DVT proph - eliquis BID. 12. need to clarify with patient if he was on prednisone at home chronically prior to admission. 13. hypothyroidism - was on synthroid 75mcg at home daily. This is not on active med list. Check TSH in am and resume meds then. 14. PT, OT - will likely need SNF for rehab 15. thrush - diflucan x 10 days. updated Continued [facility] stay due to: multiple IV medications needed, home environment unsafe for pt Discharge planning: uncertain
[2017-08-05] MEDS: LATANOPROST 0.005% OP SOLN 2.5 ML BTL OPB SCH (21:24)
[2017-08-05] MEDS: DOXYCYCLINE HYCLATE 100 MG CAP PO SCH (21:26)
[2017-08-06] VITALS (13 sets, daily range): BP systolic 90–122; BP diastolic 42–63; PULSE 82–116; TEMP 36.5–37.2; O2SAT 93–97
[2017-08-06] MEDS: IPRATROPIUM BROMIDE NEB SOLN 0.02% 2.5 ML VIAL INH SCH ×4 (01:45→19:54)
[2017-08-06] MEDS: LEVALBUTEROL 1.25MG/0.5ML NEB INH SCH ×4 (01:45→19:55)
[2017-08-06] MEDS: DILTIAZEM HCL 30 MG TAB PO SCH ×2 (04:47→09:43)
[2017-08-06 06:25] LABS: HEMATOCRIT 29.9 % (42-52); HEMOGLOBIN 9.7 g/dL (14.0-18.0); MEAN CORPUSCULAR HEMOGLOBIN 28.9 pg (25-34); MEAN CORPUSCULAR HGB CONC 32.4 g/dl (32-36); MEAN PLATELET VOLUME 10.6 fL (7.4-10.4); PLATELET COUNT 102 K/uL (130-400); RED CELL DISTRIBUTION WIDTH CV 17.4 % (11.5-14.5); RED CELL DISTRIBUTION WIDTH SD 56.6 fL (36.4-46.3); WHITE BLOOD COUNT 3.89 K/uL (4.8-10.8)
[2017-08-06 06:52] LABS: BASO % 0.8 %; BASO ABS # 0.03 K/uL (0-0.2); EOS % 7.7 %; LYMPH % 19.8 %; LYMPH ABS # 0.77 K/uL (1.2-3.4); MONO % 14.4 %; MONO ABS # 0.56 K/uL (0.11-0.59); NEUT % 49.6 %; NEUT ABS # 1.93 K/uL (1.4-6.5)
[2017-08-06 07:01] LABS: CALCIUM 8.5 mg/dl (8.5-10.1); CREATININE 1.22 mg/dl (0.60-1.40)
[2017-08-06] MEDS: BOOST VANILLA PO SCH ×3 (07:30→17:05)
--- NOTE | 2017-08-06 08:48 | DIAGNOSTIC IMAGING REPORT ---
TWO VIEW CHEST CLINICAL HISTORY: CHF. Pneumonia. FINDINGS: PA and lateral chest radiographs are compared to study dated 07/31/2017 and correlated with chest CT dated 08/02/2017. A left subclavian central venous infusion port is unchanged in position. The cardiomediastinal silhouette is unremarkable. Pulmonary vasculature is noncongested. There is atherosclerotic calcification of the thoracic aorta. Advanced emphysema and chronic interstitial thickening are similar to previous. There is airspace consolidation throughout the left lung, which has progressed from 07/31/2017. There are bilateral pleural effusions. Airspace opacities are also seen at the right lung base. A calcified granuloma is again seen in the right lower lobe. There is no pneumothorax. The skeletal structures are osteopenic. The bony thorax appears intact. Fusion hardware is noted in the lower cervical spine. IMPRESSION: 1. Advanced emphysema. 2. Airspace consolidation throughout the left lung has increased from 07/31/2017 and is most typical in appearance for pneumonia. Radiographic follow-up to resolution is recommended. 3. There are small pleural effusions which have modestly increased in size from 07/31/2017. 4. Airspace opacities are present at the right lung base. This could represent atelectasis versus pneumonia. Electronically signed by: Nnamdi Whyte M.D. 08/06/2017 8:46 AM Dictated Date/Time: 08/06/2017 8:44 AM
[2017-08-06] MEDS: POLYETHYLENE (MIRALAX) 17 GM PACK PO SCH (09:00)
[2017-08-06] MEDS: LACTOBACILLUS ACIDOPHILUS (FLORANEX) TAB PO SCH ×3 (09:42→17:05)
[2017-08-06] MEDS: FLUCONAZOLE 100 MG TAB PO SCH (09:42)
[2017-08-06] MEDS: FUROSEMIDE INJ 20 MG in SYRINGE 0 ML IV SCH (09:42)
[2017-08-06] MEDS: DOXYCYCLINE HYCLATE 100 MG CAP PO SCH ×2 (09:43→21:25)
[2017-08-06] MEDS: GUAIFENESIN 600 MG TABCR PO SCH ×2 (09:43→21:25)
[2017-08-06] MEDS: APIXABAN 2.5 MG TAB PO SCH ×2 (09:43→21:25)
[2017-08-06] MEDS: PrednisoLONE ACET 1% OP SUSP 5 ML BTL OPL SCH (09:45)
[2017-08-06] MEDS ORDERED: LEVOFLOXACIN 750 MG TAB PO SCH (11:00)
[2017-08-06] MEDS: ACETAMINOPHEN 325 MG TAB PO PRN (11:28)
--- NOTE | 2017-08-06 13:11 | Hematology/Oncology Prog Note ---
Hematology/Onc Progress Note Date of Service Aug 06, 2017. Diagnoses Progressive non-Hodgkin's lymphoma Left lung pneumonia COPD Medications Medications Administered Medications (Trade) Dose Ordered Sig/Hari Route Start Time Stop Time Status Last Admin Dose Admin Sodium Chloride 1,000 ml @ 999 mls/hr Q1H1M STAT IV 07/31/17 11:28 07/31/17 12:28 DC 07/31/17 12:02 999 MLS/HR Cefepime HCl 1000 mg/Dextrose 111 ml @ 200 mls/hr NOW STAT IV 07/31/17 11:45 07/31/17 12:18 DC 07/31/17 12:28 200 MLS/HR Levofloxacin (Levaquin / D5W) 500 mg NOW ONCE IV 07/31/17 11:45 07/31/17 11:47 DC 07/31/17 12:02 500 MG Vancomycin HCl 1500 mg/Sodium Chloride 530 ml @ 200 mls/hr ONE STAT IV 07/31/17 13:50 07/31/17 16:28 DC 07/31/17 14:22 200 MLS/HR Sodium Chloride 1,000 ml @ 30 mls/hr Q24H IV 07/31/17 14:40 08/01/17 13:28 DC 08/01/17 11:57 30 MLS/HR Acetaminophen (Tylenol Tab) 650 mg Q4H PRN PO 07/31/17 14:45 08/30/17 14:44 08/06/17 11:28 650 MG Lactobacillus Acidophilus (Floranex Tab) 4 tab TIDM PO 07/31/17 16:45 08/30/17 17:59 08/06/17 11:27 4 TAB Vancomycin HCl 1000 mg/Sodium Chloride 270 ml @ 125 mls/hr Q24H IV 08/01/17 12:00 08/03/17 14:41 DC 08/03/17 12:12 125 MLS/HR Cefepime HCl 1000 mg/Syringe 11 ml @ 5.5 mls/min Q12H IV 08/01/17 00:00 08/03/17 14:41 DC 08/03/17 14:05 5.5 MLS/MIN Levofloxacin 250 mg/Prmx 50 ml @ 50 mls/hr TODAY@1630 ONCE IV 07/31/17 16:30 07/31/17 17:29 DC 07/31/17 17:42 50 MLS/HR Levofloxacin 750 mg/Prmx 150 ml @ 100 mls/hr Q48H IV 08/02/17 11:00 08/04/17 11:34 DC 08/04/17 11:28 100 MLS/HR Ipratropium [place] (Atrovent 0.02% 0.5MG/2.5ML Neb) 0.5 mg Q6R INH 07/31/17 21:00 08/30/17 20:59 08/06/17 07:30 0.5 MG Levalbuterol (Xopenex 1.25MG/ 0.5ML Neb) 1.25 mg Q6R INH 07/31/17 21:00 08/30/17 20:59 08/06/17 07:30 1.25 MG Latanoprost (Xalatan Oph Soln) 1 drops HS OPB 07/31/17 21:00 08/30/17 20:59 08/05/17 21:24 1 DROPS Tobramycin/ Dexamethasone (Tobradex Oph Oint) 1 appln HS OPL 07/31/17 21:00 08/04/17 21:32 DC 08/03/17 19:45 1 APPLN Diltiazem HCl (Cardizem Inj) 10 mg TODAY@2130 IV 07/31/17 21:30 07/31/17 21:31 DC 07/31/17 22:24 10 MG Diltiazem HCl 125 mg/Dextrose 125 ml @ 0 mls/hr Q0M PRN IV 07/31/17 21:30 08/04/17 11:10 DC 08/04/17 01:41 15 MLS/HR Miscellaneous Information (Order Awaiting Action) 1 ea QS N/A 08/01/17 08:00 08/01/17 18:40 DC 08/01/17 15:49 1 EA Heparin Sodium (Porcine) 4000 unit/Syringe 4 ml @ 10 mls/min NOW ONCE IV 07/31/17 23:15 07/31/17 23:16 DC 07/31/17 23:42 10 MLS/MIN Heparin Sodium/ Dextrose 500 ml @ 20 mls/hr Q24H PRN IV 07/31/17 23:15 08/02/17 11:45 DC 08/01/17 17:38 20 MLS/HR Heparin Sodium (Porcine) (Heparin 100 Unit/ml 5ml Flush) 5 ml PRN PRN IV 08/01/17 07:45 08/31/17 07:44 08/04/17 13:22 5 ML Heparin Sodium (Porcine) 4500 unit/Syringe 4.5 ml @ 10 mls/min NOW ONCE IV 08/01/17 09:00 08/01/17 09:01 DC 08/01/17 09:14 10 MLS/MIN Sodium Chloride 500 ml @ 999 mls/hr Q31M STAT IV 08/01/17 13:12 08/01/17 13:42 DC 08/01/17 14:30 999 MLS/HR Sodium Chloride 1,000 ml @ 100 mls/hr Q10H IV 08/01/17 13:15 08/04/17 10:48 DC 08/03/17 20:16 100 MLS/HR Heparin Sodium (Porcine) 3000 unit/Syringe 3 ml @ 10 mls/min 1730 ONCE IV 08/01/17 17:30 08/01/17 17:31 DC 08/01/17 17:37 10 MLS/MIN Enteral Nutritional Formula (Boost) 1 can TIDM PO 08/02/17 07:30 09/01/17 07:29 08/06/17 11:26 1 CAN Neomycin/ Polymyxin/ Dexamethasone (Maxitrol Oph Susp) 1 drops Q6H OPL 08/02/17 00:00 08/04/17 21:32 DC 08/04/17 18:00 1 DROPS Menthol (Nice Eduar) 24 eduar STK-MED ONCE .ROUTE 08/01/17 21:25 08/01/17 21:26 DC 08/01/17 21:25 24 EDUAR Potassium/ Phosphorus/Sodium (Phospha 250 Neutral 155-852-130 Mg) 1 tab QID PO 08/02/17 13:00 08/02/17 21:01 DC 08/02/17 20:14 1 TAB Apixaban (Eliquis Tab) 5 mg BID PO 08/02/17 22:00 09/01/17 21:59 08/06/17 09:43 5 MG Apixaban (Eliquis Tab) 5 mg NOW ONCE PO 08/02/17 11:45 08/02/17 11:46 DC 08/02/17 13:25 5 MG Furosemide (Lasix Tab) 20 mg QAM PO 08/02/17 12:00 08/04/17 13:36 DC 08/04/17 08:55 20 MG Furosemide 20 mg/ Syringe 2 ml @ 4 mls/min NOW STAT IV 08/04/17 03:27 08/04/17 03:30 DC 08/04/17 03:27 4 MLS/MIN Furosemide 20 mg/ Syringe 2 ml @ 4 mls/min TODAY@1100 IV 08/04/17 11:00 08/04/17 11:20 DC 08/04/17 11:43 4 MLS/MIN Levofloxacin (Levaquin Tab) 750 mg Q2D@1100 PO 08/06/17 11:00 08/06/17 11:01 DC 08/06/17 09:43 750 MG Diltiazem HCl (Cardizem Tab) 30 mg TID PO 08/04/17 14:00 08/05/17 09:21 DC 08/05/17 07:45 30 MG Diltiazem HCl (Cardizem Inj) 5 mg NOW STAT IV 08/04/17 12:40 08/04/17 12:57 DC 08/04/17 13:06 5 MG Furosemide 20 mg/ Syringe 2 ml @ 4 mls/min QAM IV 08/05/17 09:00 08/05/17 11:36 DC 08/05/17 08:59 4 MLS/MIN Prednisolone Acetate (Pred Forte 1% Oph Susp) 1 drops DAILY OPL 08/05/17 09:00 09/04/17 08:59 08/06/17 09:45 1 DROPS Diltiazem HCl (Cardizem Tab) 30 mg Q6H PO 08/05/17 15:00 09/03/17 13:59 08/06/17 09:43 30 MG Furosemide 20 mg/ Syringe 2 ml @ 4 mls/min BID17 IV 08/05/17 17:00 09/04/17 08:59 08/06/17 09:42 4 MLS/MIN Fluconazole (Diflucan Tab) 100 mg QAM PO 08/06/17 09:00 08/16/17 08:59 08/06/17 09:42 100 MG Fluconazole (Diflucan Tab) 100 mg 1134 ONCE PO 08/05/17 11:34 08/05/17 11:39 DC 08/05/17 13:02 100 MG Doxycycline Hyclate (Vibramycin Cap) 100 mg BID PO 08/05/17 21:00 08/19/17 20:59 08/06/17 09:43 100 MG Guaifenesin (Mucinex Contr Rel Tab) 1,200 mg Q12 PO 08/05/17 11:45 09/04/17 11:44 08/06/17 09:43 1,200 MG Doxycycline Hyclate (Vibramycin Cap) 100 mg NOW STAT PO 08/05/17 12:50 08/05/17 12:51 DC 08/05/17 13:03 100 MG Subjective Mildly somnolent. Chest x-ray is read as being more consolidative in the left lung. He seems to be struggling more with his breathing. Review of Systems: Constitutional: Negative for weight loss, night sweats, or fever. Wakes easily. He denies any new complaints. Eyes: Negative for event change of vision ENT: Negative for epistaxis, nasal discharge, sore throat, or deafness Cardiovascular: Negative for chest pain, palpitations, dizziness, diaphoresis Respiratory: Remains short of breath as before. Gastrointestinal: Negative for diarrhea, hematemesis, melena, nausea, vomiting , or dyspepsia Integumentary (skin): Negative for rash or jaundice discoloration Genitourinary: Negative for urinary frequency, hematuria, or dysuria Neurological: Negative for weakness, seizure activity, headache, or dizziness Lymphatic/Hematologic: Negative for petechiae, bleeding or new adenopathy Musculoskeletal: Negative for new joint or back pain Allergic/Immunologic: Negative for unusual rash or pruritis. Vital Signs Vital Signs Past 12 Hours Date Time Temp Pulse Resp B/P (MAP) Pulse Ox O2 Delivery O2 Flow Rate FiO2 08/06/17 10:47 36.8 82 20 106/55 (72) 97 Nasal Cannula 3.0 08/06/17 08:00 Nasal Cannula 4.0 Humidified Oxygen 08/06/17 07:40 37.2 99 20 122/63 (82) 96 Nasal Cannula 4.0 08/06/17 07:33 103 20 97 Nasal Cannula 3.0 08/06/17 04:00 37.2 113 113/50 (71) 95 Nasal Cannula 4.0 08/06/17 04:00 95 Nasal Cannula 4.0 08/06/17 02:21 116 20 93 Nasal Cannula 3.0 Physical Exam Constitutional: vitals are stable. Eyes: Eyes are HORACE EOMI without conjuctival erythema or icterus. ENT: External examination was negative for masses. Neck: Negative for masses or palpable thyromegaly Respiratory: Lung sounds are decreased bilaterally Cardiovascular: Heart was RRR without significant murmur, gallops aoe rubs Gastrointestinal: No palpable hepatic or splenomegaly. The abdomen was soft with normal bowel sounds. Lymphatic system: there was no palpable peripheral lymphadenopathy Musculoskeletal System: The musculoskeletal system seemed concordant with age. Skin: The skin was negative for jaundice. Neurologic exam: The exam was negative for any focal findings. Deep tendon reflexes were equal and symmetrical. Psychiatric exam: Was essentially negative with normal mood and effect. Extremities: Mild edema as before dependently Assessment & Plan Radiation therapy ongoing. His background of COPD and now worsening lung function with worsening consolidation makes his situation incredibly tenuous. His who is at his bedside is well aware as to how severe the situation is. He is a full code patient currently. RT and antibiotics continue.
[2017-08-06] MEDS: DILTIAZEM HCL 60 MG TAB PO SCH ×2 (14:11→21:24)
--- NOTE | 2017-08-06 16:55 | Cardiology Follow-Up ---
Subjective Date of Service: Aug 06, 2017. Pt evaluation today including: conversation w/ patient, physical exam, lab review, review of studies, review of inpatient medication list History of Present Illness This is a 77-year-old male with a history of aortic stenosis, aortic insufficiency and coronary artery disease. He had a myocardial infarction in 1992 with a right coronary artery stent placed in [place]. He also has a history of tobacco abuse and lung disease. He has non-Hodgkin's lymphoma. On echocardiography showed normal left ventricular size and function with severe aortic stenosis (valve area 0.96 cm, mean gradient 20 mmHg). On 2015 echo showed moderate with MARGUERITE 1.6 and mean gradient 32, inconsistent with prior. Moderate AI in march. He now presents with weakness, inability to walk and bilateral lower extremity swelling. Electrocardiography showed atrial flutter with a controlled heart rate. He also had 3 days of productive cough and possibly has sepsis, he was admitted on 07/31/2017. Today he is not feeling well in general although he can't be very specific. He does not seem to have cardiovascular complaints such as shortness of breath or chest discomfort. Social History Smoking Status: Current Every Day Smoker History of Alcohol Use: No Review of Systems Respiratory: + cough, No hemoptysis Cardiac: No chest pain Medications Cardiovascular: Item Value Date Time Furosemide 20 mg/ 2 ml @ 4 mls/min 08/05/17 0900 Syringe QAM/IV Diltiazem HCl 30 mg 08/04/17 1400 (Cardizem Tab) TID/PO 08/04/17 1351 Apixaban 5 mg 08/02/17 2200 (Eliquis Tab) BID/PO 08/04/17 0854 Diltiazem HCl 60 mg 08/06/17 1500 (Cardizem Tab) Q6H/PO 08/06/17 1411 Furosemide 20 mg/ 2 ml @ 4 mls/min 08/05/17 1700 Syringe BID17/IV 08/06/17 0942 Apixaban 5 mg 08/02/17 2200 (Eliquis Tab) BID/PO 08/06/17 0943 Objective Vital Signs Past 12 Hours Date Time Temp Pulse Resp B/P (MAP) Pulse Ox O2 Delivery O2 Flow Rate FiO2 08/06/17 15:47 37.2 109 18 101/59 (73) 96 Nasal Cannula 4.0 08/06/17 14:18 110 20 97 Nasal Cannula 3.0 08/06/17 12:00 Nasal Cannula 4.0 Humidified Oxygen 08/06/17 10:47 36.8 82 20 106/55 (72) 97 Nasal Cannula 3.0 08/06/17 08:00 Nasal Cannula 4.0 Humidified Oxygen 08/06/17 07:40 37.2 99 20 122/63 (82) 96 Nasal Cannula 4.0 08/06/17 07:33 103 20 97 Nasal Cannula 3.0 Last Recorded Weight-Kilograms: 69.000 Intake & Output 8-Hour Column 08/06/17 08/07/17 08/07/17 16:00 00:00 08:00 Output Total 500 ml Balance -500 ml 24-Hour Column 08/07/17 08:00 Output Total 500 ml Balance -500 ml Physical Exam Constitutional: Level of Distress: NAD Lungs: Respiratory effort: no dyspnea, good air movement Auscultation: no wheezing, decreased breath sounds, rales/crackles on the left Cardiovascular: Heart Auscultation: RRR, no rubs, no gallops, II/ MACEY, II/ WSM Peripheral Pulses: Bruits: none appreciated Extremities: no edema Data Laboratory Results: Last 24 Hours Test 08/06/17 06:07 White Blood Count 3.89 K/uL Red Blood Count 3.36 M/uL Hemoglobin 9.7 g/dL Hematocrit 29.9 % Mean Corpuscular Volume 89.0 fL Mean Corpuscular Hemoglobin 28.9 pg Mean Corpuscular Hemoglobin Concent 32.4 g/dl Platelet Count 102 K/uL Mean Platelet Volume 10.6 fL Neutrophils (%) (Auto) 49.6 % Lymphocytes (%) (Auto) 19.8 % Monocytes (%) (Auto) 14.4 % Eosinophils (%) (Auto) 7.7 % Basophils (%) (Auto) 0.8 % Neutrophils # (Auto) 1.93 K/uL Lymphocytes # (Auto) 0.77 K/uL Monocytes # (Auto) 0.56 K/uL Eosinophils # (Auto) 0.30 K/uL Basophils # (Auto) 0.03 K/uL RDW Standard Deviation 56.6 fL RDW Coefficient of Variation 17.4 % Immature Granulocyte % (Auto) 7.7 % Immature Granulocyte # (Auto) 0.30 K/uL Toxic Granulation 1+ Toxic Vacuolation 1+ Ovalocytes 1+ Sodium Level 135 mmol/L Potassium Level 4.0 mmol/L Chloride Level 103 mmol/L Carbon Dioxide Level 25 mmol/L Anion Gap 8.0 mmol/L Blood Urea Nitrogen 32 mg/dl Creatinine 1.22 mg/dl Est Creatinine Clear Calc Drug Dose 45.0 ml/min Estimated GFR () 65.4 Estimated GFR (Non- 56.4 BUN/Creatinine Ratio 26.0 Random Glucose 101 mg/dl Calcium Level 8.5 mg/dl Thyroid Stimulating Hormone (TSH) 2.000 uIu/ml Telemetry reviewed: He remains in atrial fibrillation, his heart rate is hovering around 100. This is a little bit fast. Assessment and Plan #1. Aortic stenosis: .An echocardiogram done 08/01/2017 shows normal left ventricular size and function, normal right and a size with borderline reduced right ventricular function. Severe aortic stenosis with a valve area 0.74 cm and mean gradient of 32 mmHg. Mild to moderate aortic insufficiency. With normal left ventricular size and function this probably is not a big part of his presentation. #2. Peripheral edema: He no longer has peripheral edema and I think he is approaching a few hydrated state. I am going to discontinue his diuretic today. #3. Atrial flutter: He presented in atrial flutter, as far as I know this is a new arrhythmia, however it could only have been recently identified since he seems asymptomatic with it. It could conceivably relate to his weakness and hypotension although there seemed to be other causes. He should continue with anticoagulation if possible, he is currently on Eliquis and evidently tolerating it well. The heart rate is little bit fast but I can't go up on his medications due to his relative hypotension. Decrease the diuretic may help with that. Thank you for allowing me to participate in his care.
[2017-08-06] MEDS: DEXAMETHASONE INJ 4 MG in SYRINGE 0 ML IV SCH (17:36)
--- NOTE | 2017-08-06 18:46 | Progress Note ---
Subjective Date of Service: Aug 06, 2017. Subjective Pt evaluation today including: conversation w/ patient, conversation w/ family ( at bedside), physical exam, chart review, lab review, review of studies ( cxr), conversation w/ planning consultant (pulmonary, heme/onc), review of inpatient medication list Pain: denied during the visit PO Intake: very poor Voiding: no voiding problems tele stable but showing a. fib, rates > 100 most times, even at rest he reports ongoing dyspnea and "I don't feel any better than yesterday" continues with cough no chest pain feels "wiped out" after having XRT today confirms he has been taking 10mg of prednisone daily for about 1 year "for appetite" with multiple questions about plan of care Problem List Medical Problems: (1) Atrial flutter Status: Acute (2) CHF (congestive heart failure) Status: Acute (3) Febrile neutropenia Status: Acute (4) Hypotension Status: Acute (5) Immunocompromised Status: Acute (6) Low back pain Status: Acute (7) PNA (pneumonia) Status: Acute (8) Sepsis Status: Acute (9) Sepsis Status: Acute (10) Spinal stenosis Status: Acute (11) UTI (urinary tract infection) Status: Acute (12) Weakness Status: Acute Review of Systems Constitutional: No fever Respiratory: + cough, + wheezing, + shortness of breath, + dyspnea on exertion Cardiac: No chest pain, No orthopnea Abdomen: No pain, No nausea Objective Vital Signs Date Time Temp Pulse Resp B/P (MAP) Pulse Ox O2 Delivery O2 Flow Rate FiO2 08/06/17 15:47 37.2 109 18 101/59 (73) 96 Nasal Cannula 4.0 08/06/17 14:18 110 20 97 Nasal Cannula 3.0 08/06/17 12:00 Nasal Cannula 4.0 Humidified Oxygen 08/06/17 10:47 36.8 82 20 106/55 (72) 97 Nasal Cannula 3.0 08/06/17 08:00 Nasal Cannula 4.0 Humidified Oxygen 08/06/17 07:40 37.2 99 20 122/63 (82) 96 Nasal Cannula 4.0 08/06/17 07:33 103 20 97 Nasal Cannula 3.0 08/06/17 04:00 37.2 113 113/50 (71) 95 Nasal Cannula 4.0 08/06/17 04:00 95 Nasal Cannula 4.0 08/06/17 02:21 116 20 93 Nasal Cannula 3.0 08/06/17 00:00 95 Nasal Cannula 4.0 08/05/17 23:25 36.8 92 26 112/53 (72) 95 BiPAP 4.0 30 08/05/17 22:20 111 96 30 08/05/17 20:19 37.2 103 22 114/68 (83) 99 Nasal Cannula 4.0 08/05/17 20:00 99 Nasal Cannula 4.0 08/05/17 19:15 93 20 98 Nasal Cannula 3.0 Physical Exam General Appearance: no apparent distress, + pertinent finding (looks ill, looks tired) ENT: + pertinent finding (thrush on tongue) Neck: no JVD Respiratory/Chest: no respiratory distress, no accessory muscle use, + rhonchi (extensive, left), + wheezing (extensive, left; mild on right), + pertinent finding (course & crackly BS, particulary on left) Cardiovascular: no gallop, + tachycardia, + irregularly irregular Abdomen: normal bowel sounds, non tender, soft, no organomegaly Extremities: + pedal edema (trace b/l ) Neurologic/Psychiatric: + depressed affect Laboratory Results Last 24 Hours Test 08/06/17 06:07 White Blood Count 3.89 K/uL Red Blood Count 3.36 M/uL Hemoglobin 9.7 g/dL Hematocrit 29.9 % Mean Corpuscular Volume 89.0 fL Mean Corpuscular Hemoglobin 28.9 pg Mean Corpuscular Hemoglobin Concent 32.4 g/dl Platelet Count 102 K/uL Mean Platelet Volume 10.6 fL Neutrophils (%) (Auto) 49.6 % Lymphocytes (%) (Auto) 19.8 % Monocytes (%) (Auto) 14.4 % Eosinophils (%) (Auto) 7.7 % Basophils (%) (Auto) 0.8 % Neutrophils # (Auto) 1.93 K/uL Lymphocytes # (Auto) 0.77 K/uL Monocytes # (Auto) 0.56 K/uL Eosinophils # (Auto) 0.30 K/uL Basophils # (Auto) 0.03 K/uL RDW Standard Deviation 56.6 fL RDW Coefficient of Variation 17.4 % Immature Granulocyte % (Auto) 7.7 % Immature Granulocyte # (Auto) 0.30 K/uL Toxic Granulation 1+ Toxic Vacuolation 1+ Ovalocytes 1+ Sodium Level 135 mmol/L Potassium Level 4.0 mmol/L Chloride Level 103 mmol/L Carbon Dioxide Level 25 mmol/L Anion Gap 8.0 mmol/L Blood Urea Nitrogen 32 mg/dl Creatinine 1.22 mg/dl Est Creatinine Clear Calc Drug Dose 45.0 ml/min Estimated GFR () 65.4 Estimated GFR (Non- 56.4 BUN/Creatinine Ratio 26.0 Random Glucose 101 mg/dl Calcium Level 8.5 mg/dl Thyroid Stimulating Hormone (TSH) 2.000 uIu/ml Assessment and Plan 77yo male: 1. acute hypoxic resp failure - likely multifactorial including pneumonia, COPD , worsening mass in left chest from lymphoma, +/- acute diastolic CHF. Remains on o2. Treating individual components. 2. Community acquired pneumonia, left upper lobe, likely post-obstructive - day #7 of levaquin. ID recommended 7 days of Rx then stop. 3. acute diastolic CHF - appears to be approaching euvolemia. Would stop IV diuretics after tonight's dose. 4. COPD with exacerbation - judie dudley. Spoke with Dr. Diggs - he is ok with using steroids. He recommended decadron 4mg q12h as this may help his lymphoma as well. 5. recurrent follicular lymphoma - appreciate heme/onc and rad onc consultations. Receiving XRT to left hilar mass c/o Dr. Zavala. Very poor prognosis in light of multiple cardio-pulmonary comorbidities. 6. Severe sepsis POA, due to pneumonia - improved/stabilized. 7. acute kidney injury in setting of CKD stage 2-3 - MACRINA resolved. BMPs have been stable. 8. PAF - has been going back/forth from NSR to a. fib (or flutter). Remains in a. fib this am with poor rate control; some of the rates are likely compensatory for his lung issues. With that said will try increasing diltiazem to 60mg q6h for rate goal of low 100s. Cardiology following; recs appreciated. 9. abnormal peripheral smear - apparently there were cytoplasmic inclusions in the neutrophils on smear according to the pathologist concerning for tick-borne disease. Although I doubt he has active tick-borne infection given the time of the year and no obvious exposure I don't think it is unreasonable to send anaplasmosis and ehrlichia titers off & start doxy 100mg BID. He is aware of this incidental finding. 10. pancytopenia - likely from follicular lymphoma; CBC today is acceptable. 11. DVT proph - eliquis BID. 12. 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 Gupta from pulmonary; unsure if he is candidate for stenting of the left main. Formal consult placed. 13. hypothyroidism - TSH compensated; continue synthroid 75mcg. 14. thrush - diflucan x 10 days. Day #2 today. updated once again at bedside prognosis is very poor and we need to discuss code status in light of the above Continued [facility] stay due to: multiple IV medications needed, home environment unsafe for pt Discharge planning: uncertain
[2017-08-06] MEDS ORDERED: DORNASE ALFA 2.5 ML AMP INH ONE (21:01)
--- NOTE | 2017-08-06 21:01 | Pulmonary Consultation ---
History General Date of Service: Aug 06, 2017. Stated Complaint: Left upper lobe pneumonia multiple subsegmental atelectasis HPI The patient is a 77 year old male who presents to [facility] with complaints of Pneumonia. The patient's primary care provider is Harry Ovalle M.D.. The patient is a 77-year-old male admitted on 07/31/2017 for progressive weakness productive cough noted to have a left upper lobe subsegmental atelectasis with possible post obstructive pneumonia started on antibiotics and undergoing external beam radiation for tumor debulking. He has a PmHx: Which is significant for stage IV follicular lymphoma/recurrence, moderate COPD with an FEV1 of 63%, hypertension, moderate aortic stenosis and chronic kidney disease. The patient has had a tenuous hospital course but has been slowly improving with overall improving renal function, pulmonary function with decreasing FiO2 requirements and volume control. Patient notes over the last 48 hours he has had decreasing work of breathing/tachypnea and increased sputum expectoration. Prior to that he was having difficulty with sputum expectoration. He currently denies: Active cardiac chest pain, fever, chills or pleurisy. Current workup WBC: 3.89 H/H: 05/25 Platelet: 102K aPTT: 30.2 INR: 1.1 PT: 12.0 BUN: 32 Cr: 1.22 Legionella urine antigen: Not detected Influenza evaluation: Negative CXR 08/06/2017: Shows increasing left-sided infiltrate CT thorax 08/02/2017 compared to 07/09/2017: Increasing left upper lobe consolidation and hilar mass Echocardiogram 08/01/2017 LV: EF=60-65%, LVH RV: Systolic for infection borderline reduced Atria: Within normal limits Lipomatous hypertrophy of interatrial septum is noted AV: Moderate to severe aortic stenosis/mild to moderate aortic regurgitation Normal right atrial pressure PASP: 36 mmHg Microbiology Expectorated sputum 07/31/2017: Normal opal Blood 07/31/2017 x2: No growth Throat culture 07/31/2017: Negative for group a beta strep MRSA nasal swab 08/03/2017: Negative Current medications 1.Dexamethasone 4 mg IV q.12 2.Diflucan 100 mg q.day 3.Doxycycline 100 mg p.o. b.i.d. 4.Mucinex 1200 mg b.i.d. 5.Eliquis 5 mg b.i.d. 6.Xopenex/Atrovent nebulizer 7.Guaifenesin 200 mg Q 6 p.r.n. Previous workup Pulmonary function studies 07/04/2015 Pre post FEV1/FVC 56 61 FEV1 1.24/59% 1.33/63% FVC 2.22/82% 2.18/80% VC 2.22/82% TLC 4.84/97% RV/TLC > 54 DLCO 42% DL/VA 57% Previous microbiology history Urine 07/25/2015: Coag-negative staph oxacillin resistant Urine 08/28/2015: MRSA Urine 04/11/2016: Pansensitive Enterococcus faecalis Urine 04/15/2016: Pansensitive Enterococcus faecalis Urine 06/30/2016: MRSA PmHx: 1. Anemia 2. Benign neoplasm of colon 3. Benign prostatic hyperplasia with urinary obstruction 4. Coronary arteriosclerosis 5. Degenerative cervical spinal stenosis 6. Essential hypertension, benign 7. Gastroduodenitis 8. Glaucoma 9. Hemorrhoids 10. Hernia, diaphragmatic 11. Hyperlipidemia 12. Idiopathic polyneuropathy 13. Lumbosacral stenosis 14. Malignant pleural effusion 15. Non-Hodgkin's lymphoma 16. Oral thrush 17. Pancytopenia 18. Pulmonary emphysema 19. Tobacco use disorder Surgical History 1. Biopsy Lymph Node 2. Cath Stent Placement 3. Cervical Vertebral Fusion 4. Lung Surgery Insertion Of Tunnel Pleural Catheter With Cuff Family History 1. cardiac disorder 2. cerebrovascular disorder 3. deep venous thrombosis 4. diabetes mellitus 5. essential hypertension 6. hyperlipidemia Social History ? Current every day smoker ? Denies alcohol consumption ? ? No drug use ? Retired Outpatient Meds 1. Fluconazole 100 MG Oral Tablet; TAKE 1 TABLET DAILY DIRECTED; 2. Anoro Ellipta 62.5-25 MCG/INH Inhalation Aerosol Powder Breath Activated; INHALE 1 PUFFS Daily; 3. Spiriva HandiHaler 18 MCG Inhalation Capsule; INHALE CONTENTS OF 1 CAPSUL 4. Trimethoprim 100 MG Oral Tablet; TAKE 1 TABLET Bedtime; 5. Aspirin 81 MG TABS; TAKE 1 TABLET DAILY; 6. Calcium + D3 600-200 MG-UNIT Oral Tablet; TAKE 1 TABLET DAILY; 7. Finasteride 5 MG Oral Tablet; TAKE 1 TABLET DAILY; 8. Ibuprofen 200 MG Oral Tablet; TAKE 2 TABLETS TWICE DAILY NEEDED; 9. Levoxyl 75 MCG Oral Tablet; TAKE 1 TABLET DAILY; 10. Nitrostat 0.4 MG Sublingual Tablet Sublingual; PLACE 1 TABLET UNDER THE TONGUE EVERY 5 MINUTES UP TO 3 DOSES NEEDED FOR CHEST PAIN; 11. PredniSONE 10 MG Oral Tablet; Take 1 daily; 12. Simvastatin 40 MG Oral Tablet; TAKE 1/2 TABLET DAILY; 13. TH Vitamin C 500 MG TABS; 14. Vitamin B-12 500 MCG Oral Tablet; TAKE 1 TABLET DAILY; 15. Zantac 150 MG Oral Tablet; TAKE 1 TABLET AT BEDTIME Allergies 1. gabapentin Historian: patient, caregiver, EMS Review of Systems Constitutional: reports: weakness Eyes: reports: no symptoms ENT: reports: no symptoms Cardiovascular: reports: as stated in HPI Respiratory: reports: as stated in HPI Gastrointestinal: reports: no symptoms Genitourinary - Male: reports: other ([place] catheter in place is mildly uncomfortable per the patient) Musculoskeletal: reports: myalgias Integumentary: reports: no symptoms Neurologic: reports: no symptoms Psychiatric: reports: anxiety Endocrine: no symptoms Hematologic / Lymphatic: easy bleeding, easy bruising Allergic / Immunologic: no symptoms Past Medical History Past Medical History: Please refer to HPI Past Medical History: BPH, cancer - lymphoma, hypertension, other Past Surgical History: Please refer to HPI Past Surgical History: angioplasty with stent, cardiac catheterization, spinal surgery, other Family History Patient reports no known family medical history. Please refer to HPI Social History Please refer to HPI Hx Tobacco Use In Past Year?: Yes (1 ppd x 50 years) Smoking Status: Current Every Day Smoker Alcohol: history of alcohol abuse Marital status: Housing status: lives with family Occupational Status: retired Immunizations History of Influenza Vaccine: Yes Influenza Vaccine Date: Jun 29, 2015 History of Tetanus Vaccine?: No History of Pneumococcal: Yes Pneumococcal Date: Jun 26, 2015 History of Hepatitis B Vaccine: Unknown History of MDRO History of MDRO: Yes Type of MDRO: MRSA Allergies Coded Allergies: Gabapentin (Verified Adverse Reaction, Intermediate, unknown, 07/31/17) Patient's stated patient "developed signs of a heart attack w/ use of gabapentin". Current Medications Reported Home Medications Medications Dose Route/Sig Max Daily Dose Days Date Category Xalatan 0.005% Oph Charu (Latanoprost) 0.005 % Charu 1 Drops OPB HS 07/31/17 Reported Maxitrol Oph (Neomycin/Polymyxin/Dexamethasone) Susp Drops OPL QID 07/31/17 Reported Tobradex 0.3% Oph (Tobramycin/Dexamethasone) Susp MS HS 07/31/17 Reported Nitrostat (Nitroglycerin) 0.4 Mg Tab 0.4 Mg UT PRN 07/31/17 Reported Ascorbic Acid 500 Mg Tab 500 Mg PO DAILY 07/31/17 Reported Zantac (Ranitidine HCl) 150 Mg Tab 150 Mg PO HS 07/31/17 Reported Proloprim (Trimethoprim) 100 Mg Tab 100 Mg PO HS 07/31/17 Reported Vitamin B-12 (Cyanocobalamin) 500 Mcg Tab 500 Mcg PO DAILY 07/31/17 Reported Zocor (Simvastatin) 40 Mg Tab 40 Mg PO QPM 07/31/17 Reported Prednisone 10 Mg Tab 10 Mg PO DAILY 07/31/17 Reported Levothyroxine Sodium 75 Mcg Tab 1 Tab PO DAILY 07/31/17 Reported Proscar (Finasteride) 5 Mg Tab 5 Mg PO DAILY 07/31/17 Reported Calcium Plus Vitamin D3 (Calcium Carbonate-Cholecalcife) 1 Cap Cap 1 Cap PO DAILY 07/31/17 Reported Aspirin Ec (Aspirin) 81 Mg Tab 81 Mg PO DAILY 07/31/17 Reported Anoro Ellipta 62.5-25 Mcg/INH (Umeclidinium-Vilanterol) 1 Aer Aer 1 Puff INH DAILY 07/31/17 Reported Physical Physical Exam Vital Signs: Date Time Temp Pulse Resp B/P (MAP) Pulse Ox O2 Delivery O2 Flow Rate FiO2 08/06/17 19:55 97 20 96 Nasal Cannula 3.0 08/06/17 19:48 37.2 109 22 105/62 (76) 97 Nasal Cannula 4.0 08/06/17 16:00 96 Nasal Cannula 4.0 08/06/17 15:47 37.2 109 18 101/59 (73) 96 Nasal Cannula 4.0 08/06/17 14:18 110 20 97 Nasal Cannula 3.0 08/06/17 12:00 Nasal Cannula 4.0 Humidified Oxygen 08/06/17 10:47 36.8 82 20 106/55 (72) 97 Nasal Cannula 3.0 08/06/17 08:00 Nasal Cannula 4.0 Humidified Oxygen 08/06/17 07:40 37.2 99 20 122/63 (82) 96 Nasal Cannula 4.0 08/06/17 07:33 103 20 97 Nasal Cannula 3.0 08/06/17 04:00 37.2 113 113/50 (71) 95 Nasal Cannula 4.0 08/06/17 04:00 95 Nasal Cannula 4.0 08/06/17 02:21 116 20 93 Nasal Cannula 3.0 08/06/17 00:00 95 Nasal Cannula 4.0 08/05/17 23:25 36.8 92 26 112/53 (72) 95 BiPAP 4.0 30 08/05/17 22:20 111 96 30 General Appearance: uncomfortable, mild distress Head: NORMOCEPHALIC, ATRAUMATIC Eyes: PERRLA, NO DISCHARGE, EOMI, SCLERAE NORMAL ENT: NORMAL EAR EXAM, NORMAL NASAL EXAM, other (Oral thrush) Neck: NORMAL RANGE OF MOTION, SUPPLE Respiratory: other (Rhonchi bilaterally notably decreased breath sounds and dullness to percussion in the left apex, left apical chest wall port axis noted no signs of breakdown her erythema) Cardiovasular: irregular rate, systolic murmur (2/6 best appreciated left upper sternal border) Abdomen: other (Mildly tender to deep palpation but no rebound appreciated) Genitourinary - Male: EXTERNAL GENITALIA NORMAL Back: NORMAL INSPECTION, NO MIDLINE TENDERNESS Upper Extremities: NO EDEMA, NO DEFORMITY, other Lower Extremities: NO EDEMA, NO DEFORMITY, other (Mild dependent edema noted) Pulses: carotid (R) (1+), carotid (L) (1+) Neuro: ALERT, ORIENTED x 3 Reflexes: biceps (R) (1+), bicpes (L) (1+), patellar (R) (1+), patellar (L) (1+ ) Babinski Testing: right (downgoing), left (downgoing) Psychiatric: NORMAL AFFECT, NO SUICIDAL IDEATION Diagnostics Labs Results Past 24 Hours Test 08/06/17 06:07 Range/Units White Blood Count 3.89 4.8-10.8 K/uL Red Blood Count 3.36 4.7-6.1 M/uL Hemoglobin 9.7 14.0-18.0 g/dL Hematocrit 29.9 42-52 % Mean Corpuscular Volume 89.0 80-100 fL Mean Corpuscular Hemoglobin 28.9 25-34 pg Mean Corpuscular Hemoglobin Concent 32.4 32-36 g/dl Platelet Count 102 130-400 K/uL Mean Platelet Volume 10.6 7.4-10.4 fL Neutrophils (%) (Auto) 49.6 % Lymphocytes (%) (Auto) 19.8 % Monocytes (%) (Auto) 14.4 % Eosinophils (%) (Auto) 7.7 % Basophils (%) (Auto) 0.8 % Neutrophils # (Auto) 1.93 1.4-6.5 K/uL Lymphocytes # (Auto) 0.77 1.2-3.4 K/uL Monocytes # (Auto) 0.56 0.11-0.59 K/uL Eosinophils # (Auto) 0.30 0-0.5 K/uL Basophils # (Auto) 0.03 0-0.2 K/uL RDW Standard Deviation 56.6 36.4-46.3 fL RDW Coefficient of Variation 17.4 11.5-14.5 % Immature Granulocyte % (Auto) 7.7 % Immature Granulocyte # (Auto) 0.30 0.00-0.02 K/uL Toxic Granulation 1+ Toxic Vacuolation 1+ Ovalocytes 1+ Sodium Level 135 136-145 mmol/L Potassium Level 4.0 3.5-5.1 mmol/L Chloride Level 103 98-107 mmol/L Carbon Dioxide Level 25 21-32 mmol/L Anion Gap 8.0 3-11 mmol/L Blood Urea Nitrogen 32 7-18 mg/dl Creatinine 1.22 0.60-1.40 mg/dl Est Creatinine Clear Calc Drug Dose 45.0 ml/min Estimated GFR () 65.4 Estimated GFR (Non- 56.4 BUN/Creatinine Ratio 26.0 10-20 Random Glucose 101 70-99 mg/dl Calcium Level 8.5 8.5-10.1 mg/dl Thyroid Stimulating Hormone (TSH) 2.000 0.300-4.500 uIu/ml Diagnostic Radiology Please refer to HPI EKG Normal sinus rhythm with premature ventricular contractions noted Impression Assessment and Plan 77-year-old gentleman with subsegmental left upper lobe atelectasis possible postobstructive pneumonia: 1. Pneumonia: At this time the patient does appear to be slowly responding to his current therapy. I would like to add on dornase as well as vest physiotherapy. I have discussed this with the patient and he agrees. I do not believe any acute bronchoscopic intervention should be performed at this time as the patient does appear to be clinically improving and he is notably weak and at increased risk for respiratory insufficiency/failure during conscious sedation/bronchoscopic intubation. At this time I do believe the patient should be clinically monitored and the pulmonary team reconsulted if the patient notably decompensates. Thank you very much for this consultation.
[2017-08-06] MEDS: LATANOPROST 0.005% OP SOLN 2.5 ML BTL OPB SCH (21:23)
[2017-08-07] VITALS (16 sets, daily range): BP systolic 81–147; BP diastolic 36–77; PULSE 80–115; TEMP 36.4–36.6; O2SAT 94–98
[2017-08-07] MEDS: LEVALBUTEROL 1.25MG/0.5ML NEB INH SCH ×4 (01:10→19:30)
[2017-08-07] MEDS: IPRATROPIUM BROMIDE NEB SOLN 0.02% 2.5 ML VIAL INH SCH ×4 (01:10→19:30)
[2017-08-07] MEDS: DILTIAZEM HCL 60 MG TAB PO SCH ×4 (03:00→21:21)
[2017-08-07] MEDS: LEVOTHYROXINE 75 MCG TAB PO SCH (06:33)
[2017-08-07] MEDS: DEXAMETHASONE INJ 4 MG in SYRINGE 0 ML IV SCH ×2 (06:34→17:42)
[2017-08-07 06:35] LABS: HEMATOCRIT 29.1 % (42-52); HEMOGLOBIN 9.3 g/dL (14.0-18.0); MEAN CELL VOLUME 88.7 fL (80-100); MEAN CORPUSCULAR HEMOGLOBIN 28.4 pg (25-34); MEAN PLATELET VOLUME 10.9 fL (7.4-10.4); PLATELET COUNT 106 K/uL (130-400); RED CELL DISTRIBUTION WIDTH CV 17.1 % (11.5-14.5); RED CELL DISTRIBUTION WIDTH SD 56.1 fL (36.4-46.3); WHITE BLOOD COUNT 2.83 K/uL (4.8-10.8)
[2017-08-07 07:07] LABS: CALCIUM 8.8 mg/dl (8.5-10.1); CREATININE 1.49 mg/dl (0.60-1.40); POTASSIUM 4.7 mmol/L (3.5-5.1)
[2017-08-07] MEDS: DORNASE ALFA 2.5 ML AMP INH SCH ×2 (07:24→19:30)
[2017-08-07] MEDS: PrednisoLONE ACET 1% OP SUSP 5 ML BTL OPL SCH (07:45)
[2017-08-07] MEDS: GUAIFENESIN 600 MG TABCR PO SCH ×2 (07:46→21:22)
[2017-08-07] MEDS: LACTOBACILLUS ACIDOPHILUS (FLORANEX) TAB PO SCH ×3 (07:47→16:54)
[2017-08-07] MEDS: POLYETHYLENE (MIRALAX) 17 GM PACK PO SCH (07:49)
[2017-08-07] MEDS: APIXABAN 2.5 MG TAB PO SCH ×2 (07:49→21:21)
[2017-08-07] MEDS: DOXYCYCLINE HYCLATE 100 MG CAP PO SCH ×2 (07:49→21:22)
[2017-08-07] MEDS: FLUCONAZOLE 100 MG TAB PO SCH (07:49)
[2017-08-07] MEDS: BOOST VANILLA PO SCH ×3 (07:50→16:53)
--- NOTE | 2017-08-07 10:43 | Hematology/Oncology Prog Note ---
Hematology/Onc Progress Note Date of Service Aug 07, 2017. Diagnoses Progressive non-Hodgkin's lymphoma Left lung pneumonia COPD Medications Medications Administered Medications (Trade) Dose Ordered Sig/Hari Route Start Time Stop Time Status Last Admin Dose Admin Sodium Chloride 1,000 ml @ 999 mls/hr Q1H1M STAT IV 07/31/17 11:28 07/31/17 12:28 DC 07/31/17 12:02 999 MLS/HR Cefepime HCl 1000 mg/Dextrose 111 ml @ 200 mls/hr NOW STAT IV 07/31/17 11:45 07/31/17 12:18 DC 07/31/17 12:28 200 MLS/HR Levofloxacin (Levaquin / D5W) 500 mg NOW ONCE IV 07/31/17 11:45 07/31/17 11:47 DC 07/31/17 12:02 500 MG Vancomycin HCl 1500 mg/Sodium Chloride 530 ml @ 200 mls/hr ONE STAT IV 07/31/17 13:50 07/31/17 16:28 DC 07/31/17 14:22 200 MLS/HR Sodium Chloride 1,000 ml @ 30 mls/hr Q24H IV 07/31/17 14:40 08/01/17 13:28 DC 08/01/17 11:57 30 MLS/HR Acetaminophen (Tylenol Tab) 650 mg Q4H PRN PO 07/31/17 14:45 08/30/17 14:44 08/06/17 11:28 650 MG Lactobacillus Acidophilus (Floranex Tab) 4 tab TIDM PO 07/31/17 16:45 08/30/17 17:59 08/07/17 07:47 4 TAB Vancomycin HCl 1000 mg/Sodium Chloride 270 ml @ 125 mls/hr Q24H IV 08/01/17 12:00 08/03/17 14:41 DC 08/03/17 12:12 125 MLS/HR Cefepime HCl 1000 mg/Syringe 11 ml @ 5.5 mls/min Q12H IV 08/01/17 00:00 08/03/17 14:41 DC 08/03/17 14:05 5.5 MLS/MIN Levofloxacin 250 mg/Prmx 50 ml @ 50 mls/hr TODAY@1630 ONCE IV 07/31/17 16:30 07/31/17 17:29 DC 07/31/17 17:42 50 MLS/HR Levofloxacin 750 mg/Prmx 150 ml @ 100 mls/hr Q48H IV 08/02/17 11:00 08/04/17 11:34 DC 08/04/17 11:28 100 MLS/HR Ipratropium [place] (Atrovent 0.02% 0.5MG/2.5ML Neb) 0.5 mg Q6R INH 07/31/17 21:00 08/30/17 20:59 08/07/17 07:13 0.5 MG Levalbuterol (Xopenex 1.25MG/ 0.5ML Neb) 1.25 mg Q6R INH 07/31/17 21:00 08/30/17 20:59 08/07/17 07:13 1.25 MG Latanoprost (Xalatan Oph Soln) 1 drops HS OPB 07/31/17 21:00 08/30/17 20:59 08/06/17 21:23 1 DROPS Tobramycin/ Dexamethasone (Tobradex Oph Oint) 1 appln HS OPL 07/31/17 21:00 08/04/17 21:32 DC 08/03/17 19:45 1 APPLN Diltiazem HCl (Cardizem Inj) 10 mg TODAY@2130 IV 07/31/17 21:30 07/31/17 21:31 DC 07/31/17 22:24 10 MG Diltiazem HCl 125 mg/Dextrose 125 ml @ 0 mls/hr Q0M PRN IV 07/31/17 21:30 08/04/17 11:10 DC 08/04/17 01:41 15 MLS/HR Miscellaneous Information (Order Awaiting Action) 1 ea QS N/A 08/01/17 08:00 08/01/17 18:40 DC 08/01/17 15:49 1 EA Heparin Sodium (Porcine) 4000 unit/Syringe 4 ml @ 10 mls/min NOW ONCE IV 07/31/17 23:15 07/31/17 23:16 DC 07/31/17 23:42 10 MLS/MIN Heparin Sodium/ Dextrose 500 ml @ 20 mls/hr Q24H PRN IV 07/31/17 23:15 08/02/17 11:45 DC 08/01/17 17:38 20 MLS/HR Heparin Sodium (Porcine) (Heparin 100 Unit/ml 5ml Flush) 5 ml PRN PRN IV 08/01/17 07:45 08/31/17 07:44 08/04/17 13:22 5 ML Heparin Sodium (Porcine) 4500 unit/Syringe 4.5 ml @ 10 mls/min NOW ONCE IV 08/01/17 09:00 08/01/17 09:01 DC 08/01/17 09:14 10 MLS/MIN Sodium Chloride 500 ml @ 999 mls/hr Q31M STAT IV 08/01/17 13:12 08/01/17 13:42 DC 08/01/17 14:30 999 MLS/HR Sodium Chloride 1,000 ml @ 100 mls/hr Q10H IV 08/01/17 13:15 08/04/17 10:48 DC 08/03/17 20:16 100 MLS/HR Heparin Sodium (Porcine) 3000 unit/Syringe 3 ml @ 10 mls/min 1730 ONCE IV 08/01/17 17:30 08/01/17 17:31 DC 08/01/17 17:37 10 MLS/MIN Enteral Nutritional Formula (Boost) 1 can TIDM PO 08/02/17 07:30 09/01/17 07:29 08/07/17 07:50 1 CAN Neomycin/ Polymyxin/ Dexamethasone (Maxitrol Oph Susp) 1 drops Q6H OPL 08/02/17 00:00 08/04/17 21:32 DC 08/04/17 18:00 1 DROPS Menthol (Nice Eduar) 24 eduar STK-MED ONCE .ROUTE 08/01/17 21:25 08/01/17 21:26 DC 08/01/17 21:25 24 EDUAR Potassium/ Phosphorus/Sodium (Phospha 250 Neutral 155-852-130 Mg) 1 tab QID PO 08/02/17 13:00 08/02/17 21:01 DC 08/02/17 20:14 1 TAB Apixaban (Eliquis Tab) 5 mg BID PO 08/02/17 22:00 09/01/17 21:59 08/07/17 07:49 5 MG Apixaban (Eliquis Tab) 5 mg NOW ONCE PO 08/02/17 11:45 08/02/17 11:46 DC 08/02/17 13:25 5 MG Furosemide (Lasix Tab) 20 mg QAM PO 08/02/17 12:00 08/04/17 13:36 DC 08/04/17 08:55 20 MG Furosemide 20 mg/ Syringe 2 ml @ 4 mls/min NOW STAT IV 08/04/17 03:27 08/04/17 03:30 DC 08/04/17 03:27 4 MLS/MIN Furosemide 20 mg/ Syringe 2 ml @ 4 mls/min TODAY@1100 IV 08/04/17 11:00 08/04/17 11:20 DC 08/04/17 11:43 4 MLS/MIN Levofloxacin (Levaquin Tab) 750 mg Q2D@1100 PO 08/06/17 11:00 08/06/17 11:01 DC 08/06/17 09:43 750 MG Diltiazem HCl (Cardizem Tab) 30 mg TID PO 08/04/17 14:00 08/05/17 09:21 DC 08/05/17 07:45 30 MG Diltiazem HCl (Cardizem Inj) 5 mg NOW STAT IV 08/04/17 12:40 08/04/17 12:57 DC 08/04/17 13:06 5 MG Furosemide 20 mg/ Syringe 2 ml @ 4 mls/min QAM IV 08/05/17 09:00 08/05/17 11:36 DC 08/05/17 08:59 4 MLS/MIN Prednisolone Acetate (Pred Forte 1% Oph Susp) 1 drops DAILY OPL 08/05/17 09:00 09/04/17 08:59 08/07/17 07:45 1 DROPS Diltiazem HCl (Cardizem Tab) 30 mg Q6H PO 08/05/17 15:00 08/06/17 13:17 DC 08/06/17 09:43 30 MG Furosemide 20 mg/ Syringe 2 ml @ 4 mls/min BID17 IV 08/05/17 17:00 08/06/17 16:55 DC 08/06/17 09:42 4 MLS/MIN Fluconazole (Diflucan Tab) 100 mg QAM PO 08/06/17 09:00 08/16/17 08:59 08/07/17 07:49 100 MG Fluconazole (Diflucan Tab) 100 mg 1134 ONCE PO 08/05/17 11:34 08/05/17 11:39 DC 08/05/17 13:02 100 MG Doxycycline Hyclate (Vibramycin Cap) 100 mg BID PO 08/05/17 21:00 08/19/17 20:59 08/07/17 07:49 100 MG Guaifenesin (Mucinex Contr Rel Tab) 1,200 mg Q12 PO 08/05/17 11:45 09/04/17 11:44 08/07/17 07:46 1,200 MG Doxycycline Hyclate (Vibramycin Cap) 100 mg NOW STAT PO 08/05/17 12:50 08/05/17 12:51 DC 08/05/17 13:03 100 MG Diltiazem HCl (Cardizem Tab) 60 mg Q6H PO 08/06/17 15:00 09/03/17 13:59 08/07/17 07:47 60 MG Prednisone (PredniSONE TAB) 10 mg NOW ONCE PO 08/06/17 13:30 08/06/17 15:25 DC 08/06/17 14:09 10 MG Dexamethasone Sodium Phosphate 4 mg/Syringe 1 ml @ 1 mls/min Q12H IV 08/06/17 18:00 09/05/17 17:59 08/07/17 06:34 1 MLS/MIN Levothyroxine Sodium (Synthroid Tab) 75 mcg DAILYBB PO 08/07/17 06:00 09/06/17 05:59 08/07/17 06:33 75 MCG Dornase Jeramie (Pulmozyme Inhalation Soln 2.5ml Amp) 2.5 ml BIDR INH 08/07/17 08:00 08/10/17 07:59 08/07/17 07:24 2.5 ML Subjective He is back from radiation therapy much more alert today. Really offers no new symptoms. He now has a cough that seems productive of purulent sputum Review of Systems: Constitutional: Negative for night sweats, or fever Eyes: Negative for event change of vision ENT: Negative for epistaxis, nasal discharge, sore throat, or deafness Cardiovascular: Negative for chest pain, palpitations, dizziness, diaphoresis Respiratory: Negative for worsening shortness of breath,hemoptysis, Gastrointestinal: Negative for diarrhea, hematemesis, melena, nausea, vomiting , or dyspepsia Integumentary (skin): Negative for rash or jaundice discoloration Neurological: Negative for weakness, seizure activity, headache, or dizziness Lymphatic/Hematologic: Negative for petechiae, bleeding or new adenopathy Musculoskeletal: Negative for new joint or back pain Allergic/Immunologic: Negative for unusual rash or pruritis. Vital Signs Vital Signs Past 12 Hours Date Time Temp Pulse Resp B/P (MAP) Pulse Ox O2 Delivery O2 Flow Rate FiO2 08/07/17 07:50 36.6 115 20 100/61 (74) 96 Nasal Cannula 3.0 08/07/17 07:36 87 18 97 Nasal Cannula 3.0 08/07/17 07:32 90 18 97 Nasal Cannula 3.0 08/07/17 04:00 94 Nasal Cannula 4.0 08/07/17 04:00 36.4 111 93/50 (64) 94 4.0 08/07/17 03:39 93/50 (64) 08/07/17 01:12 104 18 96 Nasal Cannula 4.0 08/07/17 00:00 95 Nasal Cannula 4.0 08/06/17 23:06 36.5 99 20 91/45 (60) 95 Nasal Cannula 4.0 90/42 (58) Physical Exam Constitutional: vitals are stable. Alert and oriented Eyes: Eyes are HORACE EOMI without conjuctival erythema or icterus. ENT: External examination was negative for masses. Neck: Negative for masses or palpable thyromegaly Respiratory: Lung sounds were generally decreased today but air sounds are readily heard now in the left lung where it had been fairly silent. There are also rales heard on the left side Cardiovascular: Heart was IRRR as before Gastrointestinal: No palpable hepatic or splenomegaly. The abdomen was soft with normal bowel sounds. Lymphatic system: there was no palpable peripheral lymphadenopathy Musculoskeletal System: The musculoskeletal system seemed concordant with age. Skin: The skin was negative for jaundice. Neurologic exam: The exam was negative for any focal findings. Deep tendon reflexes were equal and symmetrical. Psychiatric exam: Was essentially negative with normal mood and effect. Extremities: negative for significant edema Laboratory Last 24 Hours Test 08/07/17 06:03 White Blood Count 2.83 K/uL Red Blood Count 3.28 M/uL Hemoglobin 9.3 g/dL Hematocrit 29.1 % Mean Corpuscular Volume 88.7 fL Mean Corpuscular Hemoglobin 28.4 pg Mean Corpuscular Hemoglobin Concent 32.0 g/dl RDW Standard Deviation 56.1 fL RDW Coefficient of Variation 17.1 % Platelet Count 106 K/uL Mean Platelet Volume 10.9 fL Sodium Level 132 mmol/L Potassium Level 4.7 mmol/L Chloride Level 102 mmol/L Carbon Dioxide Level 23 mmol/L Anion Gap 7.0 mmol/L Blood Urea Nitrogen 42 mg/dl Creatinine 1.49 mg/dl Est Creatinine Clear Calc Drug Dose 36.9 ml/min Estimated GFR () 51.4 Estimated GFR (Non- 44.3 BUN/Creatinine Ratio 27.9 Random Glucose 141 mg/dl Calcium Level 8.8 mg/dl Magnesium Level 2.5 mg/dl Assessment & Plan Radiation therapy ongoing. He seems much brighter today and hopefully the steroids and radiation therapy are now helping. Also he describes coughing up quite a bit of phlegm. Today we did have a discussion and reviewed his resuscitation wishes. He would like to maintain a full code resuscitation. This conversation was carried out the presence of his son and . He seems stable. No other suggestions from our service at this time. Appreciate Dr. Galarza's care.
--- NOTE | 2017-08-07 18:43 | Progress Note ---
Subjective Date of Service: Aug 07, 2017. Subjective Pt evaluation today including: conversation w/ patient, conversation w/ family (, son at bedside), physical exam, chart review, lab review, conversation w / databases computer consultant (heme/onc, pathology), review of inpatient medication list Pain: none during my visit PO Intake: a little better today Voiding: carter catheter in place tele - a. fib rates improved overnight 90s to low 100s at rest with occasional higher readings he overall feels better today with more energy cough/breathing also seem better Problem List Medical Problems: (1) Atrial flutter Status: Acute (2) CHF (congestive heart failure) Status: Acute (3) Febrile neutropenia Status: Acute (4) Hypotension Status: Acute (5) Immunocompromised Status: Acute (6) Low back pain Status: Acute (7) PNA (pneumonia) Status: Acute (8) Sepsis Status: Acute (9) Sepsis Status: Acute (10) Spinal stenosis Status: Acute (11) UTI (urinary tract infection) Status: Acute (12) Weakness Status: Acute Review of Systems Constitutional: No fever Respiratory: + cough, + wheezing, No sputum, No dyspnea at rest, No hemoptysis Cardiac: No chest pain Abdomen: No pain Objective Vital Signs Date Time Temp Pulse Resp B/P (MAP) Pulse Ox O2 Delivery O2 Flow Rate FiO2 08/07/17 16:00 95 Nasal Cannula 3.0 08/07/17 15:23 36.6 109 18 100/54 (69) 95 Nasal Cannula 3.0 08/07/17 14:16 93 18 98 Nasal Cannula 3.0 08/07/17 12:10 36.4 103 16 81/43 (56) 97 Nasal Cannula 3.0 106/51 (69) 08/07/17 12:00 Nasal Cannula 3.0 Humidified Oxygen 08/07/17 08:00 Nasal Cannula 3.0 Humidified Oxygen 08/07/17 07:50 36.6 115 20 100/61 (74) 96 Nasal Cannula 3.0 08/07/17 07:36 87 18 97 Nasal Cannula 3.0 08/07/17 07:32 90 18 97 Nasal Cannula 3.0 08/07/17 04:00 94 Nasal Cannula 4.0 08/07/17 04:00 36.4 111 93/50 (64) 94 4.0 08/07/17 03:39 93/50 (64) 08/07/17 01:12 104 18 96 Nasal Cannula 4.0 08/07/17 00:00 95 Nasal Cannula 4.0 08/06/17 23:06 36.5 99 20 91/45 (60) 95 Nasal Cannula 4.0 90/42 (58) 08/06/17 20:00 97 Nasal Cannula 4.0 08/06/17 19:55 97 20 96 Nasal Cannula 3.0 08/06/17 19:48 37.2 109 22 105/62 (76) 97 Nasal Cannula 4.0 Physical Exam General Appearance: no apparent distress, + pertinent finding (looks better today) ENT: + pertinent finding (thrush on tongue improved) Neck: no JVD Respiratory/Chest: no respiratory distress, no accessory muscle use, + crackles (course b/l ), + rhonchi (extensive, especially on left), + wheezing (extensive , left) Cardiovascular: no gallop, + systolic murmur (2/6 RUSB/LLSB), + irregularly irregular Abdomen: normal bowel sounds, non tender, soft, no organomegaly Extremities: no pedal edema Neurologic/Psychiatric: alert, oriented x 3 Laboratory Results Last 24 Hours Test 08/07/17 06:03 08/07/17 11:41 White Blood Count 2.83 K/uL Red Blood Count 3.28 M/uL Hemoglobin 9.3 g/dL Hematocrit 29.1 % Mean Corpuscular Volume 88.7 fL Mean Corpuscular Hemoglobin 28.4 pg Mean Corpuscular Hemoglobin Concent 32.0 g/dl RDW Standard Deviation 56.1 fL RDW Coefficient of Variation 17.1 % Platelet Count 106 K/uL Mean Platelet Volume 10.9 fL Sodium Level 132 mmol/L Potassium Level 4.7 mmol/L Chloride Level 102 mmol/L Carbon Dioxide Level 23 mmol/L Anion Gap 7.0 mmol/L Blood Urea Nitrogen 42 mg/dl Creatinine 1.49 mg/dl Est Creatinine Clear Calc Drug Dose 36.9 ml/min Estimated GFR () 51.4 Estimated GFR (Non- 44.3 BUN/Creatinine Ratio 27.9 Random Glucose 141 mg/dl Calcium Level 8.8 mg/dl Magnesium Level 2.5 mg/dl Assessment and Plan 77yo male: 1. acute hypoxic resp failure - likely multifactorial including pneumonia, COPD , worsening mass in left chest from lymphoma, acute diastolic CHF. Remains on o2. Treating individual components. Modestly improved today s/p institution of steroids yesterday. 2. Community acquired pneumonia, left upper lobe, likely post-obstructive - completed course of levaquin. 3. acute diastolic CHF - resolved; lasix d/c. 4. COPD with exacerbation - mucinex, nebs, steroids. +/- slightly improved today. Seen by pulmonary - jaimee added. 5. recurrent follicular lymphoma - appreciate heme/onc and rad onc consultations. Receiving XRT to left hilar mass c/o Dr. Zavala. Very poor prognosis in light of multiple cardio-pulmonary comorbidities. 6. Severe sepsis POA, due to pneumonia - improved/stabilized. 7. acute kidney injury in setting of CKD stage 2-3 - MACRINA resolved. 8. a. fib - improved rates with cardizem 60mg q6h. consider conversion to CD version tomorrow if rates are stable. cont eliquis. Cardiology following; recs appreciated. 9. abnormal peripheral smear - apparently there were cytoplasmic inclusions in the neutrophils on smear according to the pathologist concerning for tick-borne disease. Although I doubt he has active tick-borne infection given the time of the year and no obvious exposure I don't think it is unreasonable to send anaplasmosis and ehrlichia titers off. remains on doxy 100mg BID. He is aware of this incidental finding. 10. pancytopenia - likely from follicular lymphoma; CBC today is acceptable/ stable. 11. DVT proph - eliquis BID. 12. 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 Gupta from pulmonary; stenting not advised at this time. 13. hypothyroidism - TSH compensated; continue synthroid 75mcg. 14. thrush - diflucan x 10 days. Day #3 today. Magic mouthwash achs as well. updated once again at bedside prognosis is very poor in light of complicated medical issues and recurrent lymphoma code status discussed with patient by Dr. Diggs today - he wishes to remain full code for now continue tele if stable overnight then med/surg tomorrow Continued [facility] stay due to: multiple IV medications needed, home environment unsafe for pt Discharge planning: uncertain
[2017-08-07] MEDS ORDERED: MAGIC MOUTHWASH PO SCH (18:45)
--- NOTE | 2017-08-07 20:25 | Infectious Disease Progress Nt ---
Progress Note Date of Service Aug 07, 2017. Subjective Pt evaluation today including: conversation w/ patient, physical exam, chart review, lab review, review of studies, conversation w/ warehouse consultant, review of inpatient medication list Feeling somewhat better today. Cough and shortness of breath improved. No fever. All Other Systems: Reviewed and Negative Medications Current Inpatient Medications Medications (Trade) Dose Ordered Sig/Hari Route Start Time Stop Time Status Last Admin Dose Admin Acetaminophen (Tylenol Tab) 650 mg Q4H PRN PO 07/31/17 14:45 08/30/17 14:44 08/06/17 11:28 650 MG Al Hydrox/Mg Hydrox/Simethicone (Maalox Max Susp) 15 ml Q4H PRN PO 07/31/17 14:45 08/30/17 14:44 Magnesium Hydroxide (Milk Of Magnesia Susp) 30 ml Q12H PRN PO 07/31/17 14:45 08/30/17 14:44 Zolpidem Tartrate (Ambien Tab) 5 mg HSZ PRN PO 07/31/17 14:45 08/30/17 14:44 Zolpidem Tartrate (Ambien Tab) 5 mg HSZ PRN PO 07/31/17 14:45 08/30/17 14:44 Ondansetron HCl (Zofran Inj) 4 mg Q6H PRN IV 07/31/17 14:45 08/30/17 14:44 Lactobacillus Acidophilus (Floranex Tab) 4 tab TIDM PO 07/31/17 16:45 08/30/17 17:59 08/07/17 16:54 4 TAB Guaifenesin (Robitussin Sugar Free Syrup) 200 mg Q6H PRN PO 07/31/17 15:00 08/30/17 14:59 Ipratropium Rush (Atrovent 0.02% 0.5MG/2.5ML Neb) 0.5 mg Q6R INH 07/31/17 21:00 08/30/17 20:59 08/07/17 19:30 0.5 MG Levalbuterol (Xopenex 1.25MG/ 0.5ML Neb) 1.25 mg Q6R INH 07/31/17 21:00 08/30/17 20:59 08/07/17 19:30 1.25 MG Latanoprost (Xalatan Oph Soln) 1 drops HS OPB 07/31/17 21:00 08/30/17 20:59 08/06/17 21:23 1 DROPS Heparin Sodium (Porcine) (Heparin 100 Unit/ml 5ml Flush) 5 ml PRN PRN IV 08/01/17 07:45 08/31/17 07:44 08/04/17 13:22 5 ML Enteral Nutritional Formula (Boost) 1 can TIDM PO 08/02/17 07:30 09/01/17 07:29 08/07/17 16:53 1 CAN Apixaban (Eliquis Tab) 5 mg BID PO 08/02/17 22:00 09/01/17 21:59 08/07/17 07:49 5 MG Prednisolone Acetate (Pred Forte 1% Oph Susp) 1 drops DAILY OPL 08/05/17 09:00 09/04/17 08:59 08/07/17 07:45 1 DROPS Polyethylene (Miralax Powder Packet) 17 gm DAILY PO 08/05/17 11:45 08/30/17 14:44 Fluconazole (Diflucan Tab) 100 mg QAM PO 08/06/17 09:00 08/16/17 08:59 08/07/17 07:49 100 MG Doxycycline Hyclate (Vibramycin Cap) 100 mg BID PO 08/05/17 21:00 08/19/17 20:59 08/07/17 07:49 100 MG Guaifenesin (Mucinex Contr Rel Tab) 1,200 mg Q12 PO 08/05/17 11:45 09/04/17 11:44 08/07/17 07:46 1,200 MG Diltiazem HCl (Cardizem Tab) 60 mg Q6H PO 08/06/17 15:00 09/03/17 13:59 08/07/17 15:45 60 MG Dexamethasone Sodium Phosphate 4 mg/Syringe 1 ml @ 1 mls/min Q12H IV 08/06/17 18:00 09/05/17 17:59 08/07/17 17:42 1 MLS/MIN Levothyroxine Sodium (Synthroid Tab) 75 mcg DAILYBB PO 08/07/17 06:00 09/06/17 05:59 08/07/17 06:33 75 MCG Dornase Jeramie (Pulmozyme Inhalation Soln 2.5ml Amp) 2.5 ml BIDR INH 08/07/17 08:00 08/10/17 07:59 08/07/17 19:30 2.5 ML Dexamethasone/ Nystatin/ Diphenhydramine HCl/Sucrose/ Microcrystalline Cellulose/Barcode ACHS PO 08/07/17 21:00 09/06/17 20:59 Objective Vital Signs Date Time Temp Pulse Resp B/P (MAP) Pulse Ox O2 Delivery O2 Flow Rate FiO2 08/07/17 19:35 96 18 94 Nasal Cannula 3.0 08/07/17 19:13 36.5 80 20 90/36 (54) 95 Nasal Cannula 3.0 08/07/17 16:00 95 Nasal Cannula 3.0 08/07/17 15:23 36.6 109 18 100/54 (69) 95 Nasal Cannula 3.0 08/07/17 14:16 93 18 98 Nasal Cannula 3.0 08/07/17 12:10 36.4 103 16 81/43 (56) 97 Nasal Cannula 3.0 106/51 (69) 08/07/17 12:00 Nasal Cannula 3.0 Humidified Oxygen 08/07/17 08:00 Nasal Cannula 3.0 Humidified Oxygen 08/07/17 07:50 36.6 115 20 100/61 (74) 96 Nasal Cannula 3.0 08/07/17 07:36 87 18 97 Nasal Cannula 3.0 08/07/17 07:32 90 18 97 Nasal Cannula 3.0 08/07/17 04:00 94 Nasal Cannula 4.0 08/07/17 04:00 36.4 111 93/50 (64) 94 4.0 08/07/17 03:39 93/50 (64) 08/07/17 01:12 104 18 96 Nasal Cannula 4.0 08/07/17 00:00 95 Nasal Cannula 4.0 08/06/17 23:06 36.5 99 20 91/45 (60) 95 Nasal Cannula 4.0 90/42 (58) Physical Exam General Appearance: WD/WN, no apparent distress Eyes: normal inspection, EOMI, sclerae normal ENT: normal ENT inspection, pharynx normal Neck: supple, no adenopathy, trachea midline Respiratory/Chest: chest non-tender, no respiratory distress, no accessory muscle use, + rhonchi, + wheezing Cardiovascular: no gallop, no murmur, + irregularly irregular Abdomen: normal bowel sounds, non tender, soft, no organomegaly Extremities: non-tender, no calf tenderness Neurologic/Psychiatric: alert, oriented x 3 Skin: normal color, no rash Lymphatic: no adenopathy Laboratory Results Last 24 Hours Test 08/07/17 06:03 08/07/17 11:41 White Blood Count 2.83 K/uL Red Blood Count 3.28 M/uL Hemoglobin 9.3 g/dL Hematocrit 29.1 % Mean Corpuscular Volume 88.7 fL Mean Corpuscular Hemoglobin 28.4 pg Mean Corpuscular Hemoglobin Concent 32.0 g/dl RDW Standard Deviation 56.1 fL RDW Coefficient of Variation 17.1 % Platelet Count 106 K/uL Mean Platelet Volume 10.9 fL Sodium Level 132 mmol/L Potassium Level 4.7 mmol/L Chloride Level 102 mmol/L Carbon Dioxide Level 23 mmol/L Anion Gap 7.0 mmol/L Blood Urea Nitrogen 42 mg/dl Creatinine 1.49 mg/dl Est Creatinine Clear Calc Drug Dose 36.9 ml/min Estimated GFR () 51.4 Estimated GFR (Non- 44.3 BUN/Creatinine Ratio 27.9 Random Glucose 141 mg/dl Calcium Level 8.8 mg/dl Magnesium Level 2.5 mg/dl Assessment and Plan (1) Lymphoma 77-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 Patient appears to have responded well to levofloxacin, now discontinued, would follow carefully off IV antibiotics. Will follow.
[2017-08-07] MEDS: LATANOPROST 0.005% OP SOLN 2.5 ML BTL OPB SCH (21:17)
[2017-08-07] MEDS: DEXAMETHASONE CONC SOLN 3.75 MG, NYSTATIN SUSP 30 ML, DiphenhydrAMINE HCL SYRUP 300 MG,... PO SCH ×5 (21:20)
[2017-08-08] VITALS (12 sets, daily range): BP systolic 100–115; BP diastolic 36–64; PULSE 65–113; TEMP 36.4–37.2; O2SAT 92–98
[2017-08-08] MEDS: IPRATROPIUM BROMIDE NEB SOLN 0.02% 2.5 ML VIAL INH SCH ×4 (02:08→19:21)
[2017-08-08] MEDS: LEVALBUTEROL 1.25MG/0.5ML NEB INH SCH ×4 (02:08→19:21)
[2017-08-08] MEDS: DILTIAZEM HCL 60 MG TAB PO SCH ×4 (03:01→20:27)
[2017-08-08] MEDS: LEVOTHYROXINE 75 MCG TAB PO SCH (05:46)
[2017-08-08] MEDS: DEXAMETHASONE INJ 4 MG in SYRINGE 0 ML IV SCH ×2 (05:46→17:27)
[2017-08-08 06:43] LABS: CALCIUM 8.5 mg/dl (8.5-10.1); CREATININE 1.36 mg/dl (0.60-1.40); POTASSIUM 4.7 mmol/L (3.5-5.1)
[2017-08-08] MEDS: DORNASE ALFA 2.5 ML AMP INH SCH ×2 (07:03→19:21)
[2017-08-08] MEDS: BOOST VANILLA PO SCH ×3 (08:05→17:23)
[2017-08-08] MEDS: DEXAMETHASONE CONC SOLN 3.75 MG, NYSTATIN SUSP 30 ML, DiphenhydrAMINE HCL SYRUP 300 MG,... PO SCH ×20 (08:05→20:28)
[2017-08-08] MEDS: FLUCONAZOLE 100 MG TAB PO SCH (08:06)
[2017-08-08] MEDS: APIXABAN 2.5 MG TAB PO SCH ×2 (08:06→20:27)
[2017-08-08] MEDS: LACTOBACILLUS ACIDOPHILUS (FLORANEX) TAB PO SCH ×3 (08:07→17:23)
[2017-08-08] MEDS: GUAIFENESIN 600 MG TABCR PO SCH ×2 (08:07→20:27)
[2017-08-08] MEDS: DOXYCYCLINE HYCLATE 100 MG CAP PO SCH ×2 (08:07→20:27)
[2017-08-08] MEDS: POLYETHYLENE (MIRALAX) 17 GM PACK PO SCH (08:08)
[2017-08-08] MEDS: PrednisoLONE ACET 1% OP SUSP 5 ML BTL OPL SCH (08:11)
[2017-08-08] MEDS ORDERED: BISACODYL 10 MG SUPP PR STA (10:30)
[2017-08-08 10:54] LABS: HEMATOCRIT 27.3 % (42-52); HEMOGLOBIN 8.8 g/dL (14.0-18.0); MEAN CELL VOLUME 88.6 fL (80-100); MEAN CORPUSCULAR HEMOGLOBIN 28.6 pg (25-34); MEAN CORPUSCULAR HGB CONC 32.2 g/dl (32-36); MEAN PLATELET VOLUME 11.1 fL (7.4-10.4); PLATELET COUNT 125 K/uL (130-400); RED CELL DISTRIBUTION WIDTH SD 55.2 fL (36.4-46.3); WHITE BLOOD COUNT 2.88 K/uL (4.8-10.8)
--- NOTE | 2017-08-08 12:46 | DIAGNOSTIC IMAGING REPORT ---
HEAD WITHOUT CONTRAST (CT) CT DOSE: 537.48 mGy.cm HISTORY: Mental status change lymphoma, mental status changes TECHNIQUE: Multiaxial CT images of the head were performed without the use of intravenous contrast. A dose lowering technique was utilized adhering to the principles of ALARA. Comparison: 12/06/2016 Findings: The paranasal sinuses and mastoid air cells are clear. The calvarium and skull base are intact. The ventricles and sulci are within normal limits. There is no mass, hematoma, midline shift, or acute infarct. Age-related atrophy and chronic small vessel change. Streak artifact of the left frontal region transaxial image 13 and 14. Frontal atrophy stable from the prior exam. No acute intracranial hemorrhage. 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 Impression: Age-related atrophy and chronic small vessel change. No acute process. No change from the prior exam. The above report was generated using voice recognition software. It may contain grammatical, syntax or spelling errors. Electronically signed by: Bear Mitchell M.D. 08/08/2017 12:44 PM Dictated Date/Time: 08/08/2017 12:42 PM
[2017-08-08] MEDS ORDERED: HALOPERIDOL 1 MG TAB PO PRN (17:45)
[2017-08-08] MEDS: LATANOPROST 0.005% OP SOLN 2.5 ML BTL OPB SCH (20:27)
--- NOTE | 2017-08-08 22:22 | Progress Note ---
Subjective Date of Service: Aug 08, 2017. Subjective Pt evaluation today including: conversation w/ patient, conversation w/ family ( at bedside on first visit; daughter at bedside on 2nd visit ), physical exam, chart review, lab review, review of studies (CT head), review of inpatient medication list Pain: denies any pain PO Intake: poor this AM Voiding: carter catheter in place tele - a. fib, rates high 90s to low 100s overnight became confused, and remains confused this AM he did not realize he was in the hospital and couldn't tell me why he was here somewhat irritated during the visit and I noted him to be picking at his covers , his O2, etc. he denied any specific complaints other than "his legs feeling stiff" Problem List Medical Problems: (1) Atrial flutter Status: Acute (2) CHF (congestive heart failure) Status: Acute (3) Febrile neutropenia Status: Acute (4) Hypotension Status: Acute (5) Immunocompromised Status: Acute (6) Low back pain Status: Acute (7) PNA (pneumonia) Status: Acute (8) Sepsis Status: Acute (9) Sepsis Status: Acute (10) Spinal stenosis Status: Acute (11) UTI (urinary tract infection) Status: Acute (12) Weakness Status: Acute Review of Systems Constitutional: No fever Respiratory: + cough, No dyspnea at rest Cardiac: No chest pain Abdomen: + constipation, No pain Objective Vital Signs Date Time Temp Pulse Resp B/P (MAP) Pulse Ox O2 Delivery O2 Flow Rate FiO2 08/08/17 20:00 Nasal Cannula 3.0 08/08/17 19:25 36.4 91 18 108/58 (75) 95 Nasal Cannula 2.0 08/08/17 19:21 97 18 97 Nasal Cannula 2.0 08/08/17 16:02 Nasal Cannula 3.0 08/08/17 15:06 36.4 109 22 100/36 (57) 97 Nasal Cannula 2.0 08/08/17 14:35 65 18 98 Nasal Cannula 4.0 08/08/17 12:01 36.4 102 19 100/45 (63) 96 Nasal Cannula 2.5 08/08/17 12:00 Nasal Cannula 3.0 Humidified Oxygen 08/08/17 08:00 Nasal Cannula 3.0 Humidified Oxygen 08/08/17 07:42 36.7 96 19 115/64 (81) 98 Room Air 08/08/17 07:03 113 18 97 Nasal Cannula 3.0 08/08/17 04:16 36.7 110 20 101/61 (74) 96 Nasal Cannula 3.0 08/08/17 04:00 Nasal Cannula 3.0 08/08/17 02:09 88 18 96 Nasal Cannula 3.0 08/08/17 00:22 37.2 106 16 110/60 (77) 92 Nasal Cannula 3.0 08/08/17 00:00 Nasal Cannula 3.0 Physical Exam General Appearance: + mild distress (agitated, delirious) ENT: + pertinent finding (MM slightly dry, thrush on tongue much better) Neck: no JVD Respiratory/Chest: no respiratory distress, no accessory muscle use, + pertinent finding (lungs are actually the best airation they have been all week ; still w/ quite course BS b/l, worse on left, with wheezes as well) Cardiovascular: no gallop, + systolic murmur (2/6 LSB), + irregularly irregular Abdomen: normal bowel sounds, non tender, no organomegaly, + distended (mild, but nontender) Extremities: + pedal edema (trace b/l) Neurologic/Psychiatric: no motor/sensory deficits (strength 5/5 x 4 exts), alert, + disoriented Laboratory Results Last 24 Hours Test 08/08/17 05:58 08/08/17 10:42 Sodium Level 132 mmol/L Potassium Level 4.7 mmol/L Chloride Level 101 mmol/L Carbon Dioxide Level 23 mmol/L Anion Gap 8.0 mmol/L Blood Urea Nitrogen 47 mg/dl Creatinine 1.36 mg/dl Est Creatinine Clear Calc Drug Dose 40.4 ml/min Estimated GFR () 57.4 Estimated GFR (Non- 49.5 BUN/Creatinine Ratio 34.8 Random Glucose 118 mg/dl Calcium Level 8.5 mg/dl White Blood Count 2.88 K/uL Red Blood Count 3.08 M/uL Hemoglobin 8.8 g/dL Hematocrit 27.3 % Mean Corpuscular Volume 88.6 fL Mean Corpuscular Hemoglobin 28.6 pg Mean Corpuscular Hemoglobin Concent 32.2 g/dl Platelet Count 125 K/uL Mean Platelet Volume 11.1 fL RDW Standard Deviation 55.2 fL RDW Coefficient of Variation 17.0 % Neutrophils % (Manual) 82.2 % Lymphocytes % (Manual) 8.9 % Monocytes % (Manual) 7.1 % Eosinophils % (Manual) 0.9 % Metamyelocytes % 0.9 % Neutrophils # (Manual) 2.37 K/uL Total Absolute Neutrophils 2.37 K/uL Lymphocytes # (Manual) 0.26 K/uL Total Absolute Lymphocytes 0.26 K/uL Monocytes # (Manual) 0.20 K/uL Eosinophils # (Manual) 0.03 K/uL Metamyelocytes # 0.03 K/uL Toxic Granulation 1+ Venous Blood pH 7.40 Venous Blood Partial Pressure CO2 35 mmHg Venous Blood Partial Pressure O2 35 mmHg Venous Blood HCO3 21 mmol/L Venous Blood Oxygen Saturation < 60.0 % Venous Blood Base Excess -3.7 mEq/L Ammonia 15.0 umol/L Assessment and Plan 77yo male: 1. encephalopathy - after seeing Mr Hardy today I obtained an ammonia level and VBG. Ammonia was normal and VBG did not show hypercarbia. CT head then ordered to r/o [employer] lymphoma, stroke, etc - this was normal. Encephalopathy could be toxic from steroids (decadron), metabolic (mild hyponatremia), hospital psychosis, vs other. I do not see any new infection clinically. I counseled his & daughter on this issue. Will order small dose of oral haldol for HS tonight in the event of worsening sundowning/delirium. Avoid benzos, antihistamines, etc. 2. mild hyponatremia - likely mild volume depletion from recent diuresis and poor oral intake. Would be reluctant to give fluids since he just had volume overload. Repeat BMP in am. 3. acute hypoxic resp failure - likely multifactorial including pneumonia, COPD , worsening mass in left chest from lymphoma, acute diastolic CHF. Remains on o2. Treating individual components. Lung exam modestly improved today and O2 requirement is stable. With that said his status is tenuous. 4. left upper lobe post-obstructive pneumonia - completed course of levaquin. 5. acute diastolic CHF - resolved; lasix d/c. 6. COPD with exacerbation - mucinex, nebs, steroids. Improved. Seen by pulmonary - pauly added. Cutting back decadron to 4mg once daily in the event he is having "steroid psychosis." 7. recurrent follicular lymphoma - appreciate heme/onc and rad onc consultations. Receiving XRT to left hilar mass c/o Dr. Zavala. Very poor prognosis in light of multiple cardio-pulmonary comorbidities. 8. Severe sepsis POA, due to pneumonia - improved/stabilized. 9. acute kidney injury in setting of CKD stage 2-3 - MACRINA resolved. 10. a. fib - improved rates with cardizem 60mg q6h. consider conversion to CD version tomorrow if rates are stable. cont eliquis. Cardiology following. 11. abnormal peripheral smear - apparently there were cytoplasmic inclusions in the neutrophils on smear according to the pathologist concerning for tick- borne disease. anaplasmosis and ehrlichia titers negative; pathologist recommended we check anaplasmosis PCR as well. That is pending. remains on doxy 100mg BID until anaplasmosis PCR is back. 12. pancytopenia - likely from follicular lymphoma; CBC today again remains acceptable. 13. DVT proph - eliquis BID. 14. 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 Gupta from pulmonary not recommending stenting at this time. 15. hypothyroidism - TSH compensated; continue synthroid 75mcg. 16. thrush - diflucan x 10 days. Day #4 today. Magic mouthwash achs as well. 17. constipation - dulcolax suppos x 1. updated once again at bedside daughter updated as well prognosis is very poor in light of complicated medical issues and recurrent lymphoma code status discussed with patient by Dr. Diggs - patient wishes to remain full code for now continue tele Continued [facility] stay due to: inadequate po fluid intake, voiding difficulties, ambulation difficulties, multiple IV medications needed, home environment unsafe for pt Discharge planning: uncertain
[2017-08-09] VITALS (11 sets, daily range): BP systolic 102–119; BP diastolic 46–65; PULSE 81–96; TEMP 36.3–36.5; O2SAT 93–100
[2017-08-09] MEDS: IPRATROPIUM BROMIDE NEB SOLN 0.02% 2.5 ML VIAL INH SCH ×4 (01:00→19:36)
[2017-08-09] MEDS: LEVALBUTEROL 1.25MG/0.5ML NEB INH SCH ×4 (01:00→19:36)
[2017-08-09] MEDS: DILTIAZEM HCL 60 MG TAB PO SCH ×4 (03:34→20:21)
[2017-08-09] MEDS: LEVOTHYROXINE 75 MCG TAB PO SCH (05:40)
[2017-08-09] MEDS: DEXAMETHASONE CONC SOLN 3.75 MG, NYSTATIN SUSP 30 ML, DiphenhydrAMINE HCL SYRUP 300 MG,... PO SCH ×15 (05:40→15:51)
[2017-08-09 06:26] LABS: HEMATOCRIT 25.7 % (42-52); HEMOGLOBIN 8.4 g/dL (14.0-18.0); MEAN CELL VOLUME 88.6 fL (80-100); MEAN CORPUSCULAR HGB CONC 32.7 g/dl (32-36); MEAN PLATELET VOLUME 11.3 fL (7.4-10.4); PLATELET COUNT 131 K/uL (130-400); RED CELL DISTRIBUTION WIDTH CV 17.3 % (11.5-14.5); RED CELL DISTRIBUTION WIDTH SD 55.8 fL (36.4-46.3); WHITE BLOOD COUNT 2.41 K/uL (4.8-10.8)
[2017-08-09 06:54] LABS: CALCIUM 8.6 mg/dl (8.5-10.1); CREATININE 1.34 mg/dl (0.60-1.40); POTASSIUM 5.1 mmol/L (3.5-5.1)
--- NOTE | 2017-08-09 07:55 | DIAGNOSTIC IMAGING REPORT ---
CHEST ONE VIEW PORTABLE HISTORY: lymphoma, COPD, LORETA pneumonia COMPARISON: Chest 08/06/2017. FINDINGS: Left subclavian Port-A-Cath terminates in the SVC. Emphysema. The heart is normal in size. Trace bilateral pleural effusions. Dense consolidation seen within the periphery of the left midlung zone is again noted. There is also interstitial thickening throughout the left lung, unchanged. Cervical spinal fusion hardware is again noted. IMPRESSION: No change in the left lung airspace opacities. Trace bilateral pleural effusions are again noted. Electronically signed by: Von Rocha M.D. 08/09/2017 7:54 AM Dictated Date/Time: 08/09/2017 7:52 AM
[2017-08-09] MEDS: DORNASE ALFA 2.5 ML AMP INH SCH ×2 (08:00→19:36)
[2017-08-09] MEDS: DOXYCYCLINE HYCLATE 100 MG CAP PO SCH (08:04)
[2017-08-09] MEDS: BOOST VANILLA PO SCH ×3 (08:04→15:50)
[2017-08-09] MEDS: LACTOBACILLUS ACIDOPHILUS (FLORANEX) TAB PO SCH ×3 (08:05→15:55)
[2017-08-09] MEDS: FLUCONAZOLE 100 MG TAB PO SCH (08:05)
[2017-08-09] MEDS: GUAIFENESIN 600 MG TABCR PO SCH ×2 (08:05→20:21)
[2017-08-09] MEDS: POLYETHYLENE (MIRALAX) 17 GM PACK PO SCH (08:05)
[2017-08-09] MEDS: APIXABAN 2.5 MG TAB PO SCH ×2 (08:05→20:22)
[2017-08-09] MEDS: PrednisoLONE ACET 1% OP SUSP 5 ML BTL OPL SCH (08:06)
--- NOTE | 2017-08-09 08:53 | Progress Note ---
Subjective Date of Service: Aug 09, 2017. Subjective This pt remains confused and is surrounded by and daughter who support this , the patient himself denies being confused. The is concerned that he is not on his urinary tract prophylaxis medication and is prone to UTI's Problem List Medical Problems: (1) Atrial flutter Status: Acute (2) CHF (congestive heart failure) Status: Acute (3) Febrile neutropenia Status: Acute (4) Hypotension Status: Acute (5) Immunocompromised Status: Acute (6) Low back pain Status: Acute (7) PNA (pneumonia) Status: Acute (8) Sepsis Status: Acute (9) Sepsis Status: Acute (10) Spinal stenosis Status: Acute (11) UTI (urinary tract infection) Status: Acute (12) Weakness Status: Acute Review of Systems Constitutional: + weakness, + fatigue, No fever, No chills Respiratory: No cough, No shortness of breath, No dyspnea on exertion Cardiac: No chest pain, No edema Abdomen: No pain, No nausea, No vomiting, No diarrhea Neurologic: + memory loss, + problem reported (confusion) Psychiatric: + anxiety, No depression symptoms, No anhedonism Objective Vital Signs Date Time Temp Pulse Resp B/P (MAP) Pulse Ox O2 Delivery O2 Flow Rate FiO2 08/09/17 08:42 82 22 97 Nasal Cannula 2.0 08/09/17 08:34 82 22 97 Nasal Cannula 2.0 08/09/17 08:01 36.5 88 19 104/54 (71) 99 Nasal Cannula 2.0 08/09/17 04:00 Nasal Cannula 3.0 08/09/17 03:32 36.5 95 20 109/55 (73) 97 Nasal Cannula 2.0 08/09/17 02:43 36.5 96 22 119/55 (76) 97 Nasal Cannula 2.0 08/09/17 01:00 88 22 93 Nasal Cannula 3.0 08/09/17 00:02 Nasal Cannula 3.0 08/08/17 23:39 36.5 96 24 112/56 (74) 98 Nasal Cannula 2.0 08/08/17 22:00 96 94 Nasal Cannula 3.0 08/08/17 20:00 Nasal Cannula 3.0 08/08/17 19:25 36.4 91 18 108/58 (75) 95 Nasal Cannula 2.0 08/08/17 19:21 97 18 97 Nasal Cannula 2.0 08/08/17 16:02 Nasal Cannula 3.0 08/08/17 15:06 36.4 109 22 100/36 (57) 97 Nasal Cannula 2.0 08/08/17 14:35 65 18 98 Nasal Cannula 4.0 08/08/17 12:01 36.4 102 19 100/45 (63) 96 Nasal Cannula 2.5 08/08/17 12:00 Nasal Cannula 3.0 Humidified Oxygen Physical Exam General Appearance: WD/WN, + mild distress Eyes: normal inspection, sclerae normal Respiratory/Chest: chest non-tender, lungs clear, normal breath sounds Cardiovascular: regular rate, rhythm, + JVD Abdomen: normal bowel sounds, non tender, soft Extremities: no pedal edema, no calf tenderness Neurologic/Psychiatric: alert, + disoriented Skin: normal color, warm/dry Laboratory Results Last 24 Hours Test 08/08/17 10:42 08/09/17 05:58 White Blood Count 2.88 K/uL 2.41 K/uL Red Blood Count 3.08 M/uL 2.90 M/uL Hemoglobin 8.8 g/dL 8.4 g/dL Hematocrit 27.3 % 25.7 % Mean Corpuscular Volume 88.6 fL 88.6 fL Mean Corpuscular Hemoglobin 28.6 pg 29.0 pg Mean Corpuscular Hemoglobin Concent 32.2 g/dl 32.7 g/dl Platelet Count 125 K/uL 131 K/uL Mean Platelet Volume 11.1 fL 11.3 fL RDW Standard Deviation 55.2 fL 55.8 fL RDW Coefficient of Variation 17.0 % 17.3 % Neutrophils % (Manual) 82.2 % 76.9 % Lymphocytes % (Manual) 8.9 % 4.6 % Monocytes % (Manual) 7.1 % 14.8 % Eosinophils % (Manual) 0.9 % Metamyelocytes % 0.9 % 3.7 % Neutrophils # (Manual) 2.37 K/uL 1.85 K/uL Total Absolute Neutrophils 2.37 K/uL 1.85 K/uL Lymphocytes # (Manual) 0.26 K/uL 0.11 K/uL Total Absolute Lymphocytes 0.26 K/uL 0.11 K/uL Monocytes # (Manual) 0.20 K/uL 0.36 K/uL Eosinophils # (Manual) 0.03 K/uL Metamyelocytes # 0.03 K/uL 0.09 K/uL Toxic Granulation 1+ 1+ Venous Blood pH 7.40 Venous Blood Partial Pressure CO2 35 mmHg Venous Blood Partial Pressure O2 35 mmHg Venous Blood HCO3 21 mmol/L Venous Blood Oxygen Saturation < 60.0 % Venous Blood Base Excess -3.7 mEq/L Ammonia 15.0 umol/L Giant Platelets 1+ Ovalocytes 1+ Sodium Level 133 mmol/L Potassium Level 5.1 mmol/L Chloride Level 102 mmol/L Carbon Dioxide Level 25 mmol/L Anion Gap 6.0 mmol/L Blood Urea Nitrogen 53 mg/dl Creatinine 1.34 mg/dl Est Creatinine Clear Calc Drug Dose 41.0 ml/min Estimated GFR () 58.4 Estimated GFR (Non- 50.4 BUN/Creatinine Ratio 39.6 Random Glucose 119 mg/dl Calcium Level 8.6 mg/dl Assessment and Plan 77yo male metabolic encephalopathy from post obstructive pneumonia poa, concern for progressive lymphoma;Severe sepsis POA, due to pneumonia encephalopathy - could be toxic from steroids (Decadron), metabolic (mild hyponatremia) paraneoplastic, hospital psychosis, vs infectious hyponatremia - would consider siadh from paraneoplastic acute hypoxic resp failure - likely multifactorial including pneumonia, COPD, worsening mass in left chest from lymphoma, acute diastolic CHF. Remains on o2. Pulmonary eval feels cannot offer improvement given size of obstructed airway would be too small to stent left upper lobe post-obstructive pneumonia - completed course of levaquin. acute diastolic CHF - resolved; lasix d/c. a. fib - improved rates with cardizem 60mg q6h. consider conversion to CD cont eliquis. Cardiology following. COPD with exacerbation - mucinex, nebs, steroids. Improved. Seen by pulmonary - dornase added. tapering decadron to 4mg once daily in the event he is having "steroid psychosis." recurrent follicular lymphoma - appreciate heme/onc and rad onc consultations. Receiving XRT to left hilar mass c/o Dr. Zavala. Very poor prognosis in light of multiple cardio-pulmonary comorbidities. acute kidney injury in setting of CKD stage 2-3 - MACRINA resolved. abnormal peripheral smear - apparently there were cytoplasmic inclusions in the neutrophils on smear, doxy 100mg BID until anaplasmosis PCR is back. pancytopenia - likely from follicular lymphoma; CBC today again remains acceptable. DVT proph - eliquis BID. hypothyroidism - TSH compensated; continue synthroid 75mcg. thrush - diflucan x 10 days. Day #4 today. Magic mouthwash achs as well. constipation - dulcolax suppos x 1. prognosis is very poor in light of complicated medical issues and recurrent lymphoma code status discussed with patient by Dr. Diggs - patient wishes to remain full code for now Continued [facility] stay due to: inadequate po fluid intake, voiding difficulties, ambulation difficulties, multiple IV medications needed, home environment unsafe for pt Discharge planning: uncertain
[2017-08-09] MEDS: DEXAMETHASONE INJ 4 MG in SYRINGE 0 ML IV SCH (12:48)
[2017-08-09] MEDS ORDERED: HALOPERIDOL LACTATE 5 MG/ML 1 ML VIAL IV PRN (16:00)
[2017-08-09] MEDS: LATANOPROST 0.005% OP SOLN 2.5 ML BTL OPB SCH (20:20)
[2017-08-09] MEDS: SULFAMETHOXAZOLE/TRIMETHOPRIM DS 800/160MG TAB PO SCH (20:26)
[2017-08-09] MEDS: QUETIAPINE FUMARATE 25 MG TAB PO SCH (20:26)
[2017-08-09] MEDS ORDERED: LATANOPROST 0.005% OP SOLN 2.5 ML BTL OPB SCH (21:00)
[2017-08-10] VITALS (12 sets, daily range): BP systolic 89–150; BP diastolic 42–64; PULSE 73–91; TEMP 36.2–37; O2SAT 91–100
[2017-08-10] MEDS: IPRATROPIUM BROMIDE NEB SOLN 0.02% 2.5 ML VIAL INH SCH ×4 (03:00→19:16)
[2017-08-10] MEDS: LEVALBUTEROL 1.25MG/0.5ML NEB INH SCH ×4 (03:00→19:16)
[2017-08-10] MEDS: DILTIAZEM HCL 60 MG TAB PO SCH ×4 (03:03→20:03)
[2017-08-10] MEDS: LEVOTHYROXINE 75 MCG TAB PO SCH (06:14)
[2017-08-10] MEDS: DORNASE ALFA 2.5 ML AMP INH SCH (07:04)
[2017-08-10] MEDS: BOOST VANILLA PO SCH ×3 (07:35→16:20)
[2017-08-10] MEDS: DEXAMETHASONE INJ 4 MG in SYRINGE 0 ML IV SCH (07:35)
[2017-08-10] MEDS: SULFAMETHOXAZOLE/TRIMETHOPRIM DS 800/160MG TAB PO SCH ×2 (07:37→20:03)
[2017-08-10] MEDS: POLYETHYLENE (MIRALAX) 17 GM PACK PO SCH (07:37)
[2017-08-10] MEDS: ASCORBIC ACID 500 MG TAB PO SCH (07:37)
[2017-08-10] MEDS: APIXABAN 2.5 MG TAB PO SCH ×2 (07:37→20:04)
[2017-08-10] MEDS: FINASTERIDE 5 MG TAB PO SCH (07:37)
[2017-08-10] MEDS: GUAIFENESIN 600 MG TABCR PO SCH ×2 (07:38→20:04)
[2017-08-10] MEDS: PrednisoLONE ACET 1% OP SUSP 5 ML BTL OPL SCH (07:39)
--- NOTE | 2017-08-10 09:44 | Hematology/Oncology Prog Note ---
Hematology/Onc Progress Note Date of Service Aug 10, 2017. Diagnoses Progressive non-Hodgkin's lymphoma Left lung pneumonia COPD Medications Medications Administered Medications (Trade) Dose Ordered Sig/Hari Route Start Time Stop Time Status Last Admin Dose Admin Sodium Chloride 1,000 ml @ 999 mls/hr Q1H1M STAT IV 07/31/17 11:28 07/31/17 12:28 DC 07/31/17 12:02 999 MLS/HR Cefepime HCl 1000 mg/Dextrose 111 ml @ 200 mls/hr NOW STAT IV 07/31/17 11:45 07/31/17 12:18 DC 07/31/17 12:28 200 MLS/HR Levofloxacin (Levaquin / D5W) 500 mg NOW ONCE IV 07/31/17 11:45 07/31/17 11:47 DC 07/31/17 12:02 500 MG Vancomycin HCl 1500 mg/Sodium Chloride 530 ml @ 200 mls/hr ONE STAT IV 07/31/17 13:50 07/31/17 16:28 DC 07/31/17 14:22 200 MLS/HR Sodium Chloride 1,000 ml @ 30 mls/hr Q24H IV 07/31/17 14:40 08/01/17 13:28 DC 08/01/17 11:57 30 MLS/HR Acetaminophen (Tylenol Tab) 650 mg Q4H PRN PO 07/31/17 14:45 08/30/17 14:44 08/06/17 11:28 650 MG Lactobacillus Acidophilus (Floranex Tab) 4 tab TIDM PO 07/31/17 16:45 08/09/17 15:56 DC 08/09/17 15:55 4 TAB Vancomycin HCl 1000 mg/Sodium Chloride 270 ml @ 125 mls/hr Q24H IV 08/01/17 12:00 08/03/17 14:41 DC 08/03/17 12:12 125 MLS/HR Cefepime HCl 1000 mg/Syringe 11 ml @ 5.5 mls/min Q12H IV 08/01/17 00:00 08/03/17 14:41 DC 08/03/17 14:05 5.5 MLS/MIN Levofloxacin 250 mg/Prmx 50 ml @ 50 mls/hr TODAY@1630 ONCE IV 07/31/17 16:30 07/31/17 17:29 DC 07/31/17 17:42 50 MLS/HR Levofloxacin 750 mg/Prmx 150 ml @ 100 mls/hr Q48H IV 08/02/17 11:00 08/04/17 11:34 DC 08/04/17 11:28 100 MLS/HR Ipratropium [place] (Atrovent 0.02% 0.5MG/2.5ML Neb) 0.5 mg Q6R INH 07/31/17 21:00 08/30/17 20:59 08/10/17 07:04 0.5 MG Levalbuterol (Xopenex 1.25MG/ 0.5ML Neb) 1.25 mg Q6R INH 07/31/17 21:00 08/30/17 20:59 08/10/17 07:04 1.25 MG Latanoprost (Xalatan Oph Soln) 1 drops HS OPB 07/31/17 21:00 08/30/17 20:59 08/09/17 20:20 1 DROPS Tobramycin/ Dexamethasone (Tobradex Oph Oint) 1 appln HS OPL 07/31/17 21:00 08/04/17 21:32 DC 08/03/17 19:45 1 APPLN Diltiazem HCl (Cardizem Inj) 10 mg TODAY@2130 IV 07/31/17 21:30 07/31/17 21:31 DC 07/31/17 22:24 10 MG Diltiazem HCl 125 mg/Dextrose 125 ml @ 0 mls/hr Q0M PRN IV 07/31/17 21:30 08/04/17 11:10 DC 08/04/17 01:41 15 MLS/HR Miscellaneous Information (Order Awaiting Action) 1 ea QS N/A 08/01/17 08:00 08/01/17 18:40 DC 08/01/17 15:49 1 EA Heparin Sodium (Porcine) 4000 unit/Syringe 4 ml @ 10 mls/min NOW ONCE IV 07/31/17 23:15 07/31/17 23:16 DC 07/31/17 23:42 10 MLS/MIN Heparin Sodium/ Dextrose 500 ml @ 20 mls/hr Q24H PRN IV 07/31/17 23:15 08/02/17 11:45 DC 08/01/17 17:38 20 MLS/HR Heparin Sodium (Porcine) (Heparin 100 Unit/ml 5ml Flush) 5 ml PRN PRN IV 08/01/17 07:45 08/31/17 07:44 08/04/17 13:22 5 ML Heparin Sodium (Porcine) 4500 unit/Syringe 4.5 ml @ 10 mls/min NOW ONCE IV 08/01/17 09:00 08/01/17 09:01 DC 08/01/17 09:14 10 MLS/MIN Sodium Chloride 500 ml @ 999 mls/hr Q31M STAT IV 08/01/17 13:12 08/01/17 13:42 DC 08/01/17 14:30 999 MLS/HR Sodium Chloride 1,000 ml @ 100 mls/hr Q10H IV 08/01/17 13:15 08/04/17 10:48 DC 08/03/17 20:16 100 MLS/HR Heparin Sodium (Porcine) 3000 unit/Syringe 3 ml @ 10 mls/min 1730 ONCE IV 08/01/17 17:30 08/01/17 17:31 DC 08/01/17 17:37 10 MLS/MIN Enteral Nutritional Formula (Boost) 1 can TIDM PO 08/02/17 07:30 09/01/17 07:29 08/10/17 07:35 1 CAN Neomycin/ Polymyxin/ Dexamethasone (Maxitrol Oph Susp) 1 drops Q6H OPL 08/02/17 00:00 08/04/17 21:32 DC 08/04/17 18:00 1 DROPS Menthol (Nice Eduar) 24 eduar STK-MED ONCE .ROUTE 08/01/17 21:25 08/01/17 21:26 DC 08/01/17 21:25 24 EDUAR Potassium/ Phosphorus/Sodium (Phospha 250 Neutral 155-852-130 Mg) 1 tab QID PO 08/02/17 13:00 08/02/17 21:01 DC 08/02/17 20:14 1 TAB Apixaban (Eliquis Tab) 5 mg BID PO 08/02/17 22:00 09/01/17 21:59 08/10/17 07:37 5 MG Apixaban (Eliquis Tab) 5 mg NOW ONCE PO 08/02/17 11:45 08/02/17 11:46 DC 08/02/17 13:25 5 MG Furosemide (Lasix Tab) 20 mg QAM PO 08/02/17 12:00 08/04/17 13:36 DC 08/04/17 08:55 20 MG Furosemide 20 mg/ Syringe 2 ml @ 4 mls/min NOW STAT IV 08/04/17 03:27 08/04/17 03:30 DC 08/04/17 03:27 4 MLS/MIN Furosemide 20 mg/ Syringe 2 ml @ 4 mls/min TODAY@1100 IV 08/04/17 11:00 08/04/17 11:20 DC 08/04/17 11:43 4 MLS/MIN Levofloxacin (Levaquin Tab) 750 mg Q2D@1100 PO 08/06/17 11:00 08/06/17 11:01 DC 08/06/17 09:43 750 MG Diltiazem HCl (Cardizem Tab) 30 mg TID PO 08/04/17 14:00 08/05/17 09:21 DC 08/05/17 07:45 30 MG Diltiazem HCl (Cardizem Inj) 5 mg NOW STAT IV 08/04/17 12:40 08/04/17 12:57 DC 08/04/17 13:06 5 MG Furosemide 20 mg/ Syringe 2 ml @ 4 mls/min QAM IV 08/05/17 09:00 08/05/17 11:36 DC 08/05/17 08:59 4 MLS/MIN Prednisolone Acetate (Pred Forte 1% Oph Susp) 1 drops DAILY OPL 08/05/17 09:00 09/04/17 08:59 08/10/17 07:39 1 DROPS Diltiazem HCl (Cardizem Tab) 30 mg Q6H PO 08/05/17 15:00 08/06/17 13:17 DC 08/06/17 09:43 30 MG Furosemide 20 mg/ Syringe 2 ml @ 4 mls/min BID17 IV 08/05/17 17:00 08/06/17 16:55 DC 08/06/17 09:42 4 MLS/MIN Polyethylene (Miralax Powder Packet) 17 gm DAILY PO 08/05/17 11:45 08/30/17 14:44 08/10/17 07:37 17 GM Fluconazole (Diflucan Tab) 100 mg QAM PO 08/06/17 09:00 08/09/17 15:56 DC 08/09/17 08:05 100 MG Fluconazole (Diflucan Tab) 100 mg 1134 ONCE PO 08/05/17 11:34 08/05/17 11:39 DC 08/05/17 13:02 100 MG Doxycycline Hyclate (Vibramycin Cap) 100 mg BID PO 08/05/17 21:00 08/09/17 15:58 DC 08/09/17 08:04 100 MG Guaifenesin (Mucinex Contr Rel Tab) 1,200 mg Q12 PO 08/05/17 11:45 09/04/17 11:44 08/10/17 07:38 1,200 MG Doxycycline Hyclate (Vibramycin Cap) 100 mg NOW STAT PO 08/05/17 12:50 08/05/17 12:51 DC 08/05/17 13:03 100 MG Diltiazem HCl (Cardizem Tab) 60 mg Q6H PO 08/06/17 15:00 09/03/17 13:59 08/10/17 07:36 60 MG Prednisone (PredniSONE TAB) 10 mg NOW ONCE PO 08/06/17 13:30 08/06/17 15:25 DC 08/06/17 14:09 10 MG Dexamethasone Sodium Phosphate 4 mg/Syringe 1 ml @ 1 mls/min Q12H IV 08/06/17 18:00 08/08/17 17:43 DC 08/08/17 17:27 1 MLS/MIN Levothyroxine Sodium (Synthroid Tab) 75 mcg DAILYBB PO 08/07/17 06:00 09/06/17 05:59 08/10/17 06:14 75 MCG Dornase [place] (Pulmozyme Inhalation Soln 2.5ml Amp) 2.5 ml BIDR INH 08/07/17 08:00 08/10/17 07:59 DC 08/10/17 07:04 2.5 ML Dexamethasone/ Nystatin/ Diphenhydramine HCl/Sucrose/ Microcrystalline Cellulose/Barcode ACHS PO 08/07/17 21:00 08/09/17 15:56 DC 08/09/17 11:52 5 ML Bisacodyl (Dulcolax Supp) 10 mg NOW STAT TX 08/08/17 10:30 08/08/17 10:58 DC 08/08/17 11:52 10 MG Dexamethasone Sodium Phosphate 4 mg/Syringe 1 ml @ 1 mls/min QAM IV 08/09/17 09:00 09/05/17 17:59 08/10/17 07:35 1 MLS/MIN Haloperidol (Haldol Tab) 1 mg HS PRN PO 08/08/17 17:45 08/09/17 15:56 DC 08/08/17 20:27 1 MG Ascorbic Acid (Vitamin C Tab) 500 mg DAILY PO 08/10/17 09:00 09/09/17 08:59 08/10/17 07:37 500 MG Finasteride (Proscar Tab) 5 mg DAILY PO 08/10/17 09:00 09/09/17 08:59 08/10/17 07:37 5 MG Quetiapine Fumarate (seroQUEL TAB) 25 mg HS PO 08/09/17 21:00 09/08/17 20:59 08/09/17 20:26 25 MG Trimethoprim/ Sulfamethoxazole (Septra Ds 800/ 160MG Tab) 1 tab Q12 PO 08/09/17 21:00 08/19/17 20:59 08/10/17 07:37 1 TAB Subjective Seen in radiation therapy today. He states his breathing about the same if not a little bit better. He states his right buttock hurts and he has a seating cushion pad on that area now. Review of Systems: Constitutional: Negative for night sweats, or fever Eyes: Negative for event change of vision ENT: Negative for epistaxis, nasal discharge, sore throat, or deafness Cardiovascular: Negative for chest pain, palpitations, dizziness, diaphoresis Respiratory: Negative for worsening shortness of breath,hemoptysis Integumentary (skin): Negative for rash or jaundice discoloration Neurological: Negative for weakness, seizure activity, headache, or dizziness Lymphatic/Hematologic: Negative for petechiae, bleeding or new adenopathy Musculoskeletal: Negative for new joint or back pain. Left are mildly edematous Allergic/Immunologic: Negative for unusual rash or pruritis. Vital Signs Vital Signs Past 12 Hours Date Time Temp Pulse Resp B/P (MAP) Pulse Ox O2 Delivery O2 Flow Rate FiO2 08/10/17 08:00 Nasal Cannula 2.0 Humidified Oxygen 08/10/17 07:58 36.3 87 19 101/54 (70) 99 Nasal Cannula 2.0 08/10/17 07:05 84 18 97 Nasal Cannula 2.0 08/10/17 04:15 87 18 98 Nasal Cannula 2.0 08/10/17 04:02 Nasal Cannula 2.0 08/10/17 03:03 36.4 78 22 150/42 (78) 93 Nasal Cannula 2.0 08/10/17 00:03 37.0 87 20 120/64 (82) 99 Nasal Cannula 2.0 08/10/17 00:00 Nasal Cannula 2.0 Physical Exam Constitutional: vitals are stable. Thin pleasant gentleman seen in the radiation therapy area. Eyes: Eyes are HORACE EOMI without conjuctival erythema or icterus. ENT: External examination was negative for masses. Neck: Negative for masses or palpable thyromegaly Respiratory: Lung sounds were generally clear on the right with left lung sounds being decreased Cardiovascular: Heart was mostly RRR today with soft 1/6 systolic murmur Gastrointestinal: No palpable hepatic or splenomegaly. The abdomen was soft with normal bowel sounds. Lymphatic system: there was no palpable peripheral lymphadenopathy Musculoskeletal System: The musculoskeletal system seemed concordant with age. Skin: The skin was negative for jaundice. Neurologic exam: The exam was negative for any focal findings. Deep tendon reflexes were equal and symmetrical. Psychiatric exam: Was essentially negative with normal mood and effect. Remedies: Left arm edema... It is not erythematous or tender. Laboratory Last 24 Hours Test 08/10/17 09:22 Assessment & Plan Radiation therapy ongoing. With today's radiation he is detention through. 5 more treatments to be done. Left arm is mildly edematous and if it remains this way than a Doppler will eventually need to be done. Otherwise he appears clinically the same and stable.
[2017-08-10 11:02] LABS: HEMATOCRIT 28.9 % (42-52); HEMOGLOBIN 9.3 g/dL (14.0-18.0); MEAN CELL VOLUME 89.5 fL (80-100); MEAN CORPUSCULAR HEMOGLOBIN 28.8 pg (25-34); MEAN CORPUSCULAR HGB CONC 32.2 g/dl (32-36); NUCLEATED RED BLOOD CELL ABS 0.02 K/uL (0-0); PLATELET COUNT 138 K/uL (130-400); RED CELL DISTRIBUTION WIDTH CV 17.4 % (11.5-14.5); WHITE BLOOD COUNT 2.58 K/uL (4.8-10.8)
[2017-08-10 11:27] LABS: CALCIUM 8.9 mg/dl (8.5-10.1); CREATININE 1.47 mg/dl (0.60-1.40); POTASSIUM 5.7 mmol/L (3.5-5.1)
[2017-08-10] MEDS: ACETAMINOPHEN 325 MG TAB PO PRN ×2 (12:11→16:20)
--- NOTE | 2017-08-10 12:21 | Pulmonology Progress Note ---
Pulmonary Progress Note Date of Service Aug 10, 2017. Attending Dr. Gupta Subjective Denies any fevers. Tolerating VEST pulmonary toilet. Reports improved ability to expectorant "chunk" of sputum. 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 He is a former smoker. Patient treated with antibiotic with ID consultation, external beam radiation for debulking, and aggressive pulmonary toilet. CXR 08/09/17: very modest improvement in left opacities. Physical Exam: Constitutional: Ill appearing somnolent male sitting in chair at bedside. No acute distress Respiratory: Loose intermittent cough - appreciated improved air movement left anteriorly but persistent diminished movement posteriorly Chest: Angiomas on left chest : carter draining dark yellow urine MSK/extremities: Bilateral pedal edema. Assessment & Plan Patient seen and examined by Dr. Gupta. He is responding clinically to radiation and pulmonary toilet. Would NOT move forward with bronchoscopy at this time given his slow steady clinical progress. Recommend CXR in 3-days and continue aggressive pulmonary toilet. Patient seen and examined. I spoke to both the patient and his . As the patient is currently improving both clinically as well as radiographically I suggest we continue to monitor this patient clinically and radiographically as mentioned above. No acute intervention at this time. Data Medications: Current Inpatient Medications Medications (Trade) Dose Ordered Sig/Hari Route Start Time Stop Time Status Last Admin Dose Admin Acetaminophen (Tylenol Tab) 650 mg Q4H PRN PO 07/31/17 14:45 08/30/17 14:44 08/10/17 12:11 650 MG Al Hydrox/Mg Hydrox/Simethicone (Maalox Max Susp) 15 ml Q4H PRN PO 07/31/17 14:45 08/30/17 14:44 Magnesium Hydroxide (Milk Of Magnesia Susp) 30 ml Q12H PRN PO 07/31/17 14:45 08/30/17 14:44 Ondansetron HCl (Zofran Inj) 4 mg Q6H PRN IV 07/31/17 14:45 08/30/17 14:44 Guaifenesin (Robitussin Sugar Free Syrup) 200 mg Q6H PRN PO 07/31/17 15:00 08/30/17 14:59 Ipratropium Mcgrew (Atrovent 0.02% 0.5MG/2.5ML Neb) 0.5 mg Q6R INH 07/31/17 21:00 08/30/17 20:59 08/10/17 07:04 0.5 MG Levalbuterol (Xopenex 1.25MG/ 0.5ML Neb) 1.25 mg Q6R INH 07/31/17 21:00 08/30/17 20:59 08/10/17 07:04 1.25 MG Latanoprost (Xalatan Oph Soln) 1 drops HS OPB 07/31/17 21:00 08/30/17 20:59 08/09/17 20:20 1 DROPS Heparin Sodium (Porcine) (Heparin 100 Unit/ml 5ml Flush) 5 ml PRN PRN IV 08/01/17 07:45 08/31/17 07:44 08/04/17 13:22 5 ML Enteral Nutritional Formula (Boost) 1 can TIDM PO 08/02/17 07:30 09/01/17 07:29 08/10/17 11:35 1 CAN Apixaban (Eliquis Tab) 5 mg BID PO 08/02/17 22:00 09/01/17 21:59 08/10/17 07:37 5 MG Prednisolone Acetate (Pred Forte 1% Oph Susp) 1 drops DAILY OPL 08/05/17 09:00 09/04/17 08:59 08/10/17 07:39 1 DROPS Polyethylene (Miralax Powder Packet) 17 gm DAILY PO 08/05/17 11:45 08/30/17 14:44 08/10/17 07:37 17 GM Guaifenesin (Mucinex Contr Rel Tab) 1,200 mg Q12 PO 08/05/17 11:45 09/04/17 11:44 08/10/17 07:38 1,200 MG Diltiazem HCl (Cardizem Tab) 60 mg Q6H PO 08/06/17 15:00 09/03/17 13:59 08/10/17 07:36 60 MG Levothyroxine Sodium (Synthroid Tab) 75 mcg DAILYBB PO 08/07/17 06:00 09/06/17 05:59 08/10/17 06:14 75 MCG Dexamethasone Sodium Phosphate 4 mg/Syringe 1 ml @ 1 mls/min QAM IV 08/09/17 09:00 09/05/17 17:59 08/10/17 07:35 1 MLS/MIN Ascorbic Acid (Vitamin C Tab) 500 mg DAILY PO 08/10/17 09:00 09/09/17 08:59 08/10/17 07:37 500 MG Finasteride (Proscar Tab) 5 mg DAILY PO 08/10/17 09:00 09/09/17 08:59 08/10/17 07:37 5 MG Quetiapine Fumarate (seroQUEL TAB) 25 mg HS PO 08/09/17 21:00 09/08/17 20:59 08/09/17 20:26 25 MG Haloperidol Lactate (Haldol Inj) 2.5 mg Q4H PRN IV 08/09/17 16:00 09/08/17 15:59 Trimethoprim/ Sulfamethoxazole (Septra Ds 800/ 160MG Tab) 1 tab Q12 PO 08/09/17 21:00 08/19/17 20:59 08/10/17 07:37 1 TAB Vital Signs: Date Time Temp Pulse Resp B/P (MAP) Pulse Ox O2 Delivery O2 Flow Rate FiO2 08/10/17 11:37 36.2 76 19 101/47 (65) 96 Nasal Cannula 2.0 08/10/17 09:52 36.4 73 16 89/46 99 08/10/17 08:00 Nasal Cannula 2.0 Humidified Oxygen 08/10/17 07:58 36.3 87 19 101/54 (70) 99 Nasal Cannula 2.0 08/10/17 07:05 84 18 97 Nasal Cannula 2.0 08/10/17 04:15 87 18 98 Nasal Cannula 2.0 08/10/17 04:02 Nasal Cannula 2.0 08/10/17 03:03 36.4 78 22 150/42 (78) 93 Nasal Cannula 2.0 08/10/17 00:03 37.0 87 20 120/64 (82) 99 Nasal Cannula 2.0 08/10/17 00:00 Nasal Cannula 2.0 08/09/17 20:00 Nasal Cannula 2.0 08/09/17 19:46 36.4 86 16 112/46 (68) 98 Nasal Cannula 2.0 08/09/17 19:43 85 18 99 Nasal Cannula 2.0 08/09/17 16:00 Nasal Cannula 2.0 08/09/17 15:53 36.5 85 18 107/65 (79) 99 Nasal Cannula 2.0 08/09/17 14:32 81 18 100 Nasal Cannula 2.0 Laboratory Results: Last 24 Hours Test 08/10/17 10:45 White Blood Count 2.58 K/uL Red Blood Count 3.23 M/uL Hemoglobin 9.3 g/dL Hematocrit 28.9 % Mean Corpuscular Volume 89.5 fL Mean Corpuscular Hemoglobin 28.8 pg Mean Corpuscular Hemoglobin Concent 32.2 g/dl RDW Standard Deviation 57.0 fL RDW Coefficient of Variation 17.4 % Platelet Count 138 K/uL Mean Platelet Volume 11.0 fL Nucleated RBC Absolute Count (auto) 0.02 K/uL Nucleated Red Blood Cells % 0.7 % Sodium Level 134 mmol/L Potassium Level 5.7 mmol/L Chloride Level 103 mmol/L Carbon Dioxide Level 25 mmol/L Anion Gap 6.0 mmol/L Blood Urea Nitrogen 56 mg/dl Creatinine 1.47 mg/dl Est Creatinine Clear Calc Drug Dose 37.4 ml/min Estimated GFR () 52.2 Estimated GFR (Non- 45.0 BUN/Creatinine Ratio 38.2 Random Glucose 114 mg/dl Calcium Level 8.9 mg/dl
--- NOTE | 2017-08-10 13:29 | Cardiology Follow-Up ---
Subjective Date of Service: Aug 10, 2017. Pt evaluation today including: conversation w/ patient, conversation w/ family , physical exam, lab review, review of studies, review of inpatient medication list History of Present Illness This is a 77-year-old male with a history of aortic stenosis, aortic insufficiency and coronary artery disease. He had a myocardial infarction in 1992 with a right coronary artery stent placed in [place]. He also has a history of tobacco abuse and lung disease. He has non-Hodgkin's lymphoma. On echocardiography showed normal left ventricular size and function with severe aortic stenosis (valve area 0.96 cm, mean gradient 20 mmHg). On 2015 echo showed moderate with MARGUERITE 1.6 and mean gradient 32, inconsistent with prior. Moderate AI in march. He presented with weakness, inability to walk and bilateral lower extremity swelling. Electrocardiography showed atrial flutter with a controlled heart rate. He also had 3 days of productive cough and possibly has sepsis, he was admitted on 07/31/2017. He seems to be doing better today, he is sitting in a chair, he is alert and conversational. No complaints other than tiredness. Social History Smoking Status: Current Every Day Smoker History of Alcohol Use: No Review of Systems Respiratory: No cough, No sputum Cardiac: No chest pain, No orthopnea Medications Cardiovascular: Item Value Date Time Diltiazem HCl 60 mg 08/06/17 1500 (Cardizem Tab) Q6H/PO 08/10/17 0736 Apixaban 5 mg 08/02/17 2200 (Eliquis Tab) BID/PO 08/10/17 0737 Objective Vital Signs Past 12 Hours Date Time Temp Pulse Resp B/P (MAP) Pulse Ox O2 Delivery O2 Flow Rate FiO2 08/10/17 12:00 Nasal Cannula 2.0 Humidified Oxygen 08/10/17 11:37 36.2 76 19 101/47 (65) 96 Nasal Cannula 2.0 08/10/17 09:52 36.4 73 16 89/46 99 08/10/17 08:00 Nasal Cannula 2.0 Humidified Oxygen 08/10/17 07:58 36.3 87 19 101/54 (70) 99 Nasal Cannula 2.0 08/10/17 07:05 84 18 97 Nasal Cannula 2.0 08/10/17 04:15 87 18 98 Nasal Cannula 2.0 08/10/17 04:02 Nasal Cannula 2.0 08/10/17 03:03 36.4 78 22 150/42 (66) 93 Nasal Cannula 2.0 Last Recorded Weight-Kilograms: 68.400 Physical Exam Constitutional: Level of Distress: NAD Lungs: Respiratory effort: no dyspnea, good air movement Auscultation: no wheezing, decreased breath sounds Cardiovascular: Heart Auscultation: RRR, no rubs, no gallops, II/ MACEY, II/ WSM Peripheral Pulses: Bruits: none appreciated Extremities: no edema Data Laboratory Results: Last 24 Hours Test 08/10/17 10:45 White Blood Count 2.58 K/uL Red Blood Count 3.23 M/uL Hemoglobin 9.3 g/dL Hematocrit 28.9 % Mean Corpuscular Volume 89.5 fL Mean Corpuscular Hemoglobin 28.8 pg Mean Corpuscular Hemoglobin Concent 32.2 g/dl RDW Standard Deviation 57.0 fL RDW Coefficient of Variation 17.4 % Platelet Count 138 K/uL Mean Platelet Volume 11.0 fL Nucleated RBC Absolute Count (auto) 0.02 K/uL Nucleated Red Blood Cells % 0.7 % Sodium Level 134 mmol/L Potassium Level 5.7 mmol/L Chloride Level 103 mmol/L Carbon Dioxide Level 25 mmol/L Anion Gap 6.0 mmol/L Blood Urea Nitrogen 56 mg/dl Creatinine 1.47 mg/dl Est Creatinine Clear Calc Drug Dose 37.4 ml/min Estimated GFR () 52.2 Estimated GFR (Non- 45.0 BUN/Creatinine Ratio 38.2 Random Glucose 114 mg/dl Calcium Level 8.9 mg/dl Telemetry reviewed: AF with a controlled HR Assessment and Plan #1. Aortic stenosis: .An echocardiogram done 08/01/2017 shows normal left ventricular size and function, normal right and a size with borderline reduced right ventricular function. Severe aortic stenosis with a valve area 0.74 cm and mean gradient of 32 mmHg. Mild to moderate aortic insufficiency. With normal left ventricular size and function this probably is not a big part of his presentation. #2. Peripheral edema: He no longer has peripheral edema and I think he is euhydrated. #3. Atrial flutter: He presented in atrial flutter, as far as I know this is a new arrhythmia, however it could only have been recently identified since he seems asymptomatic with it. It could conceivably relate to his weakness and hypotension although it seems more likely to be due to other causes. He should continue with anticoagulation if possible, he is currently on Eliquis and evidently tolerating it well. The heart rate is reasonably well controlled now. Thank you for allowing me to participate in his care.
[2017-08-10 14:45] LABS: CALCIUM 8.8 mg/dl (8.5-10.1); CREATININE 1.55 mg/dl (0.60-1.40); POTASSIUM 5.5 mmol/L (3.5-5.1)
--- NOTE | 2017-08-10 15:50 | Infectious Disease Progress Nt ---
Progress Note Date of Service Aug 10, 2017. Subjective Pt evaluation today including: conversation w/ patient, physical exam, chart review, lab review, review of studies Patient feeling somewhat better today. Sputum production improved. No fever. No other new complaints. All Other Systems: Reviewed and Negative Medications Current Inpatient Medications Medications (Trade) Dose Ordered Sig/Hari Route Start Time Stop Time Status Last Admin Dose Admin Acetaminophen (Tylenol Tab) 650 mg Q4H PRN PO 07/31/17 14:45 08/30/17 14:44 08/10/17 12:11 650 MG Al Hydrox/Mg Hydrox/Simethicone (Maalox Max Susp) 15 ml Q4H PRN PO 07/31/17 14:45 08/30/17 14:44 Magnesium Hydroxide (Milk Of Magnesia Susp) 30 ml Q12H PRN PO 07/31/17 14:45 08/30/17 14:44 Ondansetron HCl (Zofran Inj) 4 mg Q6H PRN IV 07/31/17 14:45 08/30/17 14:44 Guaifenesin (Robitussin Sugar Free Syrup) 200 mg Q6H PRN PO 07/31/17 15:00 08/30/17 14:59 Ipratropium Davis (Atrovent 0.02% 0.5MG/2.5ML Neb) 0.5 mg Q6R INH 07/31/17 21:00 08/30/17 20:59 08/10/17 14:25 0.5 MG Levalbuterol (Xopenex 1.25MG/ 0.5ML Neb) 1.25 mg Q6R INH 07/31/17 21:00 08/30/17 20:59 08/10/17 14:25 1.25 MG Latanoprost (Xalatan Oph Soln) 1 drops HS OPB 07/31/17 21:00 08/30/17 20:59 08/09/17 20:20 1 DROPS Heparin Sodium (Porcine) (Heparin 100 Unit/ml 5ml Flush) 5 ml PRN PRN IV 08/01/17 07:45 08/31/17 07:44 08/04/17 13:22 5 ML Enteral Nutritional Formula (Boost) 1 can TIDM PO 08/02/17 07:30 09/01/17 07:29 08/10/17 11:35 1 CAN Apixaban (Eliquis Tab) 5 mg BID PO 08/02/17 22:00 09/01/17 21:59 08/10/17 07:37 5 MG Prednisolone Acetate (Pred Forte 1% Oph Susp) 1 drops DAILY OPL 08/05/17 09:00 09/04/17 08:59 08/10/17 07:39 1 DROPS Polyethylene (Miralax Powder Packet) 17 gm DAILY PO 08/05/17 11:45 08/30/17 14:44 08/10/17 07:37 17 GM Guaifenesin (Mucinex Contr Rel Tab) 1,200 mg Q12 PO 08/05/17 11:45 09/04/17 11:44 08/10/17 07:38 1,200 MG Diltiazem HCl (Cardizem Tab) 60 mg Q6H PO 08/06/17 15:00 09/03/17 13:59 08/10/17 14:44 60 MG Levothyroxine Sodium (Synthroid Tab) 75 mcg DAILYBB PO 08/07/17 06:00 09/06/17 05:59 08/10/17 06:14 75 MCG Dexamethasone Sodium Phosphate 4 mg/Syringe 1 ml @ 1 mls/min QAM IV 08/09/17 09:00 09/05/17 17:59 08/10/17 07:35 1 MLS/MIN Ascorbic Acid (Vitamin C Tab) 500 mg DAILY PO 08/10/17 09:00 09/09/17 08:59 08/10/17 07:37 500 MG Finasteride (Proscar Tab) 5 mg DAILY PO 08/10/17 09:00 09/09/17 08:59 08/10/17 07:37 5 MG Quetiapine Fumarate (seroQUEL TAB) 25 mg HS PO 08/09/17 21:00 09/08/17 20:59 08/09/17 20:26 25 MG Haloperidol Lactate (Haldol Inj) 2.5 mg Q4H PRN IV 08/09/17 16:00 09/08/17 15:59 Trimethoprim/ Sulfamethoxazole (Septra Ds 800/ 160MG Tab) 1 tab Q12 PO 08/09/17 21:00 08/19/17 20:59 08/10/17 07:37 1 TAB Objective Vital Signs Date Time Temp Pulse Resp B/P (MAP) Pulse Ox O2 Delivery O2 Flow Rate FiO2 08/10/17 14:26 83 18 97 Nasal Cannula 2.0 08/10/17 12:00 Nasal Cannula 2.0 Humidified Oxygen 08/10/17 11:37 36.2 76 19 101/47 (65) 96 Nasal Cannula 2.0 08/10/17 09:52 36.4 73 16 89/46 99 08/10/17 08:00 Nasal Cannula 2.0 Humidified Oxygen 08/10/17 07:58 36.3 87 19 101/54 (70) 99 Nasal Cannula 2.0 08/10/17 07:05 84 18 97 Nasal Cannula 2.0 08/10/17 04:15 87 18 98 Nasal Cannula 2.0 08/10/17 04:02 Nasal Cannula 2.0 08/10/17 03:03 36.4 78 22 150/42 (78) 93 Nasal Cannula 2.0 08/10/17 00:03 37.0 87 20 120/64 (82) 99 Nasal Cannula 2.0 08/10/17 00:00 Nasal Cannula 2.0 08/09/17 20:00 Nasal Cannula 2.0 08/09/17 19:46 36.4 86 16 112/46 (68) 98 Nasal Cannula 2.0 08/09/17 19:43 85 18 99 Nasal Cannula 2.0 08/09/17 16:00 Nasal Cannula 2.0 08/09/17 15:53 36.5 85 18 107/65 (79) 99 Nasal Cannula 2.0 Physical Exam General Appearance: no apparent distress, + pertinent finding (Chronically ill- appearing) Eyes: normal inspection, sclerae normal ENT: normal ENT inspection, pharynx normal Neck: supple, no adenopathy, trachea midline Respiratory/Chest: chest non-tender, lungs clear, normal breath sounds, no respiratory distress Cardiovascular: regular rate, rhythm, no gallop, + systolic murmur Abdomen: normal bowel sounds, non tender, soft, no organomegaly Extremities: non-tender, no calf tenderness Neurologic/Psychiatric: alert, oriented x 3 Skin: normal color, no rash Lymphatic: no adenopathy Laboratory Results RUN DATE: 08/10/17 [facility] LAB PAGE 1 RUN TIME: 1422 Specimen Inquiry PATIENT: KATHERIN ZAMORANO LOC: [facility] U # : [id number] AGE/SX: 77/M ROOM: [facility] REG : 07/31/[address]: Abdelrahman Bella M : 1940 BED: 1 DIS : STATUS: ADM IN TLOC: SPEC #: [id number] MANDA: 08/09/17 STATUS: RES REQ #: [id number] RECD: 08/09/[address]: Abdelrahman Bella M.D. SOURCE: OZ, CC ENTR: 08/09/[address] [facility] [address]: Luis Diggs , D.OGabby SPDESC: Dutch Ferrer MD, James, M.D. Moustafa Hussein, Wesam H., MD Nydegger, Charles C M.D. Patel, Veeral., MD Waddington, Thomas W., MD ORDERED: CULTURE URCLEAN COMMENTS: Has Specimen Been Obtained/Collected? Y Procedure Result Verified Site URINE CULTURE Preliminary 08/10/17-142 NO GROWTH - LESS THAN 1,000 COLONIES/ML, Final Report to Follow. Last 24 Hours Test 08/10/17 10:45 08/10/17 14:11 White Blood Count 2.58 K/uL Red Blood Count 3.23 M/uL Hemoglobin 9.3 g/dL Hematocrit 28.9 % Mean Corpuscular Volume 89.5 fL Mean Corpuscular Hemoglobin 28.8 pg Mean Corpuscular Hemoglobin Concent 32.2 g/dl RDW Standard Deviation 57.0 fL RDW Coefficient of Variation 17.4 % Platelet Count 138 K/uL Mean Platelet Volume 11.0 fL Nucleated RBC Absolute Count (auto) 0.02 K/uL Nucleated Red Blood Cells % 0.7 % Sodium Level 134 mmol/L 133 mmol/L Potassium Level 5.7 mmol/L 5.5 mmol/L Chloride Level 103 mmol/L 101 mmol/L Carbon Dioxide Level 25 mmol/L 21 mmol/L Anion Gap 6.0 mmol/L 11.0 mmol/L Blood Urea Nitrogen 56 mg/dl 58 mg/dl Creatinine 1.47 mg/dl 1.55 mg/dl Est Creatinine Clear Calc Drug Dose 37.4 ml/min 35.4 ml/min Estimated GFR () 52.2 49.0 Estimated GFR (Non- 45.0 42.3 BUN/Creatinine Ratio 38.2 37.7 Random Glucose 114 mg/dl 234 mg/dl Calcium Level 8.9 mg/dl 8.8 mg/dl [~ rep ct add3]] CHEST ONE VIEW PORTABLE HISTORY: lymphoma, COPD, LORETA pneumonia COMPARISON: Chest 08/06/2017. FINDINGS: Left subclavian Port-A-Cath terminates in the SVC. Emphysema. The heart is normal in size. Trace bilateral pleural effusions. Dense consolidation seen within the periphery of the left midlung zone is again noted. There is also interstitial thickening throughout the left lung, unchanged. Cervical spinal fusion hardware is again noted. IMPRESSION: No change in the left lung airspace opacities. Trace bilateral pleural effusions are again noted. Electronically signed by: Von Rocha M.D. 08/09/2017 7:54 AM Assessment and Plan (1) Lymphoma 77-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 Patient appears to have responded well to levofloxacin, now discontinued, would follow carefully off IV antibiotics.
--- NOTE | 2017-08-10 19:17 | Progress Note ---
Subjective Date of Service: Aug 10, 2017. Subjective Patient appeared more fatigued today although his felt he was clinically improved and he was having some discomfort around his left chest and arm in the area consistent with his previous concurrent radiation treatment. The patient did not feel confused but his that side on more intensive questioning he remained confused Problem List Medical Problems: (1) Atrial flutter Status: Acute (2) CHF (congestive heart failure) Status: Acute (3) Febrile neutropenia Status: Acute (4) Hypotension Status: Acute (5) Immunocompromised Status: Acute (6) Low back pain Status: Acute (7) PNA (pneumonia) Status: Acute (8) Sepsis Status: Acute (9) Sepsis Status: Acute (10) Spinal stenosis Status: Acute (11) UTI (urinary tract infection) Status: Acute (12) Weakness Status: Acute Objective Vital Signs Date Time Temp Pulse Resp B/P (MAP) Pulse Ox O2 Delivery O2 Flow Rate FiO2 08/10/17 16:21 Nasal Cannula 2.0 Humidified Oxygen 08/10/17 15:58 36.5 91 18 106/46 (66) 91 Nasal Cannula 3.0 08/10/17 14:26 83 18 97 Nasal Cannula 2.0 08/10/17 12:00 Nasal Cannula 2.0 Humidified Oxygen 08/10/17 11:37 36.2 76 19 101/47 (65) 96 Nasal Cannula 2.0 08/10/17 09:52 36.4 73 16 89/46 99 08/10/17 08:00 Nasal Cannula 2.0 Humidified Oxygen 08/10/17 07:58 36.3 87 19 101/54 (70) 99 Nasal Cannula 2.0 08/10/17 07:05 84 18 97 Nasal Cannula 2.0 08/10/17 04:15 87 18 98 Nasal Cannula 2.0 08/10/17 04:02 Nasal Cannula 2.0 08/10/17 03:03 36.4 78 22 150/42 (78) 93 Nasal Cannula 2.0 08/10/17 00:03 37.0 87 20 120/64 (82) 99 Nasal Cannula 2.0 08/10/17 00:00 Nasal Cannula 2.0 08/09/17 20:00 Nasal Cannula 2.0 08/09/17 19:46 36.4 86 16 112/46 (68) 98 Nasal Cannula 2.0 08/09/17 19:43 85 18 99 Nasal Cannula 2.0 Laboratory Results Last 24 Hours Test 08/10/17 10:45 08/10/17 14:11 08/10/17 16:22 White Blood Count 2.58 K/uL Red Blood Count 3.23 M/uL Hemoglobin 9.3 g/dL Hematocrit 28.9 % Mean Corpuscular Volume 89.5 fL Mean Corpuscular Hemoglobin 28.8 pg Mean Corpuscular Hemoglobin Concent 32.2 g/dl RDW Standard Deviation 57.0 fL RDW Coefficient of Variation 17.4 % Platelet Count 138 K/uL Mean Platelet Volume 11.0 fL Nucleated RBC Absolute Count (auto) 0.02 K/uL Nucleated Red Blood Cells % 0.7 % Sodium Level 134 mmol/L 133 mmol/L Potassium Level 5.7 mmol/L 5.5 mmol/L Chloride Level 103 mmol/L 101 mmol/L Carbon Dioxide Level 25 mmol/L 21 mmol/L Anion Gap 6.0 mmol/L 11.0 mmol/L Blood Urea Nitrogen 56 mg/dl 58 mg/dl Creatinine 1.47 mg/dl 1.55 mg/dl Est Creatinine Clear Calc Drug Dose 37.4 ml/min 35.4 ml/min Estimated GFR () 52.2 49.0 Estimated GFR (Non- 45.0 42.3 BUN/Creatinine Ratio 38.2 37.7 Random Glucose 114 mg/dl 234 mg/dl Calcium Level 8.9 mg/dl 8.8 mg/dl Bedside Glucose 217 mg/dl Assessment and Plan 77yo male metabolic encephalopathy from post obstructive pneumonia poa, concern for progressive lymphoma;Severe sepsis POA, due to pneumonia has some improvement with change of meds and seroquel assisted sleeping encephalopathy - could be toxic from steroids (Decadron), metabolic (mild hyponatremia) paraneoplastic, hospital psychosis, vs infectious hyponatremia - improving acute hypoxic resp failure - likely multifactorial including pneumonia, COPD, worsening mass in left chest from lymphoma, acute diastolic CHF. Remains on o2. Pulmonary eval feels cannot offer improvement given size of obstructed airway would be too small to stent, he has some increased breath sounds on 08/10 which is encouraging left upper lobe post-obstructive pneumonia - completed course of levaquin. acute diastolic CHF - resolved; lasix d/c. a. fib - improved rates with cardizem 60mg q6h will transition to CD on 08/11. cont eliquis. Cardiology following. COPD with exacerbation - improving somewhat influenced by pneumonia, watch for pneumonitis from XRT mucinex, nebs, steroids. Improved. followed by pulmonary tapering decadron to 4mg once daily in the event he is having "steroid psychosis." recurrent follicular lymphoma - appreciate heme/onc and rad onc consultations. Continuing XRT to left hilar mass c/o Dr. Zavala. acute kidney injury in setting of CKD stage 2-3 - MACRINA resolved. abnormal peripheral smear - apparently there were cytoplasmic inclusions in the neutrophils on smear, anaplasmosis negative stopped doxycycline, concerned about lack of prophylaxis, and recurrent uti causing encephalopathy, restarted on bactrim and checking ua pancytopenia - likely from follicular lymphoma; CBC today again remains acceptable. DVT proph - eliquis BID. hypothyroidism - TSH compensated; continue synthroid 75mcg. thrush - diflucan x 10 days. Day #4 today. Magic mouthwash achs as well. constipation - dulcolax suppos x 1. prognosis is very poor in light of complicated medical issues and recurrent lymphoma code status discussed with patient by Dr. Diggs - patient wishes to remain full code for now Continued [facility] stay due to: inadequate po fluid intake, voiding difficulties, ambulation difficulties, multiple IV medications needed, home environment unsafe for pt Discharge planning: uncertain
[2017-08-10] MEDS: LATANOPROST 0.005% OP SOLN 2.5 ML BTL OPB SCH (19:58)
[2017-08-10] MEDS: QUETIAPINE FUMARATE 25 MG TAB PO SCH (20:03)
[2017-08-11] VITALS (10 sets, daily range): BP systolic 100–128; BP diastolic 55–62; PULSE 78–95; TEMP 36.3–36.5; O2SAT 92–100
[2017-08-11] MEDS: IPRATROPIUM BROMIDE NEB SOLN 0.02% 2.5 ML VIAL INH SCH ×4 (01:50→19:38)
[2017-08-11] MEDS: LEVALBUTEROL 1.25MG/0.5ML NEB INH SCH ×4 (01:50→19:38)
[2017-08-11] MEDS: DILTIAZEM HCL 60 MG TAB PO SCH ×2 (03:00→07:54)
[2017-08-11] MEDS: LEVOTHYROXINE 75 MCG TAB PO SCH (06:11)
[2017-08-11 06:34] LABS: HEMATOCRIT 26.7 % (42-52); HEMOGLOBIN 8.4 g/dL (14.0-18.0); MEAN CELL VOLUME 90.5 fL (80-100); MEAN CORPUSCULAR HEMOGLOBIN 28.5 pg (25-34); MEAN CORPUSCULAR HGB CONC 31.5 g/dl (32-36); MEAN PLATELET VOLUME 10.8 fL (7.4-10.4); NUCLEATED RED BLOOD CELL ABS 0.03 K/uL (0-0); PLATELET COUNT 125 K/uL (130-400); RED CELL DISTRIBUTION WIDTH CV 17.7 % (11.5-14.5); RED CELL DISTRIBUTION WIDTH SD 58.1 fL (36.4-46.3); WHITE BLOOD COUNT 1.84 K/uL (4.8-10.8)
--- NOTE | 2017-08-11 06:44 | DIAGNOSTIC IMAGING REPORT ---
L VENOUS DOPPLER UPR EXT UNIL HISTORY: 77 years-old Male has swelling and h/o lymphoma, xrt left chest acute swelling of the left upper extremity COMPARISON: Duplex venous Doppler study 12/10/2016 TECHNIQUE: Multiple real-time sonographic images of the left upper extremity deep venous structures were obtained assessing grayscale appearance, color and spectral flow FINDINGS: The internal jugular and visualized subclavian and axillary veins appear patent and within normal limits. The mid subclavian vein is not visualized secondary to bandaging from PICC which is seen within the proximal subclavian. There is a linear echogenic filling defect noted with one of the brachial veins adjacent to a valve which may reflect a small nonocclusive thrombus. No occlusive deep venous thrombosis identified. The cephalic, radial and ulnar veins appear patent and within normal limits. IMPRESSION: 1. Probable small nonocclusive thrombus involves one of the brachial veins. 2. PICC noted within the subclavian vein. The above report was generated using voice recognition software. It may contain grammatical, syntax or spelling errors. Electronically signed by: Juan Durant M.D. 08/11/2017 6:43 AM Dictated Date/Time: 08/11/2017 6:39 AM
[2017-08-11 06:59] LABS: CALCIUM 8.5 mg/dl (8.5-10.1); CREATININE 1.47 mg/dl (0.60-1.40); POTASSIUM 5.6 mmol/L (3.5-5.1)
[2017-08-11] MEDS: BOOST VANILLA PO SCH ×3 (07:53→17:01)
[2017-08-11] MEDS: ACETAMINOPHEN 325 MG TAB PO PRN (07:54)
[2017-08-11] MEDS: GUAIFENESIN 600 MG TABCR PO SCH ×2 (07:55→21:03)
[2017-08-11] MEDS: SULFAMETHOXAZOLE/TRIMETHOPRIM DS 800/160MG TAB PO SCH ×2 (07:55→21:03)
[2017-08-11] MEDS: FINASTERIDE 5 MG TAB PO SCH (07:55)
[2017-08-11] MEDS: ASCORBIC ACID 500 MG TAB PO SCH (07:56)
[2017-08-11] MEDS: PrednisoLONE ACET 1% OP SUSP 5 ML BTL OPL SCH (07:56)
[2017-08-11] MEDS: APIXABAN 2.5 MG TAB PO SCH ×2 (07:56→21:03)
[2017-08-11] MEDS: POLYETHYLENE (MIRALAX) 17 GM PACK PO SCH (07:57)
[2017-08-11] MEDS ORDERED: SODIUM POLYST. SULF SUSP 15G/60ML PO STA (08:13)
[2017-08-11] MEDS: DEXAMETHASONE INJ 4 MG in SYRINGE 0 ML IV SCH (11:25)
[2017-08-11] MEDS: DILTIAZEM HCL 240 MG CAPCR PO SCH (13:42)
--- NOTE | 2017-08-11 15:18 | Cardiology Follow-Up ---
Subjective Date of Service: Aug 11, 2017. Pt evaluation today including: conversation w/ patient, physical exam, lab review History of Present Illness This is a 77-year-old male with a history of aortic stenosis, aortic insufficiency and coronary artery disease. He had a myocardial infarction in 1992 with a right coronary artery stent placed in [place]. He also has a history of tobacco abuse and lung disease. He has non-Hodgkin's lymphoma. On echocardiography showed normal left ventricular size and function with severe aortic stenosis (valve area 0.96 cm, mean gradient 20 mmHg). On 2015 echo showed moderate with MARGUERITE 1.6 and mean gradient 32, inconsistent with prior. Moderate AI in march. He presented with weakness, inability to walk and bilateral lower extremity swelling. Electrocardiography showed atrial flutter with a controlled heart rate. He also had 3 days of productive cough and possibly has sepsis, he was admitted on 07/31/2017. He remained in atrial fibrillation until around 2017 when he converted to sinus rhythm. He seems to be feeling better today, he seems to be in better spirits. Social History Smoking Status: Current Every Day Smoker History of Alcohol Use: No Review of Systems Respiratory: No cough, No sputum Cardiac: No chest pain, No orthopnea Medications Cardiovascular: Item Value Date Time Diltiazem HCl 240 mg 08/11/17 0900 (Cardizem Cd Cap) QAM/PO 08/11/17 1342 Apixaban 5 mg 08/02/17 2200 (Eliquis Tab) BID/PO 08/11/17 0756 Objective Vital Signs Past 12 Hours Date Time Temp Pulse Resp B/P (MAP) Pulse Ox O2 Delivery O2 Flow Rate FiO2 08/11/17 14:36 88 18 94 Nasal Cannula 2.0 08/11/17 13:27 36.4 91 18 113/56 (75) 92 08/11/17 12:00 Nasal Cannula 2.0 08/11/17 08:00 Nasal Cannula 2.0 08/11/17 07:19 36.3 85 18 104/55 (71) 100 2.0 08/11/17 07:10 88 18 98 Nasal Cannula 2.0 08/11/17 04:00 Nasal Cannula 2.0 08/11/17 03:40 36.4 83 20 100/59 (73) 99 Nasal Cannula 2.0 Last Recorded Weight-Kilograms: 67.800 Intake & Output 8-Hour Column 08/11/17 08/12/17 08/12/17 16:00 00:00 08:00 Intake Total 120 ml Output Total 375 ml Balance -255 ml 24-Hour Column 08/12/17 08:00 Intake Total 120 ml Output Total 375 ml Balance -255 ml Physical Exam Constitutional: Level of Distress: NAD Lungs: Respiratory effort: no dyspnea, good air movement Auscultation: no wheezing, decreased breath sounds Cardiovascular: Heart Auscultation: RRR, no rubs, no gallops, II/ MACEY, II/ WSM Peripheral Pulses: Bruits: none appreciated Extremities: no edema Data Laboratory Results: Last 24 Hours Test 08/10/17 16:22 08/11/17 06:18 Bedside Glucose 217 mg/dl White Blood Count 1.84 K/uL Red Blood Count 2.95 M/uL Hemoglobin 8.4 g/dL Hematocrit 26.7 % Mean Corpuscular Volume 90.5 fL Mean Corpuscular Hemoglobin 28.5 pg Mean Corpuscular Hemoglobin Concent 31.5 g/dl RDW Standard Deviation 58.1 fL RDW Coefficient of Variation 17.7 % Platelet Count 125 K/uL Mean Platelet Volume 10.8 fL Nucleated RBC Absolute Count (auto) 0.03 K/uL Nucleated Red Blood Cells % 1.4 % Sodium Level 135 mmol/L Potassium Level 5.6 mmol/L Chloride Level 105 mmol/L Carbon Dioxide Level 25 mmol/L Anion Gap 5.0 mmol/L Blood Urea Nitrogen 56 mg/dl Creatinine 1.47 mg/dl Est Creatinine Clear Calc Drug Dose 37.4 ml/min Estimated GFR () 52.2 Estimated GFR (Non- 45.0 BUN/Creatinine Ratio 37.8 Random Glucose 101 mg/dl Calcium Level 8.5 mg/dl Telemetry reviewed: Sinus rhythm, no significant ectopy or significant slowing Assessment and Plan #1. Aortic stenosis: .An echocardiogram done 08/01/2017 shows normal left ventricular size and function, normal right and a size with borderline reduced right ventricular function. Severe aortic stenosis with a valve area 0.74 cm and mean gradient of 32 mmHg. Mild to moderate aortic insufficiency. With normal left ventricular size and function this probably is not a big part of his presentation. No treatment indicated at this time. #2. Atrial flutter: He presented in atrial flutter, as far as I know this is a new arrhythmia, however it could only have been recently identified since he seems asymptomatic with it. It could conceivably relate to his weakness and hypotension although it seems more likely to be due to other causes. He is now back in sinus rhythm. He should continue with anticoagulation if possible, he is currently on Eliquis and evidently tolerating it well. Thank you for allowing me to participate in his care.
--- NOTE | 2017-08-11 17:24 | Progress Note ---
Subjective Date of Service: Aug 11, 2017. Problem List Medical Problems: (1) Atrial flutter Status: Acute (2) CHF (congestive heart failure) Status: Acute (3) Febrile neutropenia Status: Acute (4) Hypotension Status: Acute (5) Immunocompromised Status: Acute (6) Low back pain Status: Acute (7) PNA (pneumonia) Status: Acute (8) Sepsis Status: Acute (9) Sepsis Status: Acute (10) Spinal stenosis Status: Acute (11) UTI (urinary tract infection) Status: Acute (12) Weakness Status: Acute Review of Systems Constitutional: + weakness, No fever, No chills Respiratory: + shortness of breath, + dyspnea on exertion, No cough Cardiac: + edema, No chest pain Abdomen: No pain, No nausea, No vomiting, No diarrhea Psychiatric: No depression symptoms, No anhedonism, No anxiety Endo: No fatigue, No excessive thirst Objective Vital Signs Date Time Temp Pulse Resp B/P (MAP) Pulse Ox O2 Delivery O2 Flow Rate FiO2 08/11/17 15:39 36.5 95 24 128/62 (84) 97 Nasal Cannula 2.0 08/11/17 14:36 88 18 94 Nasal Cannula 2.0 08/11/17 13:27 36.4 91 18 113/56 (75) 92 08/11/17 12:00 Nasal Cannula 2.0 08/11/17 08:00 Nasal Cannula 2.0 08/11/17 07:19 36.3 85 18 104/55 (71) 100 2.0 08/11/17 07:10 88 18 98 Nasal Cannula 2.0 08/11/17 04:00 Nasal Cannula 2.0 08/11/17 03:40 36.4 83 20 100/59 (73) 99 Nasal Cannula 2.0 08/11/17 01:50 78 18 98 Nasal Cannula 2.0 08/10/17 23:59 Nasal Cannula 2.0 08/10/17 22:50 36.7 87 22 106/46 (66) 100 Nasal Cannula 2.0 08/10/17 20:00 Nasal Cannula 2.0 08/10/17 19:33 36.5 89 24 106/49 (68) 100 Nasal Cannula 2.0 08/10/17 19:16 88 18 97 Room Air Physical Exam General Appearance: WD/WN, + mild distress Eyes: normal inspection, sclerae normal Respiratory/Chest: + decreased breath sounds, + accessory muscle use, + rhonchi Cardiovascular: regular rate, rhythm, no murmur Abdomen: normal bowel sounds, non tender, soft Extremities: + pedal edema, + swelling Neurologic/Psychiatric: alert, oriented x 3 Skin: normal color, warm/dry, no rash Laboratory Results Last 24 Hours Test 08/11/17 06:18 White Blood Count 1.84 K/uL Red Blood Count 2.95 M/uL Hemoglobin 8.4 g/dL Hematocrit 26.7 % Mean Corpuscular Volume 90.5 fL Mean Corpuscular Hemoglobin 28.5 pg Mean Corpuscular Hemoglobin Concent 31.5 g/dl RDW Standard Deviation 58.1 fL RDW Coefficient of Variation 17.7 % Platelet Count 125 K/uL Mean Platelet Volume 10.8 fL Nucleated RBC Absolute Count (auto) 0.03 K/uL Nucleated Red Blood Cells % 1.4 % Sodium Level 135 mmol/L Potassium Level 5.6 mmol/L Chloride Level 105 mmol/L Carbon Dioxide Level 25 mmol/L Anion Gap 5.0 mmol/L Blood Urea Nitrogen 56 mg/dl Creatinine 1.47 mg/dl Est Creatinine Clear Calc Drug Dose 37.4 ml/min Estimated GFR () 52.2 Estimated GFR (Non- 45.0 BUN/Creatinine Ratio 37.8 Random Glucose 101 mg/dl Calcium Level 8.5 mg/dl Assessment and Plan 77yo male metabolic encephalopathy from post obstructive pneumonia poa, concern for progressive lymphoma;Severe sepsis POA, due to post obstructive pneumonia has continued improvement, and more clear mentation with change of meds and Seroquel assisted sleeping encephalopathy - improving daily continue support hyponatremia - resolved acute hypoxic resp failure - likely multifactorial including pneumonia, COPD, worsening mass in left chest from lymphoma, acute diastolic CHF. this has improved with XRT and antibiotics, clinically improving daily Pulmonary eval feels cannot offer improvement given size of obstructed airway would be too small to stent, left upper lobe post-obstructive pneumonia - completed course of levaquin, now on bactrim . acute diastolic CHF - resolved; lasix d/c. a. fib - improved rates with cardizem 60mg q6h will transition to CD on 08/11. cont eliquis. Cardiology following. COPD with exacerbation - improving, watch for pneumonitis from XRT mucinex, nebs, steroids. Improved. followed by pulmonary tapered decadron to 4mg once daily recurrent follicular lymphoma - appreciate heme/onc and rad onc consultations. Continuing XRT to left hilar mass c/o Dr. Zavala, supposedly has treatments thru next week. acute kidney injury in setting of CKD stage 2-3 - MACRINA resolved. abnormal peripheral smear - did not confirm anaplasmosis by testing frequent recurrent UTI, will restart bactrim as per outpt was on trimethoprim pancytopenia - likely from follicular lymphoma; DVT proph - eliquis BID. left hand swelling, this is the side of XRT, U/s shows only "probable" small left brachial vein non occlusive thrombus, will continue eliquis and support hypothyroidism - TSH compensated; continue synthroid 75mcg. thrush - diflucan constipation - dulcolax suppos x 1. prognosis is very poor in light of complicated medical issues and recurrent lymphoma code status discussed with patient by Dr. Diggs - patient wishes to remain full code for now Continued [facility] stay due to: inadequate po fluid intake, voiding difficulties, ambulation difficulties, multiple IV medications needed, home environment unsafe for pt Discharge planning: uncertain
[2017-08-11] MEDS: LATANOPROST 0.005% OP SOLN 2.5 ML BTL OPB SCH (20:28)
[2017-08-11] MEDS: QUETIAPINE FUMARATE 25 MG TAB PO SCH (21:03)
[2017-08-12] VITALS (11 sets, daily range): BP systolic 93–115; BP diastolic 50–67; PULSE 79–107; TEMP 36.3–36.6; O2SAT 92–100
[2017-08-12] MEDS: IPRATROPIUM BROMIDE NEB SOLN 0.02% 2.5 ML VIAL INH SCH ×4 (02:00→20:06)
[2017-08-12] MEDS: LEVALBUTEROL 1.25MG/0.5ML NEB INH SCH ×4 (02:00→20:06)
[2017-08-12] MEDS: GUAIFENESIN SUGAR FREE 200 MG/10 ML UDC PO PRN (07:53)
[2017-08-12] MEDS: LEVOTHYROXINE 75 MCG TAB PO SCH (07:53)
[2017-08-12] MEDS: GUAIFENESIN 600 MG TABCR PO SCH ×2 (07:53→20:57)
[2017-08-12] MEDS: PrednisoLONE ACET 1% OP SUSP 5 ML BTL OPL SCH (07:54)
[2017-08-12] MEDS: SULFAMETHOXAZOLE/TRIMETHOPRIM DS 800/160MG TAB PO SCH ×2 (07:54→20:58)
[2017-08-12] MEDS: APIXABAN 2.5 MG TAB PO SCH ×2 (07:54→20:58)
[2017-08-12] MEDS: ASCORBIC ACID 500 MG TAB PO SCH (07:54)
[2017-08-12] MEDS: FINASTERIDE 5 MG TAB PO SCH (07:54)
[2017-08-12] MEDS: DILTIAZEM HCL 240 MG CAPCR PO SCH (07:54)
[2017-08-12] MEDS: POLYETHYLENE (MIRALAX) 17 GM PACK PO SCH (07:55)
[2017-08-12] MEDS: BOOST VANILLA PO SCH ×3 (08:45→16:30)
[2017-08-12] MEDS: DEXAMETHASONE INJ 4 MG in SYRINGE 0 ML IV SCH (08:45)
--- NOTE | 2017-08-12 09:08 | Hematology/Oncology Prog Note ---
Hematology/Onc Progress Note Date of Service Aug 12, 2017. Diagnoses Progressive non-Hodgkin's lymphoma Left lung pneumonia COPD Medications Medications Administered Medications (Trade) Dose Ordered Sig/Hari Route Start Time Stop Time Status Last Admin Dose Admin Sodium Chloride 1,000 ml @ 999 mls/hr Q1H1M STAT IV 07/31/17 11:28 07/31/17 12:28 DC 07/31/17 12:02 999 MLS/HR Cefepime HCl 1000 mg/Dextrose 111 ml @ 200 mls/hr NOW STAT IV 07/31/17 11:45 07/31/17 12:18 DC 07/31/17 12:28 200 MLS/HR Levofloxacin (Levaquin / D5W) 500 mg NOW ONCE IV 07/31/17 11:45 07/31/17 11:47 DC 07/31/17 12:02 500 MG Vancomycin HCl 1500 mg/Sodium Chloride 530 ml @ 200 mls/hr ONE STAT IV 07/31/17 13:50 07/31/17 16:28 DC 07/31/17 14:22 200 MLS/HR Sodium Chloride 1,000 ml @ 30 mls/hr Q24H IV 07/31/17 14:40 08/01/17 13:28 DC 08/01/17 11:57 30 MLS/HR Acetaminophen (Tylenol Tab) 650 mg Q4H PRN PO 07/31/17 14:45 08/30/17 14:44 08/11/17 07:54 650 MG Lactobacillus Acidophilus (Floranex Tab) 4 tab TIDM PO 07/31/17 16:45 08/09/17 15:56 DC 08/09/17 15:55 4 TAB Vancomycin HCl 1000 mg/Sodium Chloride 270 ml @ 125 mls/hr Q24H IV 08/01/17 12:00 08/03/17 14:41 DC 08/03/17 12:12 125 MLS/HR Guaifenesin (Robitussin Sugar Free Syrup) 200 mg Q6H PRN PO 07/31/17 15:00 08/30/17 14:59 08/12/17 07:53 200 MG Cefepime HCl 1000 mg/Syringe 11 ml @ 5.5 mls/min Q12H IV 08/01/17 00:00 08/03/17 14:41 DC 08/03/17 14:05 5.5 MLS/MIN Levofloxacin 250 mg/Prmx 50 ml @ 50 mls/hr TODAY@1630 ONCE IV 07/31/17 16:30 07/31/17 17:29 DC 07/31/17 17:42 50 MLS/HR Levofloxacin 750 mg/Prmx 150 ml @ 100 mls/hr Q48H IV 08/02/17 11:00 08/04/17 11:34 DC 08/04/17 11:28 100 MLS/HR Ipratropium [place] (Atrovent 0.02% 0.5MG/2.5ML Neb) 0.5 mg Q6R INH 07/31/17 21:00 08/30/17 20:59 08/12/17 07:09 0.5 MG Levalbuterol (Xopenex 1.25MG/ 0.5ML Neb) 1.25 mg Q6R INH 07/31/17 21:00 08/30/17 20:59 08/12/17 07:09 1.25 MG Latanoprost (Xalatan Oph Soln) 1 drops HS OPB 07/31/17 21:00 08/30/17 20:59 08/11/17 20:28 1 DROPS Tobramycin/ Dexamethasone (Tobradex Oph Oint) 1 appln HS OPL 07/31/17 21:00 08/04/17 21:32 DC 08/03/17 19:45 1 APPLN Diltiazem HCl (Cardizem Inj) 10 mg TODAY@2130 IV 07/31/17 21:30 07/31/17 21:31 DC 07/31/17 22:24 10 MG Diltiazem HCl 125 mg/Dextrose 125 ml @ 0 mls/hr Q0M PRN IV 07/31/17 21:30 08/04/17 11:10 DC 08/04/17 01:41 15 MLS/HR Miscellaneous Information (Order Awaiting Action) 1 ea QS N/A 08/01/17 08:00 08/01/17 18:40 DC 08/01/17 15:49 1 EA Heparin Sodium (Porcine) 4000 unit/Syringe 4 ml @ 10 mls/min NOW ONCE IV 07/31/17 23:15 07/31/17 23:16 DC 07/31/17 23:42 10 MLS/MIN Heparin Sodium/ Dextrose 500 ml @ 20 mls/hr Q24H PRN IV 07/31/17 23:15 08/02/17 11:45 DC 08/01/17 17:38 20 MLS/HR Heparin Sodium (Porcine) (Heparin 100 Unit/ml 5ml Flush) 5 ml PRN PRN IV 08/01/17 07:45 08/31/17 07:44 08/11/17 11:29 5 ML Heparin Sodium (Porcine) 4500 unit/Syringe 4.5 ml @ 10 mls/min NOW ONCE IV 08/01/17 09:00 08/01/17 09:01 DC 08/01/17 09:14 10 MLS/MIN Sodium Chloride 500 ml @ 999 mls/hr Q31M STAT IV 08/01/17 13:12 08/01/17 13:42 DC 08/01/17 14:30 999 MLS/HR Sodium Chloride 1,000 ml @ 100 mls/hr Q10H IV 08/01/17 13:15 08/04/17 10:48 DC 08/03/17 20:16 100 MLS/HR Heparin Sodium (Porcine) 3000 unit/Syringe 3 ml @ 10 mls/min 1730 ONCE IV 08/01/17 17:30 08/01/17 17:31 DC 08/01/17 17:37 10 MLS/MIN Enteral Nutritional Formula (Boost) 1 can TIDM PO 08/02/17 07:30 09/01/17 07:29 08/12/17 08:45 1 CAN Neomycin/ Polymyxin/ Dexamethasone (Maxitrol Oph Susp) 1 drops Q6H OPL 08/02/17 00:00 08/04/17 21:32 DC 08/04/17 18:00 1 DROPS Menthol (Nice Eduar) 24 eduar STK-MED ONCE .ROUTE 08/01/17 21:25 08/01/17 21:26 DC 08/01/17 21:25 24 EDUAR Potassium/ Phosphorus/Sodium (Phospha 250 Neutral 155-852-130 Mg) 1 tab QID PO 08/02/17 13:00 08/02/17 21:01 DC 08/02/17 20:14 1 TAB Apixaban (Eliquis Tab) 5 mg BID PO 08/02/17 22:00 09/01/17 21:59 08/12/17 07:54 5 MG Apixaban (Eliquis Tab) 5 mg NOW ONCE PO 08/02/17 11:45 08/02/17 11:46 DC 08/02/17 13:25 5 MG Furosemide (Lasix Tab) 20 mg QAM PO 08/02/17 12:00 08/04/17 13:36 DC 08/04/17 08:55 20 MG Furosemide 20 mg/ Syringe 2 ml @ 4 mls/min NOW STAT IV 08/04/17 03:27 08/04/17 03:30 DC 08/04/17 03:27 4 MLS/MIN Furosemide 20 mg/ Syringe 2 ml @ 4 mls/min TODAY@1100 IV 08/04/17 11:00 08/04/17 11:20 DC 08/04/17 11:43 4 MLS/MIN Levofloxacin (Levaquin Tab) 750 mg Q2D@1100 PO 08/06/17 11:00 08/06/17 11:01 DC 08/06/17 09:43 750 MG Diltiazem HCl (Cardizem Tab) 30 mg TID PO 08/04/17 14:00 08/05/17 09:21 DC 08/05/17 07:45 30 MG Diltiazem HCl (Cardizem Inj) 5 mg NOW STAT IV 08/04/17 12:40 08/04/17 12:57 DC 08/04/17 13:06 5 MG Furosemide 20 mg/ Syringe 2 ml @ 4 mls/min QAM IV 08/05/17 09:00 08/05/17 11:36 DC 08/05/17 08:59 4 MLS/MIN Prednisolone Acetate (Pred Forte 1% Oph Susp) 1 drops DAILY OPL 08/05/17 09:00 09/04/17 08:59 08/12/17 07:54 1 DROPS Diltiazem HCl (Cardizem Tab) 30 mg Q6H PO 08/05/17 15:00 08/06/17 13:17 DC 08/06/17 09:43 30 MG Furosemide 20 mg/ Syringe 2 ml @ 4 mls/min BID17 IV 08/05/17 17:00 08/06/17 16:55 DC 08/06/17 09:42 4 MLS/MIN Polyethylene (Miralax Powder Packet) 17 gm DAILY PO 08/05/17 11:45 08/30/17 14:44 08/10/17 07:37 17 GM Fluconazole (Diflucan Tab) 100 mg QAM PO 08/06/17 09:00 08/09/17 15:56 DC 08/09/17 08:05 100 MG Fluconazole (Diflucan Tab) 100 mg 1134 ONCE PO 08/05/17 11:34 08/05/17 11:39 DC 08/05/17 13:02 100 MG Doxycycline Hyclate (Vibramycin Cap) 100 mg BID PO 08/05/17 21:00 08/09/17 15:58 DC 08/09/17 08:04 100 MG Guaifenesin (Mucinex Contr Rel Tab) 1,200 mg Q12 PO 08/05/17 11:45 09/04/17 11:44 08/12/17 07:53 1,200 MG Doxycycline Hyclate (Vibramycin Cap) 100 mg NOW STAT PO 08/05/17 12:50 08/05/17 12:51 DC 08/05/17 13:03 100 MG Diltiazem HCl (Cardizem Tab) 60 mg Q6H PO 08/06/17 15:00 08/11/17 08:01 DC 08/11/17 07:54 60 MG Prednisone (PredniSONE TAB) 10 mg NOW ONCE PO 08/06/17 13:30 08/06/17 15:25 DC 08/06/17 14:09 10 MG Dexamethasone Sodium Phosphate 4 mg/Syringe 1 ml @ 1 mls/min Q12H IV 08/06/17 18:00 08/08/17 17:43 DC 08/08/17 17:27 1 MLS/MIN Levothyroxine Sodium (Synthroid Tab) 75 mcg DAILYBB PO 08/07/17 06:00 09/06/17 05:59 08/12/17 07:53 75 MCG Dornase [place] (Pulmozyme Inhalation Soln 2.5ml Amp) 2.5 ml BIDR INH 08/07/17 08:00 08/10/17 07:59 DC 08/10/17 07:04 2.5 ML Dexamethasone/ Nystatin/ Diphenhydramine HCl/Sucrose/ Microcrystalline Cellulose/Barcode ACHS PO 08/07/17 21:00 08/09/17 15:56 DC 08/09/17 11:52 5 ML Bisacodyl (Dulcolax Supp) 10 mg NOW STAT NM 08/08/17 10:30 08/08/17 10:58 DC 08/08/17 11:52 10 MG Dexamethasone Sodium Phosphate 4 mg/Syringe 1 ml @ 1 mls/min QAM IV 08/09/17 09:00 09/05/17 17:59 08/12/17 08:45 1 MLS/MIN Haloperidol (Haldol Tab) 1 mg HS PRN PO 08/08/17 17:45 08/09/17 15:56 DC 08/08/17 20:27 1 MG Ascorbic Acid (Vitamin C Tab) 500 mg DAILY PO 08/10/17 09:00 09/09/17 08:59 08/12/17 07:54 500 MG Finasteride (Proscar Tab) 5 mg DAILY PO 08/10/17 09:00 09/09/17 08:59 08/12/17 07:54 5 MG Quetiapine Fumarate (seroQUEL TAB) 25 mg HS PO 08/09/17 21:00 09/08/17 20:59 08/11/17 21:03 25 MG Trimethoprim/ Sulfamethoxazole (Septra Ds 800/ 160MG Tab) 1 tab Q12 PO 08/09/17 21:00 08/19/17 20:59 08/12/17 07:54 1 TAB Diltiazem HCl (Cardizem Cd Cap) 240 mg QAM PO 08/11/17 09:00 09/10/17 08:59 08/12/17 07:54 240 MG Sodium Polystyrene Sulfonate (Kayexalate Susp) 15 gm NOW STAT PO 08/11/17 08:13 08/11/17 08:14 DC 08/11/17 11:22 15 GM Subjective He seems comfortable. He denies any new shortness of breath. He has been afebrile Review of Systems: Constitutional: Negative for night sweats, or fever Eyes: Negative for event change of vision ENT: Negative for epistaxis, nasal discharge, sore throat, or deafness Cardiovascular: Negative for chest pain, palpitations, dizziness, diaphoresis Respiratory: Negative for new shortness of breath,hemoptysis, or purulent cough Gastrointestinal: Negative for diarrhea, hematemesis, melena, nausea, vomiting , or dyspepsia Integumentary (skin): Negative for rash or jaundice discoloration Neurological: Negative for weakness, seizure activity, headache, or dizziness Lymphatic/Hematologic: Negative for petechiae, bleeding or new adenopathy Musculoskeletal: Negative for new joint or back pain Allergic/Immunologic: Negative for unusual rash or pruritis. Vital Signs Vital Signs Past 12 Hours Date Time Temp Pulse Resp B/P (MAP) Pulse Ox O2 Delivery O2 Flow Rate FiO2 08/12/17 07:33 36.3 84 18 115/64 (81) 100 2.0 08/12/17 07:09 90 18 98 Nasal Cannula 2.0 08/12/17 04:00 36.6 82 18 110/67 (81) 97 2.0 08/12/17 02:00 82 18 95 Nasal Cannula 2.0 08/12/17 00:58 36.5 86 20 109/64 (79) 99 Nasal Cannula 2.0 08/12/17 00:00 Nasal Cannula 2.0 Physical Exam Constitutional: vitals are stable. Eyes: Eyes are HORACE EOMI without conjuctival erythema or icterus. ENT: External examination was negative for masses. Neck: Negative for masses or palpable thyromegaly Respiratory: Lung sounds were generally decreased bilaterally. Has left sided rales. Cardiovascular: Heart was RRR without significant murmur, gallops aoe rubs Gastrointestinal: No palpable hepatic or splenomegaly. The abdomen was soft with normal bowel sounds. Lymphatic system: there was no palpable peripheral lymphadenopathy Musculoskeletal System: The musculoskeletal system seemed concordant with age. Skin: The skin was negative for jaundice. Neurologic exam: The exam was negative for any focal findings. Deep tendon reflexes were equal and symmetrical. Psychiatric exam: Was essentially negative with normal mood and effect. Laboratory Last 24 Hours Test 08/12/17 08:42 Assessment & Plan Radiation therapy ongoing. Sono of the left upper extremity reviewed and agree with Dr. Benitez's plan of just observing for now. The patient is on Eliquis. At this juncture we have little to offer as an inpatient. His blood count and chemistries are stable. We will arrange for follow-up in our clinic in anticipation of beginning single agent Rituxan as was originally planned as an outpatient within the next 7-10 days. We will sign off for now. Please do not hesitate to reconsult if necessary.
[2017-08-12 09:26] LABS: CALCIUM 8.5 mg/dl (8.5-10.1); CREATININE 1.28 mg/dl (0.60-1.40); POTASSIUM 5.3 mmol/L (3.5-5.1)
--- NOTE | 2017-08-12 19:15 | Progress Note ---
Subjective Date of Service: Aug 12, 2017. Subjective pt is improving, left upper extremity swelling is better, breathing is easier. he is having some better appetite Problem List Medical Problems: (1) Atrial flutter Status: Acute (2) CHF (congestive heart failure) Status: Acute (3) Febrile neutropenia Status: Acute (4) Hypotension Status: Acute (5) Immunocompromised Status: Acute (6) Low back pain Status: Acute (7) PNA (pneumonia) Status: Acute (8) Sepsis Status: Acute (9) Sepsis Status: Acute (10) Spinal stenosis Status: Acute (11) UTI (urinary tract infection) Status: Acute (12) Weakness Status: Acute Review of Systems Constitutional: No fever, No chills, No weakness Respiratory: + cough, + shortness of breath, + dyspnea on exertion Cardiac: No chest pain, No edema Abdomen: No pain, No nausea, No vomiting, No diarrhea Neurologic: + weakness, No memory loss, No paralysis Psychiatric: No depression symptoms, No anhedonism, No anxiety Objective Vital Signs Date Time Temp Pulse Resp B/P (MAP) Pulse Ox O2 Delivery O2 Flow Rate FiO2 08/12/17 16:32 36.3 83 18 103/60 (74) 98 Nasal Cannula 2.0 08/12/17 16:20 Nasal Cannula 2.0 08/12/17 14:20 82 18 98 Nasal Cannula 2.0 08/12/17 11:55 36.5 79 20 102/54 (70) 100 2.0 08/12/17 09:24 Nasal Cannula 2.0 08/12/17 07:33 36.3 84 18 115/64 (81) 100 2.0 08/12/17 07:09 90 18 98 Nasal Cannula 2.0 08/12/17 04:00 36.6 82 18 110/67 (81) 97 2.0 08/12/17 02:00 82 18 95 Nasal Cannula 2.0 08/12/17 00:58 36.5 86 20 109/64 (79) 99 Nasal Cannula 2.0 08/12/17 00:00 Nasal Cannula 2.0 08/11/17 19:40 79 18 95 Nasal Cannula 2.0 08/11/17 19:33 36.5 93 20 110/57 (74) 93 2.0 Physical Exam General Appearance: WD/WN, + mild distress Eyes: normal inspection, sclerae normal Neck: supple, no carotid bruits Respiratory/Chest: chest non-tender, + decreased breath sounds, + accessory muscle use, + rales Cardiovascular: regular rate, rhythm, no murmur Abdomen: normal bowel sounds, non tender, soft Extremities: + pedal edema, + swelling Neurologic/Psychiatric: alert, oriented x 3 Laboratory Results Last 24 Hours Test 08/12/17 08:42 Sodium Level 135 mmol/L Potassium Level 5.3 mmol/L Chloride Level 103 mmol/L Carbon Dioxide Level 23 mmol/L Anion Gap 10.0 mmol/L Blood Urea Nitrogen 54 mg/dl Creatinine 1.28 mg/dl Est Creatinine Clear Calc Drug Dose 42.9 ml/min Estimated GFR () 61.7 Estimated GFR (Non- 53.3 BUN/Creatinine Ratio 42.3 Random Glucose 97 mg/dl Calcium Level 8.5 mg/dl Assessment and Plan 77yo male metabolic encephalopathy from post obstructive pneumonia poa, concern for progressive lymphoma;Severe sepsis POA, due to post obstructive pneumonia has continued improvement, and more clear mentation with change of meds and Seroquel assisted sleeping encephalopathy - almost resolved hyponatremia - resolved acute hypoxic resp failure - likely multifactorial including pneumonia, COPD, worsening mass in left chest from lymphoma, acute diastolic CHF. dramatically improved aeration with XRT and antibiotics, clinically improving daily Pulmonary eval feels cannot offer improvement given size of obstructed airway would be too small to stent, left upper lobe post-obstructive pneumonia - completed course of levaquin, now on bactrim . acute diastolic CHF - resolved; lasix d/c. a. fib - improved rates with cardizem CD cont eliquis. Cardiology following. COPD with exacerbation - improving, watch for pneumonitis from XRT mucinex, nebs, steroids. Improved. followed by pulmonary tapered decadron to 4mg once daily recurrent follicular lymphoma - appreciate heme/onc and rad onc consultations. Continuing XRT to left hilar mass c/o Dr. Zavala, supposedly has treatments thru next week. acute kidney injury in setting of CKD stage 2-3 - MACRINA resolved. abnormal peripheral smear - did not confirm anaplasmosis by testing frequent recurrent UTI, will restart bactrim as per outpt was on trimethoprim pancytopenia - likely from follicular lymphoma; DVT proph - eliquis BID. left hand swelling, this is the side of XRT, U/s shows only "probable" small left brachial vein non occlusive thrombus, will continue eliquis and support, hand swelling has improved with local measures hypothyroidism - TSH compensated; continue synthroid 75mcg. thrush - diflucan constipation - dulcolax suppos x 1. prognosis is very poor in light of complicated medical issues and recurrent lymphoma code status discussed with patient by Dr. Diggs - patient wishes to remain full code for now Continued [facility] stay due to: inadequate po fluid intake, voiding difficulties, ambulation difficulties, multiple IV medications needed, home environment unsafe for pt Discharge planning: uncertain
[2017-08-12] MEDS: QUETIAPINE FUMARATE 25 MG TAB PO SCH (20:57)
[2017-08-12] MEDS: LATANOPROST 0.005% OP SOLN 2.5 ML BTL OPB SCH (20:58)
[2017-08-13] VITALS (12 sets, daily range): BP systolic 92–121; BP diastolic 46–63; PULSE 88–111; TEMP 36.3–36.6; O2SAT 94–98
[2017-08-13] MEDS: IPRATROPIUM BROMIDE NEB SOLN 0.02% 2.5 ML VIAL INH SCH ×4 (02:04→19:18)
[2017-08-13] MEDS: LEVALBUTEROL 1.25MG/0.5ML NEB INH SCH ×4 (02:04→19:18)
[2017-08-13 05:55] LABS: HEMATOCRIT 26.9 % (42-52); HEMOGLOBIN 8.6 g/dL (14.0-18.0); MEAN CELL VOLUME 89.7 fL (80-100); MEAN CORPUSCULAR HEMOGLOBIN 28.7 pg (25-34); MEAN PLATELET VOLUME 10.6 fL (7.4-10.4); PLATELET COUNT 119 K/uL (130-400); RED CELL DISTRIBUTION WIDTH CV 17.6 % (11.5-14.5)
[2017-08-13 06:33] LABS: CALCIUM 8.3 mg/dl (8.5-10.1); CREATININE 1.46 mg/dl (0.60-1.40)
[2017-08-13] MEDS: LEVOTHYROXINE 75 MCG TAB PO SCH (06:49)
[2017-08-13] MEDS: POLYETHYLENE (MIRALAX) 17 GM PACK PO SCH (08:00)
[2017-08-13] MEDS: PrednisoLONE ACET 1% OP SUSP 5 ML BTL OPL SCH (08:16)
[2017-08-13] MEDS: GUAIFENESIN 600 MG TABCR PO SCH ×2 (08:16→21:46)
[2017-08-13] MEDS: SULFAMETHOXAZOLE/TRIMETHOPRIM DS 800/160MG TAB PO SCH ×2 (08:16→21:47)
[2017-08-13] MEDS: APIXABAN 2.5 MG TAB PO SCH ×2 (08:16→21:47)
[2017-08-13] MEDS: DILTIAZEM HCL 240 MG CAPCR PO SCH (08:16)
[2017-08-13] MEDS: ASCORBIC ACID 500 MG TAB PO SCH (08:17)
[2017-08-13] MEDS: FINASTERIDE 5 MG TAB PO SCH (08:17)
[2017-08-13] MEDS: DEXAMETHASONE INJ 4 MG in SYRINGE 0 ML IV SCH (08:17)
[2017-08-13] MEDS: BOOST VANILLA PO SCH ×3 (08:20→16:45)
[2017-08-13] MEDS: GUAIFENESIN SUGAR FREE 200 MG/10 ML UDC PO PRN (14:20)
--- NOTE | 2017-08-13 17:55 | Progress Note ---
Subjective Date of Service: Aug 13, 2017. Subjective this pt is not having as good of a day as yesterday, he just feels weak and tired, no real focal complaints just global weakness is at bedside and updated Problem List Medical Problems: (1) Atrial flutter Status: Acute (2) CHF (congestive heart failure) Status: Acute (3) Febrile neutropenia Status: Acute (4) Hypotension Status: Acute (5) Immunocompromised Status: Acute (6) Low back pain Status: Acute (7) PNA (pneumonia) Status: Acute (8) Sepsis Status: Acute (9) Sepsis Status: Acute (10) Spinal stenosis Status: Acute (11) UTI (urinary tract infection) Status: Acute (12) Weakness Status: Acute Review of Systems Constitutional: + weakness, + fatigue, No fever, No chills Respiratory: + cough, + shortness of breath, + dyspnea on exertion, No sputum Cardiac: + edema, No chest pain, No PND Abdomen: No pain, No nausea, No vomiting, No diarrhea Male : No dysuria, No urinary frequency Psychiatric: No depression symptoms, No anhedonism Objective Vital Signs Date Time Temp Pulse Resp B/P (MAP) Pulse Ox O2 Delivery O2 Flow Rate FiO2 08/13/17 16:41 98 Nasal Cannula 2.0 08/13/17 16:10 Nasal Cannula 2.0 08/13/17 15:01 36.4 92 20 113/47 (69) 98 Nasal Cannula 2.0 08/13/17 14:29 98 20 97 Nasal Cannula 2.0 08/13/17 11:15 36.6 90 16 92/53 (66) 98 Nasal Cannula 2.0 08/13/17 08:49 Nasal Cannula 2.0 08/13/17 08:30 96 Nasal Cannula 2.0 08/13/17 07:20 36.3 105 20 100/53 (69) 96 Nasal Cannula 2.0 08/13/17 07:18 97 20 98 Nasal Cannula 2.0 08/13/17 04:13 36.5 111 20 92/51 (65) 97 Nasal Cannula 2.0 08/13/17 02:04 88 18 94 Nasal Cannula 2.0 08/13/17 00:00 Nasal Cannula 08/12/17 23:30 36.4 86 18 93/50 (64) 97 Nasal Cannula 2.0 08/12/17 20:15 36.5 107 18 94/56 (69) 92 Nasal Cannula 2.0 08/12/17 20:06 89 18 96 Nasal Cannula 2.0 Physical Exam General Appearance: WD/WN, + mild distress Eyes: normal inspection, sclerae normal Neck: supple, no JVD Respiratory/Chest: chest non-tender, + decreased breath sounds, + rhonchi Cardiovascular: regular rate, rhythm, + systolic murmur Abdomen: normal bowel sounds, non tender, soft Extremities: + pedal edema, + swelling (left arm) Neurologic/Psychiatric: alert, oriented x 3 Laboratory Results Last 24 Hours Test 08/13/17 05:47 White Blood Count 2.80 K/uL Red Blood Count 3.00 M/uL Hemoglobin 8.6 g/dL Hematocrit 26.9 % Mean Corpuscular Volume 89.7 fL Mean Corpuscular Hemoglobin 28.7 pg Mean Corpuscular Hemoglobin Concent 32.0 g/dl RDW Standard Deviation 58.0 fL RDW Coefficient of Variation 17.6 % Platelet Count 119 K/uL Mean Platelet Volume 10.6 fL Sodium Level 134 mmol/L Potassium Level 5.0 mmol/L Chloride Level 102 mmol/L Carbon Dioxide Level 23 mmol/L Anion Gap 9.0 mmol/L Blood Urea Nitrogen 59 mg/dl Creatinine 1.46 mg/dl Est Creatinine Clear Calc Drug Dose 37.6 ml/min Estimated GFR () 52.6 Estimated GFR (Non- 45.4 BUN/Creatinine Ratio 40.1 Random Glucose 113 mg/dl Calcium Level 8.3 mg/dl Assessment and Plan 77yo male metabolic encephalopathy from post obstructive pneumonia poa, concern for progressive lymphoma;Severe sepsis POA, due to post obstructive pneumonia has now reached a plateau and more clear mentation with change of meds and Seroquel assisted sleeping encephalopathy - resolved hyponatremia - resolved acute hypoxic resp failure - likely multifactorial including pneumonia, COPD, worsening mass in left chest from lymphoma, acute diastolic CHF. continues with improved aeration with XRT and antibiotics, Pulmonary eval feels cannot offer improvement given size of obstructed airway would be too small to stent, left upper lobe post-obstructive pneumonia - completed course of levaquin, now on bactrim for urinary issues . acute diastolic CHF - resolved; lasix d/c. a. fib - improved rates with cardizem CD cont eliquis. Cardiology following. COPD with exacerbation resolved watch for pneumonitis from XRT mucinex, nebs, steroids. Improved. followed by pulmonary tapered decadron to 4mg once daily recurrent follicular lymphoma - appreciate heme/onc and rad onc consultations. Continuing XRT to left hilar mass c/o Dr. Zavala, supposedly has treatments thru next week. acute kidney injury in setting of CKD stage 2-3 - MACRINA resolved. seems to have baseline around 1.5 abnormal peripheral smear - did not confirm anaplasmosis by testing frequent recurrent UTI, will restart bactrim as per outpt was on trimethoprim pancytopenia - likely from follicular lymphoma; DVT proph - eliquis BID. left hand swelling, this is the side of XRT, U/s shows only "probable" small left brachial vein non occlusive thrombus, will continue eliquis and support, hand swelling has improved with local measures hypothyroidism - TSH compensated; continue synthroid 75mcg. thrush - diflucan constipation - dulcolax suppos x 1. prognosis is very poor in light of complicated medical issues and recurrent lymphoma code status discussed with patient by Dr. Diggs - patient continues to wishes to remain full code for now Continued [facility] stay due to: inadequate po fluid intake, voiding difficulties, ambulation difficulties, multiple IV medications needed, home environment unsafe for pt Discharge planning: uncertain
[2017-08-13] MEDS: LATANOPROST 0.005% OP SOLN 2.5 ML BTL OPB SCH (21:46)
[2017-08-13] MEDS: QUETIAPINE FUMARATE 25 MG TAB PO SCH (21:47)
[2017-08-14] VITALS (7 sets, daily range): BP systolic 102–110; BP diastolic 47–57; PULSE 87–99; TEMP 36.4–36.6; O2SAT 95–98
[2017-08-14] MEDS: IPRATROPIUM BROMIDE NEB SOLN 0.02% 2.5 ML VIAL INH SCH ×5 (02:05→19:23)
[2017-08-14] MEDS: LEVALBUTEROL 1.25MG/0.5ML NEB INH SCH ×5 (02:06→19:23)
[2017-08-14] MEDS: LEVOTHYROXINE 75 MCG TAB PO SCH (05:39)
[2017-08-14 05:57] LABS: HEMATOCRIT 26.4 % (42-52); HEMOGLOBIN 8.5 g/dL (14.0-18.0); MEAN CELL VOLUME 88.9 fL (80-100); MEAN CORPUSCULAR HEMOGLOBIN 28.6 pg (25-34); MEAN CORPUSCULAR HGB CONC 32.2 g/dl (32-36); MEAN PLATELET VOLUME 10.9 fL (7.4-10.4); PLATELET COUNT 111 K/uL (130-400); RED CELL DISTRIBUTION WIDTH CV 17.4 % (11.5-14.5); RED CELL DISTRIBUTION WIDTH SD 57.4 fL (36.4-46.3); WHITE BLOOD COUNT 2.78 K/uL (4.8-10.8)
[2017-08-14 06:36] LABS: CALCIUM 8.2 mg/dl (8.5-10.1); CREATININE 1.39 mg/dl (0.60-1.40); POTASSIUM 4.9 mmol/L (3.5-5.1)
[2017-08-14 06:37] LABS: TOTAL PROTEIN 4.8 gm/dl (6.4-8.2)
[2017-08-14] MEDS: ASCORBIC ACID 500 MG TAB PO SCH (08:36)
[2017-08-14] MEDS: DEXAMETHASONE INJ 4 MG in SYRINGE 0 ML IV SCH (08:36)
[2017-08-14] MEDS: FINASTERIDE 5 MG TAB PO SCH (08:36)
[2017-08-14] MEDS: SULFAMETHOXAZOLE/TRIMETHOPRIM DS 800/160MG TAB PO SCH ×2 (08:36→20:33)
[2017-08-14] MEDS: GUAIFENESIN 600 MG TABCR PO SCH ×2 (08:36→21:40)
[2017-08-14] MEDS: PrednisoLONE ACET 1% OP SUSP 5 ML BTL OPL SCH (08:37)
[2017-08-14] MEDS: APIXABAN 2.5 MG TAB PO SCH ×2 (08:37→20:31)
[2017-08-14] MEDS: POLYETHYLENE (MIRALAX) 17 GM PACK PO SCH (08:37)
[2017-08-14] MEDS: DILTIAZEM HCL 240 MG CAPCR PO SCH (08:37)
[2017-08-14] MEDS: BOOST VANILLA PO SCH ×4 (08:40→17:06)
[2017-08-14] MEDS ORDERED: ESCITALOPRAM OXALATE 10 MG TAB PO ONE (16:15)
[2017-08-14] MEDS: QUETIAPINE FUMARATE 25 MG TAB PO SCH (20:32)
--- NOTE | 2017-08-14 21:25 | DIAGNOSTIC IMAGING REPORT ---
LUMBAR SPINE COMBINATION CLINICAL HISTORY: 77 years-old Male with known spinal stenosis, severe weakness R>L leg, lymphoma. History of lymphoma. Acute on chronic leg weakness bilaterally. The patient is currently undergoing radiation therapy. COMPARISON: CT therapy scan 08/03/2017, CT chest 08/02/2017, CT abdomen and pelvis 07/09/2017 TECHNIQUE: Multiplanar, multi sequence MRI of the lumbar spine was performed both with and without the use of 6.5 mL Gadavist FINDINGS: Multiple ill-defined hepatic lesions measuring up to 3.1 cm are noted on the child psychometrist images. Left kidney appears to be severely atrophic with multiple cysts present. The right kidney appears to be mildly lobulated. No bulky retroperitoneal adenopathy identified. Moderate atrophy of the paraspinal musculature. There are large infiltrative T1 hypointense and heterogeneously T2 hyperintense lesions involving the spine with a 2.3 cm lesion noted at T11, 1.7 cm lesion at T12 and a 1.9 x 2.3 cm lesion at L3 involving the vertebral bodies. These lesions demonstrate heterogeneous enhancement peripherally. The T11 and T12 lesions are not imaged on the axial images. The lesion at L3 involves the left anterosuperior aspect of the vertebral body without invasion into the central canal or nerve roots. Additionally, there are infiltrative bone lesions of the bilateral iliac bones with a 3.0 x 1.4 cm lesion seen on the left extending into the adjacent sacrum and SI joint, image 31 series 8. Partially imaged lesion of the left iliac bone is seen on image 37 series 8. 2.2 cm lesion of the right iliac bone adjacent to the SI joint as seen on image 35 of series 8. These lesions demonstrate heterogeneous enhancement. Postcontrast images are moderately motion degraded. T12-L1: No central canal or neural foraminal stenosis. L1-L2: Mild to moderate intervertebral disc space narrowing with minimal posterior spondylitic spurring and small circumferential annular disc bulge with mild to moderate facet arthrosis and small bilateral facet effusions. Mild central canal and moderate bilateral foraminal narrowing. L2-L3: No significant intervertebral disc space narrowing. There is however a small circumferential annular disc bulge with moderate bilateral facet arthrosis and small right facet effusion. Minimal posterior spondylitic spurring with ligamentum flavum thickening. Mild to moderate central canal narrowing with AP dimension of the thecal sac measuring 8 mm. Mild left and mild to moderate right foraminal narrowing. L3-L4: Moderate intervertebral disc space narrowing with posterior spondylitic spurring, severe left and moderate right facet arthrosis with circumferential annular disc bulge and ligament of flavum thickening causes severe central canal narrowing with AP dimension of the thecal sac measuring 4 mm. Moderate to severe bilateral foraminal narrowing. L4-L5: Moderate intervertebral disc space narrowing with circumferential annular disc bulge, posterior spondylitic spurring, severe facet arthrosis and ligamentum flavum thickening with moderate bilateral facet effusions. There is severe central canal stenosis with AP dimension of the thecal sac measuring 4 mm. Severe bilateral foraminal narrowing. L5-S1: Moderate posterior intervertebral disc space narrowing with spondylitic spurring and broad-based posterior disc bulge with ligamentum flavum thickening and advanced facet arthrosis. No significant central canal narrowing. Severe left and moderate to severe right foraminal narrowing. IMPRESSION: 1. Multiple enhancing lesions throughout the spine at T11, T12 and L3 and also within the bilateral iliac bones and left sacrum as above suggests progression of lymphoma or alternatively may reflect metastatic disease. 2. Discogenic degenerative changes and facet arthrosis at L3-L4 causes severe central canal and moderate to severe bilateral foraminal narrowing. 3. At L4-L5 discogenic degenerative changes, ligamentum flavum thickening and facet arthrosis causes severe central canal and severe bilateral foraminal narrowing. 4. Multiple hepatic mass lesions are again seen suggesting lymphoma or metastatic disease. 5. Additional discogenic degenerative changes as detailed above. The above report was generated using voice recognition software. It may contain grammatical, syntax or spelling errors. Electronically signed by: Juan Durant M.D. 08/14/2017 9:24 PM Dictated Date/Time: 08/14/2017 7:35 PM
[2017-08-14] MEDS: LATANOPROST 0.005% OP SOLN 2.5 ML BTL OPB SCH (21:40)
[2017-08-15] VITALS (8 sets, daily range): BP systolic 99–110; BP diastolic 49–60; PULSE 68–97; TEMP 36.4–36.6; O2SAT 93–99
[2017-08-15] MEDS: LEVOTHYROXINE 75 MCG TAB PO SCH (05:47)
--- NOTE | 2017-08-15 05:53 | Progress Note ---
Subjective Date of Service: late entry for visit Aug 14, 2017. Subjective Pt evaluation today including: conversation w/ patient, physical exam, chart review, lab review, review of studies (old MRIs of lumbar spine, other CT imaging of chest/abd/pelvis), review of inpatient medication list Pain: lumbar back pain PO Intake: poor Voiding: carter catheter in place patient quite despondent during the visit states he is upset at his because she thinks he can move his legs and get around more easily however, his legs are very, very weak, worse on the right some of this is chronic due to known back pain ("I have spinal stenosis") but he reports it has gotten much, much worse he is tearful throughout the visit admitting he has gotten depressed breathing is more comfortable than previous mentation is also improved; he denied any hallucinations Problem List Medical Problems: (1) Atrial flutter Status: Acute (2) CHF (congestive heart failure) Status: Acute (3) Febrile neutropenia Status: Acute (4) Hypotension Status: Acute (5) Immunocompromised Status: Acute (6) Low back pain Status: Acute (7) PNA (pneumonia) Status: Acute (8) Sepsis Status: Acute (9) Sepsis Status: Acute (10) Spinal stenosis Status: Acute (11) UTI (urinary tract infection) Status: Acute (12) Weakness Status: Acute Review of Systems Constitutional: No fever Respiratory: + cough, No dyspnea at rest Cardiac: No chest pain Abdomen: No pain Objective Vital Signs Date Time Temp Pulse Resp B/P (MAP) Pulse Ox O2 Delivery O2 Flow Rate FiO2 08/15/17 04:17 36.6 80 20 109/57 (74) 98 Nasal Cannula 2.0 08/15/17 00:00 Nasal Cannula 1.0 08/14/17 23:33 36.6 89 20 103/56 (72) 98 Nasal Cannula 2.0 08/14/17 20:00 Nasal Cannula 1.0 08/14/17 16:01 36.5 99 20 102/47 (65) 97 1.0 08/14/17 15:35 Nasal Cannula 1.0 08/14/17 15:24 87 20 96 Nasal Cannula 2.0 08/14/17 08:30 95 Nasal Cannula 1.0 08/14/17 07:53 36.5 91 18 110/57 (74) 95 1.0 08/14/17 07:43 88 20 97 Nasal Cannula 2.0 Physical Exam General Appearance: no apparent distress, + pertinent finding (tearful, depressed) ENT: pharynx normal (thrush resolved) Neck: no JVD Respiratory/Chest: no respiratory distress, no accessory muscle use, + decreased breath sounds (left chest), + pertinent finding (still wheezy, but much improved from prior exams last week; airation improved; stilll with crackles b/l) Cardiovascular: no gallop, + systolic murmur (2/6 LSB), + irregularly irregular Abdomen: normal bowel sounds, non tender, soft, no organomegaly Extremities: + pedal edema, + swelling (severe, LUE; 1-2+ b/l LEs) Neurologic/Psychiatric: alert, oriented x 3, + motor weakness (b/l legs - hip flexion, ankle dorsiflexion/plantarflexion all poor, worse on right (2-3/5 on right, 4/5 on left)), + depressed affect Laboratory Results Last 24 Hours Test 08/14/17 05:44 08/15/17 04:57 White Blood Count 2.78 K/uL Red Blood Count 2.97 M/uL Hemoglobin 8.5 g/dL Hematocrit 26.4 % Mean Corpuscular Volume 88.9 fL Mean Corpuscular Hemoglobin 28.6 pg Mean Corpuscular Hemoglobin Concent 32.2 g/dl Platelet Count 111 K/uL Mean Platelet Volume 10.9 fL RDW Standard Deviation 57.4 fL RDW Coefficient of Variation 17.4 % Neutrophils % (Manual) 69.5 % Lymphocytes % (Manual) 13.4 % Monocytes % (Manual) 5.4 % Eosinophils % (Manual) 1.8 % Metamyelocytes % 4.5 % Myelocytes % 5.4 % Neutrophils # (Manual) 1.93 K/uL Total Absolute Neutrophils 1.93 K/uL Lymphocytes # (Manual) 0.37 K/uL Total Absolute Lymphocytes 0.37 K/uL Monocytes # (Manual) 0.15 K/uL Eosinophils # (Manual) 0.05 K/uL Metamyelocytes # 0.13 K/uL Myelocytes # 0.15 K/uL Toxic Granulation 2+ Large Platelets 2+ Ovalocytes 1+ Sodium Level 133 mmol/L Potassium Level 4.9 mmol/L Chloride Level 103 mmol/L Carbon Dioxide Level 23 mmol/L Anion Gap 7.0 mmol/L Blood Urea Nitrogen 59 mg/dl Creatinine 1.39 mg/dl Est Creatinine Clear Calc Drug Dose 39.5 ml/min Estimated GFR () 55.9 Estimated GFR (Non- 48.2 BUN/Creatinine Ratio 42.2 Random Glucose 98 mg/dl Calcium Level 8.2 mg/dl Total Protein 4.8 gm/dl Albumin 2.0 gm/dl Assessment and Plan 77yo male: 1. encephalopathy - resolved. Was likely multiple metabolic causes earlier in his stay. Continue HS seroquel. 2. mild hyponatremia - resolved. 3. acute hypoxic resp failure - likely multifactorial including pneumonia, COPD , worsening mass in left chest from lymphoma, acute diastolic CHF. Overall improved. Completed abx course. Is on once daily steroids. Volume status seems appropriate. 4. left upper lobe post-obstructive pneumonia - completed course of levaquin. Improved. 5. acute diastolic CHF - resolved, euvolemic. 6. COPD with exacerbation - much improved in comparison to my last visit. Cont IV decadron & nebs. Cont supportive care. 7. recurrent follicular lymphoma - appreciate heme/onc and rad onc consultations. Received XRT to left hilar mass c/o Dr. Zavala. Very poor prognosis in light of multiple cardio-pulmonary comorbidities. 8. Severe sepsis POA, due to pneumonia - resolved. 9. acute kidney injury in setting of CKD stage 2-3 - MACRINA resolved. 10. a. fib - controlled with cardizem CD. cont eliquis. 11. abnormal peripheral smear - apparently there were cytoplasmic inclusions in the neutrophils on smear according to the pathologist concerning for tick- borne disease. anaplasmosis and ehrlichia titers negative and DNA testing negative. doxycycline d/c. 12. pancytopenia - likely from follicular lymphoma; CBC remains acceptable. 13. DVT proph - eliquis BID. 14. depression - start lexapro 5mg daily. 15. hypothyroidism - TSH compensated; continue synthroid 75mcg. 16. thrush - completed course of diflucan - resolved. 17. constipation - improved. 18. LE weakness - he could easily have severe/critical spinal stenosis or a metastatic focus causing cord impingement. Will image the Lumbar Spine with MRI and then re-eval. Consider T-spine imaging as well. supportive care given to patient today patient remains complicated and ill awaiting disposition at SNF or [facility] but feel he is not a great candidate for latter Continued [facility] stay due to: inadequate po fluid intake, voiding difficulties, ambulation difficulties, multiple IV medications needed, home environment unsafe for pt Discharge planning: longterm facility (vs inpatient rehab)
[2017-08-15 06:01] LABS: HEMATOCRIT 26.7 % (42-52); HEMOGLOBIN 8.5 g/dL (14.0-18.0); MEAN CELL VOLUME 89.3 fL (80-100); MEAN CORPUSCULAR HEMOGLOBIN 28.4 pg (25-34); MEAN CORPUSCULAR HGB CONC 31.8 g/dl (32-36); MEAN PLATELET VOLUME 11.7 fL (7.4-10.4); PLATELET COUNT 111 K/uL (130-400); RED CELL DISTRIBUTION WIDTH CV 17.5 % (11.5-14.5); RED CELL DISTRIBUTION WIDTH SD 57.2 fL (36.4-46.3); WHITE BLOOD COUNT 3.83 K/uL (4.8-10.8)
[2017-08-15 06:28] LABS: CALCIUM 8.1 mg/dl (8.5-10.1); CREATININE 1.26 mg/dl (0.60-1.40); POTASSIUM 5.2 mmol/L (3.5-5.1)
[2017-08-15] MEDS: LEVALBUTEROL 1.25MG/0.5ML NEB INH SCH ×3 (07:47→19:40)
[2017-08-15] MEDS: IPRATROPIUM BROMIDE NEB SOLN 0.02% 2.5 ML VIAL INH SCH ×3 (07:47→19:40)
[2017-08-15] MEDS: POLYETHYLENE (MIRALAX) 17 GM PACK PO SCH (09:05)
[2017-08-15] MEDS: ASCORBIC ACID 500 MG TAB PO SCH (09:05)
[2017-08-15] MEDS: DILTIAZEM HCL 240 MG CAPCR PO SCH (09:05)
[2017-08-15] MEDS: BOOST VANILLA PO SCH ×3 (09:05→17:00)
[2017-08-15] MEDS: ONDANSETRON INJ 2 MG/ML 2 ML VIAL IV PRN (09:09)
[2017-08-15] MEDS: DEXAMETHASONE INJ 4 MG in SYRINGE 0 ML IV SCH (09:09)
[2017-08-15] MEDS: PrednisoLONE ACET 1% OP SUSP 5 ML BTL OPL SCH (09:15)
[2017-08-15] MEDS: APIXABAN 2.5 MG TAB PO SCH ×3 (10:32→20:55)
[2017-08-15] MEDS: ESCITALOPRAM OXALATE 10 MG TAB PO SCH ×2 (10:33→11:09)
[2017-08-15] MEDS: GUAIFENESIN 600 MG TABCR PO SCH ×3 (10:34→20:54)
[2017-08-15] MEDS: FINASTERIDE 5 MG TAB PO SCH ×2 (10:34→11:09)
[2017-08-15] MEDS: SULFAMETHOXAZOLE/TRIMETHOPRIM DS 800/160MG TAB PO SCH ×3 (10:34→20:56)
--- NOTE | 2017-08-15 17:48 | DIAGNOSTIC IMAGING REPORT ---
SINGLE VIEW CHEST CLINICAL HISTORY: Left upper lobe pneumonia. Vomiting. Change in mental status. FINDINGS: An AP, portable, upright chest radiograph is compared to study dated 08/09/2017 and correlated with chest CT dated 08/02/2017. The examination is degraded by portable technique and patient rotation. A left subclavian central venous infusion port is unchanged in position. The cardiomediastinal silhouette is unremarkable. The pulmonary vasculature is noncongested. There is atherosclerotic calcification of the thoracic aorta. Advanced emphysema and chronic interstitial thickening are similar to previous. There is airspace consolidation throughout the left lung. This has modestly improved from 08/09/2017. Trace pleural effusions are suspected. These have decreased in size from previous. Minimal atelectasis is seen at the right lung base. A calcified granuloma is again noted in the right lower lobe. There is no pneumothorax. The skeletal structures are osteopenic. The bony thorax appears intact. Fusion hardware is noted in the lower cervical spine. IMPRESSION: 1. Advanced emphysema. 2. Airspace consolidation throughout the left lung has modestly improved from 08/09/2017. This remains typical in appearance for pneumonia. Radiographic follow-up to resolution is recommended. 3. There are trace pleural effusions which have decreased in size from 08/09/2017. Electronically signed by: Nnamdi Whyte M.D. 08/15/2017 5:46 PM Dictated Date/Time: 08/15/2017 5:44 PM
--- NOTE | 2017-08-15 17:50 | DIAGNOSTIC IMAGING REPORT ---
KUB CLINICAL HISTORY: Vomiting. Abdominal distention. FINDINGS: 2 AP supine abdominal radiographs are correlated with abdominal CT dated 07/09/2017. There is severe constipation. There is mild gaseous distention of the small bowel loops which measure up to 4.7 cm. No evidence of intraperitoneal free air is seen on these supine images. Cholecystectomy clips are identified in the right upper quadrant. Pneumobilia is noted. Phleboliths are observed in the pelvis. There are calcified granulomas noted in the spleen. The skeletal structures are osteopenic. Lumbosacral spondylosis and scoliosis are observed. IMPRESSION: 1. There is severe constipation. 2. There is gaseous distention of the small bowel loops. This may represent a functional obstruction related to severe constipation. Electronically signed by: Nnamdi Whyte M.D. 08/15/2017 5:48 PM Dictated Date/Time: 08/15/2017 5:46 PM
[2017-08-15] MEDS ORDERED: BISACODYL 10 MG SUPP PR STA (18:19)
[2017-08-15] MEDS ORDERED: BISACODYL 5 MG TABEC PO PRN (18:30)
[2017-08-15] MEDS ORDERED: BISACODYL 10 MG SUPP ONE (20:48)
[2017-08-15] MEDS: QUETIAPINE FUMARATE 25 MG TAB PO SCH (20:56)
[2017-08-15] MEDS: LATANOPROST 0.005% OP SOLN 2.5 ML BTL OPB SCH (20:56)
[2017-08-16] VITALS (9 sets, daily range): BP systolic 94–111; BP diastolic 56–61; PULSE 86–122; TEMP 36.4–36.8; O2SAT 95–99
[2017-08-16] MEDS: IPRATROPIUM BROMIDE NEB SOLN 0.02% 2.5 ML VIAL INH SCH ×4 (01:47→20:50)
[2017-08-16] MEDS: LEVALBUTEROL 1.25MG/0.5ML NEB INH SCH ×4 (01:47→20:50)
[2017-08-16] MEDS: LEVOTHYROXINE 75 MCG TAB PO SCH (05:51)
--- NOTE | 2017-08-16 08:25 | Progress Note ---
Subjective Date of Service: Aug 15, 2017. Subjective Pt evaluation today including: conversation w/ patient, conversation w/ family (, daughter at bedside), physical exam, chart review, lab review, review of studies (l-spine MRI), conversation w/ energy sales consultant (radiology), review of inpatient medication list Pain: l spine PO Intake: very poor, eating next to nothing Voiding: carter catheter in place confused again today /daughter at bedside they have numerous concerns and numerous questions they understand how weak he is; they agree he is depressed they understand that [facility] may be too much for him and they are not opposed to SNF after hospital d/c appetite is essentially non existent Problem List Medical Problems: (1) Atrial flutter Status: Acute (2) CHF (congestive heart failure) Status: Acute (3) Febrile neutropenia Status: Acute (4) Hypotension Status: Acute (5) Immunocompromised Status: Acute (6) Low back pain Status: Acute (7) PNA (pneumonia) Status: Acute (8) Sepsis Status: Acute (9) Sepsis Status: Acute (10) Spinal stenosis Status: Acute (11) UTI (urinary tract infection) Status: Acute (12) Weakness Status: Acute Review of Systems Constitutional: No fever, No chills Respiratory: + cough, No dyspnea at rest, No hemoptysis Cardiac: No chest pain, No orthopnea Abdomen: + constipation, No pain Musculoskeletal: + see HPI (l spine pain) Neurologic: + weakness (both legs, worse on right) Objective Vital Signs Date Time Temp Pulse Resp B/P (MAP) Pulse Ox O2 Delivery O2 Flow Rate FiO2 08/15/17 20:10 36.4 82 20 103/54 (70) 93 Room Air 08/15/17 19:43 83 20 97 Nasal Cannula 2.0 08/15/17 16:00 Nasal Cannula 1.0 08/15/17 15:39 36.6 79 18 102/49 (66) 97 Nasal Cannula 2.0 08/15/17 14:22 68 20 97 Nasal Cannula 2.0 08/15/17 11:34 36.6 95 18 110/60 (77) 97 Nasal Cannula 2.0 08/15/17 08:00 Nasal Cannula 1.0 08/15/17 07:21 36.4 97 20 99/59 (72) 97 Nasal Cannula 2.0 08/15/17 04:17 36.6 80 20 109/57 (74) 98 Nasal Cannula 2.0 08/15/17 00:00 Nasal Cannula 1.0 08/14/17 23:33 36.6 89 20 103/56 (72) 98 Nasal Cannula 2.0 Physical Exam General Appearance: no apparent distress, + pertinent finding (confused) ENT: + pertinent finding (MM dry, no thrush) Neck: no JVD Respiratory/Chest: no respiratory distress, no accessory muscle use, + decreased breath sounds (left anterior chest; left upper chest posteriorly), + wheezing Cardiovascular: no gallop, + systolic murmur, + irregularly irregular Abdomen: non tender, no organomegaly, + distended Extremities: + pedal edema, + swelling (all 4 limbs; worst in RLE and LUE) Neurologic/Psychiatric: alert, + motor weakness (both legs - unchanged from prior exam), + disoriented Laboratory Results Last 24 Hours Test 08/15/17 04:57 08/15/17 12:56 08/15/17 17:15 White Blood Count 3.83 K/uL Red Blood Count 2.99 M/uL Hemoglobin 8.5 g/dL Hematocrit 26.7 % Mean Corpuscular Volume 89.3 fL Mean Corpuscular Hemoglobin 28.4 pg Mean Corpuscular Hemoglobin Concent 31.8 g/dl RDW Standard Deviation 57.2 fL RDW Coefficient of Variation 17.5 % Platelet Count 111 K/uL Mean Platelet Volume 11.7 fL Sodium Level 132 mmol/L Potassium Level 5.2 mmol/L Chloride Level 102 mmol/L Carbon Dioxide Level 22 mmol/L Anion Gap 8.0 mmol/L Blood Urea Nitrogen 58 mg/dl Creatinine 1.26 mg/dl Est Creatinine Clear Calc Drug Dose 43.5 ml/min Estimated GFR () 62.9 Estimated GFR (Non- 54.3 BUN/Creatinine Ratio 46.0 Random Glucose 83 mg/dl Calcium Level 8.1 mg/dl Bedside Glucose 170 mg/dl Urine Color YELLOW Urine Appearance CLEAR Urine pH 5.0 Urine Specific [place] 1.026 Urine Protein 1+ Urine Glucose (UA) NEG Urine Ketones NEG Urine Occult Blood 3+ Urine Nitrite NEG Urine Bilirubin NEG Urine Urobilinogen NEG Urine Leukocyte Esterase NEG Urine WBC (Auto) 1-5 /hpf Urine RBC (Auto) >30 /hpf Urine Hyaline Casts (Auto) 5-10 /lpf Urine Epithelial Cells (Auto) >30 /lpf Urine Bacteria (Auto) 1+ Urine Yeast (Auto) Assessment and Plan 77yo male: 1. encephalopathy - recurrent. Was likely multiple metabolic causes earlier in his stay. Continue HS seroquel. To work up the acute encephalopathy today recheck cxr, u/a, and urine cx. Recheck labs including ammonia level in AM. 2. mild hyponatremia - likely due to poor oral intake. 3. acute hypoxic resp failure - likely multifactorial including pneumonia, COPD , worsening mass in left chest from lymphoma, acute diastolic CHF. Overall improved. Completed abx course. Is on once daily steroids. Repeat cxr today. 4. left upper lobe post-obstructive pneumonia - completed course of levaquin. Improved. 5. acute diastolic CHF - resolved. 6. COPD with exacerbation - much improved. Cont IV decadron & nebs. Cont supportive care. 7. recurrent follicular lymphoma - appreciate heme/onc and rad onc consultations. Received XRT to left hilar mass c/o Dr. Zavala. Very poor prognosis in light of multiple cardio-pulmonary comorbidities. New bony mets to T/L-spine. 8. Severe sepsis POA, due to pneumonia - resolved. 9. acute kidney injury in setting of CKD stage 2-3 - MACRINA resolved. 10. a. fib - controlled with cardizem CD. cont eliquis. 11. abnormal peripheral smear - apparently there were cytoplasmic inclusions in the neutrophils on smear according to the pathologist concerning for tick- borne disease. anaplasmosis and ehrlichia titers negative and DNA testing negative. doxycycline d/c. 12. pancytopenia - likely from follicular lymphoma; CBC remains acceptable. 13. DVT proph - eliquis BID. 14. depression - started lexapro 5mg daily 08/14/17. 15. hypothyroidism - TSH compensated; continue synthroid 75mcg. 16. thrush - completed course of diflucan - resolved. 17. constipation - ongoing; dulcolax suppos x 1. KUB x-ray today to ensure no ileus or obstruction. 18. LE weakness - due to severe spinal stenosis and severe deconditioning. Spoke with radiology - spinal mets are not causing cord compression. spent 30+ min speaking with family at bedside they agree [facility] is not a good plan for him; will go with SNF at d/c I will speak with Dr. Diggs to see if we can arrange a family meeting to address goals of care and readdress code status given his very, very poor prognosis Continued [facility] stay due to: abnormal vital signs, inadequate po fluid intake, voiding difficulties, ambulation difficulties, multiple IV medications needed, home environment unsafe for pt [place]charge planning[facility] [place] [facility] ([facility] inpatient rehab)
[2017-08-16] MEDS: BOOST VANILLA PO SCH ×4 (08:35→17:00)
[2017-08-16] MEDS: POLYETHYLENE (MIRALAX) 17 GM PACK PO SCH (08:37)
[2017-08-16 08:52] LABS: CALCIUM 8.3 mg/dl (8.5-10.1); CREATININE 1.13 mg/dl (0.60-1.40); POTASSIUM 5.5 mmol/L (3.5-5.1)
[2017-08-16] MEDS ORDERED: SODIUM POLYST. SULF SUSP 15G/60ML PO STA (09:02)
[2017-08-16] MEDS: DEXAMETHASONE INJ 4 MG in SYRINGE 0 ML IV SCH (10:00)
[2017-08-16] MEDS: PrednisoLONE ACET 1% OP SUSP 5 ML BTL OPL SCH (10:04)
[2017-08-16] MEDS: FINASTERIDE 5 MG TAB PO SCH (10:08)
[2017-08-16] MEDS: DILTIAZEM HCL 120 MG CAPCR PO SCH (10:09)
[2017-08-16] MEDS: ESCITALOPRAM OXALATE 10 MG TAB PO SCH (10:11)
[2017-08-16] MEDS: APIXABAN 2.5 MG TAB PO SCH (10:11)
[2017-08-16] MEDS: ASCORBIC ACID 500 MG TAB PO SCH (10:14)
[2017-08-16] MEDS: SULFAMETHOXAZOLE/TRIMETHOPRIM DS 800/160MG TAB PO SCH ×2 (10:15→20:21)
[2017-08-16] MEDS: GUAIFENESIN SUGAR FREE 200 MG/10 ML UDC PO SCH ×3 (10:18→20:21)
[2017-08-16] MEDS: SODIUM CHLORIDE 0.9% 1000ML 1,000 ML IV SCH (10:32)
--- NOTE | 2017-08-16 12:30 | Hematology/Oncology Prog Note ---
Hematology/Onc Progress Note Date of Service Aug 16, 2017. Diagnoses Progressive non-Hodgkin's lymphoma Left lung pneumonia COPD Medications Medications Administered Medications (Trade) Dose Ordered Sig/Hari Route Start Time Stop Time Status Last Admin Dose Admin Sodium Chloride 1,000 ml @ 999 mls/hr Q1H1M STAT IV 07/31/17 11:28 07/31/17 12:28 DC 07/31/17 12:02 999 MLS/HR Cefepime HCl 1000 mg/Dextrose 111 ml @ 200 mls/hr NOW STAT IV 07/31/17 11:45 07/31/17 12:18 DC 07/31/17 12:28 200 MLS/HR Levofloxacin (Levaquin / D5W) 500 mg NOW ONCE IV 07/31/17 11:45 07/31/17 11:47 DC 07/31/17 12:02 500 MG Vancomycin HCl 1500 mg/Sodium Chloride 530 ml @ 200 mls/hr ONE STAT IV 07/31/17 13:50 07/31/17 16:28 DC 07/31/17 14:22 200 MLS/HR Sodium Chloride 1,000 ml @ 30 mls/hr Q24H IV 07/31/17 14:40 08/01/17 13:28 DC 08/01/17 11:57 30 MLS/HR Acetaminophen (Tylenol Tab) 650 mg Q4H PRN PO 07/31/17 14:45 08/30/17 14:44 08/11/17 07:54 650 MG Ondansetron HCl (Zofran Inj) 4 mg Q6H PRN IV 07/31/17 14:45 08/30/17 14:44 08/15/17 09:09 4 MG Lactobacillus Acidophilus (Floranex Tab) 4 tab TIDM PO 07/31/17 16:45 08/09/17 15:56 DC 08/09/17 15:55 4 TAB Vancomycin HCl 1000 mg/Sodium Chloride 270 ml @ 125 mls/hr Q24H IV 08/01/17 12:00 08/03/17 14:41 DC 08/03/17 12:12 125 MLS/HR Guaifenesin (Robitussin Sugar Free Syrup) 200 mg Q6H PRN PO 07/31/17 15:00 08/16/17 08:44 DC 08/13/17 14:20 200 MG Cefepime HCl 1000 mg/Syringe 11 ml @ 5.5 mls/min Q12H IV 08/01/17 00:00 08/03/17 14:41 DC 08/03/17 14:05 5.5 MLS/MIN Levofloxacin 250 mg/Prmx 50 ml @ 50 mls/hr TODAY@1630 ONCE IV 07/31/17 16:30 07/31/17 17:29 DC 07/31/17 17:42 50 MLS/HR Levofloxacin 750 mg/Prmx 150 ml @ 100 mls/hr Q48H IV 08/02/17 11:00 08/04/17 11:34 DC 08/04/17 11:28 100 MLS/HR Ipratropium [place] (Atrovent 0.02% 0.5MG/2.5ML Neb) 0.5 mg Q6R INH 07/31/17 21:00 08/30/17 20:59 08/16/17 07:32 0.5 MG Levalbuterol (Xopenex 1.25MG/ 0.5ML Neb) 1.25 mg Q6R INH 07/31/17 21:00 08/30/17 20:59 08/16/17 07:32 1.25 MG Latanoprost (Xalatan Oph Soln) 1 drops HS OPB 07/31/17 21:00 08/30/17 20:59 08/15/17 20:56 1 DROPS Tobramycin/ Dexamethasone (Tobradex Oph Oint) 1 appln HS OPL 07/31/17 21:00 08/04/17 21:32 DC 08/03/17 19:45 1 APPLN Diltiazem HCl (Cardizem Inj) 10 mg TODAY@2130 IV 07/31/17 21:30 07/31/17 21:31 DC 07/31/17 22:24 10 MG Diltiazem HCl 125 mg/Dextrose 125 ml @ 0 mls/hr Q0M PRN IV 07/31/17 21:30 08/04/17 11:10 DC 08/04/17 01:41 15 MLS/HR Miscellaneous Information (Order Awaiting Action) 1 ea QS N/A 08/01/17 08:00 08/01/17 18:40 DC 08/01/17 15:49 1 EA Heparin Sodium (Porcine) 4000 unit/Syringe 4 ml @ 10 mls/min NOW ONCE IV 07/31/17 23:15 07/31/17 23:16 DC 07/31/17 23:42 10 MLS/MIN Heparin Sodium/ Dextrose 500 ml @ 20 mls/hr Q24H PRN IV 07/31/17 23:15 08/02/17 11:45 DC 08/01/17 17:38 20 MLS/HR Heparin Sodium (Porcine) (Heparin 100 Unit/ml 5ml Flush) 5 ml PRN PRN IV 08/01/17 07:45 08/31/17 07:44 08/16/17 10:00 5 ML Heparin Sodium (Porcine) 4500 unit/Syringe 4.5 ml @ 10 mls/min NOW ONCE IV 08/01/17 09:00 08/01/17 09:01 DC 08/01/17 09:14 10 MLS/MIN Sodium Chloride 500 ml @ 999 mls/hr Q31M STAT IV 08/01/17 13:12 08/01/17 13:42 DC 08/01/17 14:30 999 MLS/HR Sodium Chloride 1,000 ml @ 100 mls/hr Q10H IV 08/01/17 13:15 08/04/17 10:48 DC 08/03/17 20:16 100 MLS/HR Heparin Sodium (Porcine) 3000 unit/Syringe 3 ml @ 10 mls/min 1730 ONCE IV 08/01/17 17:30 08/01/17 17:31 DC 08/01/17 17:37 10 MLS/MIN Enteral Nutritional Formula (Boost) 1 can TIDM PO 08/02/17 07:30 09/01/17 07:29 08/16/17 10:31 1 CAN Neomycin/ Polymyxin/ Dexamethasone (Maxitrol Oph Susp) 1 drops Q6H OPL 08/02/17 00:00 08/04/17 21:32 DC 08/04/17 18:00 1 DROPS Menthol (Nice Eduar) 24 eduar STK-MED ONCE .ROUTE 08/01/17 21:25 08/01/17 21:26 DC 08/01/17 21:25 24 EDUAR Potassium/ Phosphorus/Sodium (Phospha 250 Neutral 155-852-130 Mg) 1 tab QID PO 08/02/17 13:00 08/02/17 21:01 DC 08/02/17 20:14 1 TAB Apixaban (Eliquis Tab) 5 mg BID PO 08/02/17 22:00 09/01/17 21:59 08/16/17 10:11 5 MG Apixaban (Eliquis Tab) 5 mg NOW ONCE PO 08/02/17 11:45 08/02/17 11:46 DC 08/02/17 13:25 5 MG Furosemide (Lasix Tab) 20 mg QAM PO 08/02/17 12:00 08/04/17 13:36 DC 08/04/17 08:55 20 MG Furosemide 20 mg/ Syringe 2 ml @ 4 mls/min NOW STAT IV 08/04/17 03:27 08/04/17 03:30 DC 08/04/17 03:27 4 MLS/MIN Furosemide 20 mg/ Syringe 2 ml @ 4 mls/min TODAY@1100 IV 08/04/17 11:00 08/04/17 11:20 DC 08/04/17 11:43 4 MLS/MIN Levofloxacin (Levaquin Tab) 750 mg Q2D@1100 PO 08/06/17 11:00 08/06/17 11:01 DC 08/06/17 09:43 750 MG Diltiazem HCl (Cardizem Tab) 30 mg TID PO 08/04/17 14:00 08/05/17 09:21 DC 08/05/17 07:45 30 MG Diltiazem HCl (Cardizem Inj) 5 mg NOW STAT IV 08/04/17 12:40 08/04/17 12:57 DC 08/04/17 13:06 5 MG Furosemide 20 mg/ Syringe 2 ml @ 4 mls/min QAM IV 08/05/17 09:00 08/05/17 11:36 DC 08/05/17 08:59 4 MLS/MIN Prednisolone Acetate (Pred Forte 1% Oph Susp) 1 drops DAILY OPL 08/05/17 09:00 09/04/17 08:59 08/16/17 10:04 1 DROPS Diltiazem HCl (Cardizem Tab) 30 mg Q6H PO 08/05/17 15:00 08/06/17 13:17 DC 08/06/17 09:43 30 MG Furosemide 20 mg/ Syringe 2 ml @ 4 mls/min BID17 IV 08/05/17 17:00 08/06/17 16:55 DC 08/06/17 09:42 4 MLS/MIN Polyethylene (Miralax Powder Packet) 17 gm DAILY PO 08/05/17 11:45 08/30/17 14:44 08/14/17 08:37 17 GM Fluconazole (Diflucan Tab) 100 mg QAM PO 08/06/17 09:00 08/09/17 15:56 DC 08/09/17 08:05 100 MG Fluconazole (Diflucan Tab) 100 mg 1134 ONCE PO 08/05/17 11:34 08/05/17 11:39 DC 08/05/17 13:02 100 MG Doxycycline Hyclate (Vibramycin Cap) 100 mg BID PO 08/05/17 21:00 08/09/17 15:58 DC 08/09/17 08:04 100 MG Guaifenesin (Mucinex Contr Rel Tab) 1,200 mg Q12 PO 08/05/17 11:45 08/16/17 08:44 DC 08/15/17 20:54 1,200 MG Doxycycline Hyclate (Vibramycin Cap) 100 mg NOW STAT PO 08/05/17 12:50 08/05/17 12:51 DC 08/05/17 13:03 100 MG Diltiazem HCl (Cardizem Tab) 60 mg Q6H PO 08/06/17 15:00 08/11/17 08:01 DC 08/11/17 07:54 60 MG Prednisone (PredniSONE TAB) 10 mg NOW ONCE PO 08/06/17 13:30 08/06/17 15:25 DC 08/06/17 14:09 10 MG Dexamethasone Sodium Phosphate 4 mg/Syringe 1 ml @ 1 mls/min Q12H IV 08/06/17 18:00 08/08/17 17:43 DC 08/08/17 17:27 1 MLS/MIN Levothyroxine Sodium (Synthroid Tab) 75 mcg DAILYBB PO 08/07/17 06:00 09/06/17 05:59 08/16/17 05:51 75 MCG Dornase [place] (Pulmozyme Inhalation Soln 2.5ml Amp) 2.5 ml BIDR INH 08/07/17 08:00 08/10/17 07:59 DC 08/10/17 07:04 2.5 ML Dexamethasone/ Nystatin/ Diphenhydramine HCl/Sucrose/ Microcrystalline Cellulose/Barcode ACHS PO 08/07/17 21:00 08/09/17 15:56 DC 08/09/17 11:52 5 ML Bisacodyl (Dulcolax Supp) 10 mg NOW STAT [place] 08/08/17 10:30 08/08/17 10:58 DC 08/08/17 11:52 10 MG Dexamethasone Sodium Phosphate 4 mg/Syringe 1 ml @ 1 mls/min QAM IV 08/09/17 09:00 09/05/17 17:59 08/16/17 10:00 1 MLS/MIN Haloperidol (Haldol Tab) 1 mg HS PRN PO 08/08/17 17:45 08/09/17 15:56 DC 08/08/17 20:27 1 MG Ascorbic Acid (Vitamin C Tab) 500 mg DAILY PO 08/10/17 09:00 09/09/17 08:59 08/16/17 10:14 500 MG Finasteride (Proscar Tab) 5 mg DAILY PO 08/10/17 09:00 09/09/17 08:59 08/16/17 10:08 5 MG Quetiapine Fumarate (seroQUEL TAB) 25 mg HS PO 08/09/17 21:00 09/08/17 20:59 08/15/17 20:56 25 MG Trimethoprim/ Sulfamethoxazole (Septra Ds 800/ 160MG Tab) 1 tab Q12 PO 08/09/17 21:00 08/19/17 20:59 08/16/17 10:15 1 TAB Diltiazem HCl (Cardizem Cd Cap) 240 mg QAM PO 08/11/17 09:00 08/16/17 08:44 DC 08/14/17 08:37 240 MG Sodium Polystyrene Sulfonate (Kayexalate Susp) 15 gm NOW STAT PO 08/11/17 08:13 08/11/17 08:14 DC 08/11/17 11:22 15 GM Escitalopram Oxalate (Lexapro Tab) 5 mg 1615 ONCE PO 08/14/17 16:15 08/14/17 16:16 DC 08/14/17 17:06 5 MG Escitalopram Oxalate (Lexapro Tab) 5 mg QAM PO 08/15/17 08:00 09/14/17 07:59 08/16/17 10:11 5 MG Bisacodyl (Dulcolax Supp) 10 mg NOW STAT [place] 08/15/17 18:19 08/15/17 18:56 DC 08/15/17 21:30 10 MG Diltiazem HCl (Cardizem Cd Cap) 120 mg QAM PO 08/16/17 08:45 09/10/17 08:59 08/16/17 10:09 120 MG Guaifenesin (Robitussin Sugar Free Syrup) 100 mg Q6H PO 08/16/17 10:00 08/30/17 09:59 08/16/17 10:18 100 MG Sodium Chloride 1,000 ml @ 75 mls/hr [id number] IV 08/16/17 08:45 09/15/17 08:44 08/16/17 10:32 75 MLS/HR Sodium Polystyrene Sulfonate (Kayexalate Susp) 15 gm NOW STAT PO 08/16/17 09:02 08/16/17 09:20 DC 08/16/17 09:02 15 GM Subjective Visited again today. His chest x-ray is much improved however he has developed significant weakness of both lower extremities. Review of Systems: Constitutional: Negative for night sweats, or fever Eyes: Negative for event change of vision ENT: Negative for epistaxis, nasal discharge, sore throat, or deafness Cardiovascular: Negative for chest pain, palpitations, dizziness, diaphoresis Respiratory: Negative for new shortness of breath,hemoptysis, or purulent cough Gastrointestinal: Negative for diarrhea, hematemesis, melena, nausea, vomiting , or dyspepsia Integumentary (skin): Negative for rash or jaundice discoloration Genitourinary: Negative for urinary frequency, hematuria, or dysuria Neurological: Has significant weakness of both lower extremities Lymphatic/Hematologic: Negative for petechiae, bleeding or new adenopathy Musculoskeletal: Negative for new joint or back pain Allergic/Immunologic: Negative for unusual rash or pruritis. Vital Signs Vital Signs Past 12 Hours Date Time Temp Pulse Resp B/P (MAP) Pulse Ox O2 Delivery O2 Flow Rate FiO2 08/16/17 11:15 36.4 122 16 111/57 (75) 98 Nasal Cannula 2.0 08/16/17 07:43 36.5 112 20 98/58 (71) 95 Nasal Cannula 2.0 08/16/17 07:35 101 20 95 Nasal Cannula 2.0 08/16/17 04:42 36.4 90 20 103/57 (72) 99 Nasal Cannula 1.0 Physical Exam Constitutional: vitals are stable. Eyes: Eyes are HORACE EOMI without conjuctival erythema or icterus. ENT: External examination was negative for masses. Neck: Negative for masses or palpable thyromegaly Respiratory: Lung sounds were generally clear bilaterally Cardiovascular: Heart was RRR without significant murmur, gallops aoe rubs Gastrointestinal: No palpable hepatic or splenomegaly. The abdomen was soft with normal bowel sounds. Lymphatic system: there was no palpable peripheral lymphadenopathy Musculoskeletal System: The musculoskeletal system seemed concordant with age. Skin: The skin was negative for jaundice. Neurologic exam: He has significant weakness of both lower extremities right seems more profound than the left. Toes are downgoing. There is no sensory level. He has had some inability to control his bowels however apparently has been on stool softener. Psychiatric exam: Was essentially negative with normal for being in the hospital for a lengthy stay with mood and effect. Extremities: negative for significant edema Laboratory Last 24 Hours Test 08/15/17 12:56 08/15/17 17:15 08/16/17 08:18 Bedside Glucose 170 mg/dl Urine Color YELLOW Urine Appearance CLEAR Urine pH 5.0 Urine Specific [place] 1.026 Urine Protein 1+ Urine Glucose (UA) NEG Urine Ketones NEG Urine Occult Blood 3+ Urine Nitrite NEG Urine Bilirubin NEG Urine Urobilinogen NEG Urine Leukocyte Esterase NEG Urine WBC (Auto) 1-5 /hpf Urine RBC (Auto) >30 /hpf Urine Hyaline Casts (Auto) 5-10 /lpf Urine Epithelial Cells (Auto) >30 /lpf Urine Bacteria (Auto) 1+ Urine Yeast (Auto) Sodium Level 134 mmol/L Potassium Level 5.5 mmol/L Chloride Level 105 mmol/L Carbon Dioxide Level 18 mmol/L Anion Gap 11.0 mmol/L Blood Urea Nitrogen 59 mg/dl Creatinine 1.13 mg/dl Est Creatinine Clear Calc Drug Dose 48.6 ml/min Estimated GFR () 71.8 Estimated GFR (Non- 61.9 BUN/Creatinine Ratio 52.6 Random Glucose 86 mg/dl Calcium Level 8.3 mg/dl Magnesium Level 2.6 mg/dl Ammonia 17.6 umol/L Assessment & Plan Chest x-ray is much improved. Left lung has become clear. However during his lengthy stay at the hospital now he has developed profound weakness of both lower extremities. There is no sensory level. His reviews with me that every time that he is in the hospital he becomes weak in his lower extremities. I do not doubt that he is terribly deconditioned after being here for quite some time. He will need a [facility] facility however for rehab. This was impressed upon the patient as well as his today. I should note that the patient was asked again about resuscitation issues. He was informed that his disease appears to have involved the bones however the spinal cord is not affected except by spinal stenosis from other degenerative causes. He re- confirms a personal desire for resuscitation should that be necessary. At this juncture he is certainly doubtful that he will be a candidate for systemic chemotherapy. Single agent Rituxan is still a possibility but I would like to see more strength gathered prior to even using that drug. He will have a follow-up in our clinic in the next week or 2. I did suggest that Dr. Galarza that a neurologic consult or assessment might be warranted
--- NOTE | 2017-08-16 18:34 | DIAGNOSTIC IMAGING REPORT ---
BRAIN WITHOUT CONTRAST HISTORY: 77 years-old Male b/l leg weakness, worse on right; eval for stroke, mass, etc acute bilateral leg weakness, right greater than left. Acute strokelike symptoms. COMPARISON: CT head 08/08/2017 TECHNIQUE: Multiplanar multisequence MRI the brain obtained without contrast. FINDINGS: Large field view charter coordinator localizer images demonstrate no gross abnormality. There is no restricted diffusion to suggest acute infarction. Midline structures including the corpus callosum, brainstem, optic chiasm, the data and pituitary gland appear unremarkable the sagittal T1 series. Several of the sequences are motion degraded. No cerebellar tonsillar herniation. Degenerative changes of the imaged cervical spine. No acute intracranial hemorrhage, midline shift, abnormal extra-axial collections or hydrocephalus. Minimal scattered areas of T2/FLAIR prolongation are seen within the subcortical and periventricular white matter suggesting subtle chronic microvascular ischemic changes. Moderate brain atrophy with ex vacuo ventriculomegaly. Major flow voids at the level of the skull base appear patent. Moderate mucosal thickening with air-fluid level of the left maxillary sinus. The remaining paranasal sinuses are generally clear. Mastoid air cells are also clear. Scalp, calvarium and soft tissues are unremarkable. IMPRESSION: 1. No acute intracranial abnormality. No acute intracranial hemorrhage or infarction identified. 2. Moderate atrophy with ex vacuo ventriculomegaly and minimal chronic microvascular ischemic changes. 3. Moderate left maxillary sinus disease. The above report was generated using voice recognition software. It may contain grammatical, syntax or spelling errors. Electronically signed by: Juan Durant M.D. 08/16/2017 6:33 PM Dictated Date/Time: 08/16/2017 6:26 PM
[2017-08-16] MEDS ORDERED: BISACODYL 10 MG SUPP PR STA (19:14)
[2017-08-16] MEDS: LATANOPROST 0.005% OP SOLN 2.5 ML BTL OPB SCH (20:20)
[2017-08-16] MEDS: QUETIAPINE FUMARATE 25 MG TAB PO SCH (20:21)
[2017-08-16] MEDS ORDERED: HEPARIN 25,000 UNIT/500ML D5W 500 ML IV PRN (20:45)
--- NOTE | 2017-08-16 20:47 | Progress Note ---
Subjective Date of Service: Aug 16, 2017. Subjective Pt evaluation today including: conversation w/ patient, conversation w/ family (, daughter at bedside), physical exam, chart review, lab review, review of studies (MRI brain), conversation w/ group segment consultant (heme/onc; neurology), review of inpatient medication list Pain: denies any today PO Intake: very poor Voiding: carter catheter in place family confirms he is "much better today" with respect to mental status he reports small streaks of hemoptysis mixed in with his sputum today denies dyspnea at rest LE weakness remains LENGTHY discussion held today with pt, his , his daughter, and Dr. Diggs at bedside today (see A/P section for details) Problem List Medical Problems: (1) Atrial flutter Status: Acute (2) CHF (congestive heart failure) Status: Acute (3) Febrile neutropenia Status: Acute (4) Hypotension Status: Acute (5) Immunocompromised Status: Acute (6) Low back pain Status: Acute (7) PNA (pneumonia) Status: Acute (8) Sepsis Status: Acute (9) Sepsis Status: Acute (10) Spinal stenosis Status: Acute (11) UTI (urinary tract infection) Status: Acute (12) Weakness Status: Acute Review of Systems Constitutional: No fever Respiratory: + cough, + sputum, + hemoptysis, No dyspnea at rest Cardiac: + edema, No chest pain, No orthopnea Abdomen: + constipation, No pain Objective Vital Signs Date Time Temp Pulse Resp B/P (MAP) Pulse Ox O2 Delivery O2 Flow Rate FiO2 08/16/17 19:39 36.8 111 20 104/61 (75) 98 Nasal Cannula 1.0 08/16/17 16:00 Nasal Cannula 1.0 08/16/17 15:43 36.7 108 18 100/56 (71) 97 Nasal Cannula 2.0 08/16/17 14:13 107 20 97 Nasal Cannula 2.0 08/16/17 11:15 36.4 122 16 111/57 (75) 98 Nasal Cannula 2.0 08/16/17 08:00 Nasal Cannula 1.0 08/16/17 07:43 36.5 112 20 98/58 (71) 95 Nasal Cannula 2.0 08/16/17 07:35 101 20 95 Nasal Cannula 2.0 08/16/17 04:42 36.4 90 20 103/57 (72) 99 Nasal Cannula 1.0 08/16/17 00:00 Nasal Cannula 1.0 08/15/17 23:14 36.6 91 20 101/51 (68) 99 Nasal Cannula 1.0 Physical Exam General Appearance: no apparent distress, + pertinent finding (more alert/ oriented today ) ENT: + pertinent finding (MM dry) Neck: no JVD Respiratory/Chest: no respiratory distress, no accessory muscle use, + decreased breath sounds (left upper lobe), + wheezing (occasional) Cardiovascular: + tachycardia, + systolic murmur (2/6 RUSB/LSB), + irregularly irregular Abdomen: normal bowel sounds, non tender, soft, no organomegaly, + distended ( mild) Extremities: + pedal edema (1-2+ b/l ), + swelling (LUE - slightly better) Neurologic/Psychiatric: + motor weakness (b/l legs, worse on right; no change in strength ) Skin: + pallor Laboratory Results Last 24 Hours Test 08/16/17 08:18 08/16/17 12:57 Sodium Level 134 mmol/L Potassium Level 5.5 mmol/L Chloride Level 105 mmol/L Carbon Dioxide Level 18 mmol/L Anion Gap 11.0 mmol/L Blood Urea Nitrogen 59 mg/dl Creatinine 1.13 mg/dl Est Creatinine Clear Calc Drug Dose 48.6 ml/min Estimated GFR () 71.8 Estimated GFR (Non- 61.9 BUN/Creatinine Ratio 52.6 Random Glucose 86 mg/dl Calcium Level 8.3 mg/dl Magnesium Level 2.6 mg/dl Ammonia 17.6 umol/L Lactate Dehydrogenase 913 U/L Assessment and Plan 77yo male: 1. encephalopathy - improved today. No obvious infectious source at this time. MRI brain obtained today to r/o [employer] lymphoma - no obvious lesions. No stroke. Spoke with Dr. Diggs - the patient could have leptomeningeal spread of his lymphoma. Need for LP? Will ask neurology to consult. Cont seroquel at HS. 2. hyperkalemia - kayexalate 15gm po x 1. Repeat BMP in am. Suspect this is due to mild dehydration/pre-renal state. He is on no meds to cause such. 3. acute hypoxic resp failure - likely multifactorial including LORETA pneumonia, COPD, worsening mass in left chest from lymphoma, acute diastolic CHF. Overall improved. Completed abx course. Is on once daily steroids. Repeat cxr yesterday improved. 4. left upper lobe post-obstructive pneumonia - completed course of levaquin; stable/improved. 5. acute diastolic CHF - resolved. 6. COPD with exacerbation - improved. Cont IV decadron & nebs. Cont supportive care. 7. recurrent follicular lymphoma - appreciate heme/onc and rad onc consultations. Received XRT to left hilar mass c/o Dr. Zavala. Very poor prognosis in light of multiple cardio-pulmonary comorbidities, progressive disease, poor functional status, etc. New bony mets to T/L-spine. Dr. Diggs aware. 8. Severe sepsis POA, due to pneumonia - resolved. 9. acute kidney injury in setting of CKD stage 2-3 - MACRINA resolved, but BUN rising. His oral intake has been very poor. Restart fluids 75cc/hr of NS. 10. a. fib - in preparation for a possible LP (if neurology feels it is necessary) will hold eloquis and place on standard dose heparin drip. IF hemoptysis worsens heparin can be stopped quickly as well. 11. pancytopenia - likely from follicular lymphoma; CBC remains acceptable. 12. DVT, LUE - transition to heparin drip. 13. depression - started lexapro 5mg daily 08/14/17. 14. hypothyroidism - TSH compensated; continue synthroid 75mcg. 15. thrush - completed course of diflucan - resolved. Tongue slightly white today - will follow for now. 16. constipation - ongoing; no ileus/SBO on x-rays yesterday. Bowel regimen. 17. LE weakness - due to severe spinal stenosis and severe deconditioning. Brain MRI without a specific etiology for weakness. Spoke with heme/onc (Dr. Diggs) and neurology (Dr. Nettles). Plan - formal neuro consult tomorrow. Leptomeningeal spread of lymphoma is possible and LP would be needed to rule out such. Will need to speak with neuro tomorrow and the patient/family to see if this is something they wish to pursue. Informal meeting held with Dr. Diggs, patient, his , and daughter today at bedside We discussed disposition - pt/family ok with not pursuing [facility] and instead going for SNF Dr. Diggs asked that we request neuro consult Dr. Diggs also stated patient would need to be stronger to resume rituxan for his lymphoma; thus, this is on hold Dr. Diggs again discussed code status - he still wishes to be full code poor prognosis Continued [facility] stay due to: inadequate po fluid intake, voiding difficulties, ambulation difficulties, multiple IV medications needed, home environment unsafe for pt, other (weakness of legs ) Discharge planning: longterm facility (vs inpatient rehab)
[2017-08-16 21:06] LABS: HEMATOCRIT 25.6 % (42-52); HEMOGLOBIN 8.3 g/dL (14.0-18.0); MEAN CELL VOLUME 88.9 fL (80-100); MEAN CORPUSCULAR HEMOGLOBIN 28.8 pg (25-34); RED CELL DISTRIBUTION WIDTH CV 17.1 % (11.5-14.5); RED CELL DISTRIBUTION WIDTH SD 55.8 fL (36.4-46.3); WHITE BLOOD COUNT 4.12 K/uL (4.8-10.8)
[2017-08-16 21:28] LABS: INR 1.1 (0.9-1.1); PTT PATIENT 32.9 SECONDS (21.0-31.0)
[2017-08-16 21:29] LABS: MEAN CORPUSCULAR HGB CONC 32.4 g/dl (32-36); MEAN PLATELET VOLUME 10.6 fL (7.4-10.4); PLATELET COUNT 89 K/uL (130-400)
[2017-08-17] VITALS (10 sets, daily range): BP systolic 94–109; BP diastolic 35–63; PULSE 98–136; TEMP 36.4–36.9; O2SAT 92–99
[2017-08-17] MEDS: SODIUM CHLORIDE 0.9% 1000ML 1,000 ML IV SCH ×2 (00:21→11:03)
[2017-08-17] MEDS: LEVALBUTEROL 1.25MG/0.5ML NEB INH SCH ×4 (01:40→19:13)
[2017-08-17] MEDS: IPRATROPIUM BROMIDE NEB SOLN 0.02% 2.5 ML VIAL INH SCH ×4 (01:40→19:13)
[2017-08-17] MEDS: GUAIFENESIN SUGAR FREE 200 MG/10 ML UDC PO SCH ×5 (05:12→21:12)
[2017-08-17] MEDS: LEVOTHYROXINE 75 MCG TAB PO SCH (05:15)
[2017-08-17 05:59] LABS: HEMATOCRIT 26.7 % (42-52); HEMOGLOBIN 8.6 g/dL (14.0-18.0); MEAN CELL VOLUME 89.6 fL (80-100); MEAN CORPUSCULAR HEMOGLOBIN 28.9 pg (25-34); MEAN CORPUSCULAR HGB CONC 32.2 g/dl (32-36); RED CELL DISTRIBUTION WIDTH CV 17.4 % (11.5-14.5); RED CELL DISTRIBUTION WIDTH SD 56.5 fL (36.4-46.3)
[2017-08-17 06:01] LABS: MEAN PLATELET VOLUME 11.4 fL (7.4-10.4); PLATELET COUNT 87 K/uL (130-400)
[2017-08-17 06:29] LABS: PTT PATIENT 57.6 SECONDS (21.0-31.0)
[2017-08-17 06:32] LABS: CALCIUM 7.9 mg/dl (8.5-10.1); CREATININE 1.11 mg/dl (0.60-1.40)
[2017-08-17] MEDS: ESCITALOPRAM OXALATE 10 MG TAB PO SCH (07:31)
[2017-08-17] MEDS: FINASTERIDE 5 MG TAB PO SCH (07:32)
[2017-08-17] MEDS: POLYETHYLENE (MIRALAX) 17 GM PACK PO SCH (07:33)
[2017-08-17] MEDS: DILTIAZEM HCL 120 MG CAPCR PO SCH (07:33)
[2017-08-17] MEDS: PrednisoLONE ACET 1% OP SUSP 5 ML BTL OPL SCH (07:33)
[2017-08-17] MEDS: ASCORBIC ACID 500 MG TAB PO SCH (07:33)
[2017-08-17] MEDS: SENNA 8.6 MG TAB PO SCH (07:34)
[2017-08-17] MEDS: DEXAMETHASONE INJ 4 MG in SYRINGE 0 ML IV SCH (07:35)
[2017-08-17] MEDS: BOOST VANILLA PO SCH ×3 (07:36→17:51)
--- NOTE | 2017-08-17 12:02 | Neurology Consultation ---
Neurology Consultation Date of Consultation: Aug 17, 2017. Attending Physician: Cj Galarza MD Primary Care Physician: Harry Ovalle M.D. Reason for Consultation: Progressive bilateral lower extremity weakness History of Present Illness Source: patient, family, hospital records This is a 77-year-old male who initially presented with shortness of breath and weakness on the . Was found to have a pneumonia for which he is being treated for. According to the patient and he always gets significantly weak when he is sick or bedbound in the hospital. reports that last time he had to have physical therapy for a year before he improved. Patient denies any new numbness. Denies any pain. Denies any weakness or numbness in the arms. Denies any trouble with swallowing. Denies any visual changes. Patient and reports that he normally walks with the assistance of a walker and is typically stable. The patient reports that he's had leg weakness for at least the last 10-years which the seems to confirm. Right leg has been weaker than left. His believed to be secondary to spinal stenosis. reports that he has had previous surgery on his neck with residual right hand weakness. This seemed to indicate that his lower extremity weakness has been slowly progressive over the last 10 years but does seem to severely worsen when he is sick or deconditioned from hospitalization. MRI of the brain reported and images reviewed and appeared appropriate for age. There is no signs of recent or remote strokes. MRI of his L-spine report and images were reviewed by myself. Patient has significant multilevel degenerative changes and spinal stenosis. There is noted to be enhancing lesions of the vertebral bodies on T11, T12, and L3. There is multilevel disc bulging and degenerative changes L3 through L5. Labs were also reviewed. Lactate was elevated at 913. Ammonia within normal limits of 17. Magnesium 2.6. Calcium minimally low at 7.9. Potassium has been running around 5. Phosphorus level was 2.6. TSH was within normal limits of 2.0 Past Medical/Surgical History Medical Problems: (1) Atrial flutter Status: Acute (2) CHF (congestive heart failure) Status: Acute (3) Febrile neutropenia Status: Acute (4) Hypotension Status: Acute (5) Immunocompromised Status: Acute (6) Low back pain Status: Acute (7) PNA (pneumonia) Status: Acute (8) Sepsis Status: Acute (9) Sepsis Status: Acute (10) Spinal stenosis Status: Acute (11) UTI (urinary tract infection) Status: Acute (12) Weakness Status: Acute Past medical history significant for COPD hypertension, chronic kidney disease, severe spinal stenosis, lymphoma with history of chemotherapy in October and current ongoing radiation to his chest. Surgical history significant for TURP, cholecystectomy, surgical spine surgery Family History Family history of father with an MS and mother with cerebral hemorrhage No reported family history of any nerve or muscle diseases Social History At baseline walks with the assistance of a walker. Positive tobacco use. No reported alcohol use. Drug Use: none Marital Status: Housing Status: lives with family Occupation Status: retired Allergies Coded Allergies: Gabapentin (Verified Adverse Reaction, Intermediate, unknown, 07/31/17) Patient's stated patient "developed signs of a heart attack w/ use of gabapentin". Current Inpatient Medications Current Inpatient Medications Medications (Trade) Dose Ordered Sig/Hari Route Start Time Stop Time Status Last Admin Dose Admin Acetaminophen (Tylenol Tab) 650 mg Q4H PRN PO 07/31/17 14:45 08/30/17 14:44 08/11/17 07:54 650 MG Al Hydrox/Mg Hydrox/Simethicone (Maalox Max Susp) 15 ml Q4H PRN PO 07/31/17 14:45 08/30/17 14:44 Magnesium Hydroxide (Milk Of Magnesia Susp) 30 ml Q12H PRN PO 07/31/17 14:45 08/30/17 14:44 Ondansetron HCl (Zofran Inj) 4 mg Q6H PRN IV 07/31/17 14:45 08/30/17 14:44 08/15/17 09:09 4 MG Ipratropium [place] (Atrovent 0.02% 0.5MG/2.5ML Neb) 0.5 mg Q6R INH 07/31/17 21:00 08/30/17 20:59 08/16/17 20:50 0.5 MG Levalbuterol (Xopenex 1.25MG/ 0.5ML Neb) 1.25 mg Q6R INH 07/31/17 21:00 08/30/17 20:59 08/16/17 20:50 1.25 MG Latanoprost (Xalatan Oph Soln) 1 drops HS OPB 07/31/17 21:00 08/30/17 20:59 08/16/17 20:20 1 DROPS Heparin Sodium (Porcine) (Heparin 100 Unit/ml 5ml Flush) 5 ml PRN PRN IV 08/01/17 07:45 08/31/17 07:44 08/16/17 10:00 5 ML Enteral Nutritional Formula (Boost) 1 can TIDM PO 08/02/17 07:30 09/01/17 07:29 08/17/17 11:03 1 CAN Prednisolone Acetate (Pred Forte 1% Oph Susp) 1 drops DAILY OPL 08/05/17 09:00 09/04/17 08:59 08/17/17 07:33 1 DROPS Polyethylene (Miralax Powder Packet) 17 gm DAILY PO 08/05/17 11:45 08/30/17 14:44 08/17/17 07:33 17 GM Levothyroxine Sodium (Synthroid Tab) 75 mcg DAILYBB PO 08/07/17 06:00 09/06/17 05:59 08/17/17 05:15 75 MCG Dexamethasone Sodium Phosphate 4 mg/Syringe 1 ml @ 1 mls/min QAM IV 08/09/17 09:00 09/05/17 17:59 08/17/17 07:35 1 MLS/MIN Ascorbic Acid (Vitamin C Tab) 500 mg DAILY PO 08/10/17 09:00 09/09/17 08:59 08/17/17 07:33 500 MG Finasteride (Proscar Tab) 5 mg DAILY PO 08/10/17 09:00 09/09/17 08:59 08/17/17 07:32 5 MG Quetiapine Fumarate (seroQUEL TAB) 25 mg HS PO 08/09/17 21:00 09/08/17 20:59 08/16/17 20:21 25 MG Trimethoprim/ Sulfamethoxazole (Septra Ds 800/ 160MG Tab) 1 tab Q12 PO 08/09/17 21:00 08/19/17 20:59 Future Hold 08/16/17 20:21 1 TAB Escitalopram Oxalate (Lexapro Tab) 5 mg QAM PO 08/15/17 08:00 09/14/17 07:59 08/17/17 07:31 5 MG Bisacodyl (Dulcolax Tab) 5 mg DAILY PRN PO 08/15/17 18:30 09/14/17 18:29 Diltiazem HCl (Cardizem Cd Cap) 120 mg QAM PO 08/16/17 08:45 09/10/17 08:59 08/17/17 07:33 120 MG Guaifenesin (Robitussin Sugar Free Syrup) 100 mg Q6H PO 08/16/17 10:00 08/30/17 09:59 08/17/17 11:02 100 MG Sodium Chloride 1,000 ml @ 75 mls/hr [id number] IV 08/16/17 08:45 09/15/17 08:44 08/17/17 11:03 75 MLS/HR Senna (Senokot Tab) 17.2 mg QAM PO 08/17/17 08:00 09/16/17 07:59 08/17/17 07:34 17.2 MG Heparin Sodium/ Dextrose 500 ml @ 23 mls/hr [id number] PRN IV 08/16/17 20:45 09/15/17 20:44 08/16/17 23:14 23 MLS/HR Review of Systems Complete review of systems otherwise negative except for the above noted in history of present illness Physical Exam Vital Signs (Past 24 Hrs): Date Time Temp Pulse Resp B/P (MAP) Pulse Ox O2 Delivery O2 Flow Rate FiO2 08/17/17 10:24 36.9 98 22 99/35 95 2.0 08/17/17 08:05 36.5 136 18 107/50 (69) 92 Nasal Cannula 2.0 08/17/17 08:00 98 Nasal Cannula 1.0 08/17/17 04:48 36.4 125 20 106/62 (77) 98 Nasal Cannula 1.0 08/17/17 00:00 Nasal Cannula 1.0 08/16/17 23:20 36.5 112 20 94/57 (69) 98 Nasal Cannula 1.0 08/16/17 20:50 86 20 96 Nasal Cannula 2.0 08/16/17 20:00 Nasal Cannula 1.0 08/16/17 19:39 36.8 111 20 104/61 (75) 98 Nasal Cannula 1.0 08/16/17 16:00 Nasal Cannula 1.0 08/16/17 15:43 36.7 108 18 100/56 (71) 97 Nasal Cannula 2.0 08/16/17 14:13 107 20 97 Nasal Cannula 2.0 Gen.: Patient is alert and sitting in bed, in no acute distress. HEENT: Normocephalic /atraumatic, appears jaundiced Heart: Regular rate and rhythm Extremities: No gross deformities or rashes noted. Has a bandage around his left arm and believed due to a skin tear. Lower extremity edema noted Neurological examination: Mental status: Patient is alert and oriented to person place and situation. Attention and concentration normal for the situation. Fair fund of knowledge. Remote and recent memory seem intact. Speech is fluent without any dysarthria or aphasia noted Cranial nerve: Funduscopic examination was unremarkable. No papilledema. Pupils equally round and reactive to light. Extraocular muscles intact without nystagmus. No facial asymmetry noted. Facial sensation intact. Tongue is midline. Good palatal elevation. Good shoulder shrug bilaterally. Hearing grossly intact to voice. Strength: Bilateral upper extremities 4+/5. Left lower extremity dorsi and plantar flexion 4 minus/5, left hip flexion 2/5, internal and external rotation at the hip 3/5. Right lower extremity dorsi and plantar flexion 1/5, hip flexion on the right 1/5, and internal and external rotation at the hip 1/5. No increased tone Sensation: Grossly intact to light touch in all extremities. Deep tendon reflexes: +1 in bilateral biceps, brachioradialis and +2 in left patellar. Trace deep tendon reflexes in the right patellar. Toes were equivocal to plantar stimulation Coordination: Patient had good finger to nose without dysmetria Station within the bed was normal Laboratory Results Past 24 Hours: 08/17/17 05:08 08/17/17 05:08 Test 08/16/17 12:57 08/16/17 20:56 08/17/17 05:08 Lactate Dehydrogenase 913 U/L (87-241) Neutrophils % (Manual) 81.5 % Lymphocytes % (Manual) 0.0 % Variant Lymphocytes % (manual) 0.9 % Monocytes % (Manual) 6.1 % Basophils % (Manual) 5.3 % (0-2) Metamyelocytes % 4.4 % Myelocytes % 1.8 % Neutrophils # (Manual) 3.36 K/uL (1.4-6.5) Total Absolute Neutrophils 3.36 K/uL (1.4-6.5) Absolute Variant Lymphocytes 0.04 K/uL Total Absolute Lymphocytes 0.04 K/uL (1.2-3.4) Monocytes # (Manual) 0.25 K/uL (0.11-0.59) Basophils # (Manual) 0.22 K/uL (0-0.2) Metamyelocytes # 0.18 K/uL (0-0) Myelocytes # 0.07 K/uL (0-0) Toxic Granulation 2+ Platelet Estimate DECREASED Spherocytes 1+ Ovalocytes 1+ Prothrombin Time 12.0 SECONDS (9.0-12.0) Prothromb Time International Ratio 1.1 (0.9-1.1) Red Blood Count 2.98 M/uL (4.7-6.1) Mean Corpuscular Volume 89.6 fL (80-100) Mean Corpuscular Hemoglobin 28.9 pg (25-34) Mean Corpuscular Hemoglobin Concent 32.2 g/dl (32-36) RDW Standard Deviation 56.5 fL (36.4-46.3) RDW Coefficient of Variation 17.4 % (11.5-14.5) Mean Platelet Volume 11.4 fL (7.4-10.4) Activated Partial Thromboplast Time 57.6 SECONDS (21.0-31.0) Partial Thromboplastin Ratio 2.2 Anion Gap 8.0 mmol/L (3-11) Est Creatinine Clear Calc Drug Dose 49.5 ml/min Estimated GFR () 73.3 Estimated GFR (Non- 63.3 BUN/Creatinine Ratio 49.0 (10-20) Calcium Level 7.9 mg/dl (8.5-10.1) Imaging As noted above in history of present illness Impression This is a 77-year-old male with slowly progressive right greater than left bilateral lower extremity weakness as well as general weakness. According to the patient and patient seems to have had at least a 10 year plus history of lower extremity weakness that is slowly been progressive and seems to suddenly get worse in the setting of illness or deconditioning from hospitalization. Patient does have signs of severe spinal stenosis on lumbar MRI which could explain many of his symptoms. Considering his long course and history of lower extremity weakness, I think it unlikely that his weakness can slowly be attributed to his lymphoma or any leptomeningeal spread. More than likely his generalized weakness which is more pronounced in his bilateral lower extremities is a combination of structural factors from his severe spinal stenosis, deconditioning, etc. Plan I have ordered a CK, ESR, CRP, and B12 level to evaluate for other secondary causes that could contribute to weakness. His ESR and CRP may be mildly elevated due to his recent pneumonia. Recommend physical therapy. If patient does not improve after his pneumonia treatment in physical therapy, could consider further evaluation with EMG as an outpatient. Overall I doubt that any surgery will want to perform any procedures on his severe spinal stenosis. In addition I do not think a lumbar puncture would be very helpful at this time considering how long his lower extremity weakness has been going on for. Thank you for allowing me to participate in this patient's care. If there is any questions or concerns, feel free to call/page me
[2017-08-17] MEDS ORDERED: NITROFURANTOIN MONOHYDRATE 100 MG CAP PO ONE (12:15)
[2017-08-17] MEDS ORDERED: MAGIC MOUTHWASH PO SCH (12:15)
--- NOTE | 2017-08-17 12:19 | Progress Note ---
Subjective Date of Service: Aug 17, 2017. Subjective Pt evaluation today including: conversation w/ patient, conversation w/ family (, son, brother at bedside), physical exam, chart review, lab review, conversation w/ medical economics consultant (neurology), review of inpatient medication list Pain: sore throat only PO Intake: scant Voiding: carter catheter in place returned from xrt this am has finished 10 fractions of xrt has f/u in August with rad onc family with multiple questions again they ask about his appetite no confusion today denies dyspnea continues with cough with occasional streaks of blood Problem List Medical Problems: (1) Atrial flutter Status: Acute (2) CHF (congestive heart failure) Status: Acute (3) Febrile neutropenia Status: Acute (4) Hypotension Status: Acute (5) Immunocompromised Status: Acute (6) Low back pain Status: Acute (7) PNA (pneumonia) Status: Acute (8) Sepsis Status: Acute (9) Sepsis Status: Acute (10) Spinal stenosis Status: Acute (11) UTI (urinary tract infection) Status: Acute (12) Weakness Status: Acute Review of Systems Constitutional: No fever Respiratory: + cough, + sputum, + wheezing, + hemoptysis, No dyspnea at rest Cardiac: No chest pain Abdomen: No pain, No constipation (moved bowels this am ) Neurologic: + problem reported (no further confusion ) Objective Vital Signs Date Time Temp Pulse Resp B/P (MAP) Pulse Ox O2 Delivery O2 Flow Rate FiO2 08/17/17 10:24 36.9 98 22 99/35 95 2.0 08/17/17 08:05 36.5 136 18 107/50 (69) 92 Nasal Cannula 2.0 08/17/17 08:00 98 Nasal Cannula 1.0 08/17/17 04:48 36.4 125 20 106/62 (77) 98 Nasal Cannula 1.0 08/17/17 00:00 Nasal Cannula 1.0 08/16/17 23:20 36.5 112 20 94/57 (69) 98 Nasal Cannula 1.0 08/16/17 20:50 86 20 96 Nasal Cannula 2.0 08/16/17 20:00 Nasal Cannula 1.0 08/16/17 19:39 36.8 111 20 104/61 (75) 98 Nasal Cannula 1.0 08/16/17 16:00 Nasal Cannula 1.0 08/16/17 15:43 36.7 108 18 100/56 (71) 97 Nasal Cannula 2.0 08/16/17 14:13 107 20 97 Nasal Cannula 2.0 Physical Exam General Appearance: no apparent distress ENT: + pertinent finding (MMM today; no thrush; throat clear) Neck: no JVD Respiratory/Chest: no respiratory distress, no accessory muscle use, + decreased breath sounds (left upper chest), + wheezing (b/l but good air movement) Cardiovascular: + tachycardia, + systolic murmur (2/6 LLSB), + irregularly irregular Abdomen: normal bowel sounds, non tender, soft, no organomegaly Extremities: + pedal edema (2+ b/l ) Neurologic/Psychiatric: alert, oriented x 3 Skin: no rash Laboratory Results Last 24 Hours Test 08/16/17 12:57 08/16/17 20:56 08/17/17 05:08 Lactate Dehydrogenase 913 U/L White Blood Count 4.12 K/uL 3.60 K/uL Red Blood Count 2.88 M/uL 2.98 M/uL Hemoglobin 8.3 g/dL 8.6 g/dL Hematocrit 25.6 % 26.7 % Mean Corpuscular Volume 88.9 fL 89.6 fL Mean Corpuscular Hemoglobin 28.8 pg 28.9 pg Mean Corpuscular Hemoglobin Concent 32.4 g/dl 32.2 g/dl Platelet Count 89 K/uL 87 K/uL Mean Platelet Volume 10.6 fL 11.4 fL RDW Standard Deviation 55.8 fL 56.5 fL RDW Coefficient of Variation 17.1 % 17.4 % Neutrophils % (Manual) 81.5 % Lymphocytes % (Manual) 0.0 % Variant Lymphocytes % (manual) 0.9 % Monocytes % (Manual) 6.1 % Basophils % (Manual) 5.3 % Metamyelocytes % 4.4 % Myelocytes % 1.8 % Neutrophils # (Manual) 3.36 K/uL Total Absolute Neutrophils 3.36 K/uL Absolute Variant Lymphocytes 0.04 K/uL Total Absolute Lymphocytes 0.04 K/uL Monocytes # (Manual) 0.25 K/uL Basophils # (Manual) 0.22 K/uL Metamyelocytes # 0.18 K/uL Myelocytes # 0.07 K/uL Toxic Granulation 2+ Platelet Estimate DECREASED Spherocytes 1+ Ovalocytes 1+ Prothrombin Time 12.0 SECONDS Prothromb Time International Ratio 1.1 Activated Partial Thromboplast Time 32.9 SECONDS 57.6 SECONDS Partial Thromboplastin Ratio 1.3 2.2 Potassium Level 5.1 mmol/L 5.0 mmol/L Sodium Level 134 mmol/L Chloride Level 104 mmol/L Carbon Dioxide Level 22 mmol/L Anion Gap 8.0 mmol/L Blood Urea Nitrogen 54 mg/dl Creatinine 1.11 mg/dl Est Creatinine Clear Calc Drug Dose 49.5 ml/min Estimated GFR () 73.3 Estimated GFR (Non- 63.3 BUN/Creatinine Ratio 49.0 Random Glucose 89 mg/dl Calcium Level 7.9 mg/dl Assessment and Plan 77yo male: 1. encephalopathy - resolved. MRI brain neg for stroke or evidence of lymphoma lesions. Cont seroquel at HS. 2. hyperkalemia - kayexalate 15gm po x 1. Resolved. Trimethoprim may have caused such. This has been d/c. 3. acute hypoxic resp failure - likely multifactorial including LORETA pneumonia, COPD, worsening mass in left chest from lymphoma, acute diastolic CHF. Overall improved but remains o2 dependent and suspect he will need o2 at d/c. Completed abx course. Slightly worse wheezing today - increase steroids to q12h. This may help with appetite as well. 4. left upper lobe post-obstructive pneumonia - completed course of levaquin; stable/improved. 5. acute diastolic CHF - resolved. d/c fluids to prevent fluid overload, however. 6. COPD with exacerbation - improved. Cont decadron & nebs. Cont supportive care. 7. recurrent follicular lymphoma - appreciate heme/onc and rad onc consultations. Completed 10 fractions of XRT to left hilar mass c/o Dr. Zavala. Very poor prognosis in light of multiple cardio-pulmonary comorbidities, progressive disease, poor functional status, etc. New bony mets to T/L-spine. Dr. Diggs aware. 8. Severe sepsis POA, due to pneumonia - resolved. 9. acute kidney injury in setting of CKD stage 2-3 - MACRINA resolved. He is better hydrated today. stop fluids. 10. a. fib - no LP is planned. thus, stop heparin drip, resume eliquis 5mg BID. Increase cardizem to 180mg daily. 11. pancytopenia - due to follicular lymphoma; CBC remains acceptable. 12. DVT, LUE - eliquis 5mg BID. 13. depression - started lexapro 5mg daily 08/14/17. 14. hypothyroidism - TSH compensated; continue synthroid 75mcg. 15. thrush - completed course of diflucan - resolved. . 16. constipation - resolved; cont bowel regimen. 17. LE weakness - due to severe spinal stenosis and severe deconditioning. Brain MRI without a specific etiology for weakness. Neurology has seen. Leptomeningeal spread of lymphoma is possible but unlikely and LP to be deferred. L-spine MRI without cord compression from lymphoma mets. 18. UTI proph - patient takes TMP chronically for UTI prophy. Since TMP likely caused increase in K will d/c and change to macrobid 100mg daily. Multiple discussions held this weekend with patient, his , children, other family. had Informal meeting with Dr. Diggs, patient, his , and daughter yesterday at bedside We discussed disposition - pt/family ok with not pursuing [facility] and instead going for SNF Dr. Diggs also stated patient would need to be stronger to resume rituxan for his lymphoma; thus, this is on hold Dr. Diggs again discussed code status - he still wishes to be full code poor prognosis strongly consider palliative care consult will discuss disposition with social work Continued [facility] stay due to: abnormal vital signs, inadequate po fluid intake, voiding difficulties, ambulation difficulties, multiple IV medications needed, home environment unsafe for pt, other (weakness of legs ) Discharge planning: fpc facility (vs inpatient rehab)
[2017-08-17] MEDS: APIXABAN 2.5 MG TAB PO SCH ×2 (13:15→21:03)
[2017-08-17] MEDS: DEXAMETHASONE CONC SOLN 3.75 MG, NYSTATIN SUSP 30 ML, DiphenhydrAMINE HCL SYRUP 300 MG,... PO SCH ×20 (13:17→21:06)
--- NOTE | 2017-08-17 13:53 | Medical Student: [facility] ---
Med Student History & Physical Date & Time of Service: Aug 17, 2017 at 09:15 Chief Complaint: Pneumonia Primary Care Physician: Harry Ovalle M.D. History of Present Illness Source: patient, hospital records Pt is a 77 year old M who presented to the ED on 07/31/17 with SOB and b/l LE weakness and swelling.Neuro consulted for continued b/l LE weakness. 3 weeks prior to admission, pt was dx with sinus infection and given abx which he finished completely. A few days before admission, pt noted SOB which was followed quickly be the b/l LE weakness, where he noticed he could not get up or walk around his home by himself. He denied any pain, numbness or tingling associated with the weakness or weakness outside of his legs. He also denied n/v , CP, visual changes. Prior to this, he was ambulatory with minor assistance and used a walker outside. CXR in ED showed a lobar PNA. While receiving tx for his PNA, pt noted that his LE weakness has not improved these past 17 days and has continued to deteriorate. Pt's noted that the pt has had ongoing problems with his legs for the past 10 years. She stated that whenever he gets sick, his legs will also get really weak similar to this episode. His PMHx is significant for COPD, HTN, Aortic stenosis, CKD stage 3, degenerative disc disease and stage 4 follicular lymphoma which was dx 2 years prior. He had received chemotherapy in October and has been receiving radiation in the hospital. Per pt, he received his 10th radiation tx yesterday. Past Medical/Surgical History Medical Problems: (1) Atrial flutter Status: Acute (2) CHF (congestive heart failure) Status: Acute (3) Febrile neutropenia Status: Acute (4) Hypotension Status: Acute (5) Immunocompromised Status: Acute (6) Low back pain Status: Acute (7) PNA (pneumonia) Status: Acute (8) Sepsis Status: Acute (9) Sepsis Status: Acute (10) Spinal stenosis Status: Acute (11) UTI (urinary tract infection) Status: Acute (12) Weakness Status: Acute PMHx: COPD, HTN, aortic stenosis, CKD (stage 3), degenerative disc disease of spine, stage 4 follicular lymphoma Surgical Hx: TURP procedure (2014), cholecystectomy, cataract removal, cervical spine surgery Family History Denies any fmhx of stroke or DM Father at 42 of [place] Mother at 64 of cerebral hemorrhage Social History Smoking Status: Current Every Day Smoker (less than a ppd) Alcohol Use: none Drug Use: none Marital Status: Housing status: lives with family Occupational Status: retired Immunizations History of Influenza Vaccine: Yes Influenza Vaccine Date: Jun 29, 2015 History of Tetanus Vaccine?: No History of Pneumococcal: Yes Pneumococcal Date: Jun 26, 2015 History of Hepatitis B Vaccine: Unknown Allergies Coded Allergies: Gabapentin (Verified Adverse Reaction, Intermediate, unknown, 07/31/17) Patient's stated patient "developed signs of a heart attack w/ use of gabapentin". Medications Ascorbic Acid (Ascorbic Acid), 500 MG PO DAILY Aspirin (Aspirin Ec), 81 MG PO DAILY Calcium Carbonate-Cholecalcife (Calcium Plus Vitamin D3), 1 CAP PO DAILY Cyanocobalamin (Vitamin B-12), 500 MCG PO DAILY Finasteride (Proscar), 5 MG PO DAILY Latanoprost (Xalatan 0.005% Oph Charu), 1 DROPS OPB HS Levothyroxine Sodium (Levothyroxine Sodium), 1 TAB PO DAILY Neomycin/Polymyxin/Dexameth Oph (Maxitrol Oph), DROPS OPL QID Nitroglycerin (Nitrostat), 0.4 MG UT PRN Prednisone Tab (Prednisone), 10 MG PO DAILY Ranitidine Hcl (Zantac), 150 MG PO HS Simvastatin (Zocor), 40 MG PO QPM Tobramycin/Dexamethasone 0.3% Oph (Tobradex 0.3% Oph), MS HS Trimethoprim (Proloprim), 100 MG PO HS Umeclidinium-Vilanterol (Anoro Ellipta 62.5-25 Mcg/INH), 1 PUFF INH DAILY Review of Systems Constitutional: No fever, No chills, No sweats Eyes: No worsening of vision Respiratory: + cough Cardiovascular: No chest pain Abdomen: No nausea, No vomiting Musculoskeletal: + swelling, No muscle pain Neurologic: + paralysis, + weakness, No numbness/tingling, No vertigo Psychiatric: + depression symptoms Physical Exam Vital Signs (24 Hours) Date Time Temp Pulse Resp B/P (MAP) Pulse Ox O2 Delivery O2 Flow Rate FiO2 08/17/17 08:05 36.5 136 18 107/50 (69) 92 Nasal Cannula 2.0 08/17/17 04:48 36.4 125 20 106/62 (77) 98 Nasal Cannula 1.0 08/17/17 00:00 Nasal Cannula 1.0 08/16/17 23:20 36.5 112 20 94/57 (69) 98 Nasal Cannula 1.0 08/16/17 20:50 86 20 96 Nasal Cannula 2.0 08/16/17 20:00 Nasal Cannula 1.0 08/16/17 19:39 36.8 111 20 104/61 (75) 98 Nasal Cannula 1.0 08/16/17 16:00 Nasal Cannula 1.0 08/16/17 15:43 36.7 108 18 100/56 (71) 97 Nasal Cannula 2.0 08/16/17 14:13 107 20 97 Nasal Cannula 2.0 08/16/17 11:15 36.4 122 16 111/57 (75) 98 Nasal Cannula 2.0 General Appearance: WD/WN, no apparent distress Head: normocephalic, atraumatic Extremities/Musculoskelatal: + pedal edema Neuro Exam: Mental Status: the pt is alert, attentive and oriented. Normal mood and affect. Speech is clear and fluent with good repetition, comprehension and naming. Knowledge level appropriate. Memory intact. CN: CN2: PERRL, 4mm pupils, Visual medley full to confrontation CN3,4,6: EOM intact, no ptosis CN5: Facial sensation symmetric to light touch in all 3 divisions CN7: face is symmetric with normal eye closure and smile CN8: Hearing loss bilaterally CN9,10: uvula is midline CN11: Head turning and shoulder shrug intact CN12: tongue is midline with normal movements and no atrophy Motor: Muscle bulk and tone are normal, pronator drift bilaterally R>L, deltoids , biceps 4+/5 bilaterally. On right hip flexion 0/5, knee flexion 1/5, knee extension1/5, ankle flexion 1/5 , ankle extension 1/5. On left hip flexion 2/5, knee flexion 2/5, knee extension 2/5, ankle flexion 2/5 , ankle extension 2/5. Reflexes: 2+ in biceps, triceps and brachioradialis bilaterally Left knee 2+, right knee 0, left and right ankle 1+ Babinski reflex is absent Sensory: light touch and temperature symmetric b/l in UE and LE. Vibration sensation diminished in LUE and b/l LE. Coordination: Patient had good finger to nose without dysmetria Gait: Could not be assessed. Diagnostics Laboratory Results Results Past 24 Hours Test 08/16/17 12:57 08/16/17 20:56 08/17/17 05:08 Range/Units Lactate Dehydrogenase 913 87-241 U/L White Blood Count 4.12 3.60 4.8-10.8 K/uL Red Blood Count 2.88 2.98 4.7-6.1 M/uL Hemoglobin 8.3 8.6 14.0-18.0 g/dL Hematocrit 25.6 26.7 42-52 % Mean Corpuscular Volume 88.9 89.6 80-100 fL Mean Corpuscular Hemoglobin 28.8 28.9 25-34 pg Mean Corpuscular Hemoglobin Concent 32.4 32.2 32-36 g/dl Platelet Count 89 87 130-400 K/uL Mean Platelet Volume 10.6 11.4 7.4-10.4 fL RDW Standard Deviation 55.8 56.5 36.4-46.3 fL RDW Coefficient of Variation 17.1 17.4 11.5-14.5 % Neutrophils % (Manual) 81.5 % Lymphocytes % (Manual) 0.0 % Variant Lymphocytes % (manual) 0.9 % Monocytes % (Manual) 6.1 % Basophils % (Manual) 5.3 0-2 % Metamyelocytes % 4.4 % Myelocytes % 1.8 % Neutrophils # (Manual) 3.36 1.4-6.5 K/uL Total Absolute Neutrophils 3.36 1.4-6.5 K/uL Absolute Variant Lymphocytes 0.04 K/uL Total Absolute Lymphocytes 0.04 1.2-3.4 K/uL Monocytes # (Manual) 0.25 0.11-0.59 K/uL Basophils # (Manual) 0.22 0-0.2 K/uL Metamyelocytes # 0.18 0-0 K/uL Myelocytes # 0.07 0-0 K/uL Toxic Granulation 2+ Platelet Estimate DECREASED Spherocytes 1+ Ovalocytes 1+ Prothrombin Time 12.0 9.0-12.0 SECONDS Prothromb Time International Ratio 1.1 0.9-1.1 Activated Partial Thromboplast Time 32.9 57.6 21.0-31.0 SECONDS Partial Thromboplastin Ratio 1.3 2.2 Potassium Level 5.1 5.0 3.5-5.1 mmol/L Sodium Level 134 136-145 mmol/L Chloride Level 104 98-107 mmol/L Carbon Dioxide Level 22 21-32 mmol/L Anion Gap 8.0 3-11 mmol/L Blood Urea Nitrogen 54 7-18 mg/dl Creatinine 1.11 0.60-1.40 mg/dl Est Creatinine Clear Calc Drug Dose 49.5 ml/min Estimated GFR () 73.3 Estimated GFR (Non- 63.3 BUN/Creatinine Ratio 49.0 10-20 Random Glucose 89 70-99 mg/dl Calcium Level 7.9 8.5-10.1 mg/dl Diagnostic Radiology Brain MRI - 08/16/17 FINDINGS: Large field view bathing suit maker localizer images demonstrate no gross abnormality. There is no restricted diffusion to suggest acute infarction. Midline structures including the corpus callosum, brainstem, optic chiasm, the data and pituitary gland appear unremarkable the sagittal T1 series. Several of the sequences are motion degraded. No cerebellar tonsillar herniation. Degenerative changes of the imaged cervical spine. No acute intracranial hemorrhage, midline shift, abnormal extra-axial collections or hydrocephalus. Minimal scattered areas of T2/FLAIR prolongation are seen within the subcortical and periventricular white matter suggesting subtle chronic microvascular ischemic changes. Moderate brain atrophy with ex vacuo ventriculomegaly. Major flow voids at the level of the skull base appear patent. Moderate mucosal thickening with air-fluid level of the left maxillary sinus. The remaining paranasal sinuses are generally clear. Mastoid air cells are also clear. Scalp, calvarium and soft tissues are unremarkable. IMPRESSION: 1. No acute intracranial abnormality. No acute intracranial hemorrhage or infarction identified. 2. Moderate atrophy with ex vacuo ventriculomegaly and minimal chronic microvascular ischemic changes. CXR - 08/15/17 FINDINGS: An AP, portable, upright chest radiograph is compared to study dated and correlated with chest CT dated 08/02/2017. The examination is degraded by portable technique and patient rotation. A left subclavian central venous infusion port is unchanged in position. The cardiomediastinal silhouette is unremarkable. The pulmonary vasculature is noncongested. There is atherosclerotic calcification of the thoracic aorta. Advanced emphysema and chronic interstitial thickening are similar to previous. There is airspace consolidation throughout the left lung. This has modestly improved from 2017. Trace pleural effusions are suspected. These have decreased in size from previous. Minimal atelectasis is seen at the right lung base. A calcified granuloma is again noted in the right lower lobe. There is no pneumothorax. The skeletal structures are osteopenic. The bony thorax appears intact. Fusion hardware is noted in the lower cervical spine. IMPRESSION: 1. Advanced emphysema. 2. Airspace consolidation throughout the left lung has modestly improved from . This remains typical in appearance for pneumonia. Radiographic follow- up to resolution is recommended. 3. There are trace pleural effusions which have decreased in size from Lumbar Spine MRI - 08/14/17 FINDINGS: Multiple ill-defined hepatic lesions measuring up to 3.1 cm are noted on the bathing suit maker images. Left kidney appears to be severely atrophic with multiple cysts present. The right kidney appears to be mildly lobulated. No bulky retroperitoneal adenopathy identified. Moderate atrophy of the paraspinal musculature. There are large infiltrative T1 hypointense and heterogeneously T2 hyperintense lesions involving the spine with a 2.3 cm lesion noted at T11, 1.7 cm lesion at T12 and a 1.9 x 2.3 cm lesion at L3 involving the vertebral bodies. These lesions demonstrate heterogeneous enhancement peripherally. The T11 and T12 lesions are not imaged on the axial images. The lesion at L3 involves the left anterosuperior aspect of the vertebral body without invasion into the central canal or nerve roots. Additionally, there are infiltrative bone lesions of the bilateral iliac bones with a 3.0 x 1.4 cm lesion seen on the left extending into the adjacent sacrum and SI joint, image 31 series 8. Partially imaged lesion of the left iliac bone is seen on image 37 series 8. 2.2 cm lesion of the right iliac bone adjacent to the SI joint as seen on image 35 of series 8. These lesions demonstrate heterogeneous enhancement. Postcontrast images are moderately motion degraded. T12-L1: No central canal or neural foraminal stenosis. L1-L2: Mild to moderate intervertebral disc space narrowing with minimal posterior spondylitic spurring and small circumferential annular disc bulge with mild to moderate facet arthrosis and small bilateral facet effusions. Mild central canal and moderate bilateral foraminal narrowing. L2-L3: No significant intervertebral disc space narrowing. There is however a small circumferential annular disc bulge with moderate bilateral facet arthrosis and small right facet effusion. Minimal posterior spondylitic spurring with ligamentum flavum thickening. Mild to moderate central canal narrowing with AP dimension of the thecal sac measuring 8 mm. Mild left and mild to moderate right foraminal narrowing. L3-L4: Moderate intervertebral disc space narrowing with posterior spondylitic spurring, severe left and moderate right facet arthrosis with circumferential annular disc bulge and ligament of flavum thickening causes severe central canal narrowing with AP dimension of the thecal sac measuring 4 mm. Moderate to severe bilateral foraminal narrowing. L4-L5: Moderate intervertebral disc space narrowing with circumferential annular disc bulge, posterior spondylitic spurring, severe facet arthrosis and ligamentum flavum thickening with moderate bilateral facet effusions. There is severe central canal stenosis with AP dimension of the thecal sac measuring 4 mm. Severe bilateral foraminal narrowing. L5-S1: Moderate posterior intervertebral disc space narrowing with spondylitic spurring and broad-based posterior disc bulge with ligamentum flavum thickening and advanced facet arthrosis. No significant central canal narrowing. Severe left and moderate to severe right foraminal narrowing. IMPRESSION: 1. Multiple enhancing lesions throughout the spine at T11, T12 and L3 and also within the bilateral iliac bones and left sacrum as above suggests progression of lymphoma or alternatively may reflect metastatic disease. 2. Discogenic degenerative changes and facet arthrosis at L3-L4 causes severe central canal and moderate to severe bilateral foraminal narrowing. 3. At L4-L5 discogenic degenerative changes, ligamentum flavum thickening and facet arthrosis causes severe central canal and severe bilateral foraminal narrowing. 4. Multiple hepatic mass lesions are again seen suggesting lymphoma or metastatic disease. 5. Additional discogenic degenerative changes as detailed above. EKG Intermittent atrial fibrillation/flutter Impression Assessment and Plan Pt is a 77 year old M with hx of stage 4 follicular lymphoma currently being treated with radiation, who presented to the ED on 07/31/17 with SOB and b/l LE weakness and swelling.Neuro consulted for continued b/l LE weakness. Dx with lobar PNA and completed course of Levaquin. Overall leg weakness has been ongoing for over 2 weeks and has not improved during the pt's hospital stay and currently weakness is R>L. He is noted to be weaker proximal>distal. He denies any pain, numbness or tingling associated with the weakness or weakness outside of his legs. Prior to this, he was ambulatory with minor assistance and used a walker outside. Pt's did note that the pt seems to have about a 10 year history of LE weakness that has been slowly getting worse and will suddenly get worse in the setting of illness. B/l LE extremity weakness DDX: Spinal stenosis (pt has documented severe spinal stenosis on lumbar MRI and previous issues with spine in cervical region), leptomeningeal spread of lymphoma and metastasis of lymphoma (unlikely considering the 10+ year history of LE weakness and dx of lymphoma 2 years prior ), stroke (unlikely with normal brain MRI), pt is not on a statin so this is not a statin induced myositis, myopathy, B12 deficiency. Plan: 1. R/O secondary causes of muscle weakness: CK, ESR, CRP, B12 2. PT for the weakness. Unlikely to benefit from surgical management of spinal stenosis 3. LP at this time is unlikely to help pt due to longstanding weakness of the LE Neurology attending addendum: Patient was seen and evaluated with medical student. Please see my separate neurology consult note for full evaluation and recommendations. -Beverly Dai, DO Advanced Directives Existing Living Will: No Existing Power of Insurance Coordinator: No
[2017-08-17] MEDS: LATANOPROST 0.005% OP SOLN 2.5 ML BTL OPB SCH (21:03)
[2017-08-17] MEDS: DEXAMETHASONE 4 MG TAB PO SCH (21:03)
[2017-08-17] MEDS: QUETIAPINE FUMARATE 25 MG TAB PO SCH (21:04)
[2017-08-18] VITALS (12 sets, daily range): BP systolic 87–120; BP diastolic 46–65; PULSE 88–121; TEMP 36.3–36.7; O2SAT 95–99
[2017-08-18] MEDS: IPRATROPIUM BROMIDE NEB SOLN 0.02% 2.5 ML VIAL INH SCH ×4 (02:01→19:24)
[2017-08-18] MEDS: LEVALBUTEROL 1.25MG/0.5ML NEB INH SCH ×4 (02:01→19:24)
[2017-08-18] MEDS: GUAIFENESIN SUGAR FREE 200 MG/10 ML UDC PO SCH ×4 (05:24→21:44)
[2017-08-18] MEDS: DEXAMETHASONE CONC SOLN 3.75 MG, NYSTATIN SUSP 30 ML, DiphenhydrAMINE HCL SYRUP 300 MG,... PO SCH ×20 (05:25→20:37)
[2017-08-18] MEDS: LEVOTHYROXINE 75 MCG TAB PO SCH (05:26)
[2017-08-18 06:50] LABS: HEMATOCRIT 27.3 % (42-52); HEMOGLOBIN 8.7 g/dL (14.0-18.0); MEAN CELL VOLUME 88.6 fL (80-100); MEAN CORPUSCULAR HEMOGLOBIN 28.2 pg (25-34); MEAN CORPUSCULAR HGB CONC 31.9 g/dl (32-36); RED CELL DISTRIBUTION WIDTH CV 17.1 % (11.5-14.5); RED CELL DISTRIBUTION WIDTH SD 55.3 fL (36.4-46.3); WHITE BLOOD COUNT 3.17 K/uL (4.8-10.8)
[2017-08-18 06:52] LABS: MEAN PLATELET VOLUME 11.9 fL (7.4-10.4); PLATELET COUNT 83 K/uL (130-400)
[2017-08-18 07:23] LABS: CREATININE 1.06 mg/dl (0.60-1.40); POTASSIUM 4.9 mmol/L (3.5-5.1)
[2017-08-18] MEDS: SENNA 8.6 MG TAB PO SCH (08:31)
[2017-08-18] MEDS: DILTIAZEM HCL 180 MG CAPCR PO SCH ×2 (08:32→09:14)
[2017-08-18] MEDS: FINASTERIDE 5 MG TAB PO SCH (08:32)
[2017-08-18] MEDS: APIXABAN 2.5 MG TAB PO SCH ×2 (08:32→20:24)
[2017-08-18] MEDS: DEXAMETHASONE 4 MG TAB PO SCH ×2 (08:33→20:24)
[2017-08-18] MEDS: POLYETHYLENE (MIRALAX) 17 GM PACK PO SCH ×2 (08:33→09:09)
[2017-08-18] MEDS: ESCITALOPRAM OXALATE 10 MG TAB PO SCH (08:33)
[2017-08-18] MEDS: ASCORBIC ACID 500 MG TAB PO SCH (08:34)
[2017-08-18] MEDS: NITROFURANTOIN MONOHYDRATE 100 MG CAP PO SCH (08:34)
[2017-08-18] MEDS: PrednisoLONE ACET 1% OP SUSP 5 ML BTL OPL SCH (08:35)
[2017-08-18] MEDS: BOOST VANILLA PO SCH ×3 (09:08→17:39)
[2017-08-18] MEDS ORDERED: DIGOXIN IV 250 MCG in SYRINGE 9 ML IV ONE (09:45)
[2017-08-18] MEDS ORDERED: BENZONATATE 100MG CAP PO PRN (11:30)
[2017-08-18] MEDS ORDERED: NURSING VERBAL MED ORDER ONE (11:30)
--- NOTE | 2017-08-18 15:42 | Palliative Care Progress Note ---
Palliative Care Progress Note Date of Service Aug 18, 2017. Subjective Consult received. Will meet tomorrow with patient, patient's Ashleigh and patient's daughter. I left my card in patients room, they can call me when they arrive tomorrow. I also left a message on Ashleigh's home phone. Formal consult to follow. Thank you.
[2017-08-18] MEDS ORDERED: DIGOXIN IV 250 MCG in SYRINGE 9 ML IV SCH (16:00)
[2017-08-18] MEDS: LATANOPROST 0.005% OP SOLN 2.5 ML BTL OPB SCH (20:25)
[2017-08-18] MEDS: QUETIAPINE FUMARATE 25 MG TAB PO SCH (20:26)
--- NOTE | 2017-08-18 22:39 | Progress Note ---
Subjective Date of Service: Aug 18, 2017. Subjective Pt evaluation today including: conversation w/ patient, conversation w/ family ( at bedside), physical exam, chart review, lab review, review of inpatient medication list Pain: sore throat PO Intake: very poor Voiding: carter catheter in place continues with significant generalized weakness denies any new complaints we had a discussion about palliative care today - he and his are open to hearing about such cardizem again held today due to low BP Problem List Medical Problems: (1) Atrial flutter Status: Acute (2) CHF (congestive heart failure) Status: Acute (3) Febrile neutropenia Status: Acute (4) Hypotension Status: Acute (5) Immunocompromised Status: Acute (6) Low back pain Status: Acute (7) PNA (pneumonia) Status: Acute (8) Sepsis Status: Acute (9) Sepsis Status: Acute (10) Spinal stenosis Status: Acute (11) UTI (urinary tract infection) Status: Acute (12) Weakness Status: Acute Review of Systems Constitutional: No fever Respiratory: + cough, No sputum, No dyspnea at rest, No hemoptysis Cardiac: No chest pain Abdomen: No pain, No constipation Neurologic: + weakness Objective Vital Signs Date Time Temp Pulse Resp B/P (MAP) Pulse Ox O2 Delivery O2 Flow Rate FiO2 08/18/17 20:00 Nasal Cannula 2.0 08/18/17 19:33 36.7 114 24 101/56 (71) 96 2.0 08/18/17 19:25 92 20 95 Nasal Cannula 2.0 08/18/17 16:15 Nasal Cannula 2.0 08/18/17 15:36 120 08/18/17 15:25 36.5 120 20 87/47 (60) 99 Nasal Cannula 2.0 08/18/17 14:32 88 20 97 Nasal Cannula 2.0 08/18/17 11:57 36.5 121 18 91/49 (63) 98 08/18/17 11:28 114 08/18/17 10:49 100 95 08/18/17 08:45 96 91/46 (61) 08/18/17 08:40 Nasal Cannula 2.0 08/18/17 08:11 36.4 120 17 101/47 (65) 98 08/18/17 08:00 98 Nasal Cannula 08/18/17 07:14 105 20 97 Nasal Cannula 2.0 08/18/17 04:26 36.5 118 16 98/55 (69) 98 Nasal Cannula 2.0 08/18/17 00:00 Nasal Cannula 2.0 08/17/17 23:45 36.4 128 16 94/56 (69) 98 Nasal Cannula 2.0 Physical Exam General Appearance: no apparent distress, + pertinent finding (coughing) ENT: + pertinent finding (MMM; I still don't see obvious thrush ; throat is clear) Neck: no JVD Respiratory/Chest: + decreased breath sounds (left upper lobe), + pertinent finding (no wheeze today; mild rales left lung) Cardiovascular: + tachycardia, + systolic murmur, + irregularly irregular Abdomen: normal bowel sounds, non tender, soft, no organomegaly Extremities: + pedal edema, + swelling (all 4 extremities ) Neurologic/Psychiatric: alert, oriented x 3, + depressed affect Skin: + pallor Laboratory Results Last 24 Hours Test 08/18/17 06:17 White Blood Count 3.17 K/uL Red Blood Count 3.08 M/uL Hemoglobin 8.7 g/dL Hematocrit 27.3 % Mean Corpuscular Volume 88.6 fL Mean Corpuscular Hemoglobin 28.2 pg Mean Corpuscular Hemoglobin Concent 31.9 g/dl RDW Standard Deviation 55.3 fL RDW Coefficient of Variation 17.1 % Platelet Count 83 K/uL Mean Platelet Volume 11.9 fL Erythrocyte Sedimentation Rate 31 mm/hr Sodium Level 133 mmol/L Potassium Level 4.9 mmol/L Chloride Level 105 mmol/L Carbon Dioxide Level 20 mmol/L Anion Gap 8.0 mmol/L Blood Urea Nitrogen 54 mg/dl Creatinine 1.06 mg/dl Est Creatinine Clear Calc Drug Dose 51.8 ml/min Estimated GFR () 77.5 Estimated GFR (Non- 66.9 BUN/Creatinine Ratio 50.8 Random Glucose 111 mg/dl Calcium Level 8.0 mg/dl Total Creatine Kinase 27 U/L C-Reactive Protein 7.44 mg/dl Vitamin B12 Level 1419 pg/mL Assessment and Plan 77yo male: 1. encephalopathy - resolved. MRI brain neg for stroke or evidence of lymphoma lesions. Cont seroquel at HS. 2. hyperkalemia - resolved. Trimethoprim may have caused such. This has been d/c. 3. acute hypoxic resp failure - likely multifactorial including LORETA pneumonia, COPD, worsening mass in left chest from lymphoma, acute diastolic CHF. Overall improved but remains o2 dependent and suspect he will need o2 at d/c. Completed abx course. 4. left upper lobe post-obstructive pneumonia - clinically resolved. 5. acute diastolic CHF - resolved. 6. COPD with exacerbation - resolved. Cont nebs. Cont decadron and supportive care. 7. recurrent follicular lymphoma - appreciate heme/onc and rad onc consultations. Completed 10 fractions of XRT to left hilar mass c/o Dr. Zavala. Very poor prognosis in light of multiple cardio-pulmonary comorbidities, progressive disease, poor functional status, etc. New bony mets to T/L-spine. Dr. Diggs aware. 8. Severe sepsis POA, due to pneumonia - resolved. 9. acute kidney injury in setting of CKD stage 2-3 - MACRINA resolved. 10. a. fib - rates are poor. BPs often too low for cardizem. Although not the greatest candidate for digoxin will give him 2 loads of 0.25mg IV today. Then start 0.125mg daily by mouth tomorrow. Reduce dose of cardizem to 120mg if BP can tolerate but doubt such. 11. pancytopenia - due to follicular lymphoma; CBC remains acceptable for now. 12. DVT, LUE - eliquis 5mg BID. Also for a. fib. 13. depression - started lexapro 5mg daily 08/14/17. Consider increase to 10mg in 1 week. 14. hypothyroidism - TSH compensated; continue synthroid 75mcg. 15. thrush - completed course of diflucan - resolved. c/o sore throat - nothing obvious in the oral cavity now - magic mouthwash QID. 16. constipation - resolved; cont bowel regimen. 17. LE weakness - due to severe spinal stenosis and severe deconditioning. Brain MRI without a specific etiology for weakness. Neurology has seen. Leptomeningeal spread of lymphoma is possible but unlikely and LP to be deferred. L-spine MRI without cord compression from lymphoma mets. 18. UTI proph - patient takes TMP chronically for UTI prophy. Since TMP likely caused increase in K will d/c and change to macrobid 100mg daily. 19. severe protein calorie malnutrition - ongoing. steroids may help appetite. treating depression may help appetite. remains on boost but often refuses it. Multiple discussions held this past weekend with patient, his , children, other family. had Informal meeting with Dr. Diggs, patient, his , daughter, and myself. We discussed disposition - pt/family ok with not pursuing [facility] and instead going for SNF Dr. Diggs also stated patient would need to be stronger to resume rituxan for his lymphoma; thus, this is on hold Dr. Diggs again discussed code status - he still wishes to be full code today discussed having a palliative care consult patient/ ok with that - they request the meeting tomorrow so daughter can attend [facility] from palliative care aware dispo - SNF at [facility] Continued [facility] stay due to: abnormal vital signs, inadequate po fluid intake, voiding difficulties, ambulation difficulties, multiple IV medications needed, home environment unsafe for pt, other (weakness of legs ) Discharge planning: [facility] facility (vs inpatient rehab)
[2017-08-19] VITALS (10 sets, daily range): BP systolic 86–133; BP diastolic 49–68; PULSE 69–123; TEMP 36.3–36.6; O2SAT 93–100
[2017-08-19] MEDS: LEVALBUTEROL 1.25MG/0.5ML NEB INH SCH ×4 (02:10→19:10)
[2017-08-19] MEDS: IPRATROPIUM BROMIDE NEB SOLN 0.02% 2.5 ML VIAL INH SCH ×4 (02:10→19:10)
[2017-08-19] MEDS: GUAIFENESIN SUGAR FREE 200 MG/10 ML UDC PO SCH ×4 (04:00→20:31)
[2017-08-19] MEDS: DEXAMETHASONE CONC SOLN 3.75 MG, NYSTATIN SUSP 30 ML, DiphenhydrAMINE HCL SYRUP 300 MG,... PO SCH ×20 (05:43→20:31)
[2017-08-19] MEDS: LEVOTHYROXINE 75 MCG TAB PO SCH (05:43)
[2017-08-19 06:30] LABS: HEMATOCRIT 25.9 % (42-52); HEMOGLOBIN 8.4 g/dL (14.0-18.0); MEAN CORPUSCULAR HEMOGLOBIN 28.9 pg (25-34); MEAN CORPUSCULAR HGB CONC 32.4 g/dl (32-36); WHITE BLOOD COUNT 2.65 K/uL (4.8-10.8)
[2017-08-19 06:34] LABS: MEAN PLATELET VOLUME 11.5 fL (7.4-10.4); PLATELET COUNT 73 K/uL (130-400)
[2017-08-19 06:54] LABS: CALCIUM 8.5 mg/dl (8.5-10.1); CREATININE 0.95 mg/dl (0.60-1.40); POTASSIUM 4.7 mmol/L (3.5-5.1)
[2017-08-19] MEDS: SENNA 8.6 MG TAB PO SCH ×2 (07:57→08:00)
[2017-08-19] MEDS: BOOST VANILLA PO SCH ×3 (07:57→17:27)
[2017-08-19] MEDS: NITROFURANTOIN MONOHYDRATE 100 MG CAP PO SCH (07:58)
[2017-08-19] MEDS: ESCITALOPRAM OXALATE 10 MG TAB PO SCH (07:58)
[2017-08-19] MEDS: DILTIAZEM HCL 120 MG CAPCR PO SCH (07:58)
[2017-08-19] MEDS: FINASTERIDE 5 MG TAB PO SCH (07:59)
[2017-08-19] MEDS: POLYETHYLENE (MIRALAX) 17 GM PACK PO SCH (08:00)
[2017-08-19] MEDS: ASCORBIC ACID 500 MG TAB PO SCH (08:00)
[2017-08-19] MEDS: APIXABAN 2.5 MG TAB PO SCH ×2 (08:00→20:34)
[2017-08-19] MEDS: DEXAMETHASONE 4 MG TAB PO SCH (08:01)
[2017-08-19] MEDS: PrednisoLONE ACET 1% OP SUSP 5 ML BTL OPL SCH (08:01)
[2017-08-19] MEDS: ONDANSETRON INJ 2 MG/ML 2 ML VIAL IV PRN (12:33)
--- NOTE | 2017-08-19 13:35 | Palliative Care Consultation ---
Consultation Date of Consultation: Aug 19, 2017. Requesting Physician: Dr. Galarza Attending Physician: Dr. Bella Reason for Consultation: Goals of care History of Present Illness This 77 year old male patient with PMH progressive non-Hodgkin's lymphoma, COPD , htn, moderate aortic stenosis, CKD stage III, and others listedbelow, presented to the hospital 19 days ago with c/o cough, weakness and SOB. CXR showed left mid lung pneumonia- has now completed course of abx. His hospital stay has been complicated by progressive weakness, edema, pancytopenia/anemia, malnutrition, and poor respiratory status. He has been here almost three weeks and has not seemed to progress as far as strength, but instead has continued to decline. Palliative care is now consulted to assist with establishing goals of care. I met with the patient, his Tresa, and daughter in room 409. Patient is tired, but awake, alert and oriented. Of note, when I spoke with him briefly yesterday, patient stated to me "I'm tired. I'm done fighting, I just want to be comfortable." Today, we discussed his medical conditions and goals of care. Patient is now stating that he does want to try rehab at SNF and wants to "get stronger." However, he stated that if things worsen or if another acute event occurs, he does not want to come back to the hospital and would just want to be made comfortable at that point. , Tresa, expressed some discontentment with that decision. She stated, "He just needs encouragement." We had a long discussion about how extensive Mr. Hardy' cancer is on top of his multiple other comorbidities; and the fact that he may be reaching the point that his quality of life may be better if he focused on comfort instead of coming back and forth to hospital. Patient's daughter stated that she feels patient is "telling us what he thinks we want to hear," when he says he wants to get stronger. We did discuss the option of hospice care if patient continues to decline once he gets to SNF, all family was in agreement that hospice would be a good idea when he reached that point. Past Medical/Surgical History Medical History: CKD stage III Moderate aortic stenosis COPD Htn Non-Hodgkin's Lymphoma Anemia Cholelithiasis/cholecystitis UTI Spinal stenosis Social History Smoking Status: Current Every Day Smoker (less than a ppd) History of Alcohol Use: No Drug Use: none Marital Status: Housing Status: lives with family Occupation Status: retired Review of Systems Constitutional: + weakness, + fatigue, No fever, No chills ENT: No trouble swallowing Respiratory: + dyspnea on exertion, No cough, No dyspnea at rest Cardiac: + edema, No chest pain Abdomen: + nausea, + problem reported (moves bowels daily), No pain, No vomiting Male : No problem reported Psychiatric: No anxiety Allergies Coded Allergies: Gabapentin (Verified Adverse Reaction, Intermediate, unknown, 07/31/17) Patient's stated patient "developed signs of a heart attack w/ use of gabapentin". Medications Current Inpatient Medications Medications (Trade) Dose Ordered Sig/Hari Route Start Time Stop Time Status Last Admin Dose Admin Acetaminophen (Tylenol Tab) 650 mg Q4H PRN PO 07/31/17 14:45 08/30/17 14:44 08/11/17 07:54 650 MG Al Hydrox/Mg Hydrox/Simethicone (Maalox Max Susp) 15 ml Q4H PRN PO 07/31/17 14:45 08/30/17 14:44 Magnesium Hydroxide (Milk Of Magnesia Susp) 30 ml Q12H PRN PO 07/31/17 14:45 08/30/17 14:44 Ondansetron HCl (Zofran Inj) 4 mg Q6H PRN IV 07/31/17 14:45 08/30/17 14:44 08/19/17 12:33 4 MG Ipratropium Gorin (Atrovent 0.02% 0.5MG/2.5ML Neb) 0.5 mg Q6R INH 07/31/17 21:00 08/30/17 20:59 08/19/17 07:22 0.5 MG Levalbuterol (Xopenex 1.25MG/ 0.5ML Neb) 1.25 mg Q6R INH 07/31/17 21:00 08/30/17 20:59 08/19/17 07:22 1.25 MG Latanoprost (Xalatan Oph Soln) 1 drops HS OPB 07/31/17 21:00 08/30/17 20:59 08/18/17 20:25 1 DROPS Heparin Sodium (Porcine) (Heparin 100 Unit/ml 5ml Flush) 5 ml PRN PRN IV 08/01/17 07:45 08/31/17 07:44 08/19/17 12:33 5 ML Enteral Nutritional Formula (Boost) 1 can TIDM PO 08/02/17 07:30 09/01/17 07:29 08/19/17 07:57 1 CAN Prednisolone Acetate (Pred Forte 1% Oph Susp) 1 drops DAILY OPL 08/05/17 09:00 09/04/17 08:59 08/19/17 08:01 1 DROPS Polyethylene (Miralax Powder Packet) 17 gm DAILY PO 08/05/17 11:45 08/30/17 14:44 08/17/17 07:33 17 GM Levothyroxine Sodium (Synthroid Tab) 75 mcg DAILYBB PO 08/07/17 06:00 09/06/17 05:59 08/19/17 05:43 75 MCG Ascorbic Acid (Vitamin C Tab) 500 mg DAILY PO 08/10/17 09:00 09/09/17 08:59 08/19/17 08:00 500 MG Finasteride (Proscar Tab) 5 mg DAILY PO 08/10/17 09:00 09/09/17 08:59 08/19/17 07:59 5 MG Quetiapine Fumarate (seroQUEL TAB) 25 mg HS PO 08/09/17 21:00 09/08/17 20:59 08/18/17 20:26 25 MG Escitalopram Oxalate (Lexapro Tab) 5 mg QAM PO 08/15/17 08:00 09/14/17 07:59 08/19/17 07:58 5 MG Bisacodyl (Dulcolax Tab) 5 mg DAILY PRN PO 08/15/17 18:30 09/14/17 18:29 Guaifenesin (Robitussin Sugar Free Syrup) 100 mg Q6H PO 08/16/17 10:00 08/30/17 09:59 08/18/17 08:34 100 MG Senna (Senokot Tab) 17.2 mg QAM PO 08/17/17 08:00 09/16/17 07:59 08/18/17 08:31 17.2 MG Apixaban (Eliquis Tab) 5 mg BID PO 08/17/17 12:15 09/16/17 12:14 08/19/17 08:00 5 MG Nitrofurantoin Macrocrystals (Macrobid Cap) 100 mg QAM PO 08/18/17 08:00 09/17/17 07:59 08/19/17 07:58 100 MG Dexamethasone (Decadron Tab) 4 mg BID PO 08/17/17 20:00 09/16/17 19:59 08/19/17 08:01 4 MG Dexamethasone/ Nystatin/ Diphenhydramine HCl/Sucrose/ Microcrystalline Cellulose/Barcode ACHS PO 08/17/17 12:45 09/16/17 12:44 08/18/17 11:27 5 ML Benzonatate (Tessalon Perles Cap) 100 mg Q8H PRN PO 08/18/17 11:30 09/17/17 11:29 Diltiazem HCl (Cardizem Cd Cap) 120 mg QAM PO 08/19/17 08:00 09/10/17 08:59 Digoxin (Lanoxin Tab) 0.125 mg DAILY@16 PO 08/19/17 16:00 09/18/17 15:59 Physical Exam Date Time Temp Pulse Resp B/P (MAP) Pulse Ox O2 Delivery O2 Flow Rate FiO2 08/19/17 11:20 36.6 102 19 95/57 (70) 98 Nasal Cannula 2.0 Humidified Oxygen 08/19/17 08:15 Nasal Cannula 2.0 08/19/17 08:00 36.3 116 20 86/49 (61) 99 Nasal Cannula 1.0 08/19/17 07:24 78 18 93 Nasal Cannula 2.0 08/19/17 03:32 36.3 123 20 97/60 (72) 99 Nasal Cannula 2.0 08/19/17 00:35 Nasal Cannula 2.0 08/18/17 23:30 36.3 120 20 94/59 (71) 97 Nasal Cannula 1.0 08/18/17 20:00 Nasal Cannula 2.0 08/18/17 19:33 36.7 114 24 101/56 (71) 96 2.0 08/18/17 19:25 92 20 95 Nasal Cannula 2.0 08/18/17 16:15 Nasal Cannula 2.0 08/18/17 15:36 120 08/18/17 15:25 36.5 120 20 87/47 (60) 99 Nasal Cannula 2.0 08/18/17 14:32 88 20 97 Nasal Cannula 2.0 General Appearance: no apparent distress, + pertinent finding (chronically ill- appearing; anasarca) ENT: hearing grossly normal Neck: supple, no JVD Respiratory: no respiratory distress, no accessory muscle use, + decreased breath sounds, + pertinent finding (NC) Cardiovascular: regular rate, rhythm, + normal peripheral pulses, + pertinent finding (widespread edema/anasarca) Abdomen: normal bowel sounds, non tender, soft Neurologic/Psychiatric: alert, normal mood/affect, oriented x 3 Laboratory Results Last 24 Hours Test 08/19/17 05:15 White Blood Count 2.65 K/uL Red Blood Count 2.91 M/uL Hemoglobin 8.4 g/dL Hematocrit 25.9 % Mean Corpuscular Volume 89.0 fL Mean Corpuscular Hemoglobin 28.9 pg Mean Corpuscular Hemoglobin Concent 32.4 g/dl RDW Standard Deviation 56.0 fL RDW Coefficient of Variation 17.0 % Platelet Count 73 K/uL Mean Platelet Volume 11.5 fL Sodium Level 135 mmol/L Potassium Level 4.7 mmol/L Chloride Level 104 mmol/L Carbon Dioxide Level 19 mmol/L Anion Gap 11.0 mmol/L Blood Urea Nitrogen 58 mg/dl Creatinine 0.95 mg/dl Est Creatinine Clear Calc Drug Dose 57.8 ml/min Estimated GFR () 88.5 Estimated GFR (Non- 76.4 BUN/Creatinine Ratio 60.7 Random Glucose 101 mg/dl Calcium Level 8.5 mg/dl Assessment & Plan Problem list: Generalized weakness Deconditioning Nausea GARCIA Progressive NHL Severe spinal stenosis without cord compression Acute respiratory failure- improved Pancytopenia Anemia Sever sepsis- resolved Left sided pneumonia- completed course abx- cleared according to CXR report Afib Depression Hypothyroidism Thrush Malnutrition/hypoalbuminemia Goals of care Palliative care recs: -Did discuss code status in detail. Patient wishes to remain a full code at this time. I did express my concern to him and the family that there may not be a good outcome to CPR/intubation. They will continue to discuss. -Patient wishes to try rehab at SNF upon discharge, although he has not made any progress or given much effort with our therapists here. I suspect that he may just continue to decondition and dwindle when he gets to SNF, which we did talk about. Patient states that if he does continue to decline or if another acute episode occurred, he would not want to come to hospital for life- sustaining treatment at that time and would want to be made comfortable. -We discussed pursuing hospice at that point, patient and family are in agreement. -They are aware that patient cannot resume systemic therapy unless he made marked improvements as far as strength and performance status. I do not know how likely that would be at this point given patient's extensive lymphoma, multiple comorbidities, and his lack of motivation. They agree this is less likely to happen at this point. -There seems to be some disconnect among the family and patient as far as goals of care and with communication. When I spoke to patient separately, then with his and daughter separately, there are conflicting messages. Patient has voiced to myself and to nursing staff privately that he wants to be made comfortable. I encouraged patient and his family to have conversation about this and be open/supportive with each other. Ultimately, we need to do whatever will give the patient the best quality of life, which is up to him. Thank you kindly for this consult. I will follow as needed.
[2017-08-19] MEDS ORDERED: DIGOXIN 0.125 MG TAB PO SCH (16:00)
--- NOTE | 2017-08-19 19:06 | Progress Note ---
Subjective Date of Service: Aug 19, 2017. Subjective pt is lethargic and weak, we had a prolonged bedside discussion regarding his direction and plan of care and also DNR status, he states he needs to keep trying for his family but inside feels weak and does not want to go on. We discussed that without some inner drive he will not be as successful at if he was more determined . We discussed his code status, he confirmed that he wanted to be DNR. I offered to address depression pain or appetite, he stated that he was ok with regard to this and will think about it overnight Problem List Medical Problems: (1) Atrial flutter Status: Acute (2) CHF (congestive heart failure) Status: Acute (3) Febrile neutropenia Status: Acute (4) Hypotension Status: Acute (5) Immunocompromised Status: Acute (6) Low back pain Status: Acute (7) PNA (pneumonia) Status: Acute (8) Sepsis Status: Acute (9) Sepsis Status: Acute (10) Spinal stenosis Status: Acute (11) UTI (urinary tract infection) Status: Acute (12) Weakness Status: Acute Review of Systems Constitutional: + weakness, + fatigue, No fever, No chills Respiratory: No cough, No shortness of breath Cardiac: No chest pain, No edema Abdomen: + nausea, No pain, No vomiting Musculoskeletal: + joint pain, + muscle pain Neurologic: + weakness, No memory loss, No paralysis Psychiatric: + depression symptoms, + anhedonism Objective Vital Signs Date Time Temp Pulse Resp B/P (MAP) Pulse Ox O2 Delivery O2 Flow Rate FiO2 08/19/17 08:00 36.3 116 20 86/49 (61) 99 Nasal Cannula 1.0 08/19/17 07:24 78 18 93 Nasal Cannula 2.0 08/19/17 03:32 36.3 123 20 97/60 (72) 99 Nasal Cannula 2.0 08/19/17 00:35 Nasal Cannula 2.0 08/18/17 23:30 36.3 120 20 94/59 (71) 97 Nasal Cannula 1.0 08/18/17 20:00 Nasal Cannula 2.0 08/18/17 19:33 36.7 114 24 101/56 (71) 96 2.0 08/18/17 19:25 92 20 95 Nasal Cannula 2.0 08/18/17 16:15 Nasal Cannula 2.0 08/18/17 15:36 120 1/23/18 15:25 36.5 120 20 87/47 (60) 99 Nasal Cannula 2.0 08/18/17 14:32 88 20 97 Nasal Cannula 2.0 08/18/17 11:57 36.5 121 18 91/49 (63) 98 08/18/17 11:28 114 08/18/17 10:49 100 95 Physical Exam General Appearance: WD/WN, + moderate distress Eyes: normal inspection, sclerae normal Neck: supple, no adenopathy Respiratory/Chest: chest non-tender, + decreased breath sounds, + accessory muscle use Cardiovascular: regular rate, rhythm, + systolic murmur Abdomen: normal bowel sounds, non tender, soft Extremities: + pedal edema, + swelling Neurologic/Psychiatric: alert, oriented x 3 Laboratory Results Last 24 Hours Test 08/19/17 05:15 White Blood Count 2.65 K/uL Red Blood Count 2.91 M/uL Hemoglobin 8.4 g/dL Hematocrit 25.9 % Mean Corpuscular Volume 89.0 fL Mean Corpuscular Hemoglobin 28.9 pg Mean Corpuscular Hemoglobin Concent 32.4 g/dl RDW Standard Deviation 56.0 fL RDW Coefficient of Variation 17.0 % Platelet Count 73 K/uL Mean Platelet Volume 11.5 fL Sodium Level 135 mmol/L Potassium Level 4.7 mmol/L Chloride Level 104 mmol/L Carbon Dioxide Level 19 mmol/L Anion Gap 11.0 mmol/L Blood Urea Nitrogen 58 mg/dl Creatinine 0.95 mg/dl Est Creatinine Clear Calc Drug Dose 57.8 ml/min Estimated GFR () 88.5 Estimated GFR (Non- 76.4 BUN/Creatinine Ratio 60.7 Random Glucose 101 mg/dl Calcium Level 8.5 mg/dl Assessment and Plan 77yo male metabolic encephalopathy from post obstructive pneumonia poa, concern for progressive lymphoma; prolonged hospital stay and now marked deconditioning and frequent refusal of PT, there has been some palliative care discussion but no confirmed direction encephalopathy - resolved acute hypoxic resp failure - likely multifactorial including pneumonia, COPD, worsening mass in left chest from lymphoma, acute diastolic CHF. continues with improved aeration with XRT and antibiotics, Pulmonary eval feels cannot offer improvement given size of obstructed airway would be too small to stent, left upper lobe post-obstructive pneumonia - completed course of levaquin, now on bactrim for urinary issues . recurrent follicular lymphoma, Progressive Lymphoma, imaging of spine performed discovers some new and worsened sites of cancer. - appreciate heme/ onc and rad onc consultations acute diastolic CHF - resolved; lasix d/c. a. fib - variable rate control and lower blood pressure prevents increasing diltiazem, added digoxin 08/18 cont eliquis. Cardiology following. COPD with exacerbation resolved mucinex, nebs, steroids, followed by pulmonary tapered decadron to 4mg once daily acute kidney injury in setting of CKD stage 2-3 - MACRINA resolved. seems to have baseline around 1.5 abnormal peripheral smear - did not confirm anaplasmosis by testing frequent recurrent UTI, now on macrobid pancytopenia - likely from follicular lymphoma; DVT proph - eliquis BID. left hand swelling, this is the side of XRT, U/s shows only "probable" small left brachial vein non occlusive thrombus, will continue eliquis and support, hand swelling has improved with local measures hypothyroidism - TSH compensated; continue synthroid 75mcg. thrush - diflucan constipation - dulcolax suppos x 1. prognosis is very poor in light of complicated medical issues and recurrent lymphoma code status discussed with patient by Dr. Diggs - patient continues to wishes to remain full code for now Continued [facility] stay due to: abnormal vital signs, inadequate po fluid intake, voiding difficulties, ambulation difficulties, multiple IV medications needed, home environment unsafe for pt, other (weakness of legs ) Discharge planning: snf facility (vs inpatient rehab)
[2017-08-19] MEDS: QUETIAPINE FUMARATE 25 MG TAB PO SCH (20:33)
[2017-08-19] MEDS: LATANOPROST 0.005% OP SOLN 2.5 ML BTL OPB SCH (20:33)
[2017-08-20] MEDS: IPRATROPIUM BROMIDE NEB SOLN 0.02% 2.5 ML VIAL INH SCH ×4 (02:09→19:11)
[2017-08-20] MEDS: LEVALBUTEROL 1.25MG/0.5ML NEB INH SCH ×4 (02:09→19:12)
[2017-08-20] MEDS: GUAIFENESIN SUGAR FREE 200 MG/10 ML UDC PO SCH ×2 (04:00→08:07)
[2017-08-20 04:02] VITALS: BP 100/55; PULSE 114; TEMP 36.3; O2SAT 98
[2017-08-20] MEDS: ONDANSETRON INJ 2 MG/ML 2 ML VIAL IV PRN ×2 (04:43→17:27)
[2017-08-20] MEDS: LEVOTHYROXINE 75 MCG TAB PO SCH (06:06)
[2017-08-20] MEDS: DEXAMETHASONE CONC SOLN 3.75 MG, NYSTATIN SUSP 30 ML, DiphenhydrAMINE HCL SYRUP 300 MG,... PO SCH ×20 (06:06→21:00)
[2017-08-20 07:43] VITALS: BP 106/58; PULSE 125; TEMP 36.3; O2SAT 98
[2017-08-20] MEDS: ASCORBIC ACID 500 MG TAB PO SCH (08:00)
[2017-08-20] MEDS: BOOST VANILLA PO SCH ×2 (08:00→09:39)
[2017-08-20] MEDS: FINASTERIDE 5 MG TAB PO SCH (08:00)
[2017-08-20] MEDS: POLYETHYLENE (MIRALAX) 17 GM PACK PO SCH (08:01)
[2017-08-20] MEDS: NITROFURANTOIN MONOHYDRATE 100 MG CAP PO SCH (08:03)
[2017-08-20] MEDS: DILTIAZEM HCL 120 MG CAPCR PO SCH (08:04)
[2017-08-20] MEDS: SENNA 8.6 MG TAB PO SCH (08:04)
[2017-08-20] MEDS: DEXAMETHASONE 4 MG TAB PO SCH (08:05)
[2017-08-20] MEDS: ESCITALOPRAM OXALATE 10 MG TAB PO SCH (08:05)
[2017-08-20] MEDS: APIXABAN 2.5 MG TAB PO SCH (08:07)
[2017-08-20] MEDS: PrednisoLONE ACET 1% OP SUSP 5 ML BTL OPL SCH (08:07)
--- NOTE | 2017-08-20 08:57 | DIAGNOSTIC IMAGING REPORT ---
CHEST ONE VIEW PORTABLE HISTORY: Short of breath. COMPARISON: Chest 08/15/2017. FINDINGS: Advanced emphysema. Volume loss with interstitial opacities and a basilar airspace opacity within the left lung are again noted. Right lung remains clear. Suspect trace bilateral pleural effusions. Cervical spinal fusion hardware. The heart is normal in size. Left peripheral mid lung zone focal opacity has also slightly improved. This may represent central cavitation. Calcified granuloma within the right medial lung base. IMPRESSION: 1. Slight improved aeration within the peripheral left midlung zone airspace opacity. This may represent central cavitation. 2. Left lung interstitial opacities persist. 3. Trace bilateral pleural effusions. Electronically signed by: Von Rocha M.D. 08/20/2017 8:56 AM Dictated Date/Time: 08/20/2017 8:53 AM
[2017-08-20] MEDS ORDERED: SODIUM CHLORIDE 0.9% 1000ML 1,000 ML IV SCH (09:15)
[2017-08-20 11:21] VITALS: BP 92/55; PULSE 105; TEMP 36.3; O2SAT 98
[2017-08-20] MEDS ORDERED: MoRPHine SULFATE 2 MG/ML CARP IV PRN (11:30)
[2017-08-20] MEDS ORDERED: MoRPHine SULFATE 5 MG/0.25 ML UDP PO PRN (11:30)
[2017-08-20] MEDS ORDERED: LORAZEPAM 2 MG/ML 1 ML VIAL IV PRN ×2 (11:30)
[2017-08-20] MEDS ORDERED: SCOPOLAMINE 1.5 MG TDSY TD SCH (11:30)
[2017-08-20] MEDS ORDERED: OXYCODONE HCL SOLN 5 MG/5 ML UDC PO PRN (11:30)
[2017-08-20] MEDS ORDERED: LORAZEPAM INJ 1 MG in SYRINGE 0.5 ML IV PRN (11:45)
[2017-08-20] MEDS ORDERED: LORAZEPAM INJ 0.5 MG in SYRINGE 0.75 ML IV PRN (11:45)
--- NOTE | 2017-08-20 13:47 | Palliative Care Progress Note ---
Palliative Care Progress Note Date of Service Aug 20, 2017. Subjective Pt evaluation today including: conversation w/ patient, conversation w/ family ( and son), physical exam, chart review, conversation w/ intelligence consultant (Dr. Bella) -Saw patient this morning around 0900. He is more SOB today, appears tired and worn out. Lethargic, tachycardic, and hypotensive. CXR obtained which shows persistent disease of the left lung but no worsening. -Patient feeling nauseated on/off. - arrived as Dr. Bella and I were speaking with patient. We again discussed goals of care. Patient was undecided and wanted some time to talk it over with his family before Dr. Bella ordered any further meds or testing. -A while later, patient stated he wants to transition to comfort measures only. Family aware and in agreement. Review of Systems Constitutional: + weakness, + fatigue ENT: No trouble swallowing Respiratory: + cough (moist), + shortness of breath, No sputum Cardiac: + edema, No chest pain Abdomen: + nausea, No pain, No vomiting Male : No problem reported Psychiatric: No depression symptoms, No anxiety Objective Vital Signs Date Time Temp Pulse Resp B/P (MAP) Pulse Ox O2 Delivery O2 Flow Rate FiO2 08/20/17 11:21 36.3 105 22 92/55 (67) 98 Nasal Cannula 4.0 08/20/17 09:30 Nasal Cannula 2.0 08/20/17 07:43 36.3 125 20 106/58 (74) 98 Nasal Cannula 3.0 08/20/17 04:02 36.3 114 20 100/55 (70) 98 Nasal Cannula 1.0 08/20/17 00:41 Nasal Cannula 2.0 08/19/17 23:47 36.3 119 20 108/68 (81) 98 Nasal Cannula 2.0 08/19/17 19:16 36.3 104 20 95/58 (70) 100 Nasal Cannula 1.0 08/19/17 19:10 103 21 98 Nasal Cannula 2.0 08/19/17 16:00 98 Nasal Cannula 3.0 08/19/17 15:37 68 08/19/17 15:23 36.3 69 17 133/64 (87) 98 Nasal Cannula 2.0 08/19/17 14:33 97 20 98 Nasal Cannula 2.0 Physical Exam General Appearance: no apparent distress, + pertinent finding (chronically ill appearing. severely deconditioned) ENT: hearing grossly normal Neck: supple, no JVD Respiratory/Chest: no respiratory distress, + accessory muscle use, + pertinent finding (mildly dyspneic/tachypneic; remains on 3.5LNC) Cardiovascular: + tachycardia, + normal peripheral pulses, + pertinent finding (generalized anasarca) Abdomen: normal bowel sounds, non tender, soft Neurologic/Psychiatric: normal mood/affect, oriented x 3, + pertinent finding ( somewhat lethargic today) Skin: + jaundice Assessment and Plan Problem list: Generalized weakness Deconditioning Nausea GARCIA Progressive NHL Severe spinal stenosis without cord compression Acute respiratory failure- improved Pancytopenia Anemia Sever sepsis- resolved Left sided pneumonia- completed course abx- cleared according to CXR report Afib Depression Hypothyroidism Thrush Malnutrition/hypoalbuminemia Goals of care Palliative care recs: discussed with patient, family and Dr. Bella. -Comfort measures only. -Would start with Roxanol 5-10mg PO/SL Q3h PRN pain or SOB. -Patient having trouble taking PO medications- reasonable to just discontinue pills at this point. -Lorazepam 1mg PO/SL Q4h PRN anxiety/agitation. -Scopolamine patch 1.5mg TD patch Q72h. Can add atropine drops if needed- 4 drops SL Q1h PRN secretions. -Discussed with patient's options for taking patient home on hospice vs. SNF with hospice. She is tearful and feeling a little overwhelmed today. She would like to wait until tomorrow to discuss. She initially had concerns about taking patient home and whether or not she could handle that. Now that patient is not going to be rehabbing or getting OOB, he may actually be easier to care for at home. Will discuss further tomorrow. I will continue to follow as needed.
[2017-08-20 14:59] VITALS: BP 97/59; PULSE 106; TEMP 36.5; O2SAT 99
[2017-08-20] MEDS: CHECK SCOPOLAMINE PATCH PLACEMENT SCH ×2 (15:55→23:39)
--- NOTE | 2017-08-20 17:11 | Progress Note ---
Subjective Date of Service: Aug 20, 2017. Subjective Patient is a much worse condition today is fatigued and tired he looks clinically jaundiced although no bilirubin serology was obtained. His family is at bedside and on prolonged discussion was held with his family present and with our palliative care nurse practitioner and practitioner available. After some time and some private discussion with family the patient voiced to me a desire to be comfort care and not pursue any additional aggressive testing or treatment of his progressive follicular lymphoma. Her privately discussed the possibility of him going home with his family on hospice do not sure they can handle at this time to this and I did inform the patient we are going to stop any medications that are treating ongoing problems other than medications directed at comfort he is agreeable to this Problem List Medical Problems: (1) Atrial flutter Status: Acute (2) CHF (congestive heart failure) Status: Acute (3) Febrile neutropenia Status: Acute (4) Hypotension Status: Acute (5) Immunocompromised Status: Acute (6) Low back pain Status: Acute (7) PNA (pneumonia) Status: Acute (8) Sepsis Status: Acute (9) Sepsis Status: Acute (10) Spinal stenosis Status: Acute (11) UTI (urinary tract infection) Status: Acute (12) Weakness Status: Acute Review of Systems Constitutional: + weakness, + fatigue, No fever, No chills Respiratory: + shortness of breath, + dyspnea on exertion Cardiac: + edema, No chest pain Abdomen: + nausea, + constipation, No pain, No vomiting Musculoskeletal: + joint pain, + muscle pain, + swelling Neurologic: + weakness, + balance problems Psychiatric: + depression symptoms, + anhedonism Objective Vital Signs Date Time Temp Pulse Resp B/P (MAP) Pulse Ox O2 Delivery O2 Flow Rate FiO2 08/20/17 16:00 Nasal Cannula 6.0 08/20/17 14:59 36.5 106 20 97/59 (72) 99 Nasal Cannula 4.0 08/20/17 11:21 36.3 105 22 92/55 (67) 98 Nasal Cannula 4.0 08/20/17 09:30 Nasal Cannula 2.0 08/20/17 07:43 36.3 125 20 106/58 (74) 98 Nasal Cannula 3.0 08/20/17 04:02 36.3 114 20 100/55 (70) 98 Nasal Cannula 1.0 08/20/17 00:41 Nasal Cannula 2.0 08/19/17 23:47 36.3 119 20 108/68 (81) 98 Nasal Cannula 2.0 08/19/17 19:16 36.3 104 20 95/58 (70) 100 Nasal Cannula 1.0 08/19/17 19:10 103 21 98 Nasal Cannula 2.0 Physical Exam General Appearance: WD/WN, + moderate distress Eyes: + abnormal sclerae exam Respiratory/Chest: + respiratory distress, + decreased breath sounds, + accessory muscle use Cardiovascular: + tachycardia, + systolic murmur Abdomen: soft, + guarding Extremities: + pedal edema, + swelling Neurologic/Psychiatric: alert, oriented x 3 Assessment and Plan 77yo male with resolved metabolic encephalopathy from post obstructive pneumonia poa, concern for progressive lymphoma; prolonged hospital stay and now has decided on comfort care measures with progression of lymphoma and concern for jaundice Comfort care is been enacted the patient will be on medications directed as such including intravenous morphine for pain anxiety controlled by Ativan and Zofran for nausea transdermal scopolamine has been applied. [facility] is following along with us. His previous encephalopathy has resolved acute hypoxic resp failure - this persists although his initial multifactorial including pneumonia, has improved is left chest continues to remain abnormal on x-ray. Pulmonary eval feels cannot offer improvement given size of obstructed airway would be too small to stent, left upper lobe post-obstructive pneumonia - completed course of levaquin. recurrent follicular lymphoma, Progressive Lymphoma, imaging of spine performed discovers some new and worsened sites of cancer. - appreciate heme/ onc and rad onc consultations, I spoke to him oncology today they feel that they would not offer any acute treatment given his general overall functional decline and lack of ability to withstand the treatment they're in agreement with comfort care measures acute diastolic CHF - resolved; lasix d/c. a. fib -patient remains a poor rate control due to poor by mouth intake and inability of medications in due to lower blood pressure we are stopping all rate controlling agents and anticoagulation at this time COPD is initially acute exacerbation is resolved we are only offering nebulizers for comfort acute kidney injury in setting of CKD stage 2-3 - MACRINA resolved. No longer be checking laboratories abnormal peripheral smear - did not confirm anaplasmosis by testing pancytopenia - from follicular lymphoma; prognosis is very poor in light of complicated medical issues and recurrent lymphoma code status discussed with patient he is now decided on being a DO NOT RESUSCITATE and will as mentioned above pursue comfort measures family is considering whether to transition to hospice as an inpatient or to be home on hospice. I spent an additional 40 minutes in addition to the normal daily visit today discussing this end-of-life situation with the patient the family the hospice providers the heme oncologist and I was called back on 2 occasions to continue this discussion with the family
[2017-08-20] MEDS ORDERED: NURSING VERBAL MED ORDER ONE (18:30)
[2017-08-20] MEDS: MoRPHine SULFATE 5 MG/0.25 ML UDP PO PRN (18:32)
[2017-08-20] MEDS: LATANOPROST 0.005% OP SOLN 2.5 ML BTL OPB SCH ×2 (21:00→21:07)
[2017-08-21] MEDS: LEVALBUTEROL 1.25MG/0.5ML NEB INH SCH ×4 (02:17→20:34)
[2017-08-21] MEDS: IPRATROPIUM BROMIDE NEB SOLN 0.02% 2.5 ML VIAL INH SCH ×4 (02:17→20:34)
[2017-08-21] MEDS: MoRPHine SULFATE 5 MG/0.25 ML UDP PO PRN (05:21)
[2017-08-21] MEDS: DEXAMETHASONE CONC SOLN 3.75 MG, NYSTATIN SUSP 30 ML, DiphenhydrAMINE HCL SYRUP 300 MG,... PO SCH ×20 (05:22→21:00)
[2017-08-21] MEDS: CHECK SCOPOLAMINE PATCH PLACEMENT SCH ×2 (07:30→15:23)
[2017-08-21] MEDS: DEXAMETHASONE 4 MG TAB PO SCH (08:00)
[2017-08-21] MEDS: PrednisoLONE ACET 1% OP SUSP 5 ML BTL OPL SCH (08:16)
--- NOTE | 2017-08-21 09:58 | Palliative Care Progress Note ---
Palliative Care Progress Note Date of Service Aug 21, 2017. Subjective Pt evaluation today including: conversation w/ family, physical exam, chart review, conversation w/ performance management consultant (Dr. Bella), review of inpatient medication list Pain: facial grimacing at times, periods of dyspnea PO Intake: minimal Voiding: carter catheter in place -Patient has had major decline overnight. -Very lethargic/encephalopathic today. -Urine output is dropping off. -Appears more jaundiced. -Family and patient decided on comfort measures only yesterday. Review of Systems unable to obtain due to AMS Objective Vital Signs Date Time Temp Pulse Resp B/P (MAP) Pulse Ox O2 Delivery O2 Flow Rate FiO2 08/21/17 03:50 Nasal Cannula 6.0 08/21/17 00:24 Nasal Cannula 6.0 08/20/17 16:00 Nasal Cannula 6.0 08/20/17 14:59 36.5 106 20 97/59 (72) 99 Nasal Cannula 4.0 08/20/17 11:21 36.3 105 22 92/55 (67) 98 Nasal Cannula 4.0 08/20/17 09:30 Nasal Cannula 2.0 Physical Exam General Appearance: no apparent distress ENT: hearing grossly normal Neck: supple, no JVD Respiratory/Chest: no respiratory distress, + decreased breath sounds, + pertinent finding (periods of dyspnea/tachypnea) Cardiovascular: + systolic murmur, + irregularly irregular, + normal peripheral pulses Abdomen: normal bowel sounds, soft Neurologic/Psychiatric: + pertinent finding (lethargic) Skin: + jaundice Assessment and Plan Problem list: Lethargy/encephalopathy Generalized weakness Deconditioning Nausea GARCIA Progressive NHL Severe spinal stenosis without cord compression Acute respiratory failure- improved Pancytopenia Anemia Sever sepsis- resolved Left sided pneumonia- completed course abx- cleared according to CXR report Afib Depression Hypothyroidism Thrush Malnutrition/hypoalbuminemia Goals of care Palliative care recs: -Comfort measures only. -Patient has markedly declined from yesterday. -Is now lethargic, likely encephalopathic. Could be from rising ammonia/liver failure. -Would discontinue Roxanol and keep IV morphine for patient's comfort. Has morphine 2-4mg IV Q4h PRN. Please increase to Q1h PRN pain or SOB. -Lorazepam 1mg IV Q4h PRN anxiety/agitation. -Scopolamine patch 1.5mg TD patch Q72h. Can add atropine drops if needed- 4 drops SL Q1h PRN secretions. -Given patient's rapid decline, not likely stable for transfer out of hospital. Will ask hospice agency to evaluate for [facility] hosp[facility]. case therapist aware. I will continue to follow as needed.
--- NOTE | 2017-08-21 16:59 | Progress Note ---
Subjective Date of Service: Aug 21, 2017. Subjective pt this pt is obtunded and not able to be awakened, family at bedside and updated, tearful. wants to have case management check into [facility] Problem List Medical Problems: (1) Atrial flutter Status: Acute (2) CHF (congestive heart failure) Status: Acute (3) Febrile neutropenia Status: Acute (4) Hypotension Status: Acute (5) Immunocompromised Status: Acute (6) Low back pain Status: Acute (7) PNA (pneumonia) Status: Acute (8) Sepsis Status: Acute (9) Sepsis Status: Acute (10) Spinal stenosis Status: Acute (11) UTI (urinary tract infection) Status: Acute (12) Weakness Status: Acute Review of Systems Constitutional: + problem reported (obtunded cannot obtain ROS, appears comfortable) Objective Vital Signs Date Time Temp Pulse Resp B/P (MAP) Pulse Ox O2 Delivery O2 Flow Rate FiO2 08/21/17 16:00 Nasal Cannula 6.0 08/21/17 08:00 Nasal Cannula 6.0 08/21/17 03:50 Nasal Cannula 6.0 08/21/17 00:24 Nasal Cannula 6.0 Physical Exam General Appearance: WD/WN, + moderate distress Respiratory/Chest: + decreased breath sounds, + accessory muscle use Cardiovascular: + tachycardia, + systolic murmur Abdomen: normal bowel sounds, soft Extremities: + pedal edema, + swelling Neurologic/Psychiatric: + pertinent finding (obtunded does have spontaneous movements but does not have purposeful responses) Assessment and Plan 77yo male now progressed to comfort care after suffering multiple issues related to his progressive follicular lymphoma, previously this stay did have resolution of metabolic encephalopathy from post obstructive pneumonia poa, concern for jaundice and progressive hepatic encephalopathy Comfort care is been enacted 08/20/17 and the patient will be on medications directed as such including intravenous morphine for pain anxiety controlled by Ativan and Zofran for nausea transdermal scopolamine has been applied. [facility] continues to assist in management acute hypoxic resp failure - this persists although his initial multifactorial including pneumonia, had improved. Pulmonary eval felt they could not offer improvement given size of obstructed airway would be too small to stent, left upper lobe post-obstructive pneumonia - completed course of levaquin. recurrent follicular lymphoma, Progressive Lymphoma, imaging of spine performed discovers some new and worsened sites of cancer. - appreciate heme/ onc and rad onc consultations, I spoke to him oncology they're in agreement with comfort care measures acute diastolic CHF / a. fib stopping all rate controlling agents and anticoagulation at this time COPD is initially acute exacerbation did resolve now only offering nebulizers for comfort acute kidney injury in setting of CKD stage 2-3 - abnormal peripheral smear - did not confirm anaplasmosis by testing pancytopenia - from follicular lymphoma; prognosis is very poor in light of complicated medical issues and recurrent lymphoma code status discussed with patient he decided on being a DO NOT RESUSCITATE
[2017-08-21] MEDS: LATANOPROST 0.005% OP SOLN 2.5 ML BTL OPB SCH (21:00)
[2017-08-22] VITALS: O2SAT 99
[2017-08-22] MEDS: DEXAMETHASONE CONC SOLN 3.75 MG, NYSTATIN SUSP 30 ML, DiphenhydrAMINE HCL SYRUP 300 MG,... PO SCH ×10 (05:05→06:54)
[2017-08-22] MEDS: DEXAMETHASONE 4 MG TAB PO SCH (06:54)
[2017-08-22] MEDS: PrednisoLONE ACET 1% OP SUSP 5 ML BTL OPL SCH (06:55)
[2017-08-22] MEDS: IPRATROPIUM BROMIDE NEB SOLN 0.02% 2.5 ML VIAL INH SCH (08:05)
[2017-08-22] MEDS: LEVALBUTEROL 1.25MG/0.5ML NEB INH SCH (08:05)
[2017-08-22] MEDS: MoRPHine SULFATE 4 MG/ML 1 ML CARP\\VIAL IV PRN ×2 (08:14→11:46)
[2017-08-22] MEDS: CHECK SCOPOLAMINE PATCH PLACEMENT SCH ×2 (08:14)
--- NOTE | 2017-08-22 11:18 | Progress Note ---
Subjective Date of Service: Aug 22, 2017. Subjective pt remains with comfort measures in place, family in room, pt is unresponsive but appears comfortable, says he gets restless with any physical contact but does not want to increase pain meds at this time Problem List Medical Problems: (1) Atrial flutter Status: Acute (2) CHF (congestive heart failure) Status: Acute (3) Febrile neutropenia Status: Acute (4) Hypotension Status: Acute (5) Immunocompromised Status: Acute (6) Low back pain Status: Acute (7) PNA (pneumonia) Status: Acute (8) Sepsis Status: Acute (9) Sepsis Status: Acute (10) Spinal stenosis Status: Acute (11) UTI (urinary tract infection) Status: Acute (12) Weakness Status: Acute Review of Systems Constitutional: + problem reported (obtunded cannot obtain ROS) Objective Vital Signs Date Time Temp Pulse Resp B/P (MAP) Pulse Ox O2 Delivery O2 Flow Rate FiO2 08/22/17 08:00 Nasal Cannula 6.0 08/22/17 00:00 99 Nasal Cannula 6.0 30 08/21/17 16:00 Nasal Cannula 6.0 Physical Exam General Appearance: + moderate distress, + pertinent finding (diffuse swelling not yet anasarca) Respiratory/Chest: + respiratory distress, + accessory muscle use Cardiovascular: + systolic murmur, + irregularly irregular Abdomen: normal bowel sounds, soft Assessment and Plan 77yo male now progressed to comfort care after suffering multiple issues related to his progressive follicular lymphoma, previously this stay did have resolution of metabolic encephalopathy from post obstructive pneumonia poa, concern for jaundice and progressive hepatic encephalopathy, pt became unresponsive 08/21- and remains so Comfort care is been enacted 08/20/17 and the patient is on medications directed as such including intravenous morphine for pain, anxiety controlled by Ativan and Zofran for nausea transdermal scopolamine. [facility] continues to assist in management. appears comfortable and family is at bedside. Previously this hospital stay: acute hypoxic resp failure - this persists now that his obtunded, although his initial multifactorial including pneumonia, had improved. Pulmonary eval felt they could not offer improvement given size of obstructed airway would be too small to stent, left upper lobe post-obstructive pneumonia - completed course of levaquin. recurrent follicular lymphoma, Progressive Lymphoma, imaging of spine performed discovers some new and worsened sites of cancer. - appreciate heme/ onc and rad onc consultations, they're in agreement with comfort care measures acute diastolic CHF / a. fib stopping all rate controlling agents and anticoagulation at this time COPD is initially acute exacerbation did resolve acute kidney injury in setting of CKD stage 2-3 - abnormal peripheral smear - did not confirm anaplasmosis by testing pancytopenia - from follicular lymphoma; prognosis is very poor in light of complicated medical issues and recurrent lymphoma code status discussed with patient he decided on being a DO NOT RESUSCITATE
--- NOTE | 2017-08-22 15:51 | Death Summary ---
Summary of Admission Date Jul 31, 2017 at 14:46 Date & Time of Aug 22, 2017. 1330 Cause of progressive follicular lymphoma Hospital Course 77yo male now progressed to comfort care after suffering multiple issues related to his progressive follicular lymphoma, previously this stay did have resolution of metabolic encephalopathy from post obstructive pneumonia poa, concern for jaundice and progressive hepatic encephalopathy, pt became unresponsive 08/21- Comfort care is been enacted 08/20/17 and the patient is on medications directed as such including intravenous morphine for pain, anxiety controlled by Ativan and Zofran for nausea transdermal scopolamine. [facility] continues to assist in management. Called by nursing as pt ceased to breath, family is at bedside, no spontaneous respirations or audible heart tones, pronounced at 1330 Previously this hospital stay: acute hypoxic resp failure - multifactorial including pneumonia, had improved. Pulmonary eval felt they could not offer improvement given size of obstructed airway would be too small to stent, left upper lobe post-obstructive pneumonia - completed course of levaquin. recurrent follicular lymphoma, Progressive Lymphoma, imaging of spine performed discovers some new and worsened sites of cancer. - appreciate heme/ onc and rad onc consultations, they're in agreement with comfort care measures acute diastolic CHF / a. fib COPD initial acute exacerbation did resolve acute kidney injury in setting of CKD stage 2-3 abnormal peripheral smear - did not confirm anaplasmosis by testing pancytopenia - from follicular lymphoma; prognosis being very poor in light of complicated medical issues and recurrent lymphoma code status discussed with patient he decided on being a DO NOT RESUSCITATE Time to care for patient was greater than 30 minutes as it included two visits, pronouncement of and certificate
--- NOTE | 2017-08-24 14:32 | Radiation Onc End of Treatmnt ---
End of Treatment Documentation Date Aug 24, 2017. Diagnosis (1) Lymphoma Stage: IV (Bone marrow involvement) History We are seeing Mr. Hardy in consultation at the request of Dr. Diggs. The patient was seen and examined in our department with his present at bedside. ECOG PS: 3 Mr. Hardy is a 77-year-old gentleman with a history of stage IV follicular lymphoma. The patient was initially diagnosed with lymphoma by a left groin biopsy in June 2015; the patient also had a bone marrow biopsy which also revealed bone marrow involvement. The patient has been previously treated with chemotherapy including Rituxan underneath the supervision of Dr. Harry Burks and Dr. Luis Diggs. His most recent staging studies were completed in June [address] of the chest/abdomen/pelvis on 07/09/2017 which revealed: " IMPRESSION: 1. Bulky left hilar as well as mid mediastinal adenopathy as described. 2. Pleural thickening and potential postobstructive/bronchiectatic change components of the lingula/left upper lobe. 3. 1.2 cm pleural-based nodule superior segment left lower lobe. 4. Moderate extrinsic narrowing left upper lobe pulmonary artery. 5. Potential developing hepatic metastatic disease.. 6. Mild stable splenomegaly. 1. Interval development of multiple (8- 10) suspicious hepatic lesions, new since 2016. These are most concerning for hepatic metastases. No lymphadenopathy or additional sites of metastatic disease in abdomen or pelvis. 2. Left upper lobe/lingular consolidation. Please see separately dictated CT of the chest for further details. 3. 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 4. Extensive atherosclerosis with luminal and adventitial contour irregularity of the infrarenal abdominal aorta. No evidence of aneurysm at this time." He was scheduled to receive Rituxan chemotherapy on 07/30/2017 however his blood counts were low again. In the interim, the patient was admitted to the hospital due to a progressively worsening cough associated with a pulmonary infiltrate in the left lung. The patient had a CT of the chest on 08/02/2017 which revealed: "IMPRESSION: 1. Increase in size of an infiltrative left hilar mass since CT of July 09, 2017. This is consistent with the history of lymphoma although other neoplastic etiologies could appear similar. This mass encases the left mainstem bronchus and left lower lobe bronchus and results in occlusion of the left upper lobe bronchus with significant increase in left upper lobe airspace opacity which favors extensive postobstructive pneumonia. Increase in size of several thoracic lymph nodes suggests progression of lymphoma. 2. Development of small bilateral pleural effusions with increase in left hemithorax pleural thickening which favors lymphomatous involvement. 3. Moderate increase in size and number of hypodense hepatic lesions since prior exam. Given the clinical history, hepatic involvement with lymphoma is favored although metastatic disease could appear similar. 4. Interval development of several pulmonary nodules which may reflect a neoplastic or infectious etiology. 5. Interlobular septal thickening which favors pulmonary edema. 6. Severe emphysema." We have been asked to evaluate the patient to consider palliative radiation therapy to the left hilar mass due to the back of the patient is not a good candidate for chemotherapy. Status post completion of palliative radiation therapy to the chest 08/17/2017 he received 3000 cGy. Physics Course Treatment Site [employer] Start Date End Date Elapsed Days # TX Daily Dose (cGy) Total Dose (cGy) C1- Chest 4-field 15X 08/04/2017 08/17/2017 14 10 300 3000 Do documented final doses agree with prescribed doses? Yes If not, explain: Is patients chart complete and accurate? Yes Systemic Therapy Yes, details noted below Rituximab was given prior to radiation therapy. This unfortunately caused a decrease in blood counts. This was then held. Additional Notes He completed his palliative course of radiation therapy. He was seen as an inpatient. He had been admitted and had received treatment with rituximab. He unfortunately had low blood counts. Was felt that chemotherapy could not be given and radiation was given for palliation to the large hilar mass. He had no complaints of dysphagia while on treatment. He did have shortness of breath that remain stable. Due to his generalized weakness his ECOG performance status remained low throughout therapy. He was able to complete the course of treatment. He unfortunately became more debilitated and on 08/22/2017. Pain Management He denied pain when evaluated in radiation therapy. Copies To Luis Diggs D.O.; Harry Ovalle M.D. Problem Qualifiers (1) Lymphoma: Lymphoma type: non-Hodgkin Non-Hodgkin lymphoma type: follicular Follicular lymphoma grade: grade I Lymphoma site: inguinal Qualified Codes: C82.05 - Follicular lymphoma grade i, lymph nodes of inguinal region and lower limb
== END 2017-08-22 15:31 | disposition expired | DRG 840 ==
LOC: C.EDB 10:43 → C.2T 14:46 → ENRESERV 14:55 → C.4E 08-11 15:29
PROVIDERS: ADMIT Internal Medicine; ATTEND Internal Medicine
DX: C82.90 Follicular lymphoma, unspecified, unspecified site (principal); A41.9 Sepsis, unspecified organism; J18.9 Pneumonia, unspecified organism; R65.20 Severe sepsis without septic shock; J96.01 Acute respiratory failure with hypoxia; I50.31 Acute diastolic (congestive) heart failure; G93.41 Metabolic encephalopathy; E43 Unspecified severe protein-calorie malnutrition; Z51.5 Encounter for palliative care; J44.0 Chronic obstructive pulmonary disease with (acute) lower respiratory infection; J44.1 Chronic obstructive pulmonary disease with (acute) exacerbation; N17.9 Acute kidney failure, unspecified; I48.92 Unspecified atrial flutter; L03.115 Cellulitis of right lower limb; L03.116 Cellulitis of left lower limb; I13.0 Hypertensive heart and chronic kidney disease with heart failure and stage 1 through stage 4 chronic kidney disease, or unspecified chronic kidney disease; D61.818 Other pancytopenia; B37.0 Candidal stomatitis; E22.2 Syndrome of inappropriate secretion of antidiuretic hormone; R17 Unspecified jaundice; K72.90 Hepatic failure, unspecified without coma; E87.5 Hyperkalemia; I48.91 Unspecified atrial fibrillation; K59.00 Constipation, unspecified; M48.061 Spinal stenosis, lumbar region without neurogenic claudication; Z66 Do not resuscitate; I35.0 Nonrheumatic aortic (valve) stenosis; N18.3 Chronic kidney disease, stage 3 (moderate); I25.2 Old myocardial infarction; I25.10 Atherosclerotic heart disease of native coronary artery without angina pectoris; E03.9 Hypothyroidism, unspecified; F17.200 Nicotine dependence, unspecified, uncomplicated; Z79.899 Other long term (current) drug therapy; Z79.82 Long term (current) use of aspirin; Z79.52 Long term (current) use of systemic steroids; Z92.21 Personal history of antineoplastic chemotherapy; Z87.440 Personal history of urinary (tract) infections; Z95.5 Presence of coronary angioplasty implant and graft